=== PATIENT | male | born 1940 | race Hispanic/Latino ===

== ENCOUNTER 2018-05-10 19:30 | Observation (INO) | payer MEDICARE ==
[2018-05-10 19:46] VITALS: BMI 31.9
--- NOTE | 2018-05-10 20:23 | ED PDOC ---
Arrival/HPI - General Chief Complaint: Shortness Of Breath Time Seen by Provider: 05/10/18 19:32 Historian: Patient - History of Present Illness Narrative History of Present Illness (Text): 05/10/18 20:24 78 year old male, with past medical history of ESRD, polycystic kidney disease, Atrial fibrillation, foot ulcer, recent septicemia, presents to the Emergency Department from [facility] complaining of minimally productive today. Patient informs associated mild shortness of breath and subjective fever but denies any other somatic complaints. Patient denies any nausea, vomiting, diarrhea, abdominal pain, chest pain, headache, dizziness, neck pain, back pain or any other complaints. Patient reports he is due for dialysis tomorrow. Time/Duration: 24 hours Symptom Onset: Gradual Symptom Course: Unchanged Activities at Onset: Light Context: Home Past Medical History - Provider Review Nursing Documentation Reviewed: Yes - Cardiac Hx Atrial Fibrillation: Yes Hx Cardiac Arrhythmia: Yes Hx Congestive Heart Failure: Yes Hx Internal Defibrillator: Yes Hx Pacemaker: Yes - Pulmonary Hx Pneumonia: Yes Hx Sleep Apnea: Yes (sleeps with CPAP) - HEENT Hx Deafness: Yes - Renal Hx Renal Disorder: Yes Hx Dialysis: Yes Type of Dialysis Access: R chest wall Hx Renal Failure: Yes - Endocrine/Metabolic Other/Comment: Thyroidectomy - Psychiatric Hx Substance Use: No - Surgical History Hx Thyroidectomy: Yes Other/Comment: nephrectomy - Anesthesia Hx Anesthesia: Yes Hx Anesthesia Reactions: No Family/Social History - Physician Review Nursing Documentation Reviewed: Yes Family/Social History: No Known Family HX Smoking Status: Never Smoked Hx Alcohol Use: No Hx Substance Use: No Allergies/Home Meds Allergies/Adverse Reactions: Allergies No Known Allergies Allergy (Verified 05/10/18 19:46) Home Medications: Home Meds Medication Instructions Recorded Confirmed Acetaminophen [Acetaminophen 8 650 mg PO Q6 PRN 05/10/18 05/10/18 Hour] Aspirin [Adult Aspirin] 81 mg PO DAILY 05/10/18 05/10/18 B Complex W-C No.20/Folic Acid 1 mg PO DAILY 05/10/18 05/10/18 [Nephrocaps Softgel] Benzonatate [Tessalon Perles] 100 mg PO BID 05/10/18 05/10/18 Bisacodyl [Ducolax] 10 mg RC HS PRN 05/10/18 05/10/18 Colchicine [Mitigare] 0.6 mg PO TTS 05/10/18 05/10/18 Collagenase [Santyl] 250 unit TP DAILY 05/10/18 05/10/18 Docusate [Colace] 100 mg PO BID 05/10/18 05/10/18 HYDROmorphone [Dilaudid] 4 mg PO TID 05/10/18 05/10/18 Hydromorphone HCl [Dilaudid] 4 mg PO Q6 PRN 05/10/18 05/10/18 Lactulose [Generlac] 10 gm PO Q8 PRN 05/10/18 05/10/18 Levothyroxine [Synthroid] 2 tab PO MWF 05/10/18 05/10/18 Polyethylene Glycol 3350 [Miralax] 30 ml PO DAILY PRN 05/10/18 05/10/18 Protein Hydrolysate,Milk [Liquid 30 ml PO BID 05/10/18 05/10/18 Protein Fortifier] RX: Albuterol Sulfate 2.5 mg IH Q4 PRN 05/10/18 05/10/18 RX: Amiodarone HCl 200 mg PO DAILY 05/10/18 05/10/18 RX: Hydrocortisone 2.5% 2.5 g TP BID PRN 05/10/18 05/10/18 RX: Midodrine HCl 10 mg PO DAILY 05/10/18 05/10/18 Sevelamer [Renagel] 800 mg PO DAILY 05/10/18 05/10/18 Tamsulosin HCl [Flomax] 0.4 mg PO DAILY 05/10/18 05/10/18 Temazepam [Restoril] 15 mg PO HS 05/10/18 05/10/18 Turmeric Root Extract [Turmeric] 500 mg PO BID 05/10/18 05/10/18 Venlafaxine [Effexor-XR] 37.5 mg PO DAILY 05/10/18 05/10/18 predniSONE [Prednisone] 10 mg PO DAILY 05/10/18 05/10/18 Review of Systems - Physician Review All systems were reviewed & negative as marked: Yes - Review of Systems Constitutional: Fevers Respiratory: SOB, Cough Cardiovascular: absent: Chest Pain Gastrointestinal: absent: Abdominal Pain, Diarrhea, Nausea, Vomiting Musculoskeletal: absent: Back Pain, Neck Pain Neurological: absent: Headache, Dizziness Physical Exam Vital Signs Reviewed: Yes Vital Signs Temp Pulse Resp BP Pulse Ox 05/10/18 19:46 98.1 F 65 20 105/61 97 Temperature: Afebrile Blood Pressure: Normal Pulse: Regular Respiratory Rate: Normal Appearance: Positive for: Well-Appearing, Non-Toxic, Comfortable Pain Distress: None Mental Status: Positive for: Alert and Oriented X 3 - Systems Exam Head: Present: Atraumatic, Normocephalic Pupils: Present: PERRL Extroacular Muscles: Present: EOMI Conjunctiva: Present: Normal Mouth: Present: Moist Mucous Membranes Neck: Present: Normal Range of Motion Respiratory/Chest: Present: Good Air Exchange, Rhonchi (scattered rhonchi bilaterally ). No: Respiratory Distress, Accessory Muscle Use Cardiovascular: Present: Normal S1, S2, Irregular Rhythm. No: Murmurs Abdomen: Present: Other (Globus abdomen). No: Tenderness, Distention, Peritoneal Signs Back: Present: Normal Inspection Upper Extremity: Present: Normal Inspection. No: Cyanosis, Edema Lower Extremity: Present: Other (Venous stasis chnages bilaterally. Ulcer noted to right ankle.). No: Edema, Cyanosis Neurological: Present: GCS=15, CN II-XII Intact, Speech Normal Skin: Present: Warm, Dry, Normal Color. No: Rashes Psychiatric: Present: Alert, Oriented x 3, Normal Insight, Normal Concentration Medical Decision Making ED Course and Treatment: 05/10/18 20:16 Impression: 78 year old male presents to the Emergency Department complaining of minimally productive cough, mild shortness of breath and subjective fever. Plan: -- VBG -- EKG -- Labs -- Chest X-ray -- Blood Culture -- Urinalysis -- Reassess and disposition Prior Visits: Notes and results from previous visits were reviewed. Progress Notes: 05/10/18 20:10 EKG: Ordered, reviewed, and independently interpreted the EKG. Interpretation : 100% paced rhythm. 05/10/18 20:41: Chest X-ray read and interpreted by me shows right lower lobe infiltrate. 05/10/18 22:06: Case discussed in detail with Dr. Coyle. Requests patient be admitted to the hospitalist's service. Discussed case with biomedical engineer and house physician who accept the patient to the hospitalist's service. 05/10/18 22:21: Case discussed in detail with biomedical engineer. 05/10/18 22:30: Case discussed in detail with Dr. Dye who accepts patient to the hospitalist's service. - RAD Interpretation Radiology Orders: 05/10/18 20:16 CHEST PORTABLE [RAD] Stat - Scribe Statement The provider has reviewed the documentation as recorded by the Scribe Flower Salvador. All medical record entries made by the Scribe were at my direction and personally dictated by me. I have reviewed the chart and agree that the record accurately reflects my personal performance of the history, physical exam, medical decision making, and the department course for this patient. I have also personally directed, reviewed, and agree with the discharge instructions and disposition. Disposition/Present on Arrival - Present on Arrival Any Indicators Present on Arrival: No History of DVT/PE: No History of Uncontrolled Diabetes: No Urinary Catheter: No History of Decub. Ulcer: Yes History Surgical Site Infection Following: None - Disposition Have Diagnosis and Disposition been Completed?: Yes Diagnosis: ESRD (end stage renal disease), Pneumonia Disposition: HOSPITALIZED Disposition Time: 22:11 Patient Problems: Current Active Problems Problem Status Onset ESRD (end stage renal disease) Acute Pneumonia Acute Condition: STABLE
[2018-05-10 20:34] LABS: VENOUS BLOOD GAS BASE EXCESS -0.5 mmol/L (0.0-2.0); VENOUS BLOOD GAS PO2 58 mm/Hg (30-55); VENOUS BLOOD PH 7.32 (7.32-7.43)
[2018-05-10 20:35] LABS: HEMOGLOBIN 11.1 g/dL (14.0-18.0); MEAN CELL VOLUME 89.5 fl (80.0-105.0); MEAN CORPUSCULAR HEMOGLOBIN 28.5 pg (25.0-35.0); MEAN CORPUSCULAR HGB CONC 31.9 g/dl (31.0-37.0); MEAN PLATELET VOLUME 10.9 fl (7.0-11.0); RBC 3.89 10^6/uL (3.5-6.1); RED CELL DISTRIBUTION WIDTH 18.1 % (11.5-14.5); WHITE BLOOD COUNT 11.1 10^3/ul (4.5-11.0)
[2018-05-10] MEDS ORDERED: Cefepime (Maxipime) 1 g Inj IVPB ONE (20:53)
[2018-05-10] MEDS ORDERED: Cefepime 1gm in NS 100ml 1 GM/100 ML BAG IVPB STA (20:56)
[2018-05-10] MEDS ORDERED: Vancomycin 1 gm/D5W 200 ml 200 ML IV STA (20:56)
[2018-05-10] MEDS ORDERED: Vancomycin 1gm in NS 250ml 1 GM/250 ML BAG IVPB STA (20:58)
[2018-05-10 21:04] LABS: INR 1.26; PARTIAL THROMBOPLASTIN TIME 30.8 Seconds (25.1-36.5); PROTHROMBIN TIME 14.4 SECONDS (9.4-12.5)
[2018-05-10 21:11] LABS: ALB/GLOB RATIO 1.1 (1.1-1.8); ALBUMIN 3.7 g/dL (3.0-4.8); CALCIUM 8.7 mg/dL (8.4-10.5)
[2018-05-10 21:23] LABS: TROPONIN I 0.08 ng/mL
--- NOTE | 2018-05-10 23:29 | CP.PCM.HP ---
Addendum entered and electronically signed by Anastacia Garcia DO 05/11/18 02:16: Pt does not use O2 at home. He only uses O2 in dialysis Original Note: <JoseAnastacia - Last Filed: 05/11/18 02:06> History of Present Illness - History of Present Illness History of Present Illness: PGY-[address] Dye CC: Worsening coughs, PNA Dr Morales, 78 M, with PMHx of A-fib not on AC, Systolic CHF with EF22%/AICD, ESRD (MWF), polycystic kidney disease, foot ulcer, recent septicemia, came from [facility] complaining of productive cough with yellowish sputum x 1 day. He had cough x 2 weeks, dry cough at first, later with sputum, hard to produce. (+) mild shortness of breath. (+) subjective fever. Denies any nausea, vomiting, diarrhea, abdominal pain, chest pain, headache, dizziness, neck pain, back pain or any other complaints. In the ED, VSS WBC 11, BUN/Cre 44/5.1, lactate 1.9 BNP [id number] EKG: paced rhythm. CXR: R lower lobe infiltrate. 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: Dr Coyle Present on Admission - Present on Admission Any Indicators Present on Admission: Yes Decubitus Ulcer Present: Yes Decubitus Ulcer Stage: II Past Patient History - Past Social History Smoking Status: Never Smoked - CARDIAC Hx Atrial Fibrillation: Yes Hx Cardia Arrhythmia: Yes Hx Congestive Heart Failure: Yes Hx Internal Defibrillator: Yes Hx Pacemaker: Yes - PULMONARY Hx Pneumonia: Yes Hx Sleep Apnea: Yes (sleeps with CPAP) - HEENT Hx Deafness: Yes - RENAL Hx Chronic Kidney Disease: Yes Hx Dialysis: Yes Type of Dialysis Access: R chest wall Hx Renal Failure: Yes - ENDOCRINE/METABOLIC Other/Comment: Thyroidectomy - PSYCHIATRIC Hx Substance Use: No - SURGICAL HISTORY Hx Thyroidectomy: Yes Other/Comment: nephrectomy - ANESTHESIA Hx Anesthesia: Yes Hx Anesthesia Reactions: No Meds Allergies/Adverse Reactions: Allergies Allergy/AdvReac Type Severity Reaction Status Date / Time No Known Allergies Allergy Verified 05/11/18 07:56 Physical Exam - Constitutional Appears: No Acute Distress - Head Exam Head Exam: ATRAUMATIC, NORMAL INSPECTION, NORMOCEPHALIC - Eye Exam Eye Exam: EOMI, Normal appearance, PERRL. absent: Scleral icterus Pupil Exam: NORMAL ACCOMODATION - ENT Exam ENT Exam: Mucous Membranes Moist - Neck Exam Neck exam: Negative for: Lymphadenopathy, Tenderness, Thyromegaly Additional comments: supple - Respiratory Exam Respiratory Exam: Decreased Breath Sounds (R lower lobe), Rhonchi, NORMAL BREATHING PATTERN. absent: Rales, Wheezes - Cardiovascular Exam Cardiovascular Exam: REGULAR RHYTHM, +S1, +S2 - GI/Abdominal Exam GI & Abdominal Exam: Distended, Normal Bowel Sounds, Soft. absent: Firm, Guarding, Rigid, Tenderness - Extremities Exam Extremities exam: Positive for: pedal edema. Negative for: calf tenderness Additional comments: R foot in dressing L foot edema, cap refill = 2s - Back Exam Back exam: absent: CVA tenderness (L), CVA tenderness (R), paraspinal tenderness Additional comments: Stage 2 mid-sacral ulcer 2inch x 3 inch erythema - Neurological Exam Neurological exam: Alert, CN II-XII Intact, Oriented x3 Additional comments: move all extremities equally motor 5/5 sensory grossly intact - Psychiatric Exam Psychiatric exam: Normal Affect, Normal Mood - Skin Skin Exam: Dry, Warm Results - Vital Signs Recent Vital Signs: Last Vital Signs Temp 98.0 F 05/10/18 20:27 Pulse 72 05/10/18 23:01 Resp 17 05/10/18 23:01 BP 104/61 05/10/18 23:01 Pulse Ox 99 05/10/18 23:01 - Labs Result Diagrams: 05/10/18 20:00 05/10/18 20:51 Labs: Laboratory Results - last 24 hr 05/10/18 05/10/18 05/10/18 20:00 20:26 20:51 WBC 11.1 H RBC 3.89 Hgb 11.1 L Hct 34.8 L MCV 89.5 MCH 28.5 MCHC 31.9 RDW 18.1 H Plt Count 125 MPV 10.9 PT 14.4 H INR 1.26 APTT 30.8 pO2 58 H VBG pH 7.32 VBG pCO2 51.0 VBG HCO3 26.3 VBG Total CO2 27.9 VBG O2 Sat (Calc) 89.7 H VBG Base Excess -0.5 L VBG Potassium 6.9 H* Sodium 127.0 L Chloride 95.0 L Glucose 106 Lactate 1.9 FiO2 21.0 Potassium Carbon Dioxide Anion Gap BUN Creatinine Est GFR ( Amer) Est GFR (Non-Af Amer) Random Glucose Calcium Total Bilirubin AST ALT Alkaline Phosphatase Lactate Dehydrogenase Total Creatine Kinase Troponin I NT-Pro-B Natriuret Pep Total Protein Albumin Globulin Albumin/Globulin Ratio Venous Blood Potassium 6.9 H* 05/10/18 20:51 WBC RBC Hgb Hct MCV MCH MCHC RDW Plt Count MPV PT INR APTT pO2 VBG pH VBG pCO2 VBG HCO3 VBG Total CO2 VBG O2 Sat (Calc) VBG Base Excess VBG Potassium Sodium 133 Chloride 94 L Glucose Lactate FiO2 Potassium 4.2 Carbon Dioxide 24 Anion Gap 19 BUN 44 H Creatinine 5.1 H Est GFR ( Amer) 13 Est GFR (Non-Af Amer) 11 Random Glucose 99 Calcium 8.7 Total Bilirubin 0.9 AST 22 ALT 33 Alkaline Phosphatase 113 Lactate Dehydrogenase 329 L Total Creatine Kinase 35 Troponin I 0.08 NT-Pro-B Natriuret Pep [id number] H Total Protein 7.0 Albumin 3.7 Globulin 3.2 Albumin/Globulin Ratio 1.1 Venous Blood Potassium Assessment & Plan - Assessment and Plan (Free Text) Plan: Dr Morales, 78 M, with PMHx of A-fib not on AC, Systolic CHF with EF22%/AICD, ESRD (MWF), polycystic kidney disease, foot ulcer, recent septicemia, came from [facility] complaining of productive cough with yellowish sputum x 1 day. VSS, WBC 11, lactate 1.9, BNP [id number]. CXR: R lower lobe infiltrate. Healthcare associated pneumonia, RLL Bronchitis - cefepime 1g daily (renal dose), s/p vancomycin x 1 - Duoneb PRN - continue taper steroid - expectorant - ID consult Elevated BNP with Hx systolic CHF - dialysis to remove water For ESRD - HD MWF, O2 as needed during HD, nephrology consult, renal diet, r enagel, nephro-vitamins, midodrine to maintain BP in HD For A fib - It is controlled. continue ASA, amiodarone. [id number] score is 5. Patient is willing to start low dose warfarin but worries about frequent lab visit. Pt also worries about about the carter of newer anticoagulant. Pt just moved here to [place], so no lithopone charger established yet. For BPH - Continue flomax Leg ulcer likely due to PAD - podiatry consult Sacral ulcer - wound care consult, turn q2, air mattress. protein shake For insomnia - convert restoril to xanax 0.25 HS PRN For hypothyroid - continue synthroid For chronic back pain - continue home dilaudid WILLIAN and PRN. Continue laxatives For mood - continue venlafaxine For Hx gout - continue colchicine Prophylaxis - heparin SC. Low risk for GI stress ulcer. s/r/d/w Dr Dye <Nadira Dye - Last Filed: 05/12/18 21:29> Results - Vital Signs Recent Vital Signs: Last Vital Signs Temp 98.4 F 05/12/18 17:22 Pulse 65 05/12/18 17:22 Resp 20 05/12/18 17:22 BP 113/73 05/12/18 17:22 Pulse Ox 97 05/12/18 17:22 - Labs Result Diagrams: 05/12/18 07:30 05/12/18 07:30 Labs: Laboratory Results - last 24 hr 05/12/18 05/12/18 05/12/18 07:00 07:30 07:30 WBC 9.5 RBC 4.27 Hgb 12.1 L Hct 38.6 L MCV 90.4 MCH 28.3 MCHC 31.3 RDW 18.2 H Plt Count 99 L MPV 11.0 Gran % 79.1 H Lymph % (Auto) 9.3 L [place] % (Auto) 9.0 H Eos % (Auto) 2.3 Baso % (Auto) 0.3 Gran # 7.48 H Lymph # (Auto) 0.9 L [place] # (Auto) 0.9 H Eos # (Auto) 0.2 Baso # (Auto) 0.03 Sodium 135 Potassium 4.2 Chloride 94 L Carbon Dioxide 27 Anion Gap 18 BUN 44 H Creatinine 4.6 H Est GFR ( Amer) 15 Est GFR (Non-Af Amer) 12 Random Glucose 91 Calcium 8.7 Phosphorus 4.4 Procalcitonin 0.12 L Attending/Attestation - Attestation I have personally seen and examined this patient.: Yes I have fully participated in the care of the patient.: Yes I have reviewed all pertinent clinical information: Yes Notes (Text): 05/12/18 21:28 Agree with history , physical examination, assessment and plan.
[2018-05-11] MEDS ORDERED: Albuterol-Ipratrop 3 mg / 0.5 (3 ml) UD IH PRN (00:37)
[2018-05-11] MEDS ORDERED: POLYETHYLENE GLYCOL 3350 17 GM/Dose PACKET PO PRN (00:48)
[2018-05-11 07:15] LABS: BASO # 0.02 K/mm3 (0.0-2.0); BASO % 0.2 % (0.0-3.0); EOS # 0.2 (0.0-0.7); GRAN # 10.07 (1.4-6.5); GRAN % 85.2 % (50.0-68.0); HEMOGLOBIN 11.3 g/dL (14.0-18.0); LYMPH # 0.9 (1.2-3.4); LYMPH % 7.5 % (22.0-35.0); MEAN CELL VOLUME 89.8 fl (80.0-105.0); MEAN CORPUSCULAR HEMOGLOBIN 28.2 pg (25.0-35.0); MEAN CORPUSCULAR HGB CONC 31.4 g/dl (31.0-37.0); MEAN PLATELET VOLUME 11.3 fl (7.0-11.0); MONO # 0.6 (0.1-0.6); MONO % 5.1 % (1.0-6.0); RBC 4.01 10^6/uL (3.5-6.1); RED CELL DISTRIBUTION WIDTH 17.8 % (11.5-14.5); WHITE BLOOD COUNT 11.8 10^3/ul (4.5-11.0)
--- NOTE | 2018-05-11 08:12 | RAD ---
Date of service: 05/10/2018 HISTORY: sob COMPARISON: No prior. FINDINGS: LUNGS: In AICD/permanent pacemaker is identified placed with generator at the left pectoralis region and multiple leads extending to the region of the heart by way of a left subclavian approach. Further, a total right central venous dialysis catheter is in position with the tips terminating at the cavoatrial junction by way of a right internal jugular approach. Cardiomegaly is identified. Borderline pulmonary vascular congestion. Limited left basilar airspace disease obscures left hemidiaphragm with no right-sided airspace disease appreciated. PLEURA: No right pleural effusion or pneumothorax bilaterally. Trace up effusion not excluded. CARDIOVASCULAR: Normal. OSSEOUS STRUCTURES: No significant abnormalities. VISUALIZED UPPER ABDOMEN: Normal. OTHER FINDINGS: None. IMPRESSION: Limited left basilar airspace disease in question as well as potential small pleural effusion. Cardiomegaly identified with mild pulmonary vascular congestion.
[2018-05-11] MEDS ORDERED: Levothyroxine 100 MCG TAB PO SCH (10:00)
--- NOTE | 2018-05-11 10:09 | CARD ---
APPROVED REPORT Date of service: 05/10/2018 EKG Measurement Heart [id number] <Conclusion> Electronic ventricular pacemaker: 1005 VNicky Iniguez
[2018-05-11] MEDS: Venlafaxine 37.5 mg ER Cap PO SCH (12:31)
[2018-05-11] MEDS: guaiFENesin 600 mg ER Tab PO SCH ×2 (12:32→17:00)
[2018-05-11] MEDS: Multivitamin Vitamin B Complex (Nephro-Vite) Tab PO SCH (12:32)
--- NOTE | 2018-05-11 13:06 | CP.PCM.PN ---
<Sourav Tesfaye - Last Filed: 05/11/18 16:27> Subjective - Date & Time of Evaluation Date of Evaluation: 05/11/18 Time of Evaluation: 07:45 - Subjective Subjective: Sourav Tesfaye DO PGY-1, Internal Medicine Resident. Hospitalist Progress Note Patient seen and examined at bedside. Patient is resting in bed, awake and oriented. Complaining of difficulty breathing with wheezes and cough, unable to produce sputum but feels chest congestion. He is on O2 NC. Patient denied palpitations, headache, change in bowel movement, N/V/D Objective - Vital Signs/Intake and Output Vital Signs (last 24 hours): Temp Pulse Resp BP Pulse Ox 97.8 F 71 20 126/81 100 05/11/18 06:00 05/11/18 12:27 05/11/18 06:00 05/11/18 12:27 05/11/18 06:00 Intake and Output: 05/11/18 05/11/18 06:59 18:59 Intake Total 0 Balance 0 - Medications Medications: Current Medications Albuterol/Ipratropium (Duoneb 3 Mg/0.5 Mg (3 Ml) Ud) 3 ml IH [id number] PRN PRN Reason: Shortness of Breath Alprazolam (Xanax) 0.25 mg PO HS PRN; Protocol PRN Reason: Insomnia Stop: 05/18/18 22:01 Amiodarone HCl (Cordarone) 200 mg PO DAILY COUNTS INCLUDE 234 BEDS AT [facility] Last Admin: 05/11/18 12:27 Dose: 200 mg Aspirin (Ecotrin) 81 mg PO DAILY COUNTS INCLUDE 234 BEDS AT THE [facility] Last Admin: 05/11/18 12:31 Dose: 81 mg Bisacodyl (Dulcolax) 10 mg RC HS PRN PRN Reason: Constipation Colchicine (Colocrys) 0.6 mg PO TTS COUNTS INCLUDE 234 BEDS AT THE [facility] Docusate Sodium (Colace) 100 mg PO BID COUNTS INCLUDE 234 BEDS AT THE [facility] Last Admin: 05/11/18 12:27 Dose: 100 mg Guaifenesin (Mucinex La) 600 mg PO BID COUNTS INCLUDE 234 BEDS AT THE [facility] Last Admin: 05/11/18 12:32 Dose: 600 mg Heparin Sodium (Porcine) (Heparin) 5,000 units SC Q8 COUNTS INCLUDE 234 BEDS AT THE [facility]; Protocol Last Admin: 05/11/18 06:35 Dose: 5,000 units Hydromorphone HCl (Dilaudid) 4 mg PO TID COUNTS INCLUDE 234 BEDS AT THE [facility] Last Admin: 05/11/18 12:31 Dose: 4 mg Hydromorphone HCl (Dilaudid) 4 mg PO Q6 PRN PRN Reason: Pain, moderate (4-7) Levothyroxine Sodium (Synthroid) 200 mcg PO MWF COUNTS INCLUDE 234 BEDS AT THE [facility] Last Admin: 05/11/18 12:33 Dose: 200 mcg Midodrine (Proamatine) 10 mg PO DAILY COUNTS INCLUDE 234 BEDS AT THE [facility] Last Admin: 05/11/18 12:32 Dose: 10 mg Polyethylene Glycol (Miralax) 17 gm PO DAILY PRN PRN Reason: Constipation Prednisone (Prednisone Tab) 10 mg PO DAILY COUNTS INCLUDE 234 BEDS AT THE [facility] Last Admin: 05/11/18 12:32 Dose: 10 mg Sevelamer HCl (Renagel) 800 mg PO DAILY COUNTS INCLUDE 234 BEDS AT THE [facility] Last Admin: 05/11/18 12:33 Dose: 800 mg Tamsulosin HCl (Flomax) 0.4 mg PO DAILY COUNTS INCLUDE 234 BEDS AT THE [facility] Last Admin: 05/11/18 12:32 Dose: 0.4 mg Venlafaxine HCl (Effexor Xr) 37.5 mg PO DAILY COUNTS INCLUDE 234 BEDS AT THE [facility] Last Admin: 05/11/18 12:31 Dose: 37.5 mg Vitamin B Complex/Vit C/Folic Acid (Nephro-Judah) 1 tab PO DAILY COUNTS INCLUDE 234 BEDS AT THE [facility] Last Admin: 05/11/18 12:32 Dose: 1 tab - Labs Labs: 05/11/18 06:30 05/11/18 06:30 PT 14.4 SECONDS (9.4-12.5) H 05/10/18 20:51 INR 1.26 05/10/18 20:51 APTT 30.8 Seconds (25.1-36.5) 05/10/18 20:51 - Constitutional Appears: Well, No Acute Distress - Head Exam Head Exam: ATRAUMATIC, NORMOCEPHALIC - Eye Exam Eye Exam: Normal appearance, PERRL Pupil Exam: NORMAL ACCOMODATION - ENT Exam ENT Exam: Mucous Membranes Moist, Normal Oropharynx - Neck Exam Neck Exam: Full ROM, Normal Inspection - Respiratory Exam Respiratory Exam: Decreased Breath Sounds, Wheezes - Cardiovascular Exam Cardiovascular Exam: Irregular Rhythm, +S1, +S2 - GI/Abdominal Exam GI & Abdominal Exam: Distended, Soft, Normal Bowel Sounds. absent: Tenderness - Extremities Exam Additional comments: b/l LL edema, skin changes, right foot ulcer - Neurological Exam Neurological Exam: Alert, Awake, CN II-XII Intact, Oriented x3 - Psychiatric Exam Psychiatric exam: Normal Affect, Normal Mood - Skin Additional comments: right lower leg ulcer sacral ulcer Assessment and Plan - Assessment and Plan (Free Text) Assessment: 78 y/o male with PMH of A-fib (not on AC), Systolic CHF with EF22%/AICD, ESRD (MWF), polycystic kidney disease, foot ulcer, recent septicemia presents with cough x10 days .In ED WBC 11, lactate 1.9, BNP 116438. CXR: R lower lobe infiltrate. Patient admitted for PNA and CHF Plan: Cough/shortness of breath likely due to PNA vs CHF exacerbation CXR: R lower lobe infiltrate continue cefepime 1gm continue Duoneb malvin and prn supp O2 prn prolcal ordered prednisone 10 mg PO daily ID consulted : continue cefepime CHF systolic CHF, recent EF 22% BNP [id number] AICD placed Echo ordered H/O A fib controlled. not on anticoagulants continue ASA, amiodarone [id number] score is 5 R lower leg ulcer likely due to PAD podiatry consulted ESRD on HD MWF continue home med renagel, nephro-vitamins, continue midodrine to maintain BP in HD nephrology consult Sacral ulcer wound care consult turn q2h air mattress Hypothyroid continue synthroid Chronic back pain h/o L4 fracture continue home dilaudid MALVIN and PRN. BPH continue flomax Insomnia xanax 0.25 HS prn Mood disorder continue venlafaxine H/O gout continue colchicine Prophylaxis DVT ppx: heparin renal diet OT PT eval/treat Case reviewed and plan discussed with attending physician Dr Vogt <Ekaterina Vogt R - Last Filed: 05/14/18 18:21> Objective - Vital Signs/Intake and Output Vital Signs (last 24 hours): Temp Pulse Resp BP Pulse Ox 98.4 F 65 20 113/73 97 05/12/18 17:22 05/12/18 17:22 05/12/18 17:22 05/12/18 17:22 05/12/18 17:22 - Labs Labs: 05/12/18 07:30 05/12/18 07:30 PT 14.4 SECONDS (9.4-12.5) H 05/10/18 20:51 INR 1.26 05/10/18 20:51 APTT 30.8 Seconds (25.1-36.5) 05/10/18 20:51 Attending/Attestation - Attestation I have personally seen and examined this patient.: Yes I have fully participated in the care of the patient.: Yes I have reviewed all pertinent clinical information, including history, physical exam and plan: Yes Notes (Text): Patient seen and examined by me at 12 PM with resident 05/11/18. Case including HPI, physical exam, andassessment and plan discussed with resident. Agree with above with following additions/corrections. Patient is a 78 year old male with past medical history significant for atrial fibrillation not on anticoagulation, chronic systolic CHF s/p ICD, ESRD on HD, polycystic kidney disease, chronic foot ulcer, and septicemia that presented with worsening cough. Patient states he is feeling much better. States cough has improved. Patient states he has to go home tomorrow. He denies any shortness of breath. No chest pain or palpitations. No nausea, vomiting, or abdominal pain. No fevers or chills. No diarrhea or constipation. Physical exam: General: Awake and alert lying in bed in no acute distress HEENT: Normocephalic atraumatic. Pupils equal reactive. No scleral icterus. Oropharynx is pink and moist. No pharyngeal erythema or exudate appreciated. Neck is supple. Cardiovascular: Paced rhythm. Normal S1, S2. No murmurs, rubs or gallops appreciated Pulmonary: Normal respiratory effort. Decreased breath sounds. No rhonchi, rales or wheezing appreciated. Gastrointestinal: Soft, nondistended. Nontender. Positive bowel sounds all 4 quadrants, no guarding. Musculoskeletal: Moves all extremities, no calf tenderness.Positive bilateral lower extremity venous stasis color changes and edema, chronic right foot wound Central nervous system: AAOx3, CN2-12 grossly intact Dermatologic: Skin warm and dry. Assessment and plan: Patient is a 78 year old male with past medical history significant for atrial fibrillation not on anticoagulation, chronic systolic CHF s/p ICD, ESRD on HD, polycystic kidney disease, chronic foot ulcer, and septicemia that presented with worsening cough. 1. Cough. Shortness of breath. Likely secondary to systolic CHF exacerbation and fluid overload vs ?pneumonia. Chest xray per radiologist showed limited left basilar airspace disease in question as well as potential small pleural effusion, cardiomegaly with mild pulmonary vascular congestion. Continue nebulizer treatments. Cardiology following, recommendations appreciated. 2d echo per carpentry teacher showed left ventricle is normal size, moderate concentric left ventricular hypertrophy, systolic function is moderately impaired, no left ventricle thrombus, moderate pulmonary hypertension (please see official read for full details). Continue dialysis per Nephrology. Continue Cefepime. IVELISSE hopkins, recommendations appreciated 2. Acute on chronic systolic CHF exacerbation. Cardiology following, recommendations appreciated. Continue dialysis. S/P AICD 3. Right lower extremity ulcer. PAD. Podiatry following, recommendations appreciated. ID following, recommendations appreciated. Right foot xray per radiologist shows soft tissue findings/deep ulcer adjacent to the insert of Achilles tendon without evidence of acute osteomyelitis. 4. History of a-fib. Patient is not on anticoagulation. Discussed with patient and patient states I do not want to be bothered with blood thinners. Risks of not being on anticoagulation discussed at length with patient. Patient states he does not want to be on anticoagulation. Continue ASA and amiodarone. 5. ESRD on HD. Continue dialysis per equine intern 6. Chronic back pain. Continue with home pain medications. 7. Hypothyroidism. Continue synthroid 8. History of gout. Continue Colchicine. 9. Depression and anxiety. Continue Xanax and venlafaxine. Case was discussed in detail with the patient regarding current diagnosis and treatment plan.
[2018-05-11] MEDS: Albuterol-Ipratrop 3 mg / 0.5 (3 ml) UD IH SCH ×2 (15:39→20:00)
--- NOTE | 2018-05-11 15:49 | CP.PCM.CON ---
History of Present Illness - History of Present Illness History of Present Illness: Infectious Disease Consultation: May 11, 2018 78 yo male with PMHx of A-fib not on anticoagulant, Systolic CHF with EF22%/AICD, ESRD (MWF), polycystic kidney disease, foot ulcer, recent septicemia, came from [facility] complaining of productive cough with yellowish sputum x 1 day. He had cough x 2 weeks, dry cough at first, later with sputum and somewhat productive now as per patient. Mild shortness of breath and subjective fever. Denies any nausea, vomiting, diarrhea, abdominal pain, chest pain, headache, dizziness, neck pain, back pain or any other complaints. Chest X-ray suggests potential RLL pnemonia. Patient still complaining of SOB. 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 No tobacco, EtOH, or illicit drug use Active Medications Albuterol/Ipratropium (Duoneb 3 Mg/0.5 Mg (3 Ml) Ud) 3 ml IH [id number] PRN PRN Reason: Shortness of Breath Albuterol/Ipratropium (Duoneb 3 Mg/0.5 Mg (3 Ml) Ud) 3 ml IH [id number] WILLIAN Alprazolam (Xanax) 0.25 mg PO HS PRN; Protocol PRN Reason: Insomnia Stop: 05/18/18 22:01 Amiodarone HCl (Cordarone) 200 mg PO DAILY [facility] Last Admin: 05/11/18 12:27 Dose: 200 mg Aspirin (Ecotrin) 81 mg PO DAILY [facility] Last Admin: 05/11/18 12:31 Dose: 81 mg Bisacodyl (Dulcolax) 10 mg RC HS PRN PRN Reason: Constipation Colchicine (Colocrys) 0.6 mg PO TTS [facility] Docusate Sodium (Colace) 100 mg PO BID [facility] Last Admin: 05/11/18 12:27 Dose: 100 mg Guaifenesin (Mucinex La) 600 mg PO BID [facility] Last Admin: 05/11/18 12:32 Dose: 600 mg Heparin Sodium (Porcine) (Heparin) 5,000 units SC Q8 [facility]; Protocol Last Admin: 05/11/18 14:02 Dose: 5,000 units Hydromorphone HCl (Dilaudid) 4 mg PO TID [facility] Last Admin: 05/11/18 14:04 Dose: Not Given Hydromorphone HCl (Dilaudid) 4 mg PO Q6 PRN PRN Reason: Pain, moderate (4-7) Levothyroxine Sodium (Synthroid) 200 mcg PO MWF [facility] Last Admin: 05/11/18 12:33 Dose: 200 mcg Midodrine (Proamatine) 10 mg PO TID [facility] Polyethylene Glycol (Miralax) 17 gm PO DAILY PRN PRN Reason: Constipation Prednisone (Prednisone Tab) 10 mg PO DAILY [facility] Last Admin: 05/11/18 12:32 Dose: 10 mg Sevelamer HCl (Renagel) 800 mg PO DAILY [facility] Last Admin: 05/11/18 12:33 Dose: 800 mg Tamsulosin HCl (Flomax) 0.4 mg PO DAILY [facility] Last Admin: 05/11/18 12:32 Dose: 0.4 mg Venlafaxine HCl (Effexor Xr) 37.5 mg PO DAILY [facility] Last Admin: 05/11/18 12:31 Dose: 37.5 mg Vitamin B Complex/Vit C/Folic Acid (Nephro-Judah) 1 tab PO DAILY [facility] Last Admin: 05/11/18 12:32 Dose: 1 tab Family Hx: DM in father ROS: cough productive of sputum, SOB, subjective fever. No chest pain, abdominal pain, melena, hematuria, hematemesis, hematochezia, depression, anxiety, diarrhea, headaches, dizziness, vision loss, hearing loss, loss of consciousness Past Patient History - Past Social History Smoking Status: Never Smoked - CARDIAC Hx Atrial Fibrillation: Yes Hx Cardia Arrhythmia: Yes Hx Congestive Heart Failure: Yes Hx Internal Defibrillator: Yes Hx Pacemaker: Yes - PULMONARY Hx Pneumonia: Yes Hx Sleep Apnea: Yes (sleeps with CPAP) - NEUROLOGICAL Hx Neurological Disorder: No - HEENT Hx Deafness: Yes - RENAL Hx Chronic Kidney Disease: Yes Hx Dialysis: Yes Type of Dialysis Access: R chest wall Hx Renal Failure: Yes - ENDOCRINE/METABOLIC Other/Comment: Thyroidectomy - HEMATOLOGICAL/ONCOLOGICAL Hx Blood Disorders: No - INTEGUMENTARY Hx Dermatological Problems: No - MUSCULOSKELETAL/RHEUMATOLOGICAL Hx Back Pain: Yes Hx Falls: No - PSYCHIATRIC Hx Substance Use: No - SURGICAL HISTORY Hx Thyroidectomy: Yes Other/Comment: nephrectomy - ANESTHESIA Hx Anesthesia: Yes Hx Anesthesia Reactions: No Meds Allergies/Adverse Reactions: Allergies Allergy/AdvReac Type Severity Reaction Status Date / Time No Known Allergies Allergy Verified 05/11/18 07:56 - Medications Medications: Current Medications Albuterol/Ipratropium (Duoneb 3 Mg/0.5 Mg (3 Ml) Ud) 3 ml IH [id number] PRN PRN Reason: Shortness of Breath Albuterol/Ipratropium (Duoneb 3 Mg/0.5 Mg (3 Ml) Ud) 3 ml [facility]H [id number] [facility] Alprazolam (Xanax) 0.25 mg PO HS PRN; Protocol PRN Reason: Insomnia Stop: 05/18/18 22:01 Amiodarone HCl (Cordarone) 200 mg PO DAILY [facility] Last Admin: 05/11/18 12:27 Dose: 200 mg Aspirin (Ecotrin) 81 mg PO DAILY [facility] Last Admin: 05/11/18 12:31 Dose: 81 mg Bisacodyl (Dulcolax) 10 mg RC HS PRN PRN Reason: Constipation Colchicine (Colocrys) 0.6 mg PO TTS [facility] Docusate Sodium (Colace) 100 mg PO BID [facility] Last Admin: 05/11/18 12:27 Dose: 100 mg Guaifenesin (Mucinex La) 600 mg PO BID [facility] Last Admin: 05/11/18 12:32 Dose: 600 mg Heparin Sodium (Porcine) (Heparin) 5,000 units SC Q8 [facility]; Protocol Last Admin: 05/11/18 14:02 Dose: 5,000 units Hydromorphone HCl (Dilaudid) 4 mg PO TID [facility] Last Admin: 05/11/18 14:04 Dose: Not Given Hydromorphone HCl (Dilaudid) 4 mg PO Q6 PRN PRN Reason: Pain, moderate (4-7) Levothyroxine Sodium (Synthroid) 200 mcg PO MWF [facility] Last Admin: 05/11/18 12:33 Dose: 200 mcg Midodrine (Proamatine) 10 mg PO TID [facility] Polyethylene Glycol (Miralax) 17 gm PO DAILY PRN PRN Reason: Constipation Prednisone (Prednisone Tab) 10 mg PO DAILY [facility] Last Admin: 05/11/18 12:32 Dose: 10 mg Sevelamer HCl (Renagel) 800 mg PO DAILY [facility] Last Admin: 05/11/18 12:33 Dose: 800 mg Tamsulosin HCl (Flomax) 0.4 mg PO DAILY [facility] Last Admin: 05/11/18 12:32 Dose: 0.4 mg Venlafaxine HCl (Effexor Xr) 37.5 mg PO DAILY [facility] Last Admin: 05/11/18 12:31 Dose: 37.5 mg Vitamin B Complex/Vit C/Folic Acid (Nephro-Judah) 1 tab PO DAILY [facility] Last Admin: 05/11/18 12:32 Dose: 1 tab Physical Exam - Constitutional Appears: No Acute Distress, Chronically Ill - Head Exam Head Exam: ATRAUMATIC, NORMOCEPHALIC - Eye Exam Eye Exam: EOMI, PERRL Pupil Exam: NORMAL ACCOMODATION, PERRL - ENT Exam ENT Exam: Mucous Membranes Moist, Normal External Ear Exam, TM's Normal Bilaterally - Neck Exam Neck exam: Positive for: Full Rom, Normal Inspection - Respiratory Exam Respiratory Exam: Decreased Breath Sounds, NORMAL BREATHING PATTERN. absent: Rales, Rhonchi Additional comments: basilar crackles. - Cardiovascular Exam Cardiovascular Exam: REGULAR RHYTHM, RRR, +S1, +S2 - GI/Abdominal Exam GI & Abdominal Exam: Distended, Normal Bowel Sounds, Soft. absent: Tenderness - Extremities Exam Extremities exam: Positive for: pedal edema. Negative for: normal inspection Additional comments: Left foot +2 edema Right foot in dressing. - Neurological Exam Neurological exam: Alert, CN II-XII Intact, Oriented x3 - Psychiatric Exam Psychiatric exam: Normal Affect, Normal Mood - Skin Skin Exam: Dry, Warm Results - Vital Signs Recent Vital Signs: Last Vital Signs Temp 97.8 F 05/11/18 06:00 Pulse 71 05/11/18 12:27 Resp 20 05/11/18 06:00 BP 126/81 05/11/18 12:27 Pulse Ox 100 05/11/18 06:00 - Labs Result Diagrams: 05/11/18 06:30 05/11/18 06:30 Labs: Laboratory Results - last 24 hr 05/10/18 05/10/18 05/10/18 20:00 20:26 20:51 WBC 11.1 H RBC 3.89 Hgb 11.1 L Hct 34.8 L MCV 89.5 MCH 28.5 MCHC 31.9 RDW 18.1 H Plt Count 125 MPV 10.9 Gran % Lymph % (Auto) [place] % (Auto) Eos % (Auto) Baso % (Auto) Gran # Lymph # (Auto) [place] # (Auto) Eos # (Auto) Baso # (Auto) PT 14.4 H INR 1.26 APTT 30.8 pO2 58 H VBG pH 7.32 VBG pCO2 51.0 VBG HCO3 26.3 VBG Total CO2 27.9 VBG O2 Sat (Calc) 89.7 H VBG Base Excess -0.5 L VBG Potassium 6.9 H* Sodium 127.0 L Chloride 95.0 L Glucose 106 Lactate 1.9 FiO2 21.0 Potassium Carbon Dioxide Anion Gap BUN Creatinine Est GFR ( Amer) Est GFR (Non-Af Amer) Random Glucose Calcium Total Bilirubin AST ALT Alkaline Phosphatase Lactate Dehydrogenase Total Creatine Kinase Troponin I NT-Pro-B Natriuret Pep Total Protein Albumin Globulin Albumin/Globulin Ratio Venous Blood Potassium 6.9 H* 05/10/18 05/11/18 05/11/18 20:51 06:30 06:30 WBC 11.8 H RBC 4.01 Hgb 11.3 L Hct 36.0 L MCV 89.8 MCH 28.2 MCHC 31.4 RDW 17.8 H Plt Count 114 L MPV 11.3 H Gran % 85.2 H Lymph % (Auto) 7.[address] [place] % (Auto) 5.1 Eos % (Auto) 2.0 Baso % (Auto) 0.2 Gran # 10.07 H Lymph # (Auto) 0.[address] [place] # (Auto) 0.6 Eos # (Auto) 0.2 Baso # (Auto) 0.02 PT INR APTT pO2 VBG pH VBG pCO2 VBG HCO3 VBG Total CO2 VBG O2 Sat (Calc) VBG Base Excess VBG Potassium Sodium 133 134 Chloride 94 L 94 L Glucose Lactate FiO2 Potassium 4.2 4.4 Carbon Dioxide 24 25 Anion Gap 19 19 BUN 44 H 49 H Creatinine 5.1 H 5.5 H Est GFR ( Amer) 13 12 Est GFR (Non-Af Amer) 11 10 Random Glucose 99 99 Calcium 8.7 9.0 Total Bilirubin 0.9 AST 22 ALT 33 Alkaline Phosphatase 113 Lactate Dehydrogenase 329 L Total Creatine Kinase 35 Troponin I 0.08 NT-Pro-B Natriuret Pep 283321 H Total Protein 7.0 Albumin 3.7 Globulin 3.2 Albumin/Globulin Ratio 1.1 Venous Blood Potassium Assessment & Plan - Assessment and Plan (Free Text) Assessment: 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 The patient had a Chest X-ray which could suggest a RLL infiltrate and possibly pneumonia. Patient is from a [facility]. Possible Community Acquired Pneumonia versus exacerbation of CHF. BNP of [id number]. Given Vancomycin 1 dose IV and on Cefepime 1gm daily due to the patient's renal function. Can continue with Cefepime for now. Can obtain procalcitonin to help as a marker for pneumonia. A low procalcitonin value would lower suspicion for a pneumonia. Thank you for allowing me to participate in the care of the patient, we will follow with you.
--- NOTE | 2018-05-11 18:34 | CP.PCM.CON ---
History of Present Illness - History of Present Illness History of Present Illness: Poditry consult note for attending Dr. Fowler: 78 y/o male with PMH of A-fib, Systolic CHF, ESRD (MWF), polycystic kidney disease, foot ulcer, recent septicemia, PAD, JOSE, Chronic back pain, Adrenal tumor seen and evaluated at the bed side for right heel ulcer. 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 He states that the ulcer is dressed using santyl cream and DSD. Patient states that he has onlymild pain at the ulcer site. Patient states that he can't recall how the ulcer started. He states that he is bed ridden. Patient states that he was admitted recently because he had septicemia. Patient states that he is leaving the hospital tomorrow to subacute rehab. Patient denies any other pedal complaint at that time. Patient denies any recent F/N/V/C or SOB. PMH:A-fib, Systolic CHF, ESRD (MWF), polycystic kidney disease, foot ulcer, recent septicemia, PAD, JOSE, Chronic back pain, Adrenal tumor PSH: AICD placement, Right chest wall dialysis, thyroidectomy, Right nephrectomy Allergies: NKDA Social Hx: Denies tobacco, EtOH, or illicit drug use Review of Systems - Review of Systems Review of Systems: As per HPI Past Patient History - Past Social History Smoking Status: Never Smoked - CARDIAC Hx Atrial Fibrillation: Yes Hx Cardia Arrhythmia: Yes Hx Congestive Heart Failure: Yes Hx Internal Defibrillator: Yes Hx Pacemaker: Yes - PULMONARY Hx Pneumonia: Yes Hx Sleep Apnea: Yes (sleeps with CPAP) - NEUROLOGICAL Hx Neurological Disorder: No - HEENT Hx Deafness: Yes - RENAL Hx Chronic Kidney Disease: Yes Hx Dialysis: Yes Type of Dialysis Access: R chest wall Hx Renal Failure: Yes - ENDOCRINE/METABOLIC Other/Comment: Thyroidectomy - HEMATOLOGICAL/ONCOLOGICAL Hx Blood Disorders: No - INTEGUMENTARY Hx Dermatological Problems: No - MUSCULOSKELETAL/RHEUMATOLOGICAL Hx Back Pain: Yes Hx Falls: No - PSYCHIATRIC Hx Substance Use: No - SURGICAL HISTORY Hx Thyroidectomy: Yes Other/Comment: nephrectomy - ANESTHESIA Hx Anesthesia: Yes Hx Anesthesia Reactions: No Meds Allergies/Adverse Reactions: Allergies Allergy/AdvReac Type Severity Reaction Status Date / Time No Known Allergies Allergy Verified 05/11/18 07:56 - Medications Medications: Current Medications Albuterol/Ipratropium (Duoneb 3 Mg/0.5 Mg (3 Ml) Ud) 3 ml IH [id number] PRN PRN Reason: Shortness of Breath Albuterol/Ipratropium (Duoneb 3 Mg/0.5 Mg (3 Ml) Ud) 3 ml IH [id number] [facility] Last Admin: 05/11/18 15:39 Dose: 3 ml Alprazolam (Xanax) 0.25 mg PO HS PRN; Protocol PRN Reason: Insomnia Stop: 05/18/18 22:01 Amiodarone HCl (Cordarone) 200 mg PO DAILY [facility] Last Admin: 05/11/18 12:27 Dose: 200 mg Aspirin (Ecotrin) 81 mg PO DAILY [facility] Last Admin: 05/11/18 12:31 Dose: 81 mg Bisacodyl (Dulcolax) 10 mg RC HS PRN PRN Reason: Constipation Colchicine (Colocrys) 0.6 mg PO TTS [facility] Collagenase (Santyl) 0 gm EXT DAILY [facility] Docusate Sodium (Colace) 100 mg PO BID [facility] Last Admin: 05/11/18 16:59 Dose: 100 mg Guaifenesin (Mucinex La) 600 mg PO BID [facility] Last Admin: 05/11/18 17:00 Dose: 600 mg Heparin Sodium (Porcine) (Heparin) 5,000 units SC Q8 [facility]; Protocol Last Admin: 05/11/18 14:02 Dose: 5,000 units Hydromorphone HCl (Dilaudid) 4 mg PO TID [facility] Last Admin: 05/11/18 17:00 Dose: 4 mg Hydromorphone HCl (Dilaudid) 4 mg PO Q6 PRN PRN Reason: Pain, moderate (4-7) Levothyroxine Sodium (Synthroid) 200 mcg PO MWF [facility] Last Admin: 05/11/18 12:33 Dose: 200 mcg Midodrine (Proamatine) 10 mg PO TID [facility] Last Admin: 05/11/18 17:01 Dose: 10 mg Polyethylene Glycol (Miralax) 17 gm PO DAILY PRN PRN Reason: Constipation Prednisone (Prednisone Tab) 10 mg PO DAILY [facility] Last Admin: 05/11/18 12:32 Dose: 10 mg Sevelamer HCl (Renagel) 800 mg PO DAILY [facility] Last Admin: 05/11/18 12:33 Dose: 800 mg Tamsulosin HCl (Flomax) 0.4 mg PO DAILY [facility] Last Admin: 05/11/18 12:32 Dose: 0.4 mg Venlafaxine HCl (Effexor Xr) 37.5 mg PO DAILY [facility] Last Admin: 05/11/18 12:31 Dose: 37.5 mg Vitamin B Complex/Vit C/Folic Acid (Nephro-Judah) 1 tab PO DAILY [facility] Last Admin: 05/11/18 12:32 Dose: 1 tab Physical Exam - Constitutional Appears: Well, Non-toxic, No Acute Distress - Head Exam Head Exam: ATRAUMATIC, NORMOCEPHALIC - Extremities Exam Additional comments: LE focused exam: Vasc: DP/PT 1/4 b/l. Cap refill < 3 sec in all digits. Temp gardient warm to cool b/l from proximal to distal. No erythema noted. mild non pitting edema in the right side. Neuro: Gross and protective sensations are diminished b/l. Derm: An open ulcer present in the medial side of the right heel. Measures [id number]. No drainage, No malodor, No probe to bone, No undermining, No tracking. Base in fibrotic and granular 30:70. borders are slightly hyperkeratotic. No clinical signs of active infection. MSK: Mild pain on palpating the periulcerative area. Muscle power 3/5 in all groups b/l. - Neurological Exam Neurological exam: Alert, Oriented x3 - Psychiatric Exam Psychiatric exam: Normal Affect, Normal Mood Results - Vital Signs Recent Vital Signs: Last Vital Signs Temp 98.4 F 05/11/18 17:23 Pulse 66 05/11/18 17:23 Resp 20 05/11/18 17:23 BP 120/76 05/11/18 17:23 Pulse Ox 100 05/11/18 17:23 - Labs Result Diagrams: 05/11/18 06:30 05/11/18 06:30 Labs: Laboratory Results - last 24 hr 05/10/18 05/10/18 05/10/18 20:00 20:26 20:51 WBC 11.1 H RBC 3.89 Hgb 11.1 L Hct 34.8 L MCV 89.5 MCH 28.5 MCHC 31.9 RDW 18.1 H Plt Count 125 MPV 10.9 Gran % Lymph % (Auto) Rolette % (Auto) Eos % (Auto) Baso % (Auto) Gran # Lymph # (Auto) Rolette # (Auto) Eos # (Auto) Baso # (Auto) PT 14.4 H INR 1.26 APTT 30.8 pO2 58 H VBG pH 7.32 VBG pCO2 51.0 VBG HCO3 26.3 VBG Total CO2 27.9 VBG O2 Sat (Calc) 89.7 H VBG Base Excess -0.5 L VBG Potassium 6.9 H* Sodium 127.0 L Chloride 95.0 L Glucose 106 Lactate 1.9 FiO2 21.0 Potassium Carbon Dioxide Anion Gap BUN Creatinine Est GFR ( Amer) Est GFR (Non-Af Amer) Random Glucose Calcium Total Bilirubin AST ALT Alkaline Phosphatase Lactate Dehydrogenase Total Creatine Kinase Troponin I NT-Pro-B Natriuret Pep Total Protein Albumin Globulin Albumin/Globulin Ratio Venous Blood Potassium 6.9 H* 05/10/18 05/11/18 05/11/18 20:51 06:30 06:30 WBC 11.8 H RBC 4.01 Hgb 11.3 L Hct 36.0 L MCV 89.8 MCH 28.2 MCHC 31.4 RDW 17.8 H Plt Count 114 L MPV 11.3 H Gran % 85.2 H Lymph % (Auto) 7.5 L Rolette % (Auto) 5.1 Eos % (Auto) 2.0 Baso % (Auto) 0.2 Gran # 10.07 H Lymph # (Auto) 0.9 L Rolette # (Auto) 0.6 Eos # (Auto) 0.2 Baso # (Auto) 0.02 PT INR APTT pO2 VBG pH VBG pCO2 VBG HCO3 VBG Total CO2 VBG O2 Sat (Calc) VBG Base Excess VBG Potassium Sodium 133 134 Chloride 94 L 94 L Glucose Lactate FiO2 Potassium 4.2 4.4 Carbon Dioxide 24 25 Anion Gap 19 19 BUN 44 H 49 H Creatinine 5.1 H 5.5 H Est GFR ( Amer) 13 12 Est GFR (Non-Af Amer) 11 10 Random Glucose 99 99 Calcium 8.7 9.0 Total Bilirubin 0.9 AST 22 ALT 33 Alkaline Phosphatase 113 Lactate Dehydrogenase 329 L Total Creatine Kinase 35 Troponin I 0.08 NT-Pro-B Natriuret Pep [id number] H Total Protein 7.0 Albumin 3.7 Globulin 3.2 Albumin/Globulin Ratio 1.1 Venous Blood Potassium Assessment & Plan - Assessment and Plan (Free Text) Assessment: 78 y/o M patient seen and evaluated at the bed side for right heel ulcer. Plan: Patient seen and evaluated at the bedside. Plan discussed in detailes with dr. Fowler. Chart, labs and vitals reviewed; Afebrile, WBCs 11.8 Ordered Right foot x-ray 3 views. Ordered multipodus boot. Patient to wear the multipodus boot all the time while in bed Wound culture collected sent to lab. Ordered santyl to be applied topically QD with dressing Patient wound cleaned with saline and dressed using DSD and kerlix. Podiatry will follow up the patient while in house. - Date & Time Date: 05/11/18 Time: 18:35
--- NOTE | 2018-05-11 20:53 | CON ---
DATE: 05/11/2018 HISTORY OF PRESENT ILLNESS: The patient is a 78-year-old male who was diagnosed with nonischemic cardiomyopathy at [facility], status post ICD placement. The patient stated that he underwent cardiac catheterization about [address] Traylor, his trench pipe layer at [facility] and revealed no coronary blockages. The patient was recently hospitalized in [place] for what he was told as septicemia, which was aggravated to chronic right heel ulcer. The patient presented at this time because of cough as well as shortness of breath. The patient has end-stage renal disease, on hemodialysis for the past 4 years. The kidney failure was related to polycystic kidney and the patient has history of atrial fibrillation. The patient elected to go to [facility] for his septicemia treatment. The patient denies any substernal chest pain and denies any recent discharge of the defibrillator. SOCIAL HISTORY: Nonsmoker. Nondrinker. MEDICATIONS: Colchicine 0.6 mg TTS; amiodarone 200 mg daily; Dilaudid 4 mg p.o. every 6 hours p.r.n. for pain; albuterol inhaler every 6 hours; aspirin 81 mg once a day; Flomax 0.4 mg once a day; subcutaneous heparin 5000 units every 8 hours; Mucinex LA 600 mg twice a day; ProAmatine 10 mg daily; Synthroid 200 mcg Monday, Monday and Monday and Xanax 0.25 mg at bedtime. REVIEW OF SYSTEMS: No fever or chills. No nausea or vomiting. No dizziness or syncope. PHYSICAL EXAMINATION: GENERAL: The patient is an elderly male who does not appear to be in acute distress. He is currently undergoing hemodialysis. VITAL SIGNS: Blood pressure 129/88, heart rate 69, temperature 97.8, respirations 20. HEENT: Normocephalic. CHEST: Bilateral rhonchi. HEART: S1 and S2 regular. ABDOMEN: Soft. EXTREMITIES: 2+ pitting edema with chronic left leg changes and dressing is applied to the right foot. LABORATORY DATA: Hemoglobin and hematocrit 11.3 and 36, white count 11.8, platelet count 114,000. SMA-7: Sodium 134, potassium 4.4, chloride 94, CO2 of 25, glucose 99, BUN 49, creatinine 5.5, proBNP is 174,000. EKG revealed ventricular paced, atrial sensed rhythm at rate of 65. Chest x-ray revealed cardiomegaly and ICD with biventricular pacemaker. Mild CHF. ASSESSMENT: 1. Exacerbation of congestive heart failure. 2. Hypothyroidism. 3. End-stage renal disease, on hemodialysis. 4. Polycystic kidney. 5. History of atrial fibrillation. 6. End-stage renal disease, on hemodialysis. 7. Chronic right heel ulcer. RECOMMENDATIONS: Continue amiodarone 200 mg once a day; colchicine 0.6 mg TTS; aspirin 81 mg once a day; heparin 5000 units every 8 hours; prednisone 10 mg once a day; ProAmatine 10 mg once a day; Renagel 800 mg daily; Synthroid 200 mcg Monday, Monday and Monday; Xanax 0.25 mg at bedtime. Obtain an echocardiogram and 2 sets of blood cultures. The patient stated that his PermCath has been there for years and he was never offered an AV fistula placement. Luiz Dowling MD
[2018-05-12] MEDS: Albuterol-Ipratrop 3 mg / 0.5 (3 ml) UD IH SCH ×5 (01:47→15:13)
--- NOTE | 2018-05-12 06:24 | CON ---
DATE: 05/11/2018 REASON FOR CONSULTATION: Shortness of breath, CHF, ESRD. HISTORY OF PRESENT ILLNESS: A 78-year-old male, previously known to me from outpatient hemodialysis. The patient was sent to the emergency room from rehab because of cough, shortness of breath and possible pneumonia. The patient has a history of atrial fibrillation, CHF, decreased ejection fraction, AICD, ESRD, polycystic kidney disease, chronic lower extremity edema, anemia of chronic kidney disease. As per the history from the ER, the patient complained of cough for two weeks, some yellowish phlegm, shortness of breath. In the emergency room, he was found to be normotensive. His WBC count was found to be 11,000, his BNP was elevated at 174,000. There was a questionable right lower lobe infiltrate. PAST MEDICAL AND SURGICAL HISTORY: CAD, CHF, decreased ejection fraction, AICD, atrial fibrillation, peripheral vascular disease, ESRD, polycystic kidney disease, sleep apnea, history of right nephrectomy, history of thyroidectomy. FAMILY HISTORY: Diabetes. SOCIAL HISTORY: No smoking, no alcohol use, no IV drug abuse. ALLERGIES: NO KNOWN DRUG ALLERGIES. MEDICATIONS AT HOME: Aspirin, amiodarone, midodrine, albuterol, Tessalon, prednisone, Dulcolax, Colace, lactulose, MiraLax, colchicine, Santyl, Dilaudid, Synthroid, Flomax. REVIEW OF SYSTEMS: All systems are reviewed, pertinent positives as mentioned in the history of presenting illness, rest unremarkable. PHYSICAL EXAMINATION: GENERAL: Obese elderly male, lying in bed, in [id number] respiratory distress. VITAL SIGNS: Blood pressure 108/60, heart rate 84, respiratory rate 18-20, temperature 98. HEENT: Normocephalic, atraumatic, positive pallor. NECK: Supple, no JVD. LUNGS: Decreased breath sounds at bases, bilateral rhonchi, symmetrical expansion. CARDIAC: S1 and S2, regular rate and rhythm, no murmur, no rub. ABDOMEN: Obese, distended, soft, nontender, bowel sounds present. EXTREMITIES: 2+ pitting edema, chronic stasis changes, hyperpigmentation of skin. LABORATORY DATA: WBC 11.8, hemoglobin 11, hematocrit 36, platelets 114, polys 85%. Sodium 134, potassium 4.4, chloride 94, CO2 of 25, BUN 49, creatinine 5.5, glucose 99, calcium 9. CURRENT MEDICATIONS: Colace, Cordarone, Dilaudid, Dulcolax, Effexor, Flomax, MiraLax, ProAmatine 10 t.i.d., Renagel, Synthroid, Xanax, vancomycin 1 g given in the emergency room yesterday, cefepime 1 g given in the emergency room. ASSESSMENT: 1. Cough, shortness of breath, leukocytosis, right lower lobe infiltrate. 2. Congestive heart failure, cardiomyopathy, decreased ejection fraction of 22%, automatic implantable cardioverter-defibrillator, chronic hypotension. 3. Volume overload. 4. End-stage renal disease. 5. Anemia of chronic kidney disease. PLAN: 1. Dialysis today, ultrafiltration about 3.5 to 4 kg. 2. Will likely need ultrafiltration tomorrow. 3. Antibiotics as per ID recommendations. 4. Check phosphorus levels. Jodie Coyle MD
[2018-05-12 07:52] LABS: BASO # 0.03 K/mm3 (0.0-2.0); BASO % 0.3 % (0.0-3.0); EOS # 0.2 (0.0-0.7); EOS % 2.3 % (1.5-5.0); GRAN # 7.48 (1.4-6.5); GRAN % 79.1 % (50.0-68.0); HEMOGLOBIN 12.1 g/dL (14.0-18.0); LYMPH # 0.9 (1.2-3.4); LYMPH % 9.3 % (22.0-35.0); MEAN CELL VOLUME 90.4 fl (80.0-105.0); MEAN CORPUSCULAR HEMOGLOBIN 28.3 pg (25.0-35.0); MEAN CORPUSCULAR HGB CONC 31.3 g/dl (31.0-37.0); MONO # 0.9 (0.1-0.6); RBC 4.27 10^6/uL (3.5-6.1); RED CELL DISTRIBUTION WIDTH 18.2 % (11.5-14.5); WHITE BLOOD COUNT 9.5 10^3/ul (4.5-11.0)
[2018-05-12 08:13] LABS: CALCIUM 8.7 mg/dL (8.4-10.5)
[2018-05-12 09:07] VITALS: PULSE 65
[2018-05-12] MEDS: guaiFENesin 600 mg ER Tab PO SCH ×2 (09:58→19:00)
[2018-05-12] MEDS: Multivitamin Vitamin B Complex (Nephro-Vite) Tab PO SCH (09:58)
[2018-05-12] MEDS: Venlafaxine 37.5 mg ER Cap PO SCH (09:58)
[2018-05-12] MEDS ORDERED: Collagenase 250 Units/gm Ointment(30 gm) EXT SCH (10:00)
--- NOTE | 2018-05-12 10:14 | CP.PCM.PN ---
Subjective - Date & Time of Evaluation Date of Evaluation: 05/12/18 Time of Evaluation: 10:10 - Subjective Subjective: Poditry progress note for attending Dr. Fowler: 78 y/o male seen and evaluated at the bed side for right heel ulcer. Patient states that he has this ulcer since 4 months and he is treated with electrical contractor and it's improving. Patient AAOx3 and NAD. States mild pain at the ulcer site. Patient states that he can't recall how the ulcer started. He states that he is bed ridden. Patient states that he is leaving the hospital today to subacute rehab. Patient denies any other pedal complaint at that time. Patient denies any recent F/N/V/C or SOB. Objective - Vital Signs/Intake and Output Vital Signs (last 24 hours): Temp Pulse Resp BP Pulse Ox 97.7 F 65 19 138/94 H 100 05/12/18 06:00 05/12/18 06:00 05/12/18 06:00 05/12/18 06:00 05/12/18 06:00 Intake and Output: 05/12/18 05/12/18 06:59 18:59 Intake Total 0 Balance 0 - Medications Medications: Current Medications Albuterol/Ipratropium (Duoneb 3 Mg/0.5 Mg (3 Ml) Ud) 3 ml IH [id number] PRN PRN Reason: Shortness of Breath Albuterol/Ipratropium (Duoneb 3 Mg/0.5 Mg (3 Ml) Ud) 3 ml IH [id number] [facility] Last Admin: 05/12/18 07:58 Dose: 3 ml Alprazolam (Xanax) 0.25 mg PO HS PRN; Protocol PRN Reason: Insomnia Stop: 05/18/18 22:01 Last Admin: 05/11/18 21:49 Dose: 0.25 mg Amiodarone HCl (Cordarone) 200 mg PO DAILY [facility] Last Admin: 05/12/18 09:57 Dose: Not Given Aspirin (Ecotrin) 81 mg PO DAILY [facility] Last Admin: 05/12/18 09:57 Dose: Not Given Bisacodyl (Dulcolax) 10 mg RC HS PRN PRN Reason: Constipation Colchicine (Colocrys) 0.6 mg PO TTS [facility] Last Admin: 05/12/18 09:57 Dose: Not Given Collagenase (Santyl) 0 gm EXT DAILY [facility] Last Admin: 05/12/18 09:58 Dose: Not Given Docusate Sodium (Colace) 100 mg PO BID [facility] Last Admin: 05/12/18 09:57 Dose: Not Given Guaifenesin (Mucinex La) 600 mg PO BID [facility] Last Admin: 05/12/18 09:58 Dose: Not Given Heparin Sodium (Porcine) (Heparin) 5,000 units SC Q8 [facility]; Protocol Last Admin: 05/12/18 05:59 Dose: 5,000 units Hydromorphone HCl (Dilaudid) 4 mg PO TID [facility] Last Admin: 05/12/18 09:57 Dose: Not Given Hydromorphone HCl (Dilaudid) 4 mg PO Q6 PRN PRN Reason: Pain, moderate (4-7) Levothyroxine Sodium (Synthroid) 200 mcg PO MWF [facility] Last Admin: 05/11/18 12:33 Dose: 200 mcg Midodrine (Proamatine) 10 mg PO TID [facility] Last Admin: 05/12/18 09:58 Dose: Not Given Polyethylene Glycol (Miralax) 17 gm PO DAILY PRN PRN Reason: Constipation Prednisone (Prednisone Tab) 10 mg PO DAILY [facility] Last Admin: 05/12/18 09:58 Dose: Not Given Sevelamer HCl (Renagel) 800 mg PO DAILY [facility] Last Admin: 05/12/18 09:58 Dose: Not Given Tamsulosin HCl (Flomax) 0.4 mg PO DAILY [facility] Last Admin: 05/12/18 09:58 Dose: Not Given Venlafaxine HCl (Effexor Xr) 37.5 mg PO DAILY [facility] Last Admin: 05/12/18 09:58 Dose: Not Given Vitamin B Complex/Vit C/Folic Acid (Nephro-Judah) 1 tab PO DAILY [facility] Last Admin: 05/12/18 09:58 Dose: Not Given - Labs Labs: 05/12/18 07:30 05/12/18 07:30 PT 14.4 SECONDS (9.4-12.5) H 05/10/18 20:51 INR 1.26 05/10/18 20:51 APTT 30.8 Seconds (25.1-36.5) 05/10/18 20:51 - Constitutional Appears: Well, Non-toxic, No Acute Distress - Head Exam Head Exam: ATRAUMATIC, NORMOCEPHALIC - Extremities Exam Additional comments: LE focused exam: Vasc: DP/PT 1//4 b/l. Cap refill < 3 sec in all digits. Temp gardient warm to cool b/l from proximal to distal. No erythema noted. mild non pitting edema in the right side. Neuro: Gross and protective sensations are diminished b/l. Derm: An open ulcer present in the medial side of the right heel. Measures 1whW7ogA1.3cm. No drainage, No malodor, No probe to bone, No undermining, No tracking. Base in fibrotic and granular 30:70. borders are slightly hyperkeratotic. No clinical signs of active infection. MSK: Mild pain on palpating the periulcerative area. Muscle power 3/5 in all groups b/l. - Neurological Exam Neurological Exam: Alert, Awake, Oriented x3 - Psychiatric Exam Psychiatric exam: Normal Affect, Normal Mood Assessment and Plan - Assessment and Plan (Free Text) Assessment: 78 y/o M patient seen and evaluated at the bed side for right heel ulcer. Plan: Patient seen and evaluated at the bedside. Plan discussed in detailes with dr. Fowler. Chart, labs and vitals reviewed; Afebrile, WBCs 9.5 Ordered Right foot x-ray 3 views - awaiting read Ordered multipodus boot. Patient to wear the multipodus boot all the time while in bed Wound culture - preliminary no growth after 24 hours Ordered santyl to be applied topically QD with dressing Patient wound cleaned with saline and dressed using DSD and kerlix. Podiatry will follow up the patient while in house.
[2018-05-12] MEDS ORDERED: Cefepime 1gm in NS 100ml 1 GM/100 ML BAG IVPB SCH (12:00)
--- NOTE | 2018-05-12 13:59 | RAD ---
Date of service: 05/11/2018 PROCEDURE: Right Foot Radiographs. HISTORY: Right heel ulcer COMPARISON: None. FINDINGS: BONES: No evidence of osteomyelitis. Particular attention directed to the calcaneus. Minor hallux valgus deformity. Juxta-articular osteopenia primarily affecting tarsals and metatarsals. JOINTS: Degenerative changes noted. These are diffuse and moderate SOFT TISSUES: Deep ulcer adjacent to the calcaneus. No adjacent cortical irregularity identified. OTHER FINDINGS: None. IMPRESSION: Soft tissue findings/deep ulcer adjacent to the insertion of the Achilles tendon without objective evidence for acute osteomyelitis.
--- NOTE | 2018-05-12 15:29 | PN ---
DATE: 05/12/2018 FOLLOWUP SUBJECTIVE: The patient underwent hemodialysis today. He denies any chest pain. PHYSICAL EXAMINATION: VITAL SIGNS: Blood pressure 138/94, heart rate 65, temperature 97.7, respirations 19. HEENT: Normocephalic. CHEST: Diminished breath sounds over the bases. HEART: S1 and S2 regular. ABDOMEN: Soft. EXTREMITIES: Dressing is applied to the left heel ulcer. LABORATORY DATA: Hemoglobin and hematocrit 12.1 and 38.6, white count 9.5, platelet count 99,000. Today's BUN and creatinine are 44 and 4.6 in the morning prior to taking modalities. Blood culture is negative after 24 hours. ASSESSMENT: 1. Congestive heart failure. 2. Hypothyroidism. 3. End-stage renal disease, on hemodialysis. 4. History of atrial fibrillation. 6. Chronic right heel ulcer. RECOMMENDATIONS: Continue current amiodarone 200 mg daily, aspirin 81 mg once a day, heparin 5000 units subcutaneously every 8 hours, ProAmatine 10 mg three times a day, Synthroid 200 mcg a day, prednisone 10 mg once a day. I will review the echocardiography study performed today. Luiz Dowling MD
--- NOTE | 2018-05-12 15:47 | CARD ---
APPROVED REPORT Date of service: 05/12/2018 EXAM: Two-dimensional and M-mode echocardiogram with Doppler and color Doppler. INDICATION CHF 2D DIMENSIONS IVSd1.5 (0.7-1.1cm)LVDd5.5 (3.9-5.9cm) LVOT Diameter2.2 (1.8-2.4cm)PWd1.5 (0.7-1.1cm) LVDs4.2 (2.5-4.0cm)FS (%) 24.1 % LVEF (%)47.4 (>50%) M-Mode DIMENSIONS Left Atrium (MM)6.30 (2.5-4.0cm)Aortic Root3.90 (2.2-3.7cm) Aortic Cusp Exc.2.20 (1.5-2.0cm) Aortic Valve AoV Peak Gledjjhw193.0cm/sAoV VTI34.4cmAO Peak GR.11mmHg LVOT Peak Rsavobtd18.4cm/sLVOT VTI15.10cmAO Mean GR.6mmHg VIRIDIANA (VMAX)1.72xw3UGW (VTI)1.67cm2 Mitral Valve MV E Vsotdhpk01.8cm/s TDI Lateral E' Peak V7.49cm/sMedial E' Peak V3.41cm/sE/Lateral E'12.1 E/Medial E'26.6 Tricuspid Valve TR Peak [id number]/sRAP [id number] Peak Gr.40mmHg [id number] LEFT VENTRICLE The left ventricle is normal size. There is moderate concentric left ventricular hypertrophy. The systolic function is moderately impaired. No left ventricle thrombus noted on this study. RIGHT VENTRICLE The right ventricle is mildly dilated. There is normal right ventricular wall thickness. The right ventricular systolic function is normal. There is a pacemaker lead in the right ventricle. ATRIA The left atrium is severely dilated. The right atrium is moderately dilated. AORTIC VALVE The aortic valve is moderately thickened. No aortic regurgitation is present. There is no aortic valvular stenosis. MITRAL VALVE The mitral valve is mildly thickened. Mitral regurgitation is mild. There is no mitral valve stenosis. TRICUSPID VALVE There is moderate tricuspid regurgitation. There is moderate pulmonary hypertension. PULMONIC VALVE There is mild to moderate pulmonic valvular regurgitation. GREAT VESSELS The aortic root is normal in size. The IVC is dilated. <Conclusion> The left ventricle is normal size. There is moderate concentric left ventricular hypertrophy. The systolic function is moderately impaired. No left ventricle thrombus noted on this study. Mitral regurgitation is mild. There is moderate tricuspid regurgitation. There is moderate pulmonary hypertension. There is mild to moderate pulmonic valvular regurgitation.
--- NOTE | 2018-05-12 16:18 | CP.PCM.DIS ---
Provider - Provider Date of Admission: 05/10/18 22:09 Attending physician: Britton Markham MD Primary care physician: Dr Coyle Consults: nephro cardio podiatry ID Time Spent in preparation of Discharge (in minutes): 50 Hospital Course - Lab Results Lab Results: Micro Results 05/10/18 20:00 Blood-Venous Blood Culture - Preliminary NO GROWTH AFTER 24 HOURS 05/10/18 19:45 Blood-Venous Blood Culture - Preliminary NO GROWTH AFTER 24 HOURS Most Recent Lab Values WBC 9.5 10^3/ul (4.5-11.0) 05/12/18 07:30 RBC 4.27 10^6/uL (3.5-6.1) 05/12/18 07:30 Hgb 12.1 g/dL (14.0-18.0) L 05/12/18 07:30 Hct 38.6 % (42.0-52.0) L 05/12/18 07:30 MCV 90.4 fl (80.0-105.0) 05/12/18 07:30 MCH 28.3 pg (25.0-35.0) 05/12/18 07:30 MCHC 31.3 g/dl (31.0-37.0) 05/12/18 07:30 RDW 18.2 % (11.5-14.5) H 05/12/18 07:30 Plt Count 99 10^3/uL (120.0-450.0) L 05/12/18 07:30 MPV 11.0 fl (7.0-11.0) 05/12/18 07:30 Gran % 79.1 % (50.0-68.0) H 05/12/18 07:30 Lymph % (Auto) 9.3 % (22.0-35.0) L 05/12/18 07:30 Stark % (Auto) 9.0 % (1.0-6.0) H 05/12/18 07:30 Eos % (Auto) 2.3 % (1.5-5.0) 05/12/18 07:30 Baso % (Auto) 0.3 % (0.0-3.0) 05/12/18 07:30 Gran # 7.48 (1.4-6.5) H 05/12/18 07:30 Lymph # (Auto) 0.9 (1.2-3.4) L 05/12/18 07:30 Stark # (Auto) 0.9 (0.1-0.6) H 05/12/18 07:30 Eos # (Auto) 0.2 (0.0-0.7) 05/12/18 07:30 Baso # (Auto) 0.03 K/mm3 (0.0-2.0) 05/12/18 07:30 PT 14.4 SECONDS (9.4-12.5) H 05/10/18 20:51 INR 1.26 05/10/18 20:51 APTT 30.8 Seconds (25.1-36.5) 05/10/18 20:51 pO2 58 mm/Hg (30-55) H 05/10/18 20:26 VBG pH 7.32 (7.32-7.43) 05/10/18 20:26 VBG pCO2 51.0 (40-60) 05/10/18 20:26 VBG HCO3 26.3 mmol/l (21-28) 05/10/18 20:26 VBG Total CO2 27.9 mmol.L (22-28) 05/10/18 20:26 VBG O2 Sat (Calc) 89.7 % (40-65) H 05/10/18 20:26 VBG Base Excess -0.5 mmol/L (0.0-2.0) L 05/10/18 20:26 VBG Potassium 6.9 mmol/L (3.6-5.2) H* 05/10/18 20:26 Sodium 127.0 mmol/L (132-148) L 05/10/18 20: Chloride 95.0 mmol/L (98-107) L 05/10/18 20:26 Glucose 106 mg/dl (75-110) 05/10/18 20: Lactate 1.9 mmol/L (0.7-2.1) 05/10/18 20:26 FiO2 21.0 % 05/10/18 20:26 Sodium 135 mmol/L (132-148) 05/12/18 07:30 Potassium 4.2 mmol/L (3.6-5.0) 05/12/18 07:30 Chloride 94 mmol/L (98-107) L 05/12/18 07:30 Carbon Dioxide 27 mmol/L (21-33) 05/12/18 07:30 Anion Gap 18 (10-20) 05/12/18 07:30 BUN 44 mg/dL (7-21) H 05/12/18 07:30 Creatinine 4.6 mg/dl (0.8-1.5) H 05/12/18 07:30 Est GFR ( Amer) 15 05/12/18 07:30 Est GFR (Non-Af Amer) 12 05/12/18 07:30 Random Glucose 91 mg/dL (70-110) 05/12/18 07:30 Calcium 8.7 mg/dL (8.4-10.5) 05/12/18 07:30 Phosphorus 4.4 mg/dL (2.5-4.5) 05/12/18 07:30 Total Bilirubin 0.9 mg/dL (0.2-1.3) 05/10/18 20:51 AST 22 U/L (17-59) 05/10/18 20:51 ALT 33 U/L (7-56) 05/10/18 20:51 Alkaline Phosphatase 113 U/L (38-126) 05/10/18 20:51 Lactate Dehydrogenase 329 U/L (333-699) L 05/10/18 20:51 Total Creatine Kinase 35 U/L (35-230) 05/10/18 20:51 Troponin I 0.08 ng/mL 05/10/18 20:51 NT-Pro-B Natriuret Pep 907266 pg/mL (0-450) H 05/10/18 20:51 Total Protein 7.0 g/dL (5.8-8.3) 05/10/18 20:51 Albumin 3.7 g/dL (3.0-4.8) 05/10/18 20:51 Globulin 3.2 gm/dL 05/10/18 20:51 Albumin/Globulin Ratio 1.1 (1.1-1.8) 05/10/18 20:51 Venous Blood Potassium 6.9 mmol/L (3.6-5.2) H* 05/10/18 20:26 - Hospital Course Hospital Course: 78 M, with PMHx of A-fib not on AC, Systolic CHF with EF22%/AICD, ESRD (MWF), polycystic kidney disease, PVD, foot ulcer, recent septicemia, came from [facility] complaining of productive cough with yellowish sputum x 10 days and shortness of breath. Chest X-ray which could suggested right lower lobe infiltrate and possibly pneumonia. BNP of 398265, WBC 11, lactate 1.9 and stable vital signs. Patient was admitted for ommunity Acquired Pneumonia versus exacerbation of CHF. He was given Vancomycin 1 dose IV and continued on Cefepime 1gm daily due to the patient's renal function as per ID physician who saw the patient. Patient was given oxygen, steroids and bronchodilators and his symptoms was improving. Cardiology consulted and echo was done and showed moderate concentric LVH and moderate LV systolic impairment. Cardiology was following up on the patient during hospital stay. Podiatry consulted and wound cleaned with saline and dressed. Right foot x-ray negative for osteomyelitis. Nephrology consulted and patient received two dialysis sessions during hospital stay and was medically optimized by flight radio operator. Patient has hypothriodism, chronic back pain, insomnia, mood disorder, gout, sacral ulcer for which he received appropriate treatment. Patient was medically stable to be discharged today with further instructions as below. Counseling was provided to the patient regarding diet, medication compliance and following up with his doctors given his co- morbidities, On discharge: Please follow up with a primary care physician of choice within 3-5 days after discharge Please follow up with your Collection Team Lead Dr. Coyle within 5-7 days after discharge. Please follow up with your [facility] at [place] with 5-7 days of discharge. Please follow up with your scientific affairs manager for your heel wound within 5-7 days of discharge Please take antibiotic Keflex 500mg twice a day for 7 days as prescribed Please resume your home medications as prescribed Please follow a heart healthy diet, avoid salt use as it can raise your blood pressure. Please return to the emergency room if symptoms return Discharge Exam - Head Exam Head Exam: ATRAUMATIC, NORMOCEPHALIC - Eye Exam Eye Exam: Normal appearance, PERRL Pupil Exam: NORMAL ACCOMODATION - ENT Exam ENT Exam: Mucous Membranes Moist, Normal Oropharynx - Neck Exam Neck exam: Normal Inspection - Respiratory Exam Respiratory Exam: Wheezes - Cardiovascular Exam Cardiovascular Exam: Irregular Rhythm, +S1, +S2 - GI/Abdominal Exam GI & Abdominal Exam: Normal Bowel Sounds, Soft. absent: Mass - Extremities Exam Extremities exam: pedal edema, pedal pulses present Additional comments: right heel ulcer - Back Exam Back exam: NORMAL INSPECTION - Neurological Exam Neurological exam: Alert, CN II-XII Intact, Oriented x3 - Psychiatric Exam Psychiatric exam: Normal Affect, Normal Mood - Skin Skin Exam: Dry, Intact, Normal Color, Warm Discharge Plan - Discharge Medications Prescriptions: Amiodarone HCl 200 mg PO DAILY #14 tablet Aspirin [Adult Aspirin] 81 mg PO DAILY #14 tablet.dr Fatmata Butts W-C No.20/Folic Acid [Nephrocaps Softgel] 1 mg PO DAILY #14 capsule Cephalexin [cephalexin] 500 mg PO BID #14 cap Levothyroxine [Synthroid] 2 tab PO MWF #12 tab Midodrine HCl 10 mg PO DAILY #14 tablet Sevelamer [Renagel] 800 mg PO DAILY #14 tab - Follow Up Plan Condition: STABLE Disposition: HOME/ ROUTINE Instructions: Atypical Pneumonia (Mycoplasma and Viral) (DC), End Stage Kidney Disease Additional Instructions: Please follow up with a primary care physician of choice within 3-5 days after discharge Please follow up with your Collection Team Lead Dr. Coyle within 5-7 days after dis charge. Please follow up with your [facility] [place] with 5-7 days of discharge. Please follow up with your scientific affairs manager for your heel wound within 5-7 days of discharge Please take antibiotic Keflex 500mg twice a day for 7 days as prescribed Please resume your home medications as prescribed Please follow a heart healthy diet, avoid salt use as it can raise your blood pressure. Please return to the emergency room if symptoms return Referrals: Jodie Coyle MD [Staff Provider] -
--- NOTE | 2018-05-12 16:58 | CP.PCM.PN ---
Subjective - Date & Time of Evaluation Date of Evaluation: 05/12/18 Time of Evaluation: 15:15 - Subjective Subjective: Infectious Disease Follow Up: May 12, 2018 78 yo male with PMHx of A-fib not on anticoagulant, Systolic CHF with EF22%/AICD, ESRD (MWF), polycystic kidney disease, foot ulcer, recent septicemia, came from [facility] complaining of productive cough with yellowish sputum x 1 day. He had cough x 2 weeks, dry cough at first, later with sputum and somewhat productive now as per patient. Mild shortness of breath and subjective fever. Denies any nausea, vomiting, diarrhea, abdominal pain, chest pain, headache, dizziness, neck pain, back pain or any other complaints. Chest X-ray suggests potential RLL pnemonia. Patient still complaining of SOB. Went for HD this morning. Objective - Vital Signs/Intake and Output Vital Signs (last 24 hours): Temp Pulse Resp BP Pulse Ox 97.7 F 65 19 138/94 H 100 05/12/18 06:00 05/12/18 06:00 05/12/18 06:00 05/12/18 06:00 05/12/18 06:00 Intake and Output: 05/12/18 05/12/18 06:59 18:59 Intake Total 0 Balance 0 - Medications Medications: Current Medications Albuterol/Ipratropium (Duoneb 3 Mg/0.5 Mg (3 Ml) Ud) 3 ml IH [id number] PRN PRN Reason: Shortness of Breath Albuterol/Ipratropium (Duoneb 3 Mg/0.5 Mg (3 Ml) Ud) 3 ml IH [id number] [facility] Last Admin: 05/12/18 15:13 Dose: Not Given Alprazolam (Xanax) 0.25 mg PO HS PRN; Protocol PRN Reason: Insomnia Stop: 05/18/18 22:01 Last Admin: 05/11/18 21:49 Dose: 0.25 mg Amiodarone HCl (Cordarone) 200 mg PO DAILY [facility] Last Admin: 05/12/18 09:57 Dose: Not Given Aspirin (Ecotrin) 81 mg PO DAILY [facility] Last Admin: 05/12/18 09:57 Dose: Not Given Bisacodyl (Dulcolax) 10 mg RC HS PRN PRN Reason: Constipation Colchicine (Colocrys) 0.6 mg PO TTS [facility] Last Admin: 05/12/18 09:57 Dose: Not Given Collagenase (Santyl) 0 gm EXT DAILY [facility] Last Admin: 05/12/18 09:58 Dose: Not Given Docusate Sodium (Colace) 100 mg PO BID [facility] Last Admin: 05/12/18 09:57 Dose: Not Given Guaifenesin (Mucinex La) 600 mg PO BID [facility] Last Admin: 05/12/18 09:58 Dose: Not Given Heparin Sodium (Porcine) (Heparin) 5,000 units SC Q8 [facility]; Protocol Last Admin: 05/12/18 15:32 Dose: Not Given Hydromorphone HCl (Dilaudid) 4 mg PO TID [facility] Last Admin: 05/12/18 15:31 Dose: Not Given Hydromorphone HCl (Dilaudid) 4 mg PO Q6 PRN PRN Reason: Pain, moderate (4-7) Cefepime HCl (Maxipime 1gm) 1 gm in 100 mls @ 100 mls/hr IVPB Q12 [facility]; Protocol Last Admin: 05/12/18 15:32 Dose: Not Given Levothyroxine Sodium (Synthroid) 200 mcg PO MWF [facility] Last Admin: 05/11/18 12:33 Dose: 200 mcg Midodrine (Proamatine) 10 mg PO TID [facility] Last Admin: 05/12/18 15:32 Dose: Not Given Polyethylene Glycol (Miralax) 17 gm PO DAILY PRN PRN Reason: Constipation Prednisone (Prednisone Tab) 10 mg PO DAILY [facility] Last Admin: 05/12/18 09:58 Dose: Not Given Sevelamer HCl (Renagel) 800 mg PO DAILY [facility] Last Admin: 05/12/18 09:58 Dose: Not Given Tamsulosin HCl (Flomax) 0.4 mg PO DAILY [facility] Last Admin: 05/12/18 09:58 Dose: Not Given Venlafaxine HCl (Effexor Xr) 37.5 mg PO DAILY [facility] Last Admin: 05/12/18 09:58 Dose: Not Given Vitamin B Complex/Vit C/Folic Acid (Nephro-Judah) 1 tab PO DAILY [facility] Last Admin: 05/12/18 09:58 Dose: Not Given - Labs Labs: 05/12/18 07:30 09/29/18 07:30 PT 14.4 SECONDS (9.4-12.5) H 05/10/18 20:51 INR 1.26 05/10/18 20:51 APTT 30.8 Seconds (25.1-36.5) 05/10/18 20:51 - Constitutional Appears: No Acute Distress, Chronically Ill - Head Exam Head Exam: ATRAUMATIC, NORMOCEPHALIC - Eye Exam Eye Exam: EOMI, PERRL Pupil Exam: NORMAL ACCOMODATION, PERRL - ENT Exam ENT Exam: Mucous Membranes Moist, Normal External Ear Exam, TM's Normal Bilaterally - Neck Exam Neck Exam: Full ROM, Normal Inspection - Respiratory Exam Respiratory Exam: Decreased Breath Sounds, NORMAL BREATHING PATTERN. absent: Rales, Rhonchi, Wheezes Additional comments: basilar crackles. - Cardiovascular Exam Cardiovascular Exam: REGULAR RHYTHM, RRR, +S1, +S2 - GI/Abdominal Exam GI & Abdominal Exam: Soft, Normal Bowel Sounds. absent: Distended, Tenderness - Extremities Exam Extremities Exam: Pedal Edema Additional comments: Left foot +2 edema Right foot in dressing. 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 The patient had a Chest X-ray which could suggest a RLL infiltrate and possibly pneumonia. Patient is from a [facility] senior home. Possible Community Acquired Pneumonia versus exacerbation of CHF. BNP of [id number]. Given Vancomycin 1 dose IV and on Cefepime 1gm daily due to the patient's renal function. Can continue with Cefepime for now. Can obtain procalcitonin to help as a marker for pneumonia. A low procalcitonin value would lower suspicion for a pneumonia. Can consider discharge with oral Keflex 500 BID for 7 days more. Thank you for allowing me to participate in the care of the patient, we will follow with you.
[2018-05-12 17:23] VITALS: BP 113/73; RESP 20; TEMP 98.4; O2SAT 97
--- NOTE | 2018-05-13 17:33 | PN ---
DATE: 05/12/2018 SUBJECTIVE: The patient is seen lying in bed. He is awake, he is alert. He still has some cough. He complains of shortness of breath. PHYSICAL EXAMINATION: GENERAL: Obese elderly male lying in bed. VITAL SIGNS: Blood pressure 138/94, heart rate 65, respiratory rate 20, temperature 97.7. HEENT: Normocephalic, atraumatic. NECK: Supple, no JVD. LUNGS: Bilateral rhonchi, bilateral equal expansion. CARDIAC: S1 and S2, regular rate and rhythm, no murmur, no rub. ABDOMEN: Obese, distended, soft, nontender, bowel sounds present. EXTREMITIES: Chronic stasis changes, 2+ pitting edema. INTAKE AND OUTPUT: Not charted. LABORATORY DATA: WBC 9.5, hemoglobin 12, hematocrit 38.6, platelets 99. Sodium 135, potassium 4.2, chloride 94, CO2 of 27, BUN 44, creatinine 4.6, glucose 91. MEDICATIONS LIST: Reviewed. ASSESSMENT: 1. Decompensated congestive heart failure, volume overload. 2. Possible pneumonia. 3. End-stage renal disease. 4. Morbid obesity. PLAN: 1. Extra dialysis treatment, i.e. ultrafiltration today. 2 hours attempt to remove 2500. 2. Continue empiric antibiotics. 3. No objection to discharge post ultrafiltration. Jodie Coyle MD
== END 2018-05-12 19:11 | disposition home or self-care (01) ==
LOC: ED 19:30 → ERH 22:09 → MERGE 22:09 → ERH 22:23 → 3RSO 23:05
PROVIDERS: ADMIT Internal Medicine; ATTEND Internal Medicine
DX: J18.9 Pneumonia, unspecified organism (principal); I50.23 Acute on chronic systolic (congestive) heart failure; N18.6 End stage renal disease; Z99.2 Dependence on renal dialysis; Q61.3 Polycystic kidney, unspecified; M10.9 Gout, unspecified; G89.29 Other chronic pain; G47.00 Insomnia, unspecified; M54.9 Dorsalgia, unspecified; I48.91 Unspecified atrial fibrillation; E89.0 Postprocedural hypothyroidism; N40.0 Benign prostatic hyperplasia without lower urinary tract symptoms; F32.9 Major depressive disorder, single episode, unspecified; F41.9 Anxiety disorder, unspecified; L97.419 Non-pressure chronic ulcer of right heel and midfoot with unspecified severity; E66.01 Morbid (severe) obesity due to excess calories; D63.1 Anemia in chronic kidney disease; I25.10 Atherosclerotic heart disease of native coronary artery without angina pectoris; I42.9 Cardiomyopathy, unspecified; G47.33 Obstructive sleep apnea (adult) (pediatric); Z95.810 Presence of automatic (implantable) cardiac defibrillator; Z99.81 Dependence on supplemental oxygen; Z90.5 Acquired absence of kidney; Z74.01 Bed confinement status
CPT/HCPCS: 36415; 71045; 73630; 80048; 80053; 82550; 82803; 83615; 83880; 84100; 84145; 84484; 85025; 85027; 85610; 85730; 87040; 87070; 87181; 93005; 93306; 94640; 94760; 96365; 99284; G0378; J0692; J1644

== ENCOUNTER 2018-05-30 16:15 | Inpatient (IN) | payer MEDICARE ==
[2018-05-30 16:24] VITALS: BMI 30.8
--- NOTE | 2018-05-30 17:33 | RAD ---
Date of service: 05/30/2018 HISTORY: cough/ hx of Pneumonia COMPARISON: No prior. FINDINGS: Right-sided central venous catheter terminates at the cavoatrial junction. LUNGS: The lungs are well inflated and clear. PLEURA: No pleural effusions or pneumothorax. CARDIOVASCULAR: Again seen is severe cardiomegaly. Atherosclerotic aortic arch calcifications are present. Status post CABG size. There is stable position of left-sided permanent pacing device. OSSEOUS STRUCTURES: Within normal limits for the patient's age. VISUALIZED UPPER ABDOMEN: Normal. OTHER FINDINGS: None. IMPRESSION: No active pulmonary disease. No significant interval change.
--- NOTE | 2018-05-30 17:33 | RAD ---
Date of service: 05/30/2018 PROCEDURE: Right Foot Radiographs. HISTORY: foot pain COMPARISON: None. FINDINGS: BONES: There is diffuse bone demineralization. There is no acute displaced fracture or bone destruction. Bone alignment is normal. JOINTS: Normal. SOFT TISSUES: There is severe dorsal soft tissue swelling. OTHER FINDINGS: Atherosclerotic vascular calcifications are present. IMPRESSION: No acute displaced fracture or bone destruction. Severe dorsal soft tissue swelling.
[2018-05-30 18:17] LABS: BASO # 0.04 K/mm3 (0.0-2.0); EOS # 0.3 (0.0-0.7); EOS % 6.2 % (1.5-5.0); GRAN # 2.48 (1.4-6.5); GRAN % 61.4 % (50.0-68.0); HEMOGLOBIN 10.9 g/dL (14.0-18.0); LYMPH # 0.6 (1.2-3.4); LYMPH % 14.1 % (22.0-35.0); MEAN CELL VOLUME 87.3 fl (80.0-105.0); MEAN CORPUSCULAR HEMOGLOBIN 28.2 pg (25.0-35.0); MEAN CORPUSCULAR HGB CONC 32.3 g/dl (31.0-37.0); MEAN PLATELET VOLUME 9.3 fl (7.0-11.0); MONO # 0.7 (0.1-0.6); MONO % 17.3 % (1.0-6.0); RBC 3.86 10^6/uL (3.5-6.1); RED CELL DISTRIBUTION WIDTH 17.2 % (11.5-14.5)
[2018-05-30 18:25] LABS: ALBUMIN 3.9 g/dL (3.0-4.8); CALCIUM 8.9 mg/dL (8.4-10.5)
[2018-05-30] MEDS ORDERED: Ciprofloxacin 200mg/100ml D5W 100 ML IVPB STA (18:39)
[2018-05-30] MEDS ORDERED: Vancomycin 500mg in NS 500 MG/100 ML BAG IVPB STA ×2 (18:42→19:40)
--- NOTE | 2018-05-30 19:04 | ED PDOC ---
Arrival/HPI - General Chief Complaint: Lower Extremity Problem/Injury Time Seen by Provider: 05/30/18 16:18 Historian: Patient - History of Present Illness Narrative History of Present Illness (Text): 05/30/18 19:14 78yr old male presents today with worsening ulceration and pain to the right leg and right foot. pt states he has been on keflex for PNA and wound without improvement. pt states he was recently diagnosed with pna, still with occasional cough. no abdominal pain. no n/v. pt states he was recently in the hospital for same treatment. pt states today while in dialysis patient decided that he should come to the ER to have the foot checked. pt states he has now noticed purulent drainage from the wound. pt states swelling in the right leg has increased. no other complaints. Past Medical History - Provider Review Nursing Documentation Reviewed: Yes - Travel History Have you recently traveled outside [place] w/in the past 3 mons?: No - Cardiac Hx Atrial Fibrillation: Yes Hx Cardiac Arrhythmia: Yes Hx Congestive Heart Failure: Yes Hx Internal Defibrillator: Yes Hx Pacemaker: Yes - Pulmonary Hx Pneumonia: Yes Hx Sleep Apnea: Yes (sleeps with CPAP) - Neurological Hx Neurological Disorder: No - HEENT Hx Deafness: Yes - Renal Hx Renal Disorder: Yes Hx Dialysis: Yes Hx Renal Failure: Yes - Endocrine/Metabolic Other/Comment: Thyroidectomy - Hematological/Oncological Hx Blood Disorders: No - Integumentary Hx Dermatological Disorder: No - Musculoskeletal/Rheumatological Hx Back Pain: Yes Hx Falls: No - Psychiatric Hx Psychophysiologic Disorder: No Hx Substance Use: No - Surgical History Hx Thyroidectomy: Yes Other/Comment: nephrectomy - Anesthesia Hx Anesthesia: Yes Hx Anesthesia Reactions: No Hx Malignant Hyperthermia: No Family/Social History - Physician Review Nursing Documentation Reviewed: Yes Family/Social History: Unknown Family HX Smoking Status: Never Smoked Hx Alcohol Use: No Hx Substance Use: No Allergies/Home Meds Allergies/Adverse Reactions: Allergies No Known Allergies Allergy (Verified 05/11/18 07:56) Home Medications: Home Meds Medication Instructions Recorded Confirmed Acetaminophen [Acetaminophen 8 650 mg PO Q6 PRN 05/10/18 05/10/18 Hour] Albuterol Sulfate 2.5 mg IH Q4 PRN 05/10/18 05/10/18 Benzonatate [Tessalon Perle] 100 mg PO BID 05/10/18 05/10/18 Bisacodyl [Dulcolax] 10 mg RC HS PRN 05/10/18 05/10/18 Colchicine [Mitigare] 0.6 mg PO TTS 05/10/18 05/10/18 Collagenase [Santyl] 250 unit TP DAILY 05/10/18 05/10/18 Docusate [Colace] 100 mg PO BID 05/10/18 05/10/18 Hydrocortisone 2.5% 2.5 g TP BID PRN 05/10/18 05/10/18 Hydromorphone HCl [Dilaudid] 4 mg PO Q6 PRN 05/10/18 05/10/18 Lactulose [Generlac] 10 gm PO Q8 PRN 05/10/18 05/10/18 Polyethylene Glycol 3350 [Miralax] 30 ml PO DAILY PRN 05/10/18 05/10/18 Protein Hydrolysate,Milk [Liquid 30 ml PO BID 05/10/18 05/10/18 Protein Fortifier] Tamsulosin HCl [Flomax] 0.4 mg PO DAILY 05/10/18 05/10/18 Temazepam [Restoril] 15 mg PO HS 05/10/18 05/10/18 Turmeric Root Extract [Turmeric] 500 mg PO BID 05/10/18 05/10/18 Venlafaxine [Effexor XR] 37.5 mg PO DAILY 05/10/18 05/10/18 Review of Systems - Review of Systems Constitutional: absent: Fatigue, Fevers Respiratory: Cough. absent: SOB Cardiovascular: absent: Chest Pain, Palpitations Gastrointestinal: absent: Abdominal Pain, Nausea, Vomiting Musculoskeletal: Arthralgias (right leg pain, right foot pain). absent: Back Pain, Neck Pain Skin: Cellulitis (right lower leg cellulitis. ). absent: Pruritis Neurological: absent: Headache, Dizziness Psychiatric: absent: Anxiety, Depression Physical Exam Vital Signs Reviewed: Yes Vital Signs Temp Pulse Resp BP Pulse Ox 05/30/18 16:23 98.2 F 86 18 121/72 97 Temperature: Afebrile Blood Pressure: Normal Pulse: Regular Respiratory Rate: Normal Appearance: Positive for: Well-Appearing, Non-Toxic, Comfortable Pain Distress: None Mental Status: Positive for: Alert and Oriented X 3 - Systems Exam Head: Present: Atraumatic Mouth: Present: Moist Mucous Membranes Neck: Present: Normal Range of Motion Respiratory/Chest: Present: Clear to Auscultation, Good Air Exchange. No: Respiratory Distress, Accessory Muscle Use Cardiovascular: Present: Regular Rate and Rhythm, Murmurs, Normal S1, S2 Abdomen: No: Tenderness, Rebound Back: Present: Normal Inspection Upper Extremity: Present: Normal ROM, Other (abrasions noted to dorsal aspect of hands bilaterally.) Lower Extremity: Present: Tenderness (right leg; + 3.5cm round ulceration with purulent discharge noted to the medial aspect of the right heel. + surrounding erythema; + warmth. + edema. chronic venous changes noted to the lower legs bilaterally. + peeling skin noted on lower legs bilaterally. decreased sensation in feet bilaterally. 2+ Pitting edema noted bilaterally .cap refill <2. ), Swelling, Erythema, Capillary Refill < 2 s. No: CALF TENDERNESS, Normal ROM Neurological: Present: GCS=15, Speech Normal Skin: Present: Warm Psychiatric: Present: Alert, Oriented x 3 Medical Decision Making ED Course and Treatment: 05/30/18 19:23 78yr old male with infected right foot wound with cellulitis. pt with wound culture from 05/12 shows enterobacteria and staph aureus pt started on cipro and vancomycin IV. cbc; wbc; 4.0 hcg; 10.9 CMP; k; 3.6 bun; 21/ cr; 5.0 ekg; electronic ventricular pacemaker at 80b/m cxr; IMPRESSION: No active pulmonary disease. No significant interval change. xray right foot; IMPRESSION: No acute displaced fracture or bone destruction. Severe dorsal soft tissue swelling. all results discussed with patient. case discussed with dr. menon; accepts admission. pt was seen and evaluated by dr. chisholm. impression; cellulitis, leg, ulcer foot admit to med/surg. - Lab Interpretations Lab Results: 05/30/18 17:50 05/30/18 17:50 Lab Results 05/30/18 17:50: WBC 4.0 L D, RBC 3.86, Hgb 10.9 L, Hct 33.7 L, MCV 87.3 D, MCH 28.2, MCHC 32.3, RDW 17.2 H, Plt Count 96 L, MPV 9.3, Gran % 61.4, Lymph % (Auto) 14.1 L, Sutter % (Auto) 17.3 H, Eos % (Auto) 6.2 H, Baso % (Auto) 1.0, Gran # 2.48, Lymph # (Auto) 0.6 L, [place] # (Auto) 0.7 H, Eos # (Auto) 0.3, Baso # (Auto) 0.04 05/30/18 17:50: Sodium 134, Potassium 3.6, Chloride 95 L, Carbon Dioxide 26, Anion Gap 16, BUN 21, Creatinine 5.0 H, Est GFR ( Amer) 14, Est GFR (Non- Af Amer) 11, Random Glucose 107, Calcium 8.9, Total Bilirubin 1.2, AST 27, ALT 22, Alkaline Phosphatase 157 H D, Total Protein 7.6, Albumin 3.9, Globulin 3.8, Albumin/Globulin Ratio 1.0 L - RAD Interpretation Radiology Orders: 05/30/18 16:36 CHEST PORTABLE [RAD] Stat 05/30/18 16:39 FOOT RIGHT 3 VIEWS ROUTINE [RAD] Stat - Medication Orders Current Medication Orders: Ciprofloxacin (Cipro 200mg/100ml D5w) 100 mls @ 67 mls/hr IVPB STAT STA; Protocol Stop: 05/30/18 20:08 Vancomycin HCl (Vancomycin 500mg In Ns) 500 mg in 100 mls @ 200 mls/hr IVPB STAT STA; Protocol Stop: 05/30/18 19:11 Disposition/Present on Arrival - Present on Arrival Any Indicators Present on Arrival: Yes History of DVT/PE: No History of Uncontrolled Diabetes: No Urinary Catheter: No History of Decub. Ulcer: Yes History Surgical Site Infection Following: None - Disposition Have Diagnosis and Disposition been Completed?: Yes Diagnosis: Cellulitis, leg, Foot ulcer Disposition: HOSPITALIZED Disposition Time: 19:00 Patient Plan: Admission Condition: FAIR Discharge Instructions (ExitCare): Cellulitis (ED)
[2018-05-30] MEDS ORDERED: Cefepime 1gm in NS 100ml 1 GM/100 ML BAG IVPB ONE (19:41)
[2018-05-30] MEDS ORDERED: Albuterol-Ipratrop 3 mg / 0.5 (3 ml) UD IH PRN (19:44)
--- NOTE | 2018-05-30 20:05 | CP.PCM.HP ---
<Nikko Ludwig - Last Filed: 05/31/18 00:08> History of Present Illness - History of Present Illness History of Present Illness: Internal Medicine History and Physical (Hospitalist Service): [facility] PGY2 CC: RLE pain/worsening ulceration HPI: Mr. Morales is a 78 year old male with a past medical history significant for HFrEF with AICD (EF: 22%), atrial fibrillation (Not on AC), CAD, PAD, ESRD on HD (MWF), APCKD s/p right nephrectomy, JOSE on CPAP, LLE ulcer, and chronic back pain who presents with worsening ulceration, swelling and discharge of RLE ulcer. Patient reports that while in HD today, he noticed that his RLE had become more swollen and had increased pain. He denies any radiation of this pain but does report that he experiences pain to a lesser degree in the LLE as well. He also reports that his chronic RLE ulcer has had increased purulent drainage despite a course of PO antibiotics upon discharge after a recent admission at [facility] for similar complaints as well as pneumonia. Otherwise, he currently denies any sick contacts, recent travel, recent surgeries, fevers, chills, headache, changes in his vision, chest pain, palpitations, SOB, wheezing, hemoptysis, abdominal pain, N/V/D/C, changes in urine output, or dysuria. 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 Coyle Present on Admission - Present on Admission Any Indicators Present on Admission: No Review of Systems - Review of Systems Review of Systems: As stated in HPI, otherwise negative Past Patient History - Past Social History Smoking Status: Never Smoked - CARDIAC Hx Atrial Fibrillation: Yes Hx Cardia Arrhythmia: Yes Hx Congestive Heart Failure: Yes Hx Internal Defibrillator: Yes Hx Pacemaker: Yes - PULMONARY Hx Pneumonia: Yes Hx Sleep Apnea: Yes (sleeps with CPAP) - NEUROLOGICAL Hx Neurological Disorder: No - HEENT Hx Deafness: Yes - RENAL Hx Chronic Kidney Disease: Yes Hx Dialysis: Yes Hx Renal Failure: Yes - ENDOCRINE/METABOLIC Other/Comment: Thyroidectomy - HEMATOLOGICAL/ONCOLOGICAL Hx Blood Disorders: No - INTEGUMENTARY Hx Dermatological Problems: No - MUSCULOSKELETAL/RHEUMATOLOGICAL Hx Back Pain: Yes Hx Falls: No - PSYCHIATRIC Hx Psychophysiologic Disorder: No Hx Substance Use: No - SURGICAL HISTORY Hx Thyroidectomy: Yes Other/Comment: nephrectomy - ANESTHESIA Hx Anesthesia: Yes Hx Anesthesia Reactions: No Hx Malignant Hyperthermia: No Meds Allergies/Adverse Reactions: Allergies Allergy/AdvReac Type Severity Reaction Status Date / Time EGG Allergy RASH Verified 05/31/18 06:13 Physical Exam - Constitutional Appears: No Acute Distress - Head Exam Head Exam: ATRAUMATIC, NORMOCEPHALIC - Eye Exam Eye Exam: EOMI, Normal appearance - ENT Exam ENT Exam: Mucous Membranes Dry - Neck Exam Neck exam: Positive for: Full Rom. Negative for: Meningismus - Respiratory Exam Respiratory Exam: Clear to Auscultation Bilateral, NORMAL BREATHING PATTERN. absent: Accessory Muscle Use, Decreased Breath Sounds, Rales, Rhonchi, Wheezes, Respiratory Distress - Cardiovascular Exam Cardiovascular Exam: REGULAR RHYTHM, +S1, +S2. absent: Bradycardia, Tachycardia - GI/Abdominal Exam GI & Abdominal Exam: Normal Bowel Sounds, Soft. absent: Tenderness - Extremities Exam Extremities exam: Negative for: normal inspection Additional comments: 3.5cm round ulceration with purulent discharge noted to the medial aspect of the right medial heel; Bilateral soft tissue changes consistent with chronic venous stasis dermatitis extending to bilateral knees; Increased warmth and erythema of bilateral LE R>L - Neurological Exam Neurological exam: Alert, Oriented x3 - Psychiatric Exam Psychiatric exam: Normal Affect, Normal Mood - Skin Skin Exam: Dry, Warm Results - Vital Signs Recent Vital Signs: Last Vital Signs Temp 98.2 F 05/30/18 16:23 Pulse 79 05/30/18 19:32 Resp 18 05/30/18 19:32 BP 118/69 05/30/18 19:32 Pulse Ox 97 05/30/18 19:32 - Labs Result Diagrams: 05/30/18 17:50 05/30/18 17:50 Labs: Laboratory Results - last 24 hr 10/17/18 10/17/18 17:50 17:50 WBC 4.0 L D RBC 3.86 Hgb 10.9 L Hct 33.7 L MCV 87.3 D MCH 28.2 MCHC 32.3 RDW 17.2 H Plt Count 96 L MPV 9.3 Gran % 61.4 Lymph % (Auto) 14.1 L [place] % (Auto) 17.3 H Eos % (Auto) 6.2 H Baso % (Auto) 1.0 Gran # 2.48 Lymph # (Auto) 0.6 L [place] # (Auto) 0.7 H Eos # (Auto) 0.3 Baso # (Auto) 0.04 Sodium 134 Potassium 3.6 Chloride 95 L Carbon Dioxide 26 Anion Gap 16 BUN 21 Creatinine 5.0 H Est GFR ( Amer) 14 Est GFR (Non-Af Amer) 11 Random Glucose 107 Calcium 8.9 Total Bilirubin 1.2 AST 27 ALT 22 Alkaline Phosphatase 157 H D Total Protein 7.6 Albumin 3.9 Globulin 3.8 Albumin/Globulin Ratio 1.0 L Assessment & Plan - Assessment and Plan (Free Text) Assessment: 78 year old male with a past medical history significant for HFrEF with AICD (EF: 22%), atrial fibrillation (Not on AC), CAD, PAD, ESRD on HD (MWF), APCKD s/p right nephrectomy, JOSE on CPAP, LLE ulcer, and chronic back pain who prese nts with worsening ulceration, swelling and discharge of RLE ulcer. Plan: 1. RLE Ulcer/Bilateral LE Cellulitis -Susceptibility/ARYA report from wound culture taken during recent admission noted and discussed with patient; See full report for details -Blood and urine cultures pending -Foot X-Ray showed severe dorsal soft tissue swelling without acute displaced fracture or bone destruction -Given total of 1gm of IV Vancomycin and 200mg of IV Ciprofloxacin in ED -Dilaudid 1mg IVP Q4 PRN for severe pain -Tylenol PRN for fever -home demonstration agent -Podiatry and ID consulted, all recommendations appreciated 2. Cough -Likely secondary to recent PNA -Chest X-Ray showed no active pulmonary disease -Duonebs PRN for SOB -Robitussin with Codeine 5ml PO Q4 PRN for cough -Tessalon Perles 100mg PO BID 3. History of ESRD on HD -Continue Dialysis as inpatient -Continue home Renagel, Flomax and Nephro-Judah -Avoid nephrotoxic agents and renally dose all medications where appropriate -Nephrology consulted, all recommendations appreciated 4. History of Atrial Fibrillation -Continue home Amiodarone 200mg PO daily -EKG showed electronic ventricular pacemaker rhythm 5. History of CAD/PAD -Continue home ASA 81mg PO daily 6. History of JOSE -Continue home CPAP HS at ordered settings 7. History of Hypothyroidism -Continue home Synthroid 200mcg daily -TSH pending 8. History of Depression/Anxiety -Continue home Effexor and Restoril 9. Deconditioning -Patient largely bed bound -PT Evaluation and Treatment pending 10. History of SDU -Air mattress and Multipodus boots -Turn Q2H GI Prophylaxis: Protonix DVT Prophylaxis: Heparin SC Patient seen and case discussed with attending, Dr. Whitt. - Date & Time Date: 05/30/18 Time: 20:05 Decision To Admit - Pt Status Changed To: Hospital Disposition Of: Inpatient Admission - Admit Certification Admit to Inpatient:: After my assessment, the patient will require hospitalization for at least two midnights. This is because of the severity of symptoms shown, intensity of services needed, and/or the medical risk in this patient being treated as an outpatient. - . Bed Request Type: Med/Surg <Johnny Whitt - Last Filed: 06/02/18 12:51> Results - Vital Signs Recent Vital Signs: Last Vital Signs Temp 98.5 F 06/01/18 06:00 Pulse 68 06/01/18 13:36 Resp 18 06/01/18 06:00 BP 92/51 L 06/01/18 13:36 Pulse Ox 100 06/01/18 06:00 - Labs Result Diagrams: 06/02/18 07:00 06/02/18 07:00 Labs: Laboratory Results - last 24 hr 05/31/18 05/31/18 05/31/18 10:40 10:40 10:40 WBC RBC Hgb Hct MCV MCH MCHC RDW Plt Count MPV Gran % Lymph % (Auto) [place] % (Auto) Eos % (Auto) Baso % (Auto) Gran # Lymph # (Auto) [place] # (Auto) Eos # (Auto) Baso # (Auto) ESR APTT Sodium Potassium Chloride Carbon Dioxide Anion Gap BUN Creatinine Est GFR ( Amer) Est GFR (Non-Af Amer) Random Glucose Calcium Phosphorus Magnesium Total Bilirubin AST ALT Alkaline Phosphatase Total Protein Albumin Globulin Albumin/Globulin Ratio Hep Bs Antibody Negative Hep B Core IgM Ab Negative Hepatitis Be Antigen Non-reactive 05/31/18 06/01/18 06/01/18 16:33 06:30 06:30 WBC 3.5 L RBC 3.69 Hgb 10.2 L Hct 32.8 L MCV 88.9 MCH 27.6 MCHC 31.1 RDW 17.5 H Plt Count 109 L MPV 10.4 Gran % 56.1 Lymph % (Auto) 20.4 L [place] % (Auto) 17.0 H Eos % (Auto) 5.1 H Baso % (Auto) 1.4 Gran # 1.98 Lymph # (Auto) 0.7 L [place] # (Auto) 0.6 Eos # (Auto) 0.2 Baso # (Auto) 0.05 ESR 19 H APTT 35.9 Sodium Potassium Chloride Carbon Dioxide Anion Gap BUN Creatinine Est GFR ( Amer) Est GFR (Non-Af Amer) Random Glucose Calcium Phosphorus 3.3 Magnesium Total Bilirubin AST ALT Alkaline Phosphatase Total Protein Albumin Globulin Albumin/Globulin Ratio Hep Bs Antibody Hep B Core IgM Ab Hepatitis Be Antigen 06/01/18 06:30 WBC RBC Hgb Hct MCV MCH MCHC RDW Plt Count MPV Gran % Lymph % (Auto) [place] % (Auto) Eos % (Auto) Baso % (Auto) Gran # Lymph # (Auto) [place] # (Auto) Eos # (Auto) Baso # (Auto) ESR APTT Sodium 134 Potassium 3.8 Chloride 96 L Carbon Dioxide 27 Anion Gap 15 BUN 20 Creatinine 5.1 H Est GFR ( Amer) 13 Est GFR (Non-Af Amer) 11 Random Glucose 96 Calcium 8.5 Phosphorus 3.8 Magnesium 1.8 Total Bilirubin 1.0 AST 26 ALT 18 Alkaline Phosphatase 143 H Total Protein 6.9 Albumin 3.4 Globulin 3.5 Albumin/Globulin Ratio 1.0 L Hep Bs Antibody Hep B Core IgM Ab Hepatitis Be Antigen Attending/Attestation - Attestation I have personally seen and examined this patient.: Yes I have fully participated in the care of the patient.: Yes I have reviewed all pertinent clinical information: Yes Notes (Text): 06/01/18 15:44 Attending note; Patient seen and examined with resident in ER. Patient is alert and awake. Complaining of mild shortness of breath and cough. Complaining of lower extremity swelling and redness. Patient is not able to ambulate due to leg pain and swelling. Denies any fevers, chills. Denies any urinary symptoms. The patient was discharged from the hospital recently. Patient is a 78 year old male with past medical history significant for atrial fibrillation not on anticoagulation, chronic systolic CHF s/p ICD, ESRD on HD, polycystic kidney disease, chronic foot ulcer, and septicemia that presented with worsening of the right lower extremity swelling and redness. 1. Cough and Shortness of breath. Likely secondary fluid overload. Patient will go for hemodialysis tomorrow . Case discussed with nephrology in detail . Patient completed 2 hours of hemodialysis today . Currently denies any chest pain . Not in any acute distress . Cough ; continue Robitussin with cough syrup . Continue nebulizer treatments. Chest x-ray showed cardiomegaly. No acute infiltrates or pulmonary edema. 2. Right lower extremity swelling and redness. Podiatry evaluation of requested. Continue dressing change. Ultrasound of the lower extremity ordered . 3. Peripheral arterial disease ;Arterial Doppler ordered . 4. Pacemaker placement. Severe cardiomyopathy .EKG showed paced rhythm. Continue ASA and amiodarone. 5. ESRD on HD. Continue dialysis per lead neurodiagnostic technologist. Patient might need extra dialysis to remove fluids. Fluid removal is difficult with low blood pressure. Case discussed with lead neurodiagnostic technologist in detail. Continue midodrine. 6. Hypothyroidism. Continue synthroid 7. Depression and anxiety. Continue venlafaxine. PT evaluation requested. Case discussed with telephonic nurse case manager for discharge planning. Patient currently agrees to go to rehabilitation. Prognosis is poor secondary to multiple medical issues.
[2018-05-30] MEDS: HYDROmorphone 1 mg/ml ISec IVP PRN (22:33)
[2018-05-30] MEDS: TEMAZEPAM 15 MG PO SCH (23:36)
[2018-05-30] MEDS: guaiFENesin-Codeine 100-10mg/5ml Syrup (5 ml) UD PO PRN (23:55)
[2018-05-31] MEDS: Pantoprazole 40 mg EC Tab PO SCH (05:50)
[2018-05-31] MEDS: HYDROmorphone 1 mg/ml ISec IVP PRN ×2 (06:39→18:13)
[2018-05-31 06:58] LABS: BASO # 0.04 K/mm3 (0.0-2.0); BASO % 1.2 % (0.0-3.0); EOS # 0.3 (0.0-0.7); EOS % 8.1 % (1.5-5.0); GRAN # 1.75 (1.4-6.5); GRAN % 52.2 % (50.0-68.0); HEMOGLOBIN 10.6 g/dL (14.0-18.0); LYMPH # 0.8 (1.2-3.4); LYMPH % 24.5 % (22.0-35.0); MEAN CORPUSCULAR HEMOGLOBIN 27.7 pg (25.0-35.0); MEAN CORPUSCULAR HGB CONC 31.5 g/dl (31.0-37.0); MEAN PLATELET VOLUME 10.9 fl (7.0-11.0); MONO # 0.5 (0.1-0.6); RBC 3.82 10^6/uL (3.5-6.1); RED CELL DISTRIBUTION WIDTH 17.3 % (11.5-14.5); WHITE BLOOD COUNT 3.4 10^3/ul (4.5-11.0)
[2018-05-31 07:46] LABS: ALB/GLOB RATIO 0.9 (1.1-1.8); ALBUMIN 3.5 g/dL (3.0-4.8); CALCIUM 8.7 mg/dL (8.4-10.5)
--- NOTE | 2018-05-31 10:27 | CARD ---
APPROVED REPORT Date of service: 05/30/2018 EKG Measurement Heart [id number] <Conclusion> Electronic ventricular pacemaker
--- NOTE | 2018-05-31 12:42 | CP.PCM.PN ---
Addendum entered and electronically signed by Tanesha Joe DPM 05/31/18 12:49: MRI order cancelled; CT of the right lower extremity ordered Original Note: <Tanesha Joe - Last Filed: 05/31/18 12:38> Subjective - Date & Time of Evaluation Date of Evaluation: 05/31/18 Time of Evaluation: 12:38 - Subjective Subjective: CC: RLE pain/worsening ulceration HPI: Mr. Morales is a 78 year old male with a past medical history significant for HFrEF with AICD (EF: 22%), atrial fibrillation (Not on AC), CAD, PAD, ESRD on HD (MWF), APCKD s/p right nephrectomy, JOSE on CPAP, LLE ulcer, and chronic back pain who presents with worsening ulceration, swelling and discharge of RLE ulcer. Patient states hes noticed the redness and swelling in his leg in the last three days, and has been getting worse.Patient denies any other pedal complains. Patietn denies f/n/v/sob. 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; Lives at home with ; Ambulates via [employer] Allergies: NKDA Objective - Vital Signs/Intake and Output Vital Signs (last 24 hours): Temp Pulse Resp BP Pulse Ox 97.3 F L 66 20 95/63 L 96 05/31/18 08:25 05/31/18 08:25 05/31/18 08:25 05/31/18 08:25 05/31/18 08:25 - Medications Medications: Current Medications Acetaminophen (Tylenol 325mg Tab) 650 mg PO Q6H PRN PRN Reason: Fever >100.4 F Albuterol/Ipratropium (Duoneb 3 Mg/0.5 Mg (3 Ml) Ud) 3 ml IH Q2H PRN PRN Reason: Shortness of Breath Amiodarone HCl (Cordarone) 200 mg PO DAILY [facility] Aspirin (Ecotrin) 81 mg PO DAILY [facility] Benzonatate (Tessalon Perles) 100 mg PO BID [facility] Guaifenesin/Codeine Phosphate (Robitussin W/Codeine) 5 ml PO Q4H PRN PRN Reason: Cough and congestion Last Admin: 05/30/18 23:55 Dose: 5 ml Heparin Sodium (Porcine) (Heparin) 5,000 units SC Q8 [facility]; Protocol Last Admin: 05/31/18 05:49 Dose: 5,000 units Hydromorphone HCl (Dilaudid) 1 mg IVP Q4H PRN PRN Reason: Pain, severe (8-10) Last Admin: 05/31/18 06:39 Dose: 1 mg Levothyroxine Sodium (Synthroid) 200 mcg PO ACB [facility] Non-Formulary Medication (Temazepam [Restoril]) 15 mg PO HS [facility] Last Admin: 05/30/18 23:36 Dose: Not Given Pantoprazole Sodium (Protonix Ec Tab) 40 mg PO 0600 [facility] Last Admin: 05/31/18 05:50 Dose: 40 mg Sevelamer HCl (Renagel) 800 mg PO DAILY [facility] Tamsulosin HCl (Flomax) 0.4 mg PO DAILY [facility] Venlafaxine HCl (Effexor Xr) 37.5 mg PO DAILY [facility] Vitamin B Complex/Vit C/Folic Acid (Nephro-Judah) 1 tab PO DAILY [facility] - Labs Labs: 05/31/18 06:00 05/31/18 06:00 APTT 34.0 Seconds (25.1-36.5) 05/31/18 06:00 - Constitutional Appears: Well, Non-toxic, No Acute Distress - Head Exam Head Exam: ATRAUMATIC, NORMOCEPHALIC - Extremities Exam Additional comments: Bilateral lower extremity exam: Vascular: DP/PT nonpalpable secondary to pitting edema, TG warm to warm, CFT <3 secs x10, +3 pitting edema on dorsum of foot, pretibial, and perimalleolar b/l Neuro: protective sensation absent Derm: full thickness ulceration noted on the medial aspect of the right heel, 100% fibrotic, serous drainage noted, no malodor, no probe to bone, no tunneling or tracking noted. Cellulitis noted from the ankle joint proximmaly to the knee joint b/l, no other open lesions noted Ortho: pain on palpation to both lower extremities R>L. - Neurological Exam Neurological Exam: Alert, Awake, Oriented x3 - Psychiatric Exam Psychiatric exam: Normal Affect - Skin Skin Exam: Normal Color Assessment and Plan - Assessment and Plan (Free Text) Assessment: 78 yo male with significant past medical history seen and evaluated at bedside for cellulitis in bilateral lower extremity, and full thickness ulcer on the medial aspect of the right heel. Plan: Patient seen and evaluated History and plan discussed in detail with the attending, Dr. Camejo Vascular consult ordered ID on board; recs appreciated Foot x-ray: no acute changes noted, soft tissue swelling. Afebrile; WBC 3.4 Venous duplex ordered b/l Arterial duplex ordered b/l MRi of the right lower extremity ordered Cultures ordered; results pending Right lower extremity dressed with DSD Continue IV antibiotics Patient will be followed by podiatry Thank you for the consult <Sixto Camejo - Last Filed: 06/01/18 11:23> Objective - Vital Signs/Intake and Output Vital Signs (last 24 hours): Temp Pulse Resp BP Pulse Ox 98.5 F 73 18 100/64 100 06/01/18 06:00 06/01/18 06:00 06/01/18 06:00 06/01/18 06:00 06/01/18 06:00 Intake and Output: 06/01/18 06/01/18 06:59 18:59 Intake Total 240 Balance 240 - Medications Medications: Current Medications Acetaminophen (Tylenol 325mg Tab) 650 mg PO Q6H PRN PRN Reason: Fever >100.4 F Albuterol/Ipratropium (Duoneb 3 Mg/0.5 Mg (3 Ml) Ud) 3 ml IH Q2H PRN PRN Reason: Shortness of Breath Amiodarone HCl (Cordarone) 200 mg PO DAILY [facility] Last Admin: 05/31/18 17:34 Dose: 200 mg Aspirin (Ecotrin) 81 mg PO DAILY [facility] Last Admin: 05/31/18 17:34 Dose: 81 mg Benzonatate (Tessalon Perles) 100 mg PO BID [facility] Last Admin: 05/31/18 17:37 Dose: 100 mg Guaifenesin/Codeine Phosphate (Robitussin W/Codeine) 5 ml PO Q4H PRN PRN Reason: Cough and congestion Last Admin: 05/31/18 21:07 Dose: 5 ml Heparin Sodium (Porcine) (Heparin) 5,000 units SC Q8 [facility]; Protocol Last Admin: 06/01/18 05:43 Dose: 5,000 units Hydromorphone HCl (Dilaudid) 1 mg IVP Q4H PRN PRN Reason: Pain, severe (8-10) Last Admin: 05/31/18 18:13 Dose: 1 mg Cefazolin Sodium (Ancef 1gm In Ns) 1 gm in 100 mls @ 100 mls/hr IVPB DAILY [facility]; Protocol Last Admin: 05/31/18 17:33 Dose: 100 mls/hr Levothyroxine Sodium (Synthroid) 200 mcg PO ACB [facility] Midodrine (Proamatine) 10 mg PO TID [facility] Last Admin: 06/01/18 09:22 Dose: 10 mg Non-Formulary Medication (Temazepam [Restoril]) 15 mg PO HS [facility] Last Admin: 05/31/18 21:11 Dose: Not Given Pantoprazole Sodium (Protonix Ec Tab) 40 mg PO 0600 [facility] Last Admin: 06/01/18 05:44 Dose: 40 mg Sevelamer HCl (Renagel) 800 mg PO DAILY [facility] Tamsulosin HCl (Flomax) 0.4 mg PO DAILY [facility] Last Admin: 05/31/18 17:34 Dose: 0.4 mg Venlafaxine HCl (Effexor Xr) 37.5 mg PO DAILY [facility] Last Admin: 05/31/18 17:34 Dose: 37.5 mg Vitamin B Complex/Vit C/Folic Acid (Nephro-Judah) 1 tab PO DAILY [facility] Last Admin: 05/31/18 17:35 Dose: 1 tab - Labs Labs: 06/01/18 06:30 06/01/18 06:30 APTT 35.9 Seconds (25.1-36.5) 06/01/18 06:30 Attending/Attestation - Attestation I have personally seen and examined this patient.: Yes I have fully participated in the care of the patient.: Yes I have reviewed all pertinent clinical information, including history, physical exam and plan: Yes
[2018-05-31] MEDS ORDERED: cefTRIAXone 1 gm 1 GM/100 ML BAG IVPB SCH (16:30)
[2018-05-31] MEDS: ceFAZolin 1 gm in NS 1 GM/100 ML BAG IVPB SCH (17:33)
[2018-05-31] MEDS: Venlafaxine 37.5 mg ER Cap PO SCH (17:34)
[2018-05-31] MEDS: Multivitamin Vitamin B Complex (Nephro-Vite) Tab PO SCH (17:35)
[2018-05-31] MEDS: guaiFENesin-Codeine 100-10mg/5ml Syrup (5 ml) UD PO PRN ×2 (17:37→21:07)
--- NOTE | 2018-05-31 18:16 | CT ---
Date of service: 05/31/2018 PROCEDURE: CT of the right foot. HISTORY: rule out osteomyelitis of the right heel COMPARISON: Plain radiographs from 05/30/2018 and 05/11/2018. TECHNIQUE: Contiguous axial images of the right foot were obtained. Coronal and sagittal reformats were generated. Radiation dose: Total exam DLP = 403.1 mGy-cm. This CT exam was performed using one or more of the following dose reduction techniques: Automated exposure control, adjustment of the mA and/or kV according to patient size, and/or use of iterative reconstruction technique. FINDINGS: BONES: There is diffuse bone demineralization. There are patchy areas of sclerosis and radiolucency in the talus, calcaneus, navicular cuboid and cuneiform C. no definite evidence for bone erosion or destruction. SOFT TISSUES: Evaluation of the periarticular muscles and tendons is limited on noncontrast CT examination. There is moderate dorsal soft tissue swelling and subcutaneous fluid without evidence for drainable collection. There is diffuse subcutaneous edema in the foot. IMPRESSION: Moderate dorsal soft tissue swelling and subcutaneous fluid without evidence for drainable fluid collection, findings likely represent cellulitis in the appropriate clinical setting. Patchy areas of sclerosis and lucency in the talus, calcaneus, navicular, cuboid and cuneiform are nonspecific and could be related to osteopenia however acute and/or chronic osteomyelitis cannot be excluded although there is no definite evidence for bone erosion or destruction. An MRI of the foot without and with intravenous contrast would be the modality of choice for definitive evaluation of osteomyelitis.
--- NOTE | 2018-05-31 18:43 | CP.PCM.PN ---
<Phil Vogt - Last Filed: 05/31/18 21:47> Subjective - Date & Time of Evaluation Date of Evaluation: 05/31/18 Time of Evaluation: 21:47 - Subjective Subjective: Phil Vogt DO PGY1 [facility] Progress Note Patient was seen and examined at bedside; Patient reported no acute events overnight Stated that he has underlying weakness, a past history of septicemia and ongoing ulcer over hte past 10 months Patient reports he was given the wrong medication. Plans for imaging and vascular studies discussed w/ patient, and patient is agreeable. Patient still complaining of cough at this time due to previous pneumonia. Objective - Vital Signs/Intake and Output Vital Signs (last 24 hours): Temp Pulse Resp BP Pulse Ox 97.9 F 70 20 110/68 100 05/31/18 16:22 05/31/18 17:34 05/31/18 16:22 05/31/18 17:34 05/31/18 16:22 - Medications Medications: Current Medications Acetaminophen (Tylenol 325mg Tab) 650 mg PO Q6H PRN PRN Reason: Fever >100.4 F Albuterol/Ipratropium (Duoneb 3 Mg/0.5 Mg (3 Ml) Ud) 3 ml IH Q2H PRN PRN Reason: Shortness of Breath Amiodarone HCl (Cordarone) 200 mg PO DAILY [facility] Last Admin: 05/31/18 17:34 Dose: 200 mg Aspirin (Ecotrin) 81 mg PO DAILY [facility] Last Admin: 05/31/18 17:34 Dose: 81 mg Benzonatate (Tessalon Perles) 100 mg PO BID [facility] Last Admin: 05/31/18 17:37 Dose: 100 mg Guaifenesin/Codeine Phosphate (Robitussin W/Codeine) 5 ml PO Q4H PRN PRN Reason: Cough and congestion Last Admin: 05/31/18 17:37 Dose: 5 ml Heparin Sodium (Porcine) (Heparin) 5,000 units SC Q8 [facility]; Protocol Last Admin: 05/31/18 17:35 Dose: Not Given Hydromorphone HCl (Dilaudid) 1 mg IVP Q4H PRN PRN Reason: Pain, severe (8-10) Last Admin: 05/31/18 18:13 Dose: 1 mg Cefazolin Sodium (Ancef 1gm In Ns) 1 gm in 100 mls @ 100 mls/hr IVPB DAILY [facility]; Protocol Last Admin: 05/31/18 17:33 Dose: 100 mls/hr Levothyroxine Sodium (Synthroid) 200 mcg PO ACB [facility] Midodrine (Proamatine) 10 mg PO TID [facility] Last Admin: 05/31/18 17:36 Dose: 10 mg Non-Formulary Medication (Temazepam [Restoril]) 15 mg PO HS [facility] Last Admin: 05/30/18 23:36 Dose: Not Given Pantoprazole Sodium (Protonix Ec Tab) 40 mg PO 0600 [facility] Last Admin: 05/31/18 05:50 Dose: 40 mg Sevelamer HCl (Renagel) 800 mg PO DAILY [facility] Tamsulosin HCl (Flomax) 0.4 mg PO DAILY [facility] Last Admin: 05/31/18 17:34 Dose: 0.4 mg Venlafaxine HCl (Effexor Xr) 37.5 mg PO DAILY [facility] Last Admin: 05/31/18 17:34 Dose: 37.5 mg Vitamin B Complex/Vit C/Folic Acid (Nephro-Judah) 1 tab PO DAILY [facility] Last Admin: 05/31/18 17:35 Dose: 1 tab - Labs Labs: 05/31/18 06:00 05/31/18 06:00 APTT 34.0 Seconds (25.1-36.5) 05/31/18 06:00 - Constitutional Appears: Well, Non-toxic, No Acute Distress - Head Exam Head Exam: ATRAUMATIC, NORMOCEPHALIC - Eye Exam Eye Exam: EOMI, Normal appearance, PERRL - ENT Exam ENT Exam: Mucous Membranes Moist - Respiratory Exam Respiratory Exam: NORMAL BREATHING PATTERN Additional comments: BL crackles in lower lobes Minimal wheezes - Cardiovascular Exam Cardiovascular Exam: RRR, +S1, +S2 - GI/Abdominal Exam GI & Abdominal Exam: Soft, Normal Bowel Sounds. absent: Tenderness - Extremities Exam Additional comments: BL lower extremities 4+ pitting edema Chronic venostatic changes appreciated Ulceration at base of ankle on R foot ; draining; Extremities are cool to touch - Neurological Exam Neurological Exam: Alert, Awake, CN II-XII Intact, Oriented x3 - Psychiatric Exam Psychiatric exam: Normal Affect, Normal Mood - Skin Additional comments: various abrasions throughout entire body; Knuckles on L hand have abrasion. Assessment and Plan - Assessment and Plan (Free Text) Assessment: 78 year old male with a past medical history significant for HFrEF with AICD (EF: 22%), atrial fibrillation (Not on AC), CAD, PAD, ESRD on HD (MWF), APCKD s/p right nephrectomy, JOSE on CPAP, LLE ulcer, and chronic back pain who pres ents with worsening ulceration, swelling and discharge of RLE ulcer. Plan: RLE Ulcer/ BL LE Cellulitis: CT R Lower extremity: Moderate dorsal soft tissue swelling and subcutaneous fluid without evidence for drainable fluid collection, findings likely represent cellulitis in the appropriate clinical setting. Patchy areas of sclerosis and lucency in the talus, calcaneus, navicular, cuboid and cuneiform are nonspecific and could be related to osteopenia however acute and/or chronic osteomyelitis cannot be excluded although there is no definite evidence for bone erosion or destruction. 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 -Venous + Arterial Duplex pending BL -Vascular consult pending -Podiatry and ID consulted, all recommendations appreciated Cough -Likely secondary to recent PNA -Chest X-Ray showed no active pulmonary disease -Duonebs PRN for SOB -Robitussin with Codeine 5ml PO Q4 PRN for cough -Tessalon Perles 100mg PO BID History of ESRD on HD -Continue Dialysis as inpatient -Continue home Renagel, Flomax and Nephro-Judah -Avoid nephrotoxic agents and renally dose all medications where appropriate -Nephrology consulted, all recommendations appreciated History of Atrial Fibrillation -Continue home Amiodarone 200mg PO daily -EKG showed electronic ventricular pacemaker rhythm -Not on AC History of CAD/PAD -Continue home ASA 81mg PO daily History of JOSE -Continue home CPAP HS at ordered settings History of Hypothyroidism -Continue home Synthroid 200mcg daily -TSH markedly elevated; follow up validity given patient is ESRD History of Depression/Anxiety -Continue home Effexor and Restoril Deconditioning -Patient largely bed bound -PT Evaluation and Treatment pending History of SDU -Air mattress and Multipodus boots -Turn Q2H GI Prophylaxis: Protonix DVT Prophylaxis: Heparin SC Patient was seen and examined w/ attending physician Dr. Peri Vogt DO PGY1 - Internal Medicine [facility] - Pager [phone] <Johnny Whitt - Last Filed: 06/02/18 12:54> Objective - Vital Signs/Intake and Output Vital Signs (last 24 hours): Temp Pulse Resp BP Pulse Ox 97.7 F 71 18 114/78 100 06/02/18 08:32 06/02/18 08:32 06/02/18 08:32 06/02/18 08:32 06/02/18 08:32 - Medications Medications: Current Medications Acetaminophen (Tylenol 325mg Tab) 650 mg PO Q6H PRN PRN Reason: Fever >100.4 F Albuterol/Ipratropium (Duoneb 3 Mg/0.5 Mg (3 Ml) Ud) 3 ml IH Q2H PRN PRN Reason: Shortness of Breath Amiodarone HCl (Cordarone) 200 mg PO DAILY [facility] Last Admin: 06/02/18 12:29 Dose: 200 mg Aspirin (Ecotrin) 81 mg PO DAILY [facility] Last Admin: 06/02/18 12:29 Dose: 81 mg Benzonatate (Tessalon Perles) 100 mg PO BID [facility] Last Admin: 06/02/18 12:30 Dose: 100 mg Guaifenesin/Codeine Phosphate (Robitussin W/Codeine) 5 ml PO Q4H PRN PRN Reason: Cough and congestion Last Admin: 06/02/18 08:33 Dose: 5 ml Heparin Sodium (Porcine) (Heparin) 5,000 units SC Q8 [facility]; Protocol Last Admin: 06/02/18 05:33 Dose: 5,000 units Hydromorphone HCl (Dilaudid) 1 mg IVP Q4H PRN PRN Reason: Pain, severe (8-10) Last Admin: 06/02/18 08:35 Dose: 1 mg Cefazolin Sodium (Ancef 1gm In Ns) 1 gm in 100 mls @ 100 mls/hr IVPB DAILY [facility]; Protocol Last Admin: 06/02/18 12:28 Dose: 100 mls/hr Levothyroxine Sodium (Synthroid) 200 mcg PO ACB [facility] Last Admin: 06/02/18 08:34 Dose: 200 mcg Midodrine (Proamatine) 10 mg PO TID [facility] Last Admin: 06/01/18 17:21 Dose: 10 mg Mupirocin (Bactroban Ointment) 0 gm TOP BID [facility] Non-Formulary Medication (Temazepam [Restoril]) 15 mg PO HS [facility] Last Admin: 06/01/18 22:05 Dose: Not Given Pantoprazole Sodium (Protonix Ec Tab) 40 mg PO 0600 [facility] Last Admin: 06/02/18 05:34 Dose: 40 mg Sevelamer HCl (Renagel) 800 mg PO DAILY [facility] Last Admin: 06/02/18 12:30 Dose: 800 mg Tamsulosin HCl (Flomax) 0.4 mg PO DAILY [facility] Last Admin: 06/02/18 12:30 Dose: 0.4 mg Venlafaxine HCl (Effexor Xr) 37.5 mg PO DAILY [facility] Last Admin: 06/02/18 12:29 Dose: 37.5 mg Vitamin B Complex/Vit C/Folic Acid (Nephro-Judah) 1 tab PO DAILY [facility] Last Admin: 06/02/18 12:30 Dose: 1 tab - Labs Labs: 06/02/18 07:00 06/02/18 07:00 APTT 36.6 Seconds (25.1-36.5) H 06/02/18 07:00 Attending/Attestation - Attestation I have personally seen and examined this patient.: Yes I have fully participated in the care of the patient.: Yes I have reviewed all pertinent clinical information, including history, physical exam and plan: Yes Notes (Text): 06/02/18 12:51 Attending note; Patient seen and examined with resident. Patient is alert and awake. Shortness of breath improved. Lower extremity swelling is improving. Denies any fevers, chills. Patient is a 78 year old male with past medical history significant for atrial fibrillation not on anticoagulation, chronic systolic CHF s/p ICD, ESRD on HD, polycystic kidney disease, chronic foot ulcer, and septicemia that presented with worsening of the right lower extremity swelling and redness. 1. Cough and Shortness of breath. resolved. Patient will go for hemodialysis today. Case discussed with nephrology in detail. Cough ; continue Robitussin with cough syrup . Continue nebulizer treatments. Chest x-ray showed cardiomegaly. No acute infiltrates or pulmonary edema. 2. Right lower extremity swelling and redness. Edema is improving. Podiatry evaluation appreciated. Continue dressing change. Redness is improving. Got IV vancomycin. Currently on IV Ancef. ID evaluation appreciated. Ultrasound of the lower extremity is negative for DVT. 3. Peripheral arterial disease ;Arterial Doppler pending. 4. Pacemaker placement. Severe cardiomyopathy .EKG showed paced rhythm. Continue ASA and amiodarone. 5. ESRD on HD. Continue dialysis per associate store director. Patient might need extra dialysis to remove fluids. Fluid removal is difficult with low blood pressure. Case discussed with associate store director in detail. Continue midodrine. 6. Hypothyroidism. Continue synthroid 7. Depression and anxiety. Continue venlafaxine. PT evaluation appreciated. Subacute rehabilitation recommended. Case discussed with shelter case manager for discharge planning. Patient currently agrees to go to rehabilitation. Prognosis is poor secondary to multiple medical issues. 06/02/18 12:54
--- NOTE | 2018-05-31 19:31 | CP.PCM.CON ---
History of Present Illness - History of Present Illness History of Present Illness: Infectious Disease Consultation: May 31, 2018 78 year old male with a past medical history significant for HFrEF with AICD (EF: 22%), atrial fibrillation (Not on AC), CAD, PAD, ESRD on HD (MWF), APCKD s/ p right nephrectomy, JOSE on CPAP, LLE ulcer, and chronic back pain who presents with worsening ulceration, swelling and discharge of RLE ulcer. Patient states he's noticed the redness and swelling in his leg in the last three days, and has been getting worse. Patient denies any other pedal complains. Patietn denies f/n/v/sob. [place] [facility] [place] after a few hours here. Complicated medical history. Prior cultures from that visit showing MSSA and Enterobacter. Enterobacter with sensitivity to Cipro, Bactrim, and Gentamicin. PMHx: HFrEF with AICD (EF: 22%), atrial fibrillation (Not on AC), CAD, PAD, ESRD on HD (MWF), APCKD s/p right nephrectomy, JOSE on CPAP, RLE ulcer, and chronic back pain PSHx: AICD placement, right chest wall HD access, Thyroidectomy, Right Nephrectomy Allergies: NKDA Social Hx: No tobacco, EtOH, or illicit drug use. 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 Active Medications Acetaminophen (Tylenol 325mg Tab) 650 mg PO Q6H PRN PRN Reason: Fever >100.4 F Albuterol/Ipratropium (Duoneb 3 Mg/0.5 Mg (3 Ml) Ud) 3 ml IH Q2H PRN PRN Reason: Shortness of Breath Amiodarone HCl (Cordarone) 200 mg PO DAILY [facility] Last Admin: 05/31/18 17:34 Dose: 200 mg Aspirin (Ecotrin) 81 mg PO DAILY [facility] Last Admin: 05/31/18 17:34 Dose: 81 mg Benzonatate (Tessalon Perles) 100 mg PO BID [facility] Last Admin: 05/31/18 17:37 Dose: 100 mg Guaifenesin/Codeine Phosphate (Robitussin W/Codeine) 5 ml PO Q4H PRN PRN Reason: Cough and congestion Last Admin: 05/31/18 17:37 Dose: 5 ml Heparin Sodium (Porcine) (Heparin) 5,000 units SC Q8 [facility]; Protocol Last Admin: 05/31/18 17:35 Dose: Not Given Hydromorphone HCl (Dilaudid) 1 mg IVP Q4H PRN PRN Reason: Pain, severe (8-10) Last Admin: 05/31/18 18:13 Dose: 1 mg Cefazolin Sodium (Ancef 1gm In Ns) 1 gm in 100 mls @ 100 mls/hr IVPB DAILY [facility]; Protocol Last Admin: 05/31/18 17:33 Dose: 100 mls/hr Levothyroxine Sodium (Synthroid) 200 mcg PO ACB [facility] Midodrine (Proamatine) 10 mg PO TID [facility] Last Admin: 05/31/18 17:36 Dose: 10 mg Non-Formulary Medication (Temazepam [Restoril]) 15 mg PO HS [facility] Last Admin: 05/30/18 23:36 Dose: Not Given Pantoprazole Sodium (Protonix Ec Tab) 40 mg PO 0600 [facility] Last Admin: 05/31/18 05:50 Dose: 40 mg Sevelamer HCl (Renagel) 800 mg PO DAILY [facility] Tamsulosin HCl (Flomax) 0.4 mg PO DAILY [facility] Last Admin: 05/31/18 17:34 Dose: 0.4 mg Venlafaxine HCl (Effexor Xr) 37.5 mg PO DAILY [facility] Last Admin: 05/31/18 17:34 Dose: 37.5 mg Vitamin B Complex/Vit C/Folic Acid (Nephro-Judah) 1 tab PO DAILY [facility] Last Admin: 05/31/18 17:35 Dose: 1 tab Family Hx: DM type 2 - Father. ROS: No fevers, chills, nausea, vomiting, diarrhea, headaches, dizziness, chest pain, abdominal pain, melena, hematuria, hematemesis, hematochezia, depression, anxiety. Past Patient History - Past Social History Smoking Status: Never Smoked - CARDIAC Hx Congestive Heart Failure: Yes - PULMONARY Hx Pneumonia: Yes Hx Sleep Apnea: Yes (sleeps with CPAP) - NEUROLOGICAL Hx Neurological Disorder: No - HEENT Hx Deafness: Yes - RENAL Hx Renal Failure: Yes - ENDOCRINE/METABOLIC Other/Comment: Thyroidectomy - HEMATOLOGICAL/ONCOLOGICAL Hx Blood Disorders: No - INTEGUMENTARY Hx Dermatological Problems: No - MUSCULOSKELETAL/RHEUMATOLOGICAL Hx Back Pain: Yes Hx Falls: No - GASTROINTESTINAL Hx Gastrointestinal Disorders: No - GENITOURINARY/GYNECOLOGICAL Hx Genitourinary Disorders: No - PSYCHIATRIC Hx Psychophysiologic Disorder: No Hx Substance Use: No - SURGICAL HISTORY Hx Thyroidectomy: Yes Other/Comment: nephrectomy - ANESTHESIA Hx Anesthesia: Yes Hx Anesthesia Reactions: No Hx Malignant Hyperthermia: No Meds Allergies/Adverse Reactions: Allergies Allergy/AdvReac Type Severity Reaction Status Date / Time EGG Allergy RASH Verified 05/31/18 06:13 - Medications Medications: Current Medications Acetaminophen (Tylenol 325mg Tab) 650 mg PO Q6H PRN PRN Reason: Fever >100.4 F Albuterol/Ipratropium (Duoneb 3 Mg/0.5 Mg (3 Ml) Ud) 3 ml IH Q2H PRN PRN Reason: Shortness of Breath Amiodarone HCl (Cordarone) 200 mg PO DAILY [facility] Last Admin: 05/31/18 17:34 Dose: 200 mg Aspirin (Ecotrin) 81 mg PO DAILY [facility] Last Admin: 05/31/18 17:34 Dose: 81 mg Benzonatate (Tessalon Perles) 100 mg PO BID [facility] Last Admin: 05/31/18 17:37 Dose: 100 mg Guaifenesin/Codeine Phosphate (Robitussin W/Codeine) 5 ml PO Q4H PRN PRN Reason: Cough and congestion Last Admin: 05/31/18 17:37 Dose: 5 ml Heparin Sodium (Porcine) (Heparin) 5,000 units SC Q8 [facility]; Protocol Last Admin: 05/31/18 17:35 Dose: Not Given Hydromorphone HCl (Dilaudid) 1 mg IVP Q4H PRN PRN Reason: Pain, severe (8-10) Last Admin: 05/31/18 18:13 Dose: 1 mg Cefazolin Sodium (Ancef 1gm In Ns) 1 gm in 100 mls @ 100 mls/hr IVPB DAILY [facility]; Protocol Last Admin: 05/31/18 17:33 Dose: 100 mls/hr Levothyroxine Sodium (Synthroid) 200 mcg PO ACB [facility] Midodrine (Proamatine) 10 mg PO TID [facility] Last Admin: 05/31/18 17:36 Dose: 10 mg Non-Formulary Medication (Temazepam [Restoril]) 15 mg PO HS [facility] Last Admin: 05/30/18 23:36 Dose: Not Given Pantoprazole Sodium (Protonix Ec Tab) 40 mg PO 0600 [facility] Last Admin: 05/31/18 05:50 Dose: 40 mg Sevelamer HCl (Renagel) 800 mg PO DAILY [facility] Tamsulosin HCl (Flomax) 0.4 mg PO DAILY [facility] Last Admin: 05/31/18 17:34 Dose: 0.4 mg Venlafaxine HCl (Effexor Xr) 37.5 mg PO DAILY [facility] Last Admin: 05/31/18 17:34 Dose: 37.5 mg Vitamin B Complex/Vit C/Folic Acid (Nephro-Judah) 1 tab PO DAILY [facility] Last Admin: 05/31/18 17:35 Dose: 1 tab Physical Exam - Constitutional Appears: Non-toxic, No Acute Distress, Chronically Ill - Head Exam Head Exam: ATRAUMATIC, NORMOCEPHALIC - Eye Exam Eye Exam: EOMI, PERRL Pupil Exam: NORMAL ACCOMODATION, PERRL - ENT Exam ENT Exam: Mucous Membranes Moist, Normal External Ear Exam, TM's Normal Bilaterally - Neck Exam Neck exam: Positive for: Full Rom, Normal Inspection - Respiratory Exam Respiratory Exam: Clear to Auscultation Bilateral, NORMAL BREATHING PATTERN. absent: Rales, Rhonchi, Wheezes - Cardiovascular Exam Cardiovascular Exam: REGULAR RHYTHM, RRR, +S1, +S2 - GI/Abdominal Exam GI & Abdominal Exam: Normal Bowel Sounds, Soft. absent: Distended, Tenderness - Extremities Exam Additional comments: Lower extremities exam Vascular: DP/PT nonpalpable secondary to pitting edema, TG warm to warm, CFT <3 secs x10, +3 pitting edema on dorsum of foot, pretibial, and perimalleolar b/l Neuro: protective sensation absent Derm: full thickness ulceration noted on the medial aspect of the right heel, 100% fibrotic, serous drainage noted, no malodor, no probe to bone, no tunneling or tracking noted. Cellulitis noted from the ankle joint proximmaly to the knee joint b/l, no other open lesions noted Tenderness of both lower extremities. - Neurological Exam Neurological exam: Alert, CN II-XII Intact, Oriented x3 - Psychiatric Exam Psychiatric exam: Normal Affect, Normal Mood - Skin Skin Exam: Intact, Normal Color Results - Vital Signs Recent Vital Signs: Last Vital Signs Temp 97.9 F 05/31/18 16:22 Pulse 70 05/31/18 17:34 Resp 20 05/31/18 16:22 BP 110/68 05/31/18 17:34 Pulse Ox 100 05/31/18 16:22 - Labs Result Diagrams: 05/31/18 06:00 05/31/18 06:00 Labs: Laboratory Results - last 24 hr 05/31/18 05/31/18 05/31/18 06:00 06:00 06:00 WBC 3.4 L RBC 3.82 Hgb 10.6 L Hct 33.6 L MCV 88.0 MCH 27.7 MCHC 31.5 RDW 17.3 H Plt Count 113 L MPV 10.9 Gran % 52.2 Lymph % (Auto) 24.5 Hubbard % (Auto) 14.0 H Eos % (Auto) 8.1 H Baso % (Auto) 1.2 Gran # 1.75 Lymph # (Auto) 0.8 L Hubbard # (Auto) 0.5 Eos # (Auto) 0.3 Baso # (Auto) 0.04 APTT 34.0 Sodium 134 Potassium 3.6 Chloride 95 L Carbon Dioxide 26 Anion Gap 17 BUN 26 H Creatinine 5.8 H Est GFR ( Amer) 12 Est GFR (Non-Af Amer) 10 Random Glucose 91 Calcium 8.7 Phosphorus 3.9 Magnesium 2.0 Total Bilirubin 1.2 AST 27 ALT 23 Alkaline Phosphatase 131 H Total Protein 7.2 Albumin 3.5 Globulin 3.7 Albumin/Globulin Ratio 0.9 L Free T4 TSH 3rd Generation Hep Bs Antibody Hep B Core IgM Ab 05/31/18 05/31/18 05/31/18 06:00 10:40 10:40 WBC RBC Hgb Hct MCV MCH MCHC RDW Plt Count MPV Gran % Lymph % (Auto) Hubbard % (Auto) Eos % (Auto) Baso % (Auto) Gran # Lymph # (Auto) Hubbard # (Auto) Eos # (Auto) Baso # (Auto) APTT Sodium Potassium Chloride Carbon Dioxide Anion Gap BUN Creatinine Est GFR ( Amer) Est GFR (Non-Af Amer) Random Glucose Calcium Phosphorus Magnesium Total Bilirubin AST ALT Alkaline Phosphatase Total Protein Albumin Globulin Albumin/Globulin Ratio Free T4 TSH 3rd Generation 29.20 H Hep Bs Antibody Negative Hep B Core IgM Ab Negative 05/31/18 05/31/18 13:20 16:33 WBC RBC Hgb Hct MCV MCH MCHC RDW Plt Count MPV Gran % Lymph % (Auto) Hubbard % (Auto) Eos % (Auto) Baso % (Auto) Gran # Lymph # (Auto) Hubbard # (Auto) Eos # (Auto) Baso # (Auto) APTT Sodium Potassium Chloride Carbon Dioxide Anion Gap BUN Creatinine Est GFR ( Amer) Est GFR (Non-Af Amer) Random Glucose Calcium Phosphorus 3.3 Magnesium Total Bilirubin AST ALT Alkaline Phosphatase Total Protein Albumin Globulin Albumin/Globulin Ratio Free T4 1.67 TSH 3rd Generation Hep Bs Antibody Hep B Core IgM Ab Assessment & Plan - Assessment and Plan (Free Text) Assessment: 78 yo male with extensive past medical history with bilateral lower extremity cellulitis and full thickness ulcer on the right heel. Unable to have MRI due to AICD. Obtain ESR. Start patient on Ancef IV. Duplex studies pending. May need additional antibiotics depending on culture results. Given atrial fibrillation would avoid fluoroquinolones. The patient with ESRD on HD and CAD. Prolonged QTc interval. Thank you for allowing me to participate in the care of the patient, we will follow with you.
[2018-05-31] MEDS: TEMAZEPAM 15 MG PO SCH (21:11)
[2018-06-01] MEDS: Pantoprazole 40 mg EC Tab PO SCH (05:44)
--- NOTE | 2018-06-01 05:58 | CON ---
DATE: 05/31/2018 REASON FOR CONSULTATION: Edema, shortness of breath, cough, low blood pressure. HISTORY OF PRESENTING ILLNESS: A 78-year-old male known to me from outpatient hemodialysis. The patient complained of severe right lower extremity pain during dialysis. He terminated his treatment early. He insisted on coming to the emergency room. He also complains of cough. He complains of shortness of breath. He reports he had a pneumonia recently. He denies any chest pain. He complains of pain in his right hip when he coughs. He denies any fever. He denies any chills. He reports he is extremely weak. He is unable to turn in bed. He is found to have chronic lower extremity edema, chronic lower extremity stasis changes, ulcer on his right heel, multiple skin breakdowns on the lower extremities. PAST MEDICAL AND SURGICAL HISTORY: CHF, cardiomyopathy, decreased ejection fraction, AICD, atrial fibrillation, CAD, PAD, polycystic kidney disease, history of right nephrectomy, sleep apnea, chronic lower extremity edema, chronic lower extremity ulcers, back pain, pneumonia. FAMILY HISTORY: Noncontributory. SOCIAL HISTORY: No smoking, no alcohol use, no IV drug abuse. 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 ALLERGIES: NO KNOWN DRUG ALLERGIES. MEDICATIONS: Effexor, Restoril, Flomax, Renagel, Synthroid, aspirin, amiodarone, colchicine, Colace, midodrine. REVIEW OF SYSTEMS: All systems are reviewed, pertinent positives as mentioned in the history of presenting illness, rest unremarkable. PHYSICAL EXAMINATION: GENERAL: Obese, elderly male, lying in bed, in moderate distress. VITAL SIGNS: Blood pressure 95/63, heart rate 66, respiratory rate 20, temperature 97.3. HEENT: Normocephalic, atraumatic, positive pallor. NECK: Supple, no JVD. LUNGS: Crackles, right side. CARDIAC: S1 and S2, regular rate and rhythm, no murmur, no rub. ABDOMEN: Obese, distended, soft, nontender, bowel sounds present. EXTREMITIES: 3+ pitting edema of the lower extremities, chronic stasis changes, dry skin, ulcer on the right heel, ulcer on the left lower extremity. LABORATORY DATA: WBC 3.4, hemoglobin 10.6, hematocrit 34, platelets 113. Sodium 134, potassium 3.6, chloride 95, CO2 of 26, BUN 26, creatinine 5.8, glucose 91, calcium 8.7, phosphorus 3.9, magnesium 2.0, albumin 3.5. TSH 29. CURRENT MEDICATIONS: Amiodarone 200 daily, Dilaudid, DuoNeb, Ecotrin, Effexor, Protonix, Renagel, Synthroid, Tylenol, ciprofloxacin 200 mg, vancomycin 500 mg given yesterday. ASSESSMENT: 1. Lower extremity cellulitis. 2. Chronic venous stasis. 3. Total body volume overload. 4. ? Right pneumonia. 5. Severe cardiomyopathy, decreased ejection fraction, low blood pressure, automatic implantable cardioverter defibrillator. 6. End-stage renal disease. 7. Morbid obesity. 8. Severe hypothyroidism. PLAN: 1. Antibiotics as per ID recommendations. 2. Dry ultrafiltration for 4 kilograms of removal today. 3. Dialysis tomorrow. 4. Chest x-ray 5. Check phosphorus level. 6. Continue phosphate binders. 7. Continue ProAmatine. 8. Physical Therapy evaluation. Jodie Coyle MD
[2018-06-01] MEDS ORDERED: Doxercalciferol 4 mcg/2 ml Inj IV ONE (07:08)
[2018-06-01] MEDS ORDERED: Darbepoetin Alfa 60 mcg/ml Inj IVP ONE (07:08)
[2018-06-01 07:09] LABS: BASO # 0.05 K/mm3 (0.0-2.0); BASO % 1.4 % (0.0-3.0); EOS # 0.2 (0.0-0.7); EOS % 5.1 % (1.5-5.0); GRAN # 1.98 (1.4-6.5); GRAN % 56.1 % (50.0-68.0); HEMOGLOBIN 10.2 g/dL (14.0-18.0); LYMPH # 0.7 (1.2-3.4); LYMPH % 20.4 % (22.0-35.0); MEAN CELL VOLUME 88.9 fl (80.0-105.0); MEAN CORPUSCULAR HEMOGLOBIN 27.6 pg (25.0-35.0); MEAN CORPUSCULAR HGB CONC 31.1 g/dl (31.0-37.0); MEAN PLATELET VOLUME 10.4 fl (7.0-11.0); MONO # 0.6 (0.1-0.6); RBC 3.69 10^6/uL (3.5-6.1); RED CELL DISTRIBUTION WIDTH 17.5 % (11.5-14.5); WHITE BLOOD COUNT 3.5 10^3/ul (4.5-11.0)
[2018-06-01 07:51] LABS: ALBUMIN 3.4 g/dL (3.0-4.8); CALCIUM 8.5 mg/dL (8.4-10.5)
[2018-06-01] MEDS: Levothyroxine 200 MCG TAB PO SCH (08:30)
[2018-06-01] MEDS: ceFAZolin 1 gm in NS 1 GM/100 ML BAG IVPB SCH (13:36)
[2018-06-01] MEDS: Venlafaxine 37.5 mg ER Cap PO SCH (13:38)
[2018-06-01] MEDS: Multivitamin Vitamin B Complex (Nephro-Vite) Tab PO SCH (13:38)
[2018-06-01] MEDS: guaiFENesin-Codeine 100-10mg/5ml Syrup (5 ml) UD PO PRN (13:38)
[2018-06-01] MEDS ORDERED: Vancomycin 1gm in NS 250ml 1 GM/250 ML BAG IVPB STA (14:25)
--- NOTE | 2018-06-01 15:00 | CP.PCM.PN ---
Subjective - Date & Time of Evaluation Date of Evaluation: 06/01/18 Time of Evaluation: 14:00 - Subjective Subjective: Infectious Disease Follow Up: June 01, 2018 78 year old male with a past medical history significant for HFrEF with AICD (EF: 22%), atrial fibrillation (Not on AC), CAD, PAD, ESRD on HD (MWF), APCKD s/p right nephrectomy, JOSE on CPAP, LLE ulcer, and chronic back pain who presents with worsening ulceration, swelling and discharge of RLE ulcer. Patient states he's noticed the redness and swelling in his leg in the last three days, and has been getting worse. Patient denies any other pedal complains. Patient denies f/n/v/sob. Patient was in [facility] [place] few weeks ago where he left [place] after a few hours here. Complicated medical history. Prior cultures from that visit showing MSSA and Enterobacter. Enterobacter with sensitivity to Cipro, Bactrim, and Gentamicin. Very strong headed patient. He has had difficulty accepting medical diagnoses given to him during this hospitalization. Objective - Vital Signs/Intake and Output Vital Signs (last 24 hours): Temp Pulse Resp BP Pulse Ox 98.5 F 68 18 92/51 L 100 06/01/18 06:00 06/01/18 13:36 06/01/18 06:00 06/01/18 13:36 06/01/18 06:00 Intake and Output: 06/01/18 06/01/18 06:59 18:59 Intake Total 240 Balance 240 - Medications Medications: Current Medications Acetaminophen (Tylenol 325mg Tab) 650 mg PO Q6H PRN PRN Reason: Fever >100.4 F Albuterol/Ipratropium (Duoneb 3 Mg/0.5 Mg (3 Ml) Ud) 3 ml IH Q2H PRN PRN Reason: Shortness of Breath Amiodarone HCl (Cordarone) 200 mg PO DAILY [facility] Last Admin: 06/01/18 13:36 Dose: Not Given Aspirin (Ecotrin) 81 mg PO DAILY [facility] Last Admin: 06/01/18 13:38 Dose: 81 mg Benzonatate (Tessalon Perles) 100 mg PO BID [facility] Last Admin: 06/01/18 13:37 Dose: 100 mg Guaifenesin/Codeine Phosphate (Robitussin W/Codeine) 5 ml PO Q4H PRN PRN Reason: Cough and congestion Last Admin: 06/01/18 13:38 Dose: 5 ml Heparin Sodium (Porcine) (Heparin) 5,000 units SC Q8 [facility]; Protocol Last Admin: 06/01/18 13:40 Dose: 5,000 units Hydromorphone HCl (Dilaudid) 1 mg IVP Q4H PRN PRN Reason: Pain, severe (8-10) Last Admin: 05/31/18 18:13 Dose: 1 mg Cefazolin Sodium (Ancef 1gm In Ns) 1 gm in 100 mls @ 100 mls/hr IVPB DAILY [facility]; Protocol Last Admin: 06/01/18 13:36 Dose: 100 mls/hr Vancomycin HCl (Vancomycin 1gm) 1 gm in 250 mls @ 167 mls/hr IVPB STAT [facility]; Protocol Stop: 06/01/18 15:54 Levothyroxine Sodium (Synthroid) 200 mcg PO ACB [facility] Last Admin: 06/01/18 08:30 Dose: Not Given Midodrine (Proamatine) 10 mg PO TID [facility] Last Admin: 06/01/18 13:37 Dose: 10 mg Non-Formulary Medication (Temazepam [Restoril]) 15 mg PO HS [facility] Last Admin: 05/31/18 21:11 Dose: Not Given Pantoprazole Sodium (Protonix Ec Tab) 40 mg PO 0600 [facility] Last Admin: 06/01/18 05:44 Dose: 40 mg Sevelamer HCl (Renagel) 800 mg PO DAILY [facility] Last Admin: 06/01/18 13:40 Dose: 800 mg Tamsulosin HCl (Flomax) 0.4 mg PO DAILY [facility] Last Admin: 06/01/18 13:43 Dose: Not Given Venlafaxine HCl (Effexor Xr) 37.5 mg PO DAILY [facility] Last Admin: 06/01/18 13:38 Dose: 37.5 mg Vitamin B Complex/Vit C/Folic Acid (Nephro-Judah) 1 tab PO DAILY [facility] Last Admin: 06/01/18 13:38 Dose: 1 tab - Labs Labs: 06/01/18 06:30 06/01/18 06:30 APTT 35.9 Seconds (25.1-36.5) 06/01/18 06:30 - Constitutional Appears: Non-toxic, No Acute Distress, Chronically Ill - Head Exam Head Exam: ATRAUMATIC, NORMOCEPHALIC - Eye Exam Eye Exam: EOMI, PERRL Pupil Exam: NORMAL ACCOMODATION, PERRL - ENT Exam ENT Exam: Mucous Membranes Moist, Normal External Ear Exam, TM's Normal Bilater ally - Neck Exam Neck Exam: Full ROM, Normal Inspection - Respiratory Exam Respiratory Exam: Clear to Ausculation Bilateral, NORMAL BREATHING PATTERN. absent: Rales, Rhonchi, Wheezes - Cardiovascular Exam Cardiovascular Exam: REGULAR RHYTHM, RRR, +S1, +S2 - GI/Abdominal Exam GI & Abdominal Exam: Soft, Normal Bowel Sounds. absent: Distended, Tenderness - Extremities Exam Additional comments: Lower extremities exam Vascular: DP/PT nonpalpable secondary to pitting edema, TG warm to warm, CFT <3 secs x10, +3 pitting edema on dorsum of foot, pretibial, and perimalleolar b/l Neuro: protective sensation absent Derm: full thickness ulceration noted on the medial aspect of the right heel, 100% fibrotic, serous drainage noted, no malodor, no probe to bone, no tunneling or tracking noted. Cellulitis noted from the ankle joint proximmaly to the knee joint b/l, no other open lesions noted Tenderness of both lower extremities. - Neurological Exam Neurological Exam: Alert, Awake, CN II-XII Intact, Oriented x3 - Psychiatric Exam Psychiatric exam: Normal Affect, Normal Mood - Skin Skin Exam: Intact, Normal Color Assessment and Plan - Assessment and Plan (Free Text) Assessment: 78 yo male with extensive past medical history with bilateral lower extremity cellulitis and full thickness ulcer on the right heel. Unable to have MRI due to AICD. Obtain ESR. Start patient on Ancef IV. Duplex studies pending. May need additional antibiotics depending on culture results. Given atrial fibrillation would avoid fluoroquinolones. The patient with ESRD on HD and CAD. Prolonged QTc interval. I do not feel that the patient has a pneumonia based on the physical findings and imaging studies but that his cough is more likely secondary to fluid overload and CHF. The patient can continue with Ancef in HD at 2gm per dose for [address] with [address]. Whitt and Dr. Coyle. Thank you for allowing me to participate in the care of the patient, we will follow with you.
--- NOTE | 2018-06-01 19:15 | US ---
PROCEDURE: Lower extremity HARSHIL exam HISTORY: Peripheral vascular disease with pain and ulceration. Previous smoker. PHYSICIAN(S): Brad Braga MD. FINDINGS: The exam is limited by calcified noncompressible vessels at all levels. The resting ABIs are not obtained The brachial systolic pressures are symmetric. The high thigh PVR waveforms are relatively normal and symmetric. The calf PVR waveforms augment relatively normally. The ankle and metatarsal waveforms are mildly blunted and pulsatile. Findings are suggestive of bilateral tibial disease. IMPRESSION: 1. Limited study due to calcified vessels at all levels. 2. Bilateral tibial disease. The distal waveforms are pulsatile
--- NOTE | 2018-06-01 19:26 | US ---
HISTORY: Leg pain and swelling. Evaluate for DVT PHYSICIAN(S): Brad Braga MD. TECHNIQUE: Duplex sonography and color-flow Doppler with graded compression were used to evaluate the deep venous systems of both lower extremities. The exam is very limited by edema. FINDINGS: The visualized deep venous systems of both lower extremities are sonographically normal and compressible. Normal wave forms and augmentation are seen. There is no sonographic evidence for deep venous thrombosis in the visualized segments of both lower extremities. IMPRESSION: No sonographic evidence for deep venous thrombosis in the visualized segments of both lower extremities. Very limited study.
--- NOTE | 2018-06-01 19:49 | CP.PCM.PN ---
<Phil Vogt - Last Filed: 06/01/18 19:49> Subjective - Date & Time of Evaluation Date of Evaluation: 06/01/18 Time of Evaluation: 19:42 - Subjective Subjective: Phil Vogt DO PGY1 - Internal medicine Yard Cleaner - Hospital progress note NO acute events overnight Pt. stable ; offering no complaints. Under went dialysis this AM. Objective - Vital Signs/Intake and Output Vital Signs (last 24 hours): Temp Pulse Resp BP Pulse Ox 98.5 F 68 18 112/72 100 06/01/18 06:00 06/01/18 13:36 06/01/18 06:00 06/01/18 17:15 06/01/18 06:00 Intake and Output: 06/01/18 06/02/18 18:59 06:59 Intake Total 350 Balance 350 - Medications Medications: Current Medications Acetaminophen (Tylenol 325mg Tab) 650 mg PO Q6H PRN PRN Reason: Fever >100.4 F Albuterol/Ipratropium (Duoneb 3 Mg/0.5 Mg (3 Ml) Ud) 3 ml IH Q2H PRN PRN Reason: Shortness of Breath Amiodarone HCl (Cordarone) 200 mg PO DAILY [facility] Last Admin: 06/01/18 13:36 Dose: Not Given Aspirin (Ecotrin) 81 mg PO DAILY [facility] Last Admin: 06/01/18 13:38 Dose: 81 mg Benzonatate (Tessalon Perles) 100 mg PO BID [facility] Last Admin: 06/01/18 17:21 Dose: 100 mg Guaifenesin/Codeine Phosphate (Robitussin W/Codeine) 5 ml PO Q4H PRN PRN Reason: Cough and congestion Last Admin: 06/01/18 13:38 Dose: 5 ml Heparin Sodium (Porcine) (Heparin) 5,000 units SC Q8 [facility]; Protocol Last Admin: 06/01/18 13:40 Dose: 5,000 units Hydromorphone HCl (Dilaudid) 1 mg IVP Q4H PRN PRN Reason: Pain, severe (8-10) Last Admin: 05/31/18 18:13 Dose: 1 mg Cefazolin Sodium (Ancef 1gm In Ns) 1 gm in 100 mls @ 100 mls/hr IVPB DAILY [facility]; Protocol Last Admin: 06/01/18 13:36 Dose: 100 mls/hr Levothyroxine Sodium (Synthroid) 200 mcg PO ACB [facility] Last Admin: 06/01/18 08:30 Dose: Not Given Midodrine (Proamatine) 10 mg PO TID [facility] Last Admin: 06/01/18 17:21 Dose: 10 mg Non-Formulary Medication (Temazepam [Restoril]) 15 mg PO HS [facility] Last Admin: 05/31/18 21:11 Dose: Not Given Pantoprazole Sodium (Protonix Ec Tab) 40 mg PO 0600 [facility] Last Admin: 06/01/18 05:44 Dose: 40 mg Sevelamer HCl (Renagel) 800 mg PO DAILY [facility] Last Admin: 06/01/18 13:40 Dose: 800 mg Tamsulosin HCl (Flomax) 0.4 mg PO DAILY [facility] Last Admin: 06/01/18 13:43 Dose: Not Given Venlafaxine HCl (Effexor Xr) 37.5 mg PO DAILY [facility] Last Admin: 06/01/18 13:38 Dose: 37.5 mg Vitamin B Complex/Vit C/Folic Acid (Nephro-Judah) 1 tab PO DAILY [facility] Last Admin: 06/01/18 13:38 Dose: 1 tab - Labs Labs: 06/01/18 06:30 06/01/18 06:30 APTT 35.9 Seconds (25.1-36.5) 06/01/18 06:30 - Constitutional Appears: Well, Non-toxic, No Acute Distress - Head Exam Head Exam: ATRAUMATIC, NORMOCEPHALIC - Eye Exam Eye Exam: EOMI, Normal appearance, PERRL - ENT Exam ENT Exam: Mucous Membranes Moist - Respiratory Exam Respiratory Exam: NORMAL BREATHING PATTERN Additional comments: BL crackles in lower lobes Minimal wheezes - Cardiovascular Exam Cardiovascular Exam: RRR, +S1, +S2 - GI/Abdominal Exam GI & Abdominal Exam: Soft, Normal Bowel Sounds. absent: Tenderness - Extremities Exam Additional comments: BL lower extremities 4+ pitting edema Chronic venostatic changes appreciated Ulceration at base of ankle on R foot ; draining; Extremities are cool to touch - Neurological Exam Neurological Exam: Alert, Awake, CN II-XII Intact, Oriented x3 - Psychiatric Exam Psychiatric exam: Normal Affect, Normal Mood - Skin Additional comments: various abrasions throughout entire body; Knuckles on L hand have abrasion. Assessment and Plan - Assessment and Plan (Free Text) Assessment: 78 year old male with a past medical history significant for HFrEF with AICD (EF: 22%), atrial fibrillation (Not on AC), CAD, PAD, ESRD on HD (MWF), APCKD s/p right nephrectomy, JOSE on CPAP, LLE ulcer, and chronic back pain who presents with worsening ulceration, swelling and discharge of RLE ulcer. During hospital course patient underwent vascular evaluation of lower extremities; No plans for IR intervention at this time. Podiatry onboard appreciate reccs. Plan: RLE Ulcer/ BL LE Cellulitis: CT R Lower extremity: Moderate dorsal soft tissue swelling and subcutaneous fluid without evidence for drainable fluid collection, findings likely represent cellulitis in the appropriate clinical setting. Patchy areas of sclerosis and lucency in the talus, calcaneus, navicular, cuboid and cuneiform are nonspecific and could be related to osteopenia however acute and/or chronic osteomyelitis cannot be excluded although there is no definite evidence for bone erosion or destruction. -Repeat wound culture results pending at this time; initial report noted. -ID following appreciate reccs -C/w Cefazolin ; Will admin x1 dose vanco post dialysis -BCx negative after 48H -C/w Dilaudid 1mg IVP Q4 PRN for severe pain -Tylenol PRN for fever -parking ramp attendant -Venous + Arterial Duplex studies - No Venous thrombosis BL; BL tibial disease suggested -Podiatry and ID consulted, all recommendations appreciated -No IR intervention at this time; will continue medically managing Cough -Findings are less supportive for PNA -Chest X-Ray showed no active pulmonary disease -Duonebs PRN for SOB -Robitussin with Codeine 5ml PO Q4 PRN for cough -Tessalon Perles 100mg PO BID History of ESRD on HD -Continue Dialysis as inpatient; -Start Midodrine -Start Doxercalciferol -Continue home Renagel, Flomax and Nephro-Judah -Avoid nephrotoxic agents and renally dose all medications where appropriate -Nephrology consulted, all recommendations appreciated History of Atrial Fibrillation -Continue home Amiodarone 200mg PO daily -EKG showed electronic ventricular pacemaker rhythm -Not on AC History of CAD/PAD -Continue home ASA 81mg PO daily History of JOSE -Continue home CPAP HS at ordered settings History of Hypothyroidism -Continue home Synthroid 200mcg daily -TSH markedly elevated; follow up validity given patient is ESRD History of Depression/Anxiety -Continue home Effexor and Restoril Deconditioning -Patient largely bed bound -PT Evaluation and Treatment pending History of SDU -Air mattress and Multipodus boots -Turn Q2H GI Prophylaxis: Protonix DVT Prophylaxis: Heparin SC Patient was seen and examined w/ attending physician Dr. Peri Vogt DO PGY1 - Internal Medicine Yard Cleaner - Pager [phone] <Johnny Whitt - Last Filed: 06/02/18 12:56> Objective - Vital Signs/Intake and Output Vital Signs (last 24 hours): Temp Pulse Resp BP Pulse Ox 97.7 F 71 18 114/78 100 06/02/18 08:32 06/02/18 08:32 06/02/18 08:32 06/02/18 08:32 06/02/18 08:32 - Medications Medications: Current Medications Acetaminophen (Tylenol 325mg Tab) 650 mg PO Q6H PRN PRN Reason: Fever >100.4 F Albuterol/Ipratropium (Duoneb 3 Mg/0.5 Mg (3 Ml) Ud) 3 ml IH Q2H PRN PRN Reason: Shortness of Breath Amiodarone HCl (Cordarone) 200 mg PO DAILY [facility] Last Admin: 06/02/18 12:29 Dose: 200 mg Aspirin (Ecotrin) 81 mg PO DAILY [facility] Last Admin: 06/02/18 12:29 Dose: 81 mg Benzonatate (Tessalon Perles) 100 mg PO BID [facility] Last Admin: 06/02/18 12:30 Dose: 100 mg Guaifenesin/Codeine Phosphate (Robitussin W/Codeine) 5 ml PO Q4H PRN PRN Reason: Cough and congestion Last Admin: 06/02/18 08:33 Dose: 5 ml Heparin Sodium (Porcine) (Heparin) 5,000 units SC Q8 [facility]; Protocol Last Admin: 06/02/18 05:33 Dose: 5,000 units Hydromorphone HCl (Dilaudid) 1 mg IVP Q4H PRN PRN Reason: Pain, severe (8-10) Last Admin: 06/02/18 08:35 Dose: 1 mg Cefazolin Sodium (Ancef 1gm In Ns) 1 gm in 100 mls @ 100 mls/hr IVPB DAILY [facility]; Protocol Last Admin: 06/02/18 12:28 Dose: 100 mls/hr Levothyroxine Sodium (Synthroid) 200 mcg PO ACB [facility] Last Admin: 06/02/18 08:34 Dose: 200 mcg Midodrine (Proamatine) 10 mg PO TID [facility] Last Admin: 06/01/18 17:21 Dose: 10 mg Mupirocin (Bactroban Ointment) 0 gm TOP BID [facility] Non-Formulary Medication (Temazepam [Restoril]) 15 mg PO HS [facility] Last Admin: 06/01/18 22:05 Dose: Not Given Pantoprazole Sodium (Protonix Ec Tab) 40 mg PO 0600 [facility] Last Admin: 06/02/18 05:34 Dose: 40 mg Sevelamer HCl (Renagel) 800 mg PO DAILY [facility] Last Admin: 06/02/18 12:30 Dose: 800 mg Tamsulosin HCl (Flomax) 0.4 mg PO DAILY [facility] Last Admin: 06/02/18 12:30 Dose: 0.4 mg Venlafaxine HCl (Effexor Xr) 37.5 mg PO DAILY [facility] Last Admin: 06/02/18 12:29 Dose: 37.5 mg Vitamin B Complex/Vit C/Folic Acid (Nephro-Judah) 1 tab PO DAILY [facility] Last Admin: 06/02/18 12:30 Dose: 1 tab - Labs Labs: 06/02/18 07:00 06/02/18 07:00 APTT 36.6 Seconds (25.1-36.5) H 06/02/18 07:00 Attending/Attestation - Attestation I have personally seen and examined this patient.: Yes I have fully participated in the care of the patient.: Yes I have reviewed all pertinent clinical information, including history, physical exam and plan: Yes Notes (Text): 06/02/18 12:54 Attending note; Patient seen and examined with resident in dialysis. Patient is alert and awake. Shortness of breath improved. Lower extremity swelling is improving. Patient is a 78 year old male with past medical history significant for atrial fibrillation not on anticoagulation, chronic systolic CHF s/p ICD, ESRD on HD, polycystic kidney disease, chronic foot ulcer, and septicemia that presented with worsening of the right lower extremity swelling and redness. 1. Cough and Shortness of breath. resolved after dialysis. Patient is getting extra dialysis today. Significantly improved after fluid removal. Case discussed with nephrology in detail. Cough ; resolving.continue Robitussin with cough syrup . Continue nebulizer treatments. Chest x-ray showed cardiomegaly. No acute infiltrates or pulmonary edema. 2. Right lower extremity swelling and redness. Edema is improving. Podiatry evaluation appreciated. Continue dressing change. Redness is improving. Got IV vancomycin. Currently on IV Ancef. ID evaluation appreciated. Blood culture is negative. Wound culture is pending. Ultrasound of the lower extremity is negative for DVT. 3. Peripheral arterial disease ;Arterial Doppler pending. We'll follow up with vascular surgery. 4. Pacemaker placement. Severe cardiomyopathy .EKG showed paced rhythm. Continue ASA and amiodarone. 5. ESRD on HD. Continue dialysis per tv news director. Patient might need extra dialysis to remove fluids. Continue midodrine. 6. Hypothyroidism. Continue synthroid 7. Depression and anxiety. Continue venlafaxine. PT evaluation appreciated. Subacute rehabilitation recommended. Case discussed with case packer and sealer for discharge planning. Patient currently agrees to go to rehabilitation. Patient is approved for [place]. Prognosis is poor secondary to multiple medical issues.
--- NOTE | 2018-06-01 21:23 | PN ---
DATE: 06/01/2018 SUBJECTIVE: A 78-year-old male seen at bedside for continued evaluation and management of a full thickness ulceration on the medial aspect of his right heel. The heel ulceration has been present for many months and the patient was treated as an outpatient by myself, but was lost, but when he moved to [place] from [place], he never followed up when he was told to make an appointment at the wound center for aggressive local wound care treatment. The patient is reporting no pain in the heel at this time. PHYSICAL EXAMINATION: VITAL SIGNS: The patient's vital signs revealed temperature of 98.5, pulse rate of 68, blood pressure of 192/51 and respiratory rate of 18. LABORATORY DATA: Laboratory findings reveal white count of 3.5, hemoglobin of 10.2, hematocrit of 32.8, platelet count of 109. ESR is 19. There was a microbiology report submitted yesterday. However, there is no report shown in the [facility] system. A new culture and sensitivity was ordered earlier today and submitted. We are awaiting results. X-ray results are negative for osteomyelitis of the right heel. CT scan was ordered which reveals patchy areas of sclerosis and lucency in talus calcaneus navicular, cuboid and cuneiform which are more nonspecific and do not point to any definitive answer for the presence of osteomyelitis. Clinically, the wound does not probe to bone. OBJECTIVE: Nonpalpable pedal pulses noted bilaterally. +2 pitting edema noted bilaterally. The patient is unable to detect 5.07 g monofilament wire testing bilaterally. There is noted to be chronic venous stasis atrophic changes to both lower extremities with severe hemosiderosis evident. There is a full-thickness ulceration located on the medial aspect of the right heel and encompasses the entire medial heel. It is primarily fibrotic. There is serous drainage noted. There is no malodor. There is no purulence. There is no underlying abscess formation. The wound does not probe to tendon or bone. However, the surrounding area is edematous and erythematous. ASSESSMENT: Full-thickness ulceration on the right medial heel with no radiographic or clinical evidence of osteomyelitis at this time. PLAN: The patient was seen and evaluated. Wound was cleansed with normal sterile saline and application of Bactroban, Xeroform and a dry sterile dressing was applied. Dr. Wylie's note was read and appreciated. Recommend vascular consult with Dr. Brad Braga to ascertain lower extremity perfusion and evaluate Doppler testing. We are awaiting new culture and sensitivity results. We will continue with IV antibiotics as per Infectious Disease. Wolf was told that it is imperative that we offload his heel in order to prevent exacerbating his ulceration and allow the wound to attempt closure. The patient will be seen and followed daily. Sixto Camejo DPM
--- NOTE | 2018-06-01 21:41 | PN ---
DATE: 06/01/2018 SUBJECTIVE: The patient is seen lying in bed. He is awake, he is alert. He complains of cough. He reports his right lower extremity is somewhat better. He denies any chest pain. PHYSICAL EXAMINATION: GENERAL: Obese elderly male lying in bed. VITAL SIGNS: Blood pressure 112/72, heart rate 68, respiratory rate 18, temperature 98.5. HEENT: Normocephalic, atraumatic, positive pallor. NECK: Supple, no JVD. LUNGS: Bilateral equal entry, bilateral equal expansion, decreased breath sounds at bases. CARDIAC: S1, S2, regular rate and rhythm, no murmur, no rub. ABDOMEN: Obese, distended, soft, nontender, bowel sounds present. EXTREMITIES: Chronic stasis changes, hyperpigmentation of the lower extremities, right heel ulcer, left lower extremity ulcers. INTAKE AND OUTPUT: Not charted. LABORATORY DATA: WBC 3.5, hemoglobin 10.2, hematocrit 33, platelets 109. Sodium 134, potassium 3.8, chloride 96, CO2 of 27, BUN 20, creatinine 5.1, glucose 96, calcium 8.5, phosphorus 3.8, magnesium 1.8, albumin 3.4. Blood cultures no growth. CT of the lower extremity, moderate dorsal soft tissue swelling and subcutaneous fluid. No drainable collection, patchy areas of sclerosis and lucency in the talus calcaneus, navicular, cuboid and cuneiform, ? osteomyelitis. MRI recommended. CURRENT MEDICATIONS: Ancef, Cordarone, Dilaudid, DuoNeb, Ecotrin 81, Effexor, Flomax, heparin, midodrine 10 t.i.d., Protonix, Renagel, Synthroid, Tessalon, Tylenol, Aranesp 60 given, Hectorol 2 mcg, vancomycin 1 g. ASSESSMENT AND PLAN: 1. Lower extremity cellulitis. 2. ? osteomyelitis. 3. Total body volume overload. 4. Morbid obesity. 5. End-stage renal disease. 6. Coronary artery disease/atrial fibrillation. 7. Peripheral arterial disease. PLAN: 1. Stable dialysis today, ultrafiltration 4 kg. 2. Continue ProAmatine for blood pressure support. 3. Antibiotics as per ID recommendations. 4. Ultrafiltration tomorrow. 5. Physical therapy. Jodie Coyle MD [facility] # [id number]
[2018-06-01] MEDS: TEMAZEPAM 15 MG PO SCH (22:05)
[2018-06-02] MEDS: Pantoprazole 40 mg EC Tab PO SCH (05:34)
[2018-06-02 07:55] LABS: BASO # 0.04 K/mm3 (0.0-2.0); EOS # 0.2 (0.0-0.7); EOS % 4.6 % (1.5-5.0); GRAN # 2.35 (1.4-6.5); GRAN % 56.2 % (50.0-68.0); HEMOGLOBIN 10.3 g/dL (14.0-18.0); LYMPH # 1.1 (1.2-3.4); LYMPH % 26.4 % (22.0-35.0); MEAN CELL VOLUME 89.3 fl (80.0-105.0); MEAN CORPUSCULAR HEMOGLOBIN 27.6 pg (25.0-35.0); MEAN CORPUSCULAR HGB CONC 30.9 g/dl (31.0-37.0); MEAN PLATELET VOLUME 9.9 fl (7.0-11.0); MONO # 0.5 (0.1-0.6); MONO % 11.8 % (1.0-6.0); RBC 3.73 10^6/uL (3.5-6.1); RED CELL DISTRIBUTION WIDTH 17.4 % (11.5-14.5); WHITE BLOOD COUNT 4.2 10^3/ul (4.5-11.0)
[2018-06-02 08:09] LABS: ALBUMIN 3.4 g/dL (3.0-4.8); CALCIUM 8.5 mg/dL (8.4-10.5)
[2018-06-02] MEDS: guaiFENesin-Codeine 100-10mg/5ml Syrup (5 ml) UD PO PRN ×2 (08:33→19:32)
[2018-06-02] MEDS: Levothyroxine 200 MCG TAB PO SCH (08:34)
[2018-06-02] MEDS: HYDROmorphone 1 mg/ml ISec IVP PRN (08:35)
--- NOTE | 2018-06-02 10:36 | CP.PCM.PN ---
<Summer Sales - Last Filed: 06/03/18 06:54> Subjective - Date & Time of Evaluation Date of Evaluation: 06/02/18 Time of Evaluation: 13:26 - Subjective Subjective: INTERNAL MEDICINE PROGRESS NOTE FOR DR. RUDDY Sales PGY-1 Pt seen and examined in HD this am. He reports no acute events overnight. 3000 mL removed via ultrafiltration. No acute nursing events overnight, and no acute complaints. Plans to discuss arterial u/s with IR on Monday. 12 point ROS was negative Objective - Vital Signs/Intake and Output Vital Signs (last 24 hours): Temp Pulse Resp BP Pulse Ox 97.7 F 71 18 114/78 100 06/02/18 08:32 06/02/18 08:32 06/02/18 08:32 06/02/18 08:32 06/02/18 08:32 - Medications Medications: Current Medications Acetaminophen (Tylenol 325mg Tab) 650 mg PO Q6H PRN PRN Reason: Fever >100.4 F Albuterol/Ipratropium (Duoneb 3 Mg/0.5 Mg (3 Ml) Ud) 3 ml IH Q2H PRN PRN Reason: Shortness of Breath Amiodarone HCl (Cordarone) 200 mg PO DAILY [facility] Last Admin: 06/01/18 13:36 Dose: Not Given Aspirin (Ecotrin) 81 mg PO DAILY [facility] Last Admin: 06/01/18 13:38 Dose: 81 mg Benzonatate (Tessalon Perles) 100 mg PO BID [facility] Last Admin: 06/01/18 17:21 Dose: 100 mg Guaifenesin/Codeine Phosphate (Robitussin W/Codeine) 5 ml PO Q4H PRN PRN Reason: Cough and congestion Last Admin: 06/02/18 08:33 Dose: 5 ml Heparin Sodium (Porcine) (Heparin) 5,000 units SC Q8 [facility]; Protocol Last Admin: 06/02/18 05:33 Dose: 5,000 units Hydromorphone HCl (Dilaudid) 1 mg IVP Q4H PRN PRN Reason: Pain, severe (8-10) Last Admin: 06/02/18 08:35 Dose: 1 mg Cefazolin Sodium (Ancef 1gm In Ns) 1 gm in 100 mls @ 100 mls/hr IVPB DAILY [facility]; Protocol Last Admin: 06/01/18 13:36 Dose: 100 mls/hr Levothyroxine Sodium (Synthroid) 200 mcg PO ACB [facility] Last Admin: 06/02/18 08:34 Dose: 200 mcg Midodrine (Proamatine) 10 mg PO TID [facility] Last Admin: 06/01/18 17:21 Dose: 10 mg Non-Formulary Medication (Temazepam [Restoril]) 15 mg PO HS [facility] Last Admin: 06/01/18 22:05 Dose: Not Given Pantoprazole Sodium (Protonix Ec Tab) 40 mg PO 0600 [facility] Last Admin: 06/02/18 05:34 Dose: 40 mg Sevelamer HCl (Renagel) 800 mg PO DAILY [facility] Last Admin: 06/01/18 13:40 Dose: 800 mg Tamsulosin HCl (Flomax) 0.4 mg PO DAILY [facility] Last Admin: 06/01/18 13:43 Dose: Not Given Venlafaxine HCl (Effexor Xr) 37.5 mg PO DAILY [facility] Last Admin: 06/01/18 13:38 Dose: 37.5 mg Vitamin B Complex/Vit C/Folic Acid (Nephro-Judah) 1 tab PO DAILY [facility] Last Admin: 06/01/18 13:38 Dose: 1 tab - Labs Labs: 06/02/18 07:00 06/02/18 07:00 APTT 36.6 Seconds (25.1-36.5) H 06/02/18 07:00 - Constitutional Appears: Well, Non-toxic, No Acute Distress - Head Exam Head Exam: NORMAL INSPECTION, NORMOCEPHALIC - Eye Exam Eye Exam: EOMI, Normal appearance - ENT Exam ENT Exam: Mucous Membranes Moist, Normal Exam - Neck Exam Neck Exam: Normal Inspection. absent: Meningismus - Respiratory Exam Respiratory Exam: NORMAL BREATHING PATTERN Additional comments: Minimal wheezing - Cardiovascular Exam Cardiovascular Exam: REGULAR RHYTHM, +S1, +S2 - GI/Abdominal Exam GI & Abdominal Exam: Soft, Normal Bowel Sounds. absent: Tenderness - Extremities Exam Extremities Exam: Pedal Edema. absent: Calf Tenderness Additional comments: BL lower extremities 4+ pitting edema Chronic venostatic changes appreciated Ulceration at base of ankle on R foot ; draining; Extremities are cool to touch - Back Exam Back Exam: NORMAL INSPECTION - Neurological Exam Neurological Exam: Alert, Awake, Oriented x3 - Psychiatric Exam Psychiatric exam: Normal Affect, Normal Mood - Skin Skin Exam: Dry, Intact, Warm Additional comments: various abrasions throughout entire body; Knuckles on L hand have abrasion. Assessment and Plan - Assessment and Plan (Free Text) Assessment: 78 year old male with a past medical history significant for HFrEF with AICD ( EF: 22%), atrial fibrillation (Not on AC), CAD, PAD, ESRD on HD (MWF), APCKD s/p right nephrectomy, JOSE on CPAP, LLE ulcer, and chronic back pain who presents with worsening ulceration, swelling and discharge of RLE ulcer. During hospital course patient underwent vascular evaluation of lower extremities. Pt being followed by podiatry Plan: Cough and Shortness of Breath Pt undergoing dialysis today Significantly improved after fluid removal Duonebs PRN for SOB Robitussin with Codeine 5ml PO Q4 PRN for cough Tessalon Perles 100mg PO BID Findings are less supportive for PNA Chest X-Ray showed no active pulmonary disease RLE Ulcer/ BL LE Cellulitis: Edema is improving Wound culture growing gram (-) rods ID following appreciate recs C/w Cefazolin ; Will admin x1 dose vanco post dialysis Venous + Arterial Duplex studies - No Venous thrombosis BL; BL tibial disease suggested. F/u further IR recs Podiatry and ID consulted, all recommendations appreciated CT R Lower extremity: Moderate dorsal soft tissue swelling and subcutaneous fluid without evidence for drainable fluid collection, findings likely represent cellulitis in the appropriate clinical setting. Patchy areas of sclerosis and lucency in the talus, calcaneus, navicular, cuboid and cuneiform are nonspecific and could be related to osteopenia however acute and/or chronic osteomyelitis cannot be excluded although there is no definite evidence for bone erosion or destruction. History of ESRD on HD Continue Dialysis as inpatient; Start Midodrine Start Doxercalciferol Continue home Renagel, Flomax and Nephro-Judah Avoid nephrotoxic agents and renally dose all medications where appropriate Nephrology consulted, all recommendations appreciated History of Atrial Fibrillation w/ AICD Continue ASA Continue home Amiodarone 200mg PO daily EKG showed electronic ventricular pacemaker rhythm History of CAD/PAD Continue home ASA 81mg PO daily History of JOSE Continue home CPAP HS at ordered settings History of Hypothyroidism Continue home Synthroid 200mcg daily TSH markedly elevated; follow up validity given patient is ESRD History of Depression/Anxiety Continue home Effexor and Restoril Deconditioning Patient largely bed bound PT Evaluation and Treatment pending History of SDU Air mattress and Multipodus boots Turn Q2H GI Prophylaxis: Protonix DVT Prophylaxis: Heparin SC Patient seen, examined and discussed with attending physician, Dr. Whitt <Johnny Whitt - Last Filed: 06/03/18 14:33> Objective - Vital Signs/Intake and Output Vital Signs (last 24 hours): Temp Pulse Resp BP Pulse Ox 97.5 F L 66 18 119/78 98 06/03/18 07:43 06/03/18 07:43 06/03/18 07:43 06/03/18 07:43 06/03/18 07:43 Intake and Output: 06/03/18 06/03/18 06:59 18:59 Intake Total 880 Balance 880 - Medications Medications: Current Medications Acetaminophen (Tylenol 325mg Tab) 650 mg PO Q6H PRN PRN Reason: Fever >100.4 F Albuterol/Ipratropium (Duoneb 3 Mg/0.5 Mg (3 Ml) Ud) 3 ml IH Q2H PRN PRN Reason: Shortness of Breath Amiodarone HCl (Cordarone) 200 mg PO DAILY [facility] Last Admin: 06/03/18 10:53 Dose: 200 mg Aspirin (Ecotrin) 81 mg PO DAILY [facility] Last Admin: 06/03/18 10:54 Dose: 81 mg Benzonatate (Tessalon Perles) 100 mg PO BID [facility] Last Admin: 06/03/18 10:56 Dose: 100 mg Guaifenesin/Codeine Phosphate (Robitussin W/Codeine) 5 ml PO Q4H [facility] Last Admin: 06/03/18 13:25 Dose: 5 ml Heparin Sodium (Porcine) (Heparin) 5,000 units SC Q8 [facility]; Protocol Last Admin: 06/03/18 13:22 Dose: 5,000 units Hydromorphone HCl (Dilaudid) 1 mg IVP Q4H PRN PRN Reason: Pain, severe (8-10) Last Admin: 06/02/18 08:35 Dose: 1 mg Cefazolin Sodium (Ancef 1gm In Ns) 1 gm in 100 mls @ 100 mls/hr IVPB DAILY [facility]; Protocol Last Admin: 06/03/18 10:52 Dose: 100 mls/hr Levothyroxine Sodium (Synthroid) 200 mcg PO ACB [facility] Last Admin: 06/03/18 07:55 Dose: 200 mcg Midodrine (Proamatine) 10 mg PO TID [facility] Last Admin: 06/03/18 13:24 Dose: 10 mg Mupirocin (Bactroban Ointment) 0 gm TOP BID [facility] Last Admin: 06/03/18 10:52 Dose: 1 applic Non-Formulary Medication (Temazepam [Restoril]) 15 mg PO HS [facility] Last Admin: 06/02/18 22:05 Dose: Not Given Pantoprazole Sodium (Protonix Ec Tab) 40 mg PO 0600 [facility] Last Admin: 06/03/18 05:55 Dose: 40 mg Sevelamer HCl (Renagel) 800 mg PO DAILY [facility] Last Admin: 06/03/18 10:55 Dose: 800 mg Tamsulosin HCl (Flomax) 0.4 mg PO DAILY [facility] Last Admin: 06/03/18 10:54 Dose: 0.4 mg Venlafaxine HCl (Effexor Xr) 37.5 mg PO DAILY [facility] Last Admin: 06/03/18 10:54 Dose: 37.5 mg Vitamin B Complex/Vit C/Folic Acid (Nephro-Judah) 1 tab PO DAILY [facility] Last Admin: 06/03/18 10:54 Dose: 1 tab - Labs Labs: 06/03/18 07:00 06/03/18 07:00 APTT 36.6 Seconds (25.1-36.5) H 06/02/18 07:00 Attending/Attestation - Attestation I have personally seen and examined this patient.: Yes I have fully participated in the care of the patient.: Yes I have reviewed all pertinent clinical information, including history, physical exam and plan: Yes Notes (Text): 06/03/18 14:31 Attending note; Patient seen and examined with resident. Patient is alert and awake. Shortness of breath improved. Lower extremity swelling is improving. Patient is a 78 year old male with past medical history significant for atrial fibrillation not on anticoagulation, chronic systolic CHF s/p ICD, ESRD on HD, polycystic kidney disease, chronic foot ulcer, and septicemia that presented with worsening of the right lower extremity swelling and redness. 1. Cough and Shortness of breath. resolved after dialysis. Patient is got extra dialysis. Next dialysis on Monday. Significantly improved after fluid removal. Case discussed with nephrology in detail. Cough ; resolving.continue Robitussin with cough syrup . Continue nebulizer tr eatments. Chest x-ray showed cardiomegaly. No acute infiltrates or pulmonary edema. 2. Right lower extremity swelling and redness. Edema is improving. Podiatry evaluation appreciated. Continue dressing change. Redness is improving. Got IV vancomycin. Currently on IV Ancef. ID evaluation appreciated. Blood culture is negative. Wound culture is pending. Ultrasound of the lower extremity is negative for DVT. 3. Peripheral arterial disease ;Arterial Doppler showed calcification and tibial disease. We will review it with vascular surgeon. 4. Pacemaker placement. Severe cardiomyopathy .EKG showed paced rhythm. Continue ASA and amiodarone. 5. ESRD on HD. Continue dialysis per control systems specialist. Patient might need extra dialysis to remove fluids. Continue midodrine. 6. Hypothyroidism. Continue synthroid 7. Depression and anxiety. Continue venlafaxine. PT evaluation appreciated. Subacute rehabilitation recommended. Case discussed with complex case manager for discharge planning. Patient currently agrees to go to rehabilitation. Patient is approved for [facility]. Possible discharge on Monday if no vascular workup.
--- NOTE | 2018-06-02 11:32 | CP.PCM.PN ---
<Colby Paulino - Last Filed: 06/02/18 11:22> Subjective - Date & Time of Evaluation Date of Evaluation: 06/02/18 Time of Evaluation: 11:22 - Subjective Subjective: 78 year old male patient seen and evaluated for right heel ulcerationand bilateral swelling and discharge of ulcer. Patient denies any pain overnight. Patiet denies any overnight F/N/V/C or SOB. Patient denies any other pedal complaint at this time. Patient is going to dialysis today. Objective - Vital Signs/Intake and Output Vital Signs (last 24 hours): Temp Pulse Resp BP Pulse Ox 97.7 F 71 18 114/78 100 06/02/18 08:32 06/02/18 08:32 06/02/18 08:32 06/02/18 08:32 06/02/18 08:32 - Medications Medications: Current Medications Acetaminophen (Tylenol 325mg Tab) 650 mg PO Q6H PRN PRN Reason: Fever >100.4 F Albuterol/Ipratropium (Duoneb 3 Mg/0.5 Mg (3 Ml) Ud) 3 ml IH Q2H PRN PRN Reason: Shortness of Breath Amiodarone HCl (Cordarone) 200 mg PO DAILY [facility] Last Admin: 06/01/18 13:36 Dose: Not Given Aspirin (Ecotrin) 81 mg PO DAILY [facility] Last Admin: 06/01/18 13:38 Dose: 81 mg Benzonatate (Tessalon Perles) 100 mg PO BID [facility] Last Admin: 06/01/18 17:21 Dose: 100 mg Guaifenesin/Codeine Phosphate (Robitussin W/Codeine) 5 ml PO Q4H PRN PRN Reason: Cough and congestion Last Admin: 06/02/18 08:33 Dose: 5 ml Heparin Sodium (Porcine) (Heparin) 5,000 units SC Q8 [facility]; Protocol Last Admin: 06/02/18 05:33 Dose: 5,000 units Hydromorphone HCl (Dilaudid) 1 mg IVP Q4H PRN PRN Reason: Pain, severe (8-10) Last Admin: 06/02/18 08:35 Dose: 1 mg Cefazolin Sodium (Ancef 1gm In Ns) 1 gm in 100 mls @ 100 mls/hr IVPB DAILY [facility]; Protocol Last Admin: 06/01/18 13:36 Dose: 100 mls/hr Levothyroxine Sodium (Synthroid) 200 mcg PO ACB [facility] Last Admin: 06/02/18 08:34 Dose: 200 mcg Midodrine (Proamatine) 10 mg PO TID [facility] Last Admin: 06/01/18 17:21 Dose: 10 mg Non-Formulary Medication (Temazepam [Restoril]) 15 mg PO HS [facility] Last Admin: 06/01/18 22:05 Dose: Not Given Pantoprazole Sodium (Protonix Ec Tab) 40 mg PO 0600 [facility] Last Admin: 06/02/18 05:34 Dose: 40 mg Sevelamer HCl (Renagel) 800 mg PO DAILY [facility] Last Admin: 06/01/18 13:40 Dose: 800 mg Tamsulosin HCl (Flomax) 0.4 mg PO DAILY [facility] Last Admin: 06/01/18 13:43 Dose: Not Given Venlafaxine HCl (Effexor Xr) 37.5 mg PO DAILY [facility] Last Admin: 06/01/18 13:38 Dose: 37.5 mg Vitamin B Complex/Vit C/Folic Acid (Nephro-Judah) 1 tab PO DAILY [facility] Last Admin: 06/01/18 13:38 Dose: 1 tab - Labs Labs: 06/02/18 07:00 06/02/18 07:00 APTT 36.6 Seconds (25.1-36.5) H 06/02/18 07:00 - Constitutional Appears: Well, Non-toxic, No Acute Distress - Head Exam Head Exam: ATRAUMATIC, NORMOCEPHALIC - Extremities Exam Additional comments: Bilateral lower extremity exam: Vascular: DP/PT non-palpable secondary to pitting edema, Temp gradient warm to warm, Cap refill <3 secs x10, +2 pitting edema on dorsum of foot, pretibial, and perimalleolar area b/l Neuro: Both gross and protective sensation diminished. Derm: full thickness ulceration noted on the medial aspect of the right heel, 100% fibrotic, serous drainage noted, no malodor, no probe to bone, no tunneling or tracking noted. Cellulitis noted from the ankle joint proximmaly to the knee joint b/l, no other open lesions noted MSK: pain on palpation to both lower extremities R>L. MMT intact 5/5 in all groups - Neurological Exam Neurological Exam: Alert, Awake, Oriented x3 - Psychiatric Exam Psychiatric exam: Normal Affect, Normal Mood Assessment and Plan - Assessment and Plan (Free Text) Assessment: 78 yo male patient seen and evaluated at bedside for cellulitis in bilateral lower extremity, and full thickness ulcer on the medial aspect of the right heel. Plan: Patient seen and evaluated at the bedside Plan discussed in detail with the attending, Dr. Camejo Charts, labs and vitals reviewed; Afebrile; WBC 4.2 Vascular Onboard, recommendations appreciated ID on board; recs appreciated Foot x-ray: no acute changes noted, soft tissue swelling. 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 MRI recommended. Cultures Results; Gram negative rods Right lower extremity dressed with DSD. Ordered bactroban cream to be added to the dressing Continue IV antibiotics Patient will be followed up by podiatry while in house <Sixto Camejo - Last Filed: 06/05/18 17:09> Objective - Vital Signs/Intake and Output Vital Signs (last 24 hours): Temp Pulse Resp BP Pulse Ox 97.1 F L 80 20 100/60 99 06/05/18 08:01 06/05/18 11:35 06/05/18 08:01 06/05/18 11:35 06/05/18 08:01 Intake and Output: 06/05/18 06/05/18 06:59 18:59 Intake Total 0 Output Total 0 Balance 0 - Medications Medications: Current Medications Acetaminophen (Tylenol 325mg Tab) 650 mg PO Q6H PRN PRN Reason: Fever >100.4 F Albuterol/Ipratropium (Duoneb 3 Mg/0.5 Mg (3 Ml) Ud) 3 ml IH Q2H PRN PRN Reason: Shortness of Breath Amiodarone HCl (Cordarone) 200 mg PO DAILY [facility] Last Admin: 06/05/18 11:35 Dose: 200 mg Aspirin (Ecotrin) 81 mg PO DAILY [facility] Last Admin: 06/05/18 11:36 Dose: 81 mg Benzonatate (Tessalon Perles) 100 mg PO BID [facility] Last Admin: 06/05/18 11:37 Dose: 100 mg Ciprofloxacin (Cipro) 500 mg PO DAILY [facility] Guaifenesin/Codeine Phosphate (Robitussin W/Codeine) 5 ml PO Q4H [facility] Last Admin: 06/05/18 13:00 Dose: Not Given Heparin Sodium (Porcine) (Heparin) 5,000 units SC Q8 [facility]; Protocol Last Admin: 06/05/18 15:11 Dose: 5,000 units Hydromorphone HCl (Dilaudid) 1 mg IVP Q6H PRN PRN Reason: Pain, severe (8-10) Last Admin: 06/05/18 12:12 Dose: 1 mg Cefazolin Sodium/Dextrose (Ancef Iv 2 Gm Duplex) 2 gm in 50 mls @ 50 mls/hr IVPB MWF [facility]; Protocol Last Admin: 06/04/18 14:03 Dose: 50 mls/hr Levothyroxine Sodium (Synthroid) 200 mcg PO ACB [facility] Last Admin: 06/05/18 11:40 Dose: 200 mcg Midodrine (Proamatine) 10 mg PO TID [facility] Last Admin: 06/05/18 15:12 Dose: 10 mg Mupirocin (Bactroban Ointment) 0 gm TOP BID [facility] Last Admin: 06/03/18 17:45 Dose: 1 applic Non-Formulary Medication (Temazepam [Restoril]) 15 mg PO HS [facility] Last Admin: 06/03/18 22:07 Dose: Not Given Pantoprazole Sodium (Protonix Ec Tab) 40 mg PO 0600 [facility] Last Admin: 06/04/18 05:21 Dose: 40 mg Sevelamer HCl (Renagel) 800 mg PO DAILY [facility] Last Admin: 06/05/18 11:36 Dose: 800 mg Tamsulosin HCl (Flomax) 0.4 mg PO DAILY [facility] Last Admin: 06/05/18 11:36 Dose: 0.4 mg Venlafaxine HCl (Effexor Xr) 37.5 mg PO DAILY [facility] Last Admin: 06/05/18 11:36 Dose: 37.5 mg Vitamin B Complex/Vit C/Folic Acid (Nephro-Judah) 1 tab PO DAILY [facility] Last Admin: 06/05/18 11:36 Dose: 1 tab - Labs Labs: 06/05/18 06:30 06/05/18 06:30 APTT 36.6 Seconds (25.1-36.5) H 06/02/18 07:00 Attending/Attestation - Attestation I have personally seen and examined this patient.: Yes I have fully participated in the care of the patient.: Yes I have reviewed all pertinent clinical information, including history, physical exam and plan: Yes
[2018-06-02] MEDS: ceFAZolin 1 gm in NS 1 GM/100 ML BAG IVPB SCH (12:28)
[2018-06-02] MEDS: Venlafaxine 37.5 mg ER Cap PO SCH (12:29)
[2018-06-02] MEDS: Multivitamin Vitamin B Complex (Nephro-Vite) Tab PO SCH (12:30)
--- NOTE | 2018-06-02 17:41 | CP.PCM.PN ---
Subjective - Date & Time of Evaluation Date of Evaluation: 06/02/18 Time of Evaluation: 16:00 - Subjective Subjective: Infectious Disease Follow Up: June 02, 2018 78 year old male with a past medical history significant for HFrEF with AICD (EF: 22%), atrial fibrillation (Not on AC), CAD, PAD, ESRD on HD (MWF), APCKD s/p right nephrectomy, JOSE on CPAP, LLE ulcer, and chronic back pain who presents with worsening ulceration, swelling and discharge of RLE ulcer. Patient states he's noticed the redness and swelling in his leg in the last three days, and has been getting worse. Patient denies any other pedal complains. Patient denies f/n/v/sob. Patient was in [facility] a few weeks ago where he left [place] after a few hours here. Complicated medical history. Prior cultures from that visit showing MSSA and Enterobacter. Enterobacter with sensitivity to Cipro, Bactrim, and Gentamicin. Very strong headed patient. He has had difficulty accepting medical diagnoses given to him during this hospitalization. Repeat wound cultures of the foot showing gram negative rods. Objective - Vital Signs/Intake and Output Vital Signs (last 24 hours): Temp Pulse Resp BP Pulse Ox 98.6 F 75 18 108/79 97 06/02/18 17:12 06/02/18 17:12 06/02/18 17:12 06/02/18 17:12 06/02/18 17:12 - Medications Medications: Current Medications Acetaminophen (Tylenol 325mg Tab) 650 mg PO Q6H PRN PRN Reason: Fever >100.4 F Albuterol/Ipratropium (Duoneb 3 Mg/0.5 Mg (3 Ml) Ud) 3 ml IH Q2H PRN PRN Reason: Shortness of Breath Amiodarone HCl (Cordarone) 200 mg PO DAILY [facility] Last Admin: 06/02/18 12:29 Dose: 200 mg Aspirin (Ecotrin) 81 mg PO DAILY [facility] Last Admin: 06/02/18 12:29 Dose: 81 mg Benzonatate (Tessalon Perles) 100 mg PO BID [facility] Last Admin: 06/02/18 12:30 Dose: 100 mg Guaifenesin/Codeine Phosphate (Robitussin W/Codeine) 5 ml PO Q4H PRN PRN Reason: Cough and congestion Last Admin: 06/02/18 08:33 Dose: 5 ml Heparin Sodium (Porcine) (Heparin) 5,000 units SC Q8 [facility]; Protocol Last Admin: 06/02/18 14:45 Dose: 5,000 units Hydromorphone HCl (Dilaudid) 1 mg IVP Q4H PRN PRN Reason: Pain, severe (8-10) Last Admin: 06/02/18 08:35 Dose: 1 mg Cefazolin Sodium (Ancef 1gm In Ns) 1 gm in 100 mls @ 100 mls/hr IVPB DAILY [facility]; Protocol Last Admin: 06/02/18 12:28 Dose: 100 mls/hr Levothyroxine Sodium (Synthroid) 200 mcg PO ACB [facility] Last Admin: 06/02/18 08:34 Dose: 200 mcg Midodrine (Proamatine) 10 mg PO TID [facility] Last Admin: 06/02/18 14:45 Dose: 10 mg Mupirocin (Bactroban Ointment) 0 gm TOP BID [facility] Non-Formulary Medication (Temazepam [Restoril]) 15 mg PO HS [facility] Last Admin: 06/01/18 22:05 Dose: Not Given Pantoprazole Sodium (Protonix Ec Tab) 40 mg PO 0600 [facility] Last Admin: 06/02/18 05:34 Dose: 40 mg Sevelamer HCl (Renagel) 800 mg PO DAILY [facility] Last Admin: 06/02/18 12:30 Dose: 800 mg Tamsulosin HCl (Flomax) 0.4 mg PO DAILY [facility] Last Admin: 06/02/18 12:30 Dose: 0.4 mg Venlafaxine HCl (Effexor Xr) 37.5 mg PO DAILY [facility] Last Admin: 06/02/18 12:29 Dose: 37.5 mg Vitamin B Complex/Vit C/Folic Acid (Nephro-Judah) 1 tab PO DAILY [facility] Last Admin: 06/02/18 12:30 Dose: 1 tab - Labs Labs: 06/02/18 07:00 06/02/18 07:00 APTT 36.6 Seconds (25.1-36.5) H 06/02/18 07:00 - Constitutional Appears: Chronically Ill - Head Exam Head Exam: ATRAUMATIC, NORMOCEPHALIC - Eye Exam Eye Exam: EOMI, PERRL Pupil Exam: NORMAL ACCOMODATION, PERRL - ENT Exam ENT Exam: Mucous Membranes Moist, Normal External Ear Exam, TM's Normal Bilaterally - Neck Exam Neck Exam: Full ROM, Normal Inspection - Respiratory Exam Respiratory Exam: Clear to Ausculation Bilateral, NORMAL BREATHING PATTERN. absent: Rales, Rhonchi, Wheezes - Cardiovascular Exam Cardiovascular Exam: REGULAR RHYTHM, RRR, +S1, +S2 - GI/Abdominal Exam GI & Abdominal Exam: Soft, Normal Bowel Sounds. absent: Distended, Tenderness - Extremities Exam Additional comments: Lower extremities exam Vascular: DP/PT nonpalpable secondary to pitting edema, TG warm to warm, CFT <3 secs x10, +3 pitting edema on dorsum of foot, pretibial, and perimalleolar b/l Neuro: protective sensation absent Derm: full thickness ulceration noted on the medial aspect of the right heel, 100% fibrotic, serous drainage noted, no malodor, no probe to bone, no tunneling or tracking noted. Cellulitis noted from the ankle joint proximally to the knee joint b/l, no other open lesions noted Tenderness of both lower extremities. Thickening of the skin of the lower extremities. Chronic venous stasis changes. - Neurological Exam Neurological Exam: Alert, Awake, CN II-XII Intact, Oriented x3 - Psychiatric Exam Psychiatric exam: Normal Affect, Normal Mood - Skin Skin Exam: Intact, Normal Color Assessment and Plan - Assessment and Plan (Free Text) Assessment: 78 yo male with extensive past medical history with bilateral lower extremity cellulitis and full thickness ulcer on the right heel. Unable to have MRI due to AICD. Obtain ESR. Start patient on Ancef IV. Duplex studies pending. May need additional antibiotics depending on culture results. Given atrial fibrillation would avoid fluoroquinolones. The patient with ESRD on HD and CAD. Prolonged QTc interval. I do not feel that the patient has a pneumonia based on the physical findings and imaging studies but that his cough is more likely secondary to fluid overload and CHF. Repeat cultures of the right heel showing gram negative rods. Identification and sensitivity pending. The patient can continue with Ancef in HD at 2gm per dose for [address] Whitt and Dr. Coyle. Thank you for allowing me to participate in the care of the patient, we will follow with you.
[2018-06-02] MEDS: TEMAZEPAM 15 MG PO SCH (22:05)
[2018-06-03] MEDS: Pantoprazole 40 mg EC Tab PO SCH (05:55)
--- NOTE | 2018-06-03 07:37 | CP.PCM.PN ---
<Summer Sales - Last Filed: 06/03/18 10:54> Subjective - Date & Time of Evaluation Date of Evaluation: 06/03/18 Time of Evaluation: 07:34 - Subjective Subjective: INTERNAL MEDICINE PROGRESS NOTE FOR DR. RUDDY Sales PGY-1 Pt seen and examined at bedside this am. He tolerated HD well yesterday. Removed 3000cc UF. Pt still complaing of cough. Denies other ROS Objective - Vital Signs/Intake and Output Vital Signs (last 24 hours): Temp Pulse Resp BP Pulse Ox 98.6 F 82 18 108/79 97 06/02/18 17:12 06/03/18 00:19 06/02/18 17:12 06/02/18 17:12 06/02/18 17:12 Intake and Output: 06/03/18 06/03/18 06:59 18:59 Intake Total 880 Balance 880 - Medications Medications: Current Medications Acetaminophen (Tylenol 325mg Tab) 650 mg PO Q6H PRN PRN Reason: Fever >100.4 F Albuterol/Ipratropium (Duoneb 3 Mg/0.5 Mg (3 Ml) Ud) 3 ml IH Q2H PRN PRN Reason: Shortness of Breath Amiodarone HCl (Cordarone) 200 mg PO DAILY [facility] Last Admin: 06/02/18 12:29 Dose: 200 mg Aspirin (Ecotrin) 81 mg PO DAILY [facility] Last Admin: 06/02/18 12:29 Dose: 81 mg Benzonatate (Tessalon Perles) 100 mg PO BID [facility] Last Admin: 06/02/18 19:32 Dose: 100 mg Guaifenesin/Codeine Phosphate (Robitussin W/Codeine) 5 ml PO Q4H PRN PRN Reason: Cough and congestion Last Admin: 06/02/18 19:32 Dose: 5 ml Heparin Sodium (Porcine) (Heparin) 5,000 units SC Q8 [facility]; Protocol Last Admin: 06/03/18 05:55 Dose: 5,000 units Hydromorphone HCl (Dilaudid) 1 mg IVP Q4H PRN PRN Reason: Pain, severe (8-10) Last Admin: 06/02/18 08:35 Dose: 1 mg Cefazolin Sodium (Ancef 1gm In Ns) 1 gm in 100 mls @ 100 mls/hr IVPB DAILY [facility]; Protocol Last Admin: 06/02/18 12:28 Dose: 100 mls/hr Levothyroxine Sodium (Synthroid) 200 mcg PO ACB [facility] Last Admin: 06/02/18 08:34 Dose: 200 mcg Midodrine (Proamatine) 10 mg PO TID [facility] Last Admin: 06/02/18 19:31 Dose: 10 mg Mupirocin (Bactroban Ointment) 0 gm TOP BID [facility] Non-Formulary Medication (Temazepam [Restoril]) 15 mg PO HS [facility] Last Admin: 06/02/18 22:05 Dose: Not Given Pantoprazole Sodium (Protonix Ec Tab) 40 mg PO 0600 [facility] Last Admin: 06/03/18 05:55 Dose: 40 mg Sevelamer HCl (Renagel) 800 mg PO DAILY [facility] Last Admin: 06/02/18 12:30 Dose: 800 mg Tamsulosin HCl (Flomax) 0.4 mg PO DAILY [facility] Last Admin: 06/02/18 12:30 Dose: 0.4 mg Venlafaxine HCl (Effexor Xr) 37.5 mg PO DAILY [facility] Last Admin: 06/02/18 12:29 Dose: 37.5 mg Vitamin B Complex/Vit C/Folic Acid (Nephro-Judah) 1 tab PO DAILY [facility] Last Admin: 06/02/18 12:30 Dose: 1 tab - Labs Labs: 06/02/18 07:00 06/02/18 07:00 APTT 36.6 Seconds (25.1-36.5) H 06/02/18 07:00 - Constitutional Appears: Well, Non-toxic, No Acute Distress - Head Exam Head Exam: NORMAL INSPECTION, NORMOCEPHALIC - Eye Exam Eye Exam: EOMI, Normal appearance - ENT Exam ENT Exam: Mucous Membranes Moist, Normal Exam - Neck Exam Neck Exam: Normal Inspection. absent: Meningismus - Respiratory Exam Respiratory Exam: Decreased Breath Sounds, NORMAL BREATHING PATTERN - Cardiovascular Exam Cardiovascular Exam: REGULAR RHYTHM, +S1, +S2 - GI/Abdominal Exam GI & Abdominal Exam: Soft. absent: Tenderness - Extremities Exam Extremities Exam: Normal Capillary Refill, Normal Inspection. absent: Calf Tenderness Additional comments: BL lower extremities 4+ pitting edema Chronic venostatic changes appreciated Ulceration at base of ankle on R foot ; draining; Extremities are cool to touch - Back Exam Back Exam: NORMAL INSPECTION. absent: CVA tenderness (L), CVA tenderness (R) - Neurological Exam Neurological Exam: Alert, Awake, Oriented x3 - Psychiatric Exam Psychiatric exam: Normal Affect, Normal Mood - Skin Additional comments: various abrasions throughout entire body; Knuckles on L hand have abrasion. Assessment and Plan - Assessment and Plan (Free Text) Assessment: 78 year old male with a past medical history significant for HFrEF with AICD (EF: 22%), atrial fibrillation (Not on AC), CAD, PAD, ESRD on HD (MWF), APCKD s/p right nephrectomy, JOSE on CPAP, LLE ulcer, and chronic back pain who presents with worsening ulceration, swelling and discharge of RLE ulcer. During hospital course patient underwent vascular evaluation of lower extremities; No plans for IR intervention at this time. Podiatry onboard appreciate reccs. Plan: Cough and Shortness of Breath Pt undergoes HD MWF. Significantly improved after fluid removal Duonebs PRN for SOB Robitussin with Codeine 5ml PO Q4 PRN for cough Tessalon Perles 100mg PO BID Findings are less supportive for PNA Chest X-Ray showed no active pulmonary disease RLE Ulcer/ BL LE Cellulitis: Edema is improving Wound culture growing gram (-) rods ID following appreciate recs C/w Cefazolin ; Will admin x1 dose vanco post dialysis Venous + Arterial Duplex studies - No Venous thrombosis BL; BL tibial disease suggested. F/u further IR recs on Monday. Pt has pacemaker, so unable to go for MRA Podiatry and ID consulted, all recommendations appreciated CT R Lower extremity: Moderate dorsal soft tissue swelling and subcutaneous fluid without evidence for drainable fluid collection, findings likely represent cellulitis in the appropriate clinical setting. Patchy areas of sclerosis and lucency in the talus, calcaneus, navicular, cuboid and cuneiform are nonspecific and could be related to osteopenia however acute and/or chronic osteomyelitis cannot be excluded although there is no definite evidence for bone erosion or destruction. History of ESRD on HD Continue Dialysis as inpatient; Start Midodrine Start Doxercalciferol Continue home Renagel, Flomax and Nephro-Judah Avoid nephrotoxic agents and renally dose all medications where appropriate Nephrology consulted, all recommendations appreciated History of Atrial Fibrillation w/ AICD Continue ASA Continue home Amiodarone 200mg PO daily EKG showed electronic ventricular pacemaker rhythm History of CAD/PAD Continue home ASA 81mg PO daily History of JOSE Continue home CPAP HS at ordered settings History of Hypothyroidism Continue home Synthroid 200mcg daily TSH markedly elevated; follow up validity given patient is ESRD History of Depression/Anxiety Continue home Effexor and Restoril Deconditioning Patient largely bed bound PT Evaluation and Treatment pending History of SDU Air mattress and Multipodus boots Turn Q2H GI Prophylaxis: Protonix DVT Prophylaxis: Heparin SC Patient seen, examined and discussed with attending physician, Dr. Whitt <Johnny Whitt - Last Filed: 06/07/18 15:02> Objective - Vital Signs/Intake and Output Vital Signs (last 24 hours): Temp Pulse Resp BP Pulse Ox 98.4 F 74 20 110/68 98 06/06/18 17:04 06/07/18 10:16 06/06/18 17:04 06/07/18 10:16 06/06/18 17:04 Intake and Output: 06/07/18 06/07/18 06:59 18:59 Intake Total 300 Output Total 0 Balance 300 - Medications Medications: Current Medications Acetaminophen (Tylenol 325mg Tab) 650 mg PO Q6H PRN PRN Reason: Fever >100.4 F Albuterol/Ipratropium (Duoneb 3 Mg/0.5 Mg (3 Ml) Ud) 3 ml IH Q2H PRN PRN Reason: Shortness of Breath Amiodarone HCl (Cordarone) 200 mg PO DAILY [facility] Last Admin: 06/07/18 10:16 Dose: 200 mg Aspirin (Ecotrin) 81 mg PO DAILY [facility] Last Admin: 06/07/18 10:17 Dose: 81 mg Benzonatate (Tessalon Perles) 100 mg PO BID [facility] Last Admin: 06/07/18 10:19 Dose: 100 mg Ciprofloxacin (Cipro) 500 mg PO DAILY [facility] Last Admin: 06/07/18 10:16 Dose: 500 mg Guaifenesin/Codeine Phosphate (Robitussin W/Codeine) 5 ml PO Q4H [facility] Last Admin: 06/07/18 14:16 Dose: Not Given Heparin Sodium (Porcine) (Heparin) 5,000 units SC Q8 [facility]; Protocol Last Admin: 06/07/18 14:18 Dose: 5,000 units Hydromorphone HCl (Dilaudid) 1 mg IVP Q6H PRN PRN Reason: Pain, severe (8-10) Last Admin: 06/06/18 21:14 Dose: 1 mg Cefazolin Sodium/Dextrose (Ancef Iv 2 Gm Duplex) 2 gm in 50 mls @ 50 mls/hr IVPB MWF [facility]; Protocol Last Admin: 06/06/18 13:04 Dose: 50 mls/hr Levothyroxine Sodium (Synthroid) 200 mcg PO ACB [facility] Last Admin: 06/07/18 07:18 Dose: 200 mcg Midodrine (Proamatine) 10 mg PO TID [facility] Last Admin: 06/07/18 14:18 Dose: 10 mg Mupirocin (Bactroban Ointment) 0 gm TOP BID [facility] Last Admin: 06/07/18 10:23 Dose: Not Given Non-Formulary Medication (Temazepam [Restoril]) 15 mg PO HS [facility] Last Admin: 06/06/18 22:00 Dose: Not Given Pantoprazole Sodium (Protonix Ec Tab) 40 mg PO 0600 [facility] Last Admin: 06/07/18 05:27 Dose: 40 mg Sevelamer HCl (Renagel) 800 mg PO DAILY [facility] Last Admin: 06/07/18 10:18 Dose: 800 mg Tamsulosin HCl (Flomax) 0.4 mg PO DAILY [facility] Last Admin: 06/07/18 10:17 Dose: 0.4 mg Venlafaxine HCl (Effexor Xr) 37.5 mg PO DAILY [facility] Last Admin: 06/07/18 10:17 Dose: 37.5 mg Vitamin B Complex/Vit C/Folic Acid (Nephro-Judah) 1 tab PO DAILY [facility] Last Admin: 06/07/18 10:17 Dose: 1 tab - Labs Labs: 06/06/18 06:40 06/06/18 06:40 APTT 36.6 Seconds (25.1-36.5) H 06/02/18 07:00 Attending/Attestation - Attestation I have personally seen and examined this patient.: Yes I have fully participated in the care of the patient.: Yes I have reviewed all pertinent clinical information, including history, physical exam and plan: Yes Notes (Text): 06/07/18 15:00 Attending note; Patient seen and examined with resident. Patient is alert and awake. Shortness of breath improved. Lower extremity swelling is improving. got HD yesterday. Patient is a 78 year old male with past medical history significant for atrial fibrillation not on anticoagulation, chronic systolic CHF s/p ICD, ESRD on HD, polycystic kidney disease, chronic foot ulcer, and septicemia that presented with worsening of the right lower extremity swelling and redness. 1. Cough and Shortness of breath. resolved after dialysis. Patient is got extra dialysis during this admission. Next dialysis on Monday. Significantly improved after fluid removal. Case discussed with nephrology in detail. Cough ; resolving.continue Robitussin with cough syrup . Continue nebulizer treatments. Chest x-ray showed cardiomegaly. No acute infiltrates or pulmonary edema. 2. Right lower extremity swelling and redness. Edema is improving. Podiatry evaluation appreciated. Continue dressing change. Redness is improving. Currently on IV Ancef. ID evaluation appreciated. Blood culture is negative. Wound culture is pending. Ultrasound of the lower extremity is negative for DVT. 3. Peripheral arterial disease ;Arterial Doppler showed calcification and tibial disease. We will review it with vascular surgeon. 4. Pacemaker placement. Severe cardiomyopathy .EKG showed paced rhythm. Continue ASA and amiodarone. 5. ESRD on HD. Continue dialysis per field representatives director. Patient might need extra dialysis to remove fluids. Continue midodrine. 6. Hypothyroidism. Continue synthroid 7. Depression and anxiety. Continue venlafaxine. PT evaluation appreciated. Subacute rehabilitation recommended. Case discussed with case monitor for discharge planning. Patient currently agrees to go to rehabilitation. Patient is approved for [place].
[2018-06-03 07:47] LABS: BASO # 0.04 K/mm3 (0.0-2.0); BASO % 1.1 % (0.0-3.0); EOS # 0.1 (0.0-0.7); EOS % 3.9 % (1.5-5.0); GRAN # 2.19 (1.4-6.5); GRAN % 60.5 % (50.0-68.0); HEMOGLOBIN 10.8 g/dL (14.0-18.0); LYMPH # 0.8 (1.2-3.4); LYMPH % 22.9 % (22.0-35.0); MEAN CELL VOLUME 89.4 fl (80.0-105.0); MEAN CORPUSCULAR HGB CONC 31.3 g/dl (31.0-37.0); MONO # 0.4 (0.1-0.6); MONO % 11.6 % (1.0-6.0); RBC 3.86 10^6/uL (3.5-6.1); RED CELL DISTRIBUTION WIDTH 17.5 % (11.5-14.5); WHITE BLOOD COUNT 3.6 10^3/ul (4.5-11.0)
[2018-06-03] MEDS: Levothyroxine 200 MCG TAB PO SCH (07:55)
[2018-06-03 08:12] LABS: ALB/GLOB RATIO 0.9 (1.1-1.8); ALBUMIN 3.5 g/dL (3.0-4.8); CALCIUM 8.9 mg/dL (8.4-10.5)
[2018-06-03] MEDS: guaiFENesin-Codeine 100-10mg/5ml Syrup (5 ml) UD PO SCH ×4 (10:00→22:06)
[2018-06-03] MEDS: ceFAZolin 1 gm in NS 1 GM/100 ML BAG IVPB SCH (10:52)
[2018-06-03] MEDS: Mupirocin 2% Ointment 15 GM TUBE TOP SCH ×2 (10:52→17:45)
[2018-06-03] MEDS: Venlafaxine 37.5 mg ER Cap PO SCH (10:54)
[2018-06-03] MEDS: Multivitamin Vitamin B Complex (Nephro-Vite) Tab PO SCH (10:54)
--- NOTE | 2018-06-03 11:23 | CP.PCM.PN ---
<Colby Paulino - Last Filed: 06/03/18 11:16> Subjective - Date & Time of Evaluation Date of Evaluation: 06/03/18 Time of Evaluation: 11:16 - Subjective Subjective: 78 year old male patient seen and evaluated for right heel ulceration and bilateral swelling, erythema and discharge. Patient denies any pain overnight. Patient denies any overnight F/N/V/C or SOB. Patient denies any other pedal complaint at this time. Objective - Vital Signs/Intake and Output Vital Signs (last 24 hours): Temp Pulse Resp BP Pulse Ox 97.5 F L 66 18 119/78 98 06/03/18 07:43 06/03/18 07:43 06/03/18 07:43 06/03/18 07:43 06/03/18 07:43 Intake and Output: 06/03/18 06/03/18 06:59 18:59 Intake Total 880 Balance 880 - Medications Medications: Current Medications Acetaminophen (Tylenol 325mg Tab) 650 mg PO Q6H PRN PRN Reason: Fever >100.4 F Albuterol/Ipratropium (Duoneb 3 Mg/0.5 Mg (3 Ml) Ud) 3 ml IH Q2H PRN PRN Reason: Shortness of Breath Amiodarone HCl (Cordarone) 200 mg PO DAILY [facility] Last Admin: 06/03/18 10:53 Dose: 200 mg Aspirin (Ecotrin) 81 mg PO DAILY [facility] Last Admin: 06/03/18 10:54 Dose: 81 mg Benzonatate (Tessalon Perles) 100 mg PO BID [facility] Last Admin: 06/03/18 10:56 Dose: 100 mg Guaifenesin/Codeine Phosphate (Robitussin W/Codeine) 5 ml PO Q4H [facility] Last Admin: 06/03/18 10:00 Dose: 5 ml Heparin Sodium (Porcine) (Heparin) 5,000 units SC Q8 [facility]; Protocol Last Admin: 06/03/18 05:55 Dose: 5,000 units Hydromorphone HCl (Dilaudid) 1 mg IVP Q4H PRN PRN Reason: Pain, severe (8-10) Last Admin: 06/02/18 08:35 Dose: 1 mg Cefazolin Sodium (Ancef 1gm In Ns) 1 gm in 100 mls @ 100 mls/hr IVPB DAILY [facility]; Protocol Last Admin: 06/03/18 10:52 Dose: 100 mls/hr Levothyroxine Sodium (Synthroid) 200 mcg PO ACB [facility] Last Admin: 06/03/18 07:55 Dose: 200 mcg Midodrine (Proamatine) 10 mg PO TID [facility] Last Admin: 06/03/18 10:55 Dose: 10 mg Mupirocin (Bactroban Ointment) 0 gm TOP BID [facility] Last Admin: 06/03/18 10:52 Dose: 1 applic Non-Formulary Medication (Temazepam [Restoril]) 15 mg PO HS [facility] Last Admin: 06/02/18 22:05 Dose: Not Given Pantoprazole Sodium (Protonix Ec Tab) 40 mg PO 0600 [facility] Last Admin: 06/03/18 05:55 Dose: 40 mg Sevelamer HCl (Renagel) 800 mg PO DAILY [facility] Last Admin: 06/03/18 10:55 Dose: 800 mg Tamsulosin HCl (Flomax) 0.4 mg PO DAILY [facility] Last Admin: 06/03/18 10:54 Dose: 0.4 mg Venlafaxine HCl (Effexor Xr) 37.5 mg PO DAILY [facility] Last Admin: 06/03/18 10:54 Dose: 37.5 mg Vitamin B Complex/Vit C/Folic Acid (Nephro-Judah) 1 tab PO DAILY [facility] Last Admin: 06/03/18 10:54 Dose: 1 tab - Labs Labs: 06/03/18 07:00 06/03/18 07:00 APTT 36.6 Seconds (25.1-36.5) H 06/02/18 07:00 - Constitutional Appears: Well, Non-toxic, No Acute Distress - Head Exam Head Exam: ATRAUMATIC, NORMOCEPHALIC - Extremities Exam Additional comments: Bilateral lower extremity exam: Vascular: DP/PT faintly palpable 1/4 b/l, Temp gradient warm to warm, Cap refill <3 secs to all digits, +1 pitting edema on dorsum of foot, pretibial, and p erimalleolar area b/l Neuro: Both gross and protective sensation diminished. Derm: full thickness ulceration noted on the medial aspect of the right heel, 100% fibrotic, serous drainage noted, no malodor, no probe to bone, no tunneling or tracking noted. erythema noted from the ankle joint proximally to the knee joint b/l(less than yesterday) , no other open lesions noted MSK: pain on palpation to both lower extremities R>L. MMT intact 5/5 in all groups - Neurological Exam Neurological Exam: Alert, Awake, Oriented x3 - Psychiatric Exam Psychiatric exam: Normal Affect, Normal Mood Assessment and Plan - Assessment and Plan (Free Text) Assessment: 78 yo male patient seen and evaluated at bedside for cellulitis in bilateral lower extremity, and full thickness ulcer on the medial aspect of the right heel. Plan: Patient seen and evaluated at the bedside Plan discussed in detail with the attending, Dr. Camejo Charts, labs and vitals reviewed; Afebrile; WBC 3.6 Vascular Onboard, recommendations appreciated ID on board; recs appreciated Foot x-ray: no acute changes noted, soft tissue swelling. 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 MRI recommended. Cultures Results; Gram positive cocci, Enterobacter cloaca Ssp cloaca, Corynebacterium species. Right lower extremity dressed with DSD and bactroban. Continue IV antibiotics as per ID. Patient will be followed up by podiatry while in house <Sixto Camejo - Last Filed: 06/05/18 17:07> Objective - Vital Signs/Intake and Output Vital Signs (last 24 hours): Temp Pulse Resp BP Pulse Ox 97.1 F L 80 20 100/60 99 06/05/18 08:01 06/05/18 11:35 06/05/18 08:01 06/05/18 11:35 06/05/18 08:01 Intake and Output: 06/05/18 06/05/18 06:59 18:59 Intake Total 0 Output Total 0 Balance 0 - Medications Medications: Current Medications Acetaminophen (Tylenol 325mg Tab) 650 mg PO Q6H PRN PRN Reason: Fever >100.4 F Albuterol/Ipratropium (Duoneb 3 Mg/0.5 Mg (3 Ml) Ud) 3 ml IH Q2H PRN PRN Reason: Shortness of Breath Amiodarone HCl (Cordarone) 200 mg PO DAILY [facility] Last Admin: 06/05/18 11:35 Dose: 200 mg Aspirin (Ecotrin) 81 mg PO DAILY [facility] Last Admin: 06/05/18 11:36 Dose: 81 mg Benzonatate (Tessalon Perles) 100 mg PO BID [facility] Last Admin: 06/05/18 11:37 Dose: 100 mg Ciprofloxacin (Cipro) 500 mg PO DAILY [facility] Guaifenesin/Codeine Phosphate (Robitussin W/Codeine) 5 ml PO Q4H [facility] Last Admin: 06/05/18 13:00 Dose: Not Given Heparin Sodium (Porcine) (Heparin) 5,000 units SC Q8 [facility]; Protocol Last Admin: 06/05/18 15:11 Dose: 5,000 units Hydromorphone HCl (Dilaudid) 1 mg IVP Q6H PRN PRN Reason: Pain, severe (8-10) Last Admin: 06/05/18 12:12 Dose: 1 mg Cefazolin Sodium/Dextrose (Ancef Iv 2 Gm Duplex) 2 gm in 50 mls @ 50 mls/hr IVPB [facility]; Protocol Last Admin: 06/04/18 14:03 Dose: 50 mls/hr Levothyroxine Sodium (Synthroid) 200 mcg PO ACB [facility] Last Admin: 06/05/18 11:40 Dose: 200 mcg Midodrine (Proamatine) 10 mg PO TID [facility] Last Admin: 06/05/18 15:12 Dose: 10 mg Mupirocin (Bactroban Ointment) 0 gm TOP BID [facility] Last Admin: 06/03/18 17:45 Dose: 1 applic Non-Formulary Medication (Temazepam [Restoril]) 15 mg PO HS [facility] Last Admin: 06/03/18 22:07 Dose: Not Given Pantoprazole Sodium (Protonix Ec Tab) 40 mg PO 0600 [facility] Last Admin: 06/04/18 05:21 Dose: 40 mg Sevelamer HCl (Renagel) 800 mg PO DAILY [facility] Last Admin: 06/05/18 11:36 Dose: 800 mg Tamsulosin HCl (Flomax) 0.4 mg PO DAILY [facility] Last Admin: 06/05/18 11:36 Dose: 0.4 mg Venlafaxine HCl (Effexor Xr) 37.5 mg PO DAILY [facility] Last Admin: 06/05/18 11:36 Dose: 37.5 mg Vitamin B Complex/Vit C/Folic Acid (Nephro-Judah) 1 tab PO DAILY [facility] Last Admin: 06/05/18 11:36 Dose: 1 tab - Labs Labs: 06/05/18 06:30 06/05/18 06:30 APTT 36.6 Seconds (25.1-36.5) H 06/02/18 07:00 Attending/Attestation - Attestation I have personally seen and examined this patient.: Yes I have fully participated in the care of the patient.: Yes I have reviewed all pertinent clinical information, including history, physical exam and plan: Yes
--- NOTE | 2018-06-03 14:55 | PN ---
DATE: 06/02/2018 SUBJECTIVE: The patient is seen lying in bed. He is awake, he is alert. somewhat better. His right lower extremity is less swollen. He has less pain. He still has some cough, but it is that much improved. He had ultrafiltration earlier today. PHYSICAL EXAMINATION: GENERAL: Obese elderly male, lying in bed. VITAL SIGNS: Blood pressure 114/78, heart rate 71, respiratory rate 18, and temperature 97.7. HEENT: Normocephalic, atraumatic, and positive pallor. NECK: Supple, no JVD. LUNGS: Bilateral equal air entry, bilateral equal expansion. CARDIAC: S1 and S2, regular rate and rhythm, no murmur, no rub. ABDOMEN: Obese, distended, soft, nontender, bowel sounds present. EXTREMITIES: Chronic stasis changes, chronically hyperpigmented lower extremities, ulcer f the right heel with dressing, ulcers on the left lower extremity. LABORATORY DATA: WBC 4, hemoglobin 10.3, hematocrit 33.3, and platelets 108. Sodium 134, potassium 3.6, chloride 96, CO2 of 28. BUN 19, creatinine 4.3. Glucose 95. Calcium 8.5, phosphorus 3.1, magnesium 1.9, albumin 3.4. Foot culture, Enterobacter cloacae. MEDICATIONS: Ancef, Cordarone 200 daily, Dilaudid, Ecotrin, Effexor, Flomax, ProAmatine 10 t.i.d., Protonix, Renagel, and Synthroid. ASSESSMENT: 1. Lower extremity cellulitis. 2. Total body volume overload. 3. ?Pneumonia. 4. End-stage renal disease. 5. Anemia of chronic kidney disease. PLAN: 1. Stable ultrafiltration earlier today. 2. Next dialysis will be on Monday. 3. Continue antibiotics as per ID recommendations. 4. Continue phosphate binders. 5. Physical therapy. Jodie Coyle MD
[2018-06-03] MEDS: HYDROmorphone 1 mg/ml ISec IVP PRN (15:08)
--- NOTE | 2018-06-03 16:41 | CP.PCM.PN ---
Subjective - Date & Time of Evaluation Date of Evaluation: 06/03/18 Time of Evaluation: 15:30 - Subjective Subjective: Infectious Disease Follow Up: June 03, 2018 78 year old male with a past medical history significant for HFrEF with AICD (EF: 22%), atrial fibrillation (Not on AC), CAD, PAD, ESRD on HD (MWF), APCKD s/p right nephrectomy, JOSE on CPAP, LLE ulcer, and chronic back pain who presents with worsening ulceration, swelling and discharge of RLE ulcer. Patient states he's noticed the redness and swelling in his leg in the last three days, and has been getting worse. Patient denies any other pedal complains. Patient denies f/n/v/sob. Patient was in [facility] a few weeks ago where he left [place] after a few hours here. Complicated medical history. Prior cultures from that visit showing MSSA and Enterobacter. Enterobacter with sensitivity to Cipro, Bactrim, and Gentamicin. Very strong headed patient. He has had difficulty accepting medical diagnoses given to him during this hospitalization. Repeat wound cultures of the foot showing gram negative rods. Enterobacter and Corynebacterium growth seen. Sensitive to Cipro. Objective - Vital Signs/Intake and Output Vital Signs (last 24 hours): Temp Pulse Resp BP Pulse Ox 98.5 F 70 18 102/70 99 06/03/18 15:50 06/03/18 15:50 06/03/18 15:50 06/03/18 15:50 06/03/18 15:50 Intake and Output: 06/03/18 06/03/18 06:59 18:59 Intake Total 880 Balance 880 - Medications Medications: Current Medications Acetaminophen (Tylenol 325mg Tab) 650 mg PO Q6H PRN PRN Reason: Fever >100.4 F Albuterol/Ipratropium (Duoneb 3 Mg/0.5 Mg (3 Ml) Ud) 3 ml IH Q2H PRN PRN Reason: Shortness of Breath Amiodarone HCl (Cordarone) 200 mg PO DAILY [facility] Last Admin: 06/03/18 10:53 Dose: 200 mg Aspirin (Ecotrin) 81 mg PO DAILY [facility] Last Admin: 06/03/18 10:54 Dose: 81 mg Benzonatate (Tessalon Perles) 100 mg PO BID [facility] Last Admin: 06/03/18 10:56 Dose: 100 mg Guaifenesin/Codeine Phosphate (Robitussin W/Codeine) 5 ml PO Q4H [facility] Last Admin: 06/03/18 13:25 Dose: 5 ml Heparin Sodium (Porcine) (Heparin) 5,000 units SC Q8 [facility]; Protocol Last Admin: 06/03/18 13:22 Dose: 5,000 units Hydromorphone HCl (Dilaudid) 1 mg IVP Q4H PRN PRN Reason: Pain, severe (8-10) Last Admin: 06/03/18 15:08 Dose: 1 mg Levothyroxine Sodium (Synthroid) 200 mcg PO ACB [facility] Last Admin: 06/03/18 07:55 Dose: 200 mcg Midodrine (Proamatine) 10 mg PO TID [facility] Last Admin: 06/03/18 13:24 Dose: 10 mg Mupirocin (Bactroban Ointment) 0 gm TOP BID [facility] Last Admin: 06/03/18 10:52 Dose: 1 applic Non-Formulary Medication (Temazepam [Restoril]) 15 mg PO HS [facility] Last Admin: 06/02/18 22:05 Dose: Not Given Pantoprazole Sodium (Protonix Ec Tab) 40 mg PO 0600 [facility] Last Admin: 06/03/18 05:55 Dose: 40 mg Sevelamer HCl (Renagel) 800 mg PO DAILY [facility] Last Admin: 06/03/18 10:55 Dose: 800 mg Tamsulosin HCl (Flomax) 0.4 mg PO DAILY [facility] Last Admin: 06/03/18 10:54 Dose: 0.4 mg Venlafaxine HCl (Effexor Xr) 37.5 mg PO DAILY [facility] Last Admin: 06/03/18 10:54 Dose: 37.5 mg Vitamin B Complex/Vit C/Folic Acid (Nephro-Judah) 1 tab PO DAILY [facility] Last Admin: 06/03/18 10:54 Dose: 1 tab - Labs Labs: 06/03/18 07:00 06/03/18 07:00 APTT 36.6 Seconds (25.1-36.5) H 06/02/18 07:00 - Constitutional Appears: Chronically Ill - Head Exam Head Exam: ATRAUMATIC, NORMOCEPHALIC - Eye Exam Eye Exam: EOMI, PERRL Pupil Exam: NORMAL ACCOMODATION, PERRL - ENT Exam ENT Exam: Mucous Membranes Moist, Normal External Ear Exam, TM's Normal Bilaterally - Neck Exam Neck Exam: Full ROM, Normal Inspection - Respiratory Exam Respiratory Exam: Clear to Ausculation Bilateral, NORMAL BREATHING PATTERN. absent: Rales, Rhonchi, Wheezes - Cardiovascular Exam Cardiovascular Exam: REGULAR RHYTHM, RRR, +S1, +S2 - GI/Abdominal Exam GI & Abdominal Exam: Soft, Normal Bowel Sounds. absent: Distended, Tenderness - Extremities Exam Additional comments: Lower extremities exam Vascular: DP/PT nonpalpable secondary to pitting edema, TG warm to warm, CFT <3 secs x10, +3 pitting edema on dorsum of foot, pretibial, and perimalleolar b/l Neuro: protective sensation absent Derm: full thickness ulceration noted on the medial aspect of the right heel, 100% fibrotic, serous drainage noted, no malodor, no probe to bone, no tunneling or tracking noted. Cellulitis noted from the ankle joint proximally to the knee joint b/l, no other open lesions noted Tenderness of both lower extremities. Thickening of the skin of the lower extremities. Chronic venous stasis changes. Very slow in healing. - Neurological Exam Neurological Exam: Alert, Awake, CN II-XII Intact, Oriented x3 - Psychiatric Exam Psychiatric exam: Normal Affect, Normal Mood - Skin Skin Exam: Intact, Normal Color Assessment and Plan - Assessment and Plan (Free Text) Assessment: 78 yo male with extensive past medical history with bilateral lower extremity cellulitis and full thickness ulcer on the right heel. Unable to have MRI due to AICD. Obtain ESR. Start patient on Ancef IV. Duplex studies pending. May need additional antibiotics depending on culture results. Given atrial fibrillation would avoid fluoroquinolones. The patient with ESRD on HD and CAD. Prolonged QTc interval. I do not feel that the patient has a pneumonia based on the physical findings and imaging studies but that his cough is more likely secondary to fluid overload and CHF. Repeat cultures of the right heel showing gram negative rods. Identification and sensitivity pending. The patient can continue with Ancef in HD at 2gm per dose for [address] with Dr. Whitt and Dr. Coyle. Thank you for allowing me to participate in the care of the patient, we will follow with you.
[2018-06-03] MEDS: Ciprofloxacin 200mg/100ml D5W 100 ML IVPB SCH (22:06)
[2018-06-03] MEDS: TEMAZEPAM 15 MG PO SCH (22:07)
[2018-06-04] MEDS: guaiFENesin-Codeine 100-10mg/5ml Syrup (5 ml) UD PO SCH ×6 (02:20→21:31)
[2018-06-04] MEDS ORDERED: Morphine 2 mg/ml ISec IVP STA (03:45)
[2018-06-04] MEDS: Pantoprazole 40 mg EC Tab PO SCH (05:21)
[2018-06-04 06:33] LABS: BASO # 0.06 K/mm3 (0.0-2.0); BASO % 1.5 % (0.0-3.0); EOS # 0.2 (0.0-0.7); EOS % 4.3 % (1.5-5.0); GRAN # 2.39 (1.4-6.5); GRAN % 60.4 % (50.0-68.0); LYMPH # 0.8 (1.2-3.4); LYMPH % 19.2 % (22.0-35.0); MEAN CELL VOLUME 88.9 fl (80.0-105.0); MEAN CORPUSCULAR HEMOGLOBIN 27.8 pg (25.0-35.0); MEAN CORPUSCULAR HGB CONC 31.3 g/dl (31.0-37.0); MEAN PLATELET VOLUME 10.3 fl (7.0-11.0); MONO # 0.6 (0.1-0.6); MONO % 14.6 % (1.0-6.0); RBC 3.96 10^6/uL (3.5-6.1); RED CELL DISTRIBUTION WIDTH 17.5 % (11.5-14.5)
[2018-06-04 06:47] LABS: ALB/GLOB RATIO 0.9 (1.1-1.8); ALBUMIN 3.6 g/dL (3.0-4.8); CALCIUM 8.9 mg/dL (8.4-10.5)
[2018-06-04] MEDS ORDERED: HYDROmorphone 1 mg/ml ISec IVP PRN (08:11)
[2018-06-04] MEDS: Levothyroxine 200 MCG TAB PO SCH (08:54)
--- NOTE | 2018-06-04 09:38 | CP.PCM.PN ---
Subjective - Date & Time of Evaluation Date of Evaluation: 06/04/18 Time of Evaluation: 09:35 - Subjective Subjective: Podiatry progress note for Dr. Camejo/Dr. Benites 78 year old male patient seen and evaluated for right heel ulceration and bilateral swelling, erythema and discharge. Patient denies any pain overnight. Patient denies any overnight F/N/V/C or SOB. Patient denies any other pedal complaint at this time. Objective - Vital Signs/Intake and Output Vital Signs (last 24 hours): Temp Pulse Resp BP Pulse Ox 98 F 77 18 113/77 100 06/04/18 07:46 06/04/18 07:46 06/04/18 07:46 06/04/18 07:46 06/04/18 07:46 Intake and Output: 06/04/18 06/04/18 06:59 18:59 Intake Total 340 Balance 340 - Medications Medications: Current Medications Acetaminophen (Tylenol 325mg Tab) 650 mg PO Q6H PRN PRN Reason: Fever >100.4 F Albuterol/Ipratropium (Duoneb 3 Mg/0.5 Mg (3 Ml) Ud) 3 ml IH Q2H PRN PRN Reason: Shortness of Breath Amiodarone HCl (Cordarone) 200 mg PO DAILY [facility] Last Admin: 06/03/18 10:53 Dose: 200 mg Aspirin (Ecotrin) 81 mg PO DAILY [facility] Last Admin: 06/03/18 10:54 Dose: 81 mg Benzonatate (Tessalon Perles) 100 mg PO BID [facility] Last Admin: 06/03/18 17:48 Dose: 100 mg Guaifenesin/Codeine Phosphate (Robitussin W/Codeine) 5 ml PO Q4H [facility] Last Admin: 06/04/18 05:20 Dose: 5 ml Heparin Sodium (Porcine) (Heparin) 5,000 units SC Q8 [facility]; Protocol Last Admin: 06/04/18 05:20 Dose: 5,000 units Hydromorphone HCl (Dilaudid) 1 mg IVP Q4H PRN PRN Reason: Pain, severe (8-10) Cefazolin Sodium/Dextrose (Ancef Iv 2 Gm Duplex) 2 gm in 50 mls @ 50 mls/hr IVPB MWF [facility]; Protocol Ciprofloxacin (Cipro 200mg/100ml D5w) 100 mls @ 67 mls/hr IVPB Q12 [facility]; Protocol Last Admin: 06/03/18 22:06 Dose: 67 mls/hr Levothyroxine Sodium (Synthroid) 200 mcg PO ACB [facility] Last Admin: 06/04/18 08:54 Dose: 200 mcg Midodrine (Proamatine) 10 mg PO TID [facility] Last Admin: 06/04/18 08:59 Dose: 10 mg Mupirocin (Bactroban Ointment) 0 gm TOP BID [facility] Last Admin: 06/03/18 17:45 Dose: 1 applic Non-Formulary Medication (Temazepam [Restoril]) 15 mg PO HS [facility] Last Admin: 06/03/18 22:07 Dose: Not Given Pantoprazole Sodium (Protonix Ec Tab) 40 mg PO 0600 [facility] Last Admin: 06/04/18 05:21 Dose: 40 mg Sevelamer HCl (Renagel) 800 mg PO DAILY [facility] Last Admin: 06/04/18 08:59 Dose: 800 mg Tamsulosin HCl (Flomax) 0.4 mg PO DAILY [facility] Last Admin: 06/03/18 10:54 Dose: 0.4 mg Venlafaxine HCl (Effexor Xr) 37.5 mg PO DAILY [facility] Last Admin: 06/03/18 10:54 Dose: 37.5 mg Vitamin B Complex/Vit C/Folic Acid (Nephro-Judah) 1 tab PO DAILY [facility] Last Admin: 06/03/18 10:54 Dose: 1 tab - Labs Labs: 06/04/18 05:45 06/04/18 05:45 APTT 36.6 Seconds (25.1-36.5) H 06/02/18 07:00 - Constitutional Appears: Well, Non-toxic, No Acute Distress - Head Exam Head Exam: ATRAUMATIC, NORMOCEPHALIC - Extremities Exam Additional comments: Bilateral lower extremity exam: Vascular: DP/PT faintly palpable 1/4 b/l, Temp gradient warm to warm, Cap refill <3 secs to all digits, +1 pitting edema on dorsum of foot, pretibial, and perimalleolar area b/l Neuro: Both gross and protective sensation diminished. Derm: full thickness ulceration noted on the medial aspect of the right heel, 100% fibrotic, serous drainage noted, no malodor, no probe to bone, no tunneling or tracking noted. erythema noted from the ankle joint proximally to the knee joint b/l(less than yesterday) , no other open lesions noted MSK: pain on palpation to both lower extremities R>L. MMT intact 5/5 in all groups - Neurological Exam Neurological Exam: Alert, Awake, Oriented x3 - Psychiatric Exam Psychiatric exam: Normal Affect - Skin Skin Exam: Normal Color Assessment and Plan - Assessment and Plan (Free Text) Assessment: 78 yo male patient seen and evaluated at bedside for cellulitis in bilateral lower extremity, and full thickness ulcer on the medial aspect of the right heel. Plan: Patient seen and evaluated at the bedside Plan discussed in detail with the attending, Dr. Camejo Charts, labs and vitals reviewed; Afebrile; WBC 4.0 Vascular Onboard, recommendations appreciated ID on board; recs appreciated Foot x-ray: no acute changes noted, soft tissue swelling. 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 Cultures Results; Gram positive cocci, Enterobacter cloaca Ssp cloaca, Corynebacterium species. Right lower extremity dressed with optifoam Multipodus boots ordered Continue IV antibiotics as per ID. Patient will be followed up by podiatry while in house
[2018-06-04] MEDS: Venlafaxine 37.5 mg ER Cap PO SCH (14:01)
[2018-06-04] MEDS: Ciprofloxacin 200mg/100ml D5W 100 ML IVPB SCH ×2 (14:02→21:31)
[2018-06-04] MEDS: Multivitamin Vitamin B Complex (Nephro-Vite) Tab PO SCH (14:02)
[2018-06-04] MEDS: ceFAZolin IV 2 gm in Dextrose 2 GM/50 ML BAG IVPB SCH (14:03)
--- NOTE | 2018-06-04 14:56 | CP.PCM.PN ---
<Nialm Herrera - Last Filed: 06/04/18 16:59> Subjective - Date & Time of Evaluation Date of Evaluation: 06/04/18 Time of Evaluation: 14:53 - Subjective Subjective: Resident Nilam Herrera DO, PGY1 Hospitalist Progress Note for: Dr. Sherry Vogt Pt was seen and examined this morning at bedside. Pt admits to some R hip pain only when coughing, but other than that states that he has no acute complaints at this time. He denies having any acute overnight events. He admits to a cough, but states that he cant bring anything up. He states that he is tolerating his heart healthy diet. He states that he is scheduled for dialysis later today. Objective - Vital Signs/Intake and Output Vital Signs (last 24 hours): Temp Pulse Resp BP Pulse Ox 98 F 68 18 102/60 100 06/04/18 07:46 06/04/18 14:01 06/04/18 07:46 06/04/18 14:01 06/04/18 07:46 Intake and Output: 06/04/18 06/04/18 06:59 18:59 Intake Total 340 Balance 340 - Medications Medications: Current Medications Acetaminophen (Tylenol 325mg Tab) 650 mg PO Q6H PRN PRN Reason: Fever >100.4 F Albuterol/Ipratropium (Duoneb 3 Mg/0.5 Mg (3 Ml) Ud) 3 ml IH Q2H PRN PRN Reason: Shortness of Breath Amiodarone HCl (Cordarone) 200 mg PO DAILY [facility] Last Admin: 06/04/18 14:01 Dose: 200 mg Aspirin (Ecotrin) 81 mg PO DAILY [facility] Last Admin: 06/04/18 14:02 Dose: 81 mg Benzonatate (Tessalon Perles) 100 mg PO BID [facility] Last Admin: 06/04/18 14:01 Dose: 100 mg Guaifenesin/Codeine Phosphate (Robitussin W/Codeine) 5 ml PO Q4H [facility] Last Admin: 06/04/18 14:02 Dose: 5 ml Heparin Sodium (Porcine) (Heparin) 5,000 units SC Q8 [facility]; Protocol Last Admin: 06/04/18 14:02 Dose: 5,000 units Hydromorphone HCl (Dilaudid) 1 mg IVP Q4H PRN PRN Reason: Pain, severe (8-10) Cefazolin Sodium/Dextrose (Ancef Iv 2 Gm Duplex) 2 gm in 50 mls @ 50 mls/hr IVPB MWF [facility]; Protocol Last Admin: 06/04/18 14:03 Dose: 50 mls/hr Ciprofloxacin (Cipro 200mg/100ml D5w) 100 mls @ 67 mls/hr IVPB Q12 [facility]; Protocol Last Admin: 06/04/18 14:02 Dose: 67 mls/hr Levothyroxine Sodium (Synthroid) 200 mcg PO ACB [facility] Last Admin: 06/04/18 08:54 Dose: 200 mcg Midodrine (Proamatine) 10 mg PO TID [facility] Last Admin: 06/04/18 14:01 Dose: 10 mg Mupirocin (Bactroban Ointment) 0 gm TOP BID [facility] Last Admin: 06/03/18 17:45 Dose: 1 applic Non-Formulary Medication (Temazepam [Restoril]) 15 mg PO HS [facility] Last Admin: 06/03/18 22:07 Dose: Not Given Pantoprazole Sodium (Protonix Ec Tab) 40 mg PO 0600 [facility] Last Admin: 06/04/18 05:21 Dose: 40 mg Sevelamer HCl (Renagel) 800 mg PO DAILY [facility] Last Admin: 06/04/18 08:59 Dose: 800 mg Tamsulosin HCl (Flomax) 0.4 mg PO DAILY [facility] Last Admin: 06/04/18 14:02 Dose: 0.4 mg Venlafaxine HCl (Effexor Xr) 37.5 mg PO DAILY [facility] Last Admin: 06/04/18 14:01 Dose: 37.5 mg Vitamin B Complex/Vit C/Folic Acid (Nephro-Judah) 1 tab PO DAILY [facility] Last Admin: 06/04/18 14:02 Dose: 1 tab - Labs Labs: 06/04/18 05:45 06/04/18 05:45 APTT 36.6 Seconds (25.1-36.5) H 06/02/18 07:00 - Constitutional Appears: Well, Non-toxic, No Acute Distress - Head Exam Head Exam: ATRAUMATIC, NORMAL INSPECTION, NORMOCEPHALIC - Eye Exam Eye Exam: EOMI, Normal appearance, PERRL Pupil Exam: NORMAL ACCOMODATION - Respiratory Exam Respiratory Exam: Decreased Breath Sounds, NORMAL BREATHING PATTERN. absent: Accessory Muscle Use, Chest Wall Tenderness, Respiratory Distress - Cardiovascular Exam Cardiovascular Exam: RRR, +S1, +S2. absent: Gallop, Rubs - GI/Abdominal Exam GI & Abdominal Exam: Soft, Normal Bowel Sounds. absent: Tenderness - Extremities Exam Extremities Exam: Pedal Edema. absent: Calf Tenderness Additional comments: pt has chronic venous stasis in legs b/l. - Neurological Exam Neurological Exam: Alert, Awake, Oriented x3 - Psychiatric Exam Psychiatric exam: Normal Affect, Normal Mood - Skin Skin Exam: Abrasion (present through out body), Rash (has discoloration due to chronic venous stasis.). absent: Warm (extremeties are cool to touch) Assessment and Plan - Assessment and Plan (Free Text) Assessment: Pt is a 78 yo M with pmhx of HFrEF with AICD (EF: 22%), atrial fibrillation (Not on AC), CAD, PAD, ESRD on HD (MWF), APCKD s/p right nephrectomy, JOSE on CPAP, LLE ulcer, and chronic back pain who presents with worsening ulceration, swelling and discharge of RLE ulcer. His wound cultures showed that his wound infection is resistant to keflex, have now switched his antibiotics appropriately. Going to hemodialysis today. Plan: 1. Cough and Shortness of Breath - Improves after dialysis - Pt underwent HD today, his schedule is [facility]. - Duonebs PRN for SOB - Robitussin with Codeine 5ml PO Q4 PRN for cough - Tessalon Perles 100mg PO BID 2. RLE Ulcer/ BL LE Cellulitis: - Edema is improving - Wound culture growing gram (-) rods - Discussed with ID. Stated to put pt on Ancef 2gm w/HD (MWF) and cipro 200mg BID for 4 weeks. - Venous + Arterial Duplex studies - No Venous thrombosis BL; BL tibial disease suggested. Pt has pacemaker, so unable to go for MRA - Podiatry and ID consulted, all recommendations appreciated - Awaiting Dr. Braga recommendations 3. History of ESRD on HD - Continue Dialysis as inpatient; - Start Midodrine - Continue home Renagel, Flomax and Nephro-Judah - Avoid nephrotoxic agents and renally dose all medications where appropriate - Nephrology consulted, all recommendations appreciated 4. History of Atrial Fibrillation w/ AICD - Continue ASA - Continue home Amiodarone 200mg PO daily - EKG showed electronic ventricular pacemaker rhythm 5. History of CAD/PAD - Continue home ASA 81mg PO daily 6. History of JOSE Continue home CPAP HS at ordered settings 7. History of Hypothyroidism Continue home Synthroid 200mcg daily TSH markedly elevated; follow up validity given patient is ESRD 8. History of Depression/Anxiety Continue home Effexor and Restoril 9. Deconditioning Patient largely bed bound PT Evaluation and Treatment pending 10. History of SDU Air mattress and Multipodus boots Turn Q2H GI Prophylaxis: Protonix DVT Prophylaxis: Heparin SC <Ekaterina Vogt R - Last Filed: 06/05/18 15:32> Objective - Vital Signs/Intake and Output Vital Signs (last 24 hours): Temp Pulse Resp BP Pulse Ox 97.1 F L 80 20 100/60 99 06/05/18 08:01 06/05/18 11:35 06/05/18 08:01 06/05/18 11:35 06/05/18 08:01 Intake and Output: 06/05/18 06/05/18 06:59 18:59 Intake Total 0 Output Total 0 Balance 0 - Medications Medications: Current Medications Acetaminophen (Tylenol 325mg Tab) 650 mg PO Q6H PRN PRN Reason: Fever >100.4 F Albuterol/Ipratropium (Duoneb 3 Mg/0.5 Mg (3 Ml) Ud) 3 ml IH Q2H PRN PRN Reason: Shortness of Breath Amiodarone HCl (Cordarone) 200 mg PO DAILY [facility] Last Admin: 06/05/18 11:35 Dose: 200 mg Aspirin (Ecotrin) 81 mg PO DAILY [facility] Last Admin: 06/05/18 11:36 Dose: 81 mg Benzonatate (Tessalon Perles) 100 mg PO BID [facility] Last Admin: 06/05/18 11:37 Dose: 100 mg Ciprofloxacin (Cipro) 500 mg PO DAILY [facility] Guaifenesin/Codeine Phosphate (Robitussin W/Codeine) 5 ml PO Q4H [facility] Last Admin: 06/05/18 13:00 Dose: Not Given Heparin Sodium (Porcine) (Heparin) 5,000 units SC Q8 [facility]; Protocol Last Admin: 06/05/18 15:11 Dose: 5,000 units Hydromorphone HCl (Dilaudid) 1 mg IVP Q6H PRN PRN Reason: Pain, severe (8-10) Last Admin: 06/05/18 12:12 Dose: 1 mg Cefazolin Sodium/Dextrose (Ancef Iv 2 Gm Duplex) 2 gm in 50 mls @ 50 mls/hr IVPB MWF [facility]; Protocol Last Admin: 06/04/18 14:03 Dose: 50 mls/hr Levothyroxine Sodium (Synthroid) 200 mcg PO ACB [facility] Last Admin: 06/05/18 11:40 Dose: 200 mcg Midodrine (Proamatine) 10 mg PO TID [facility] Last Admin: 06/05/18 15:12 Dose: 10 mg Mupirocin (Bactroban Ointment) 0 gm TOP BID [facility] Last Admin: 06/03/18 17:45 Dose: 1 applic Non-Formulary Medication (Temazepam [Restoril]) 15 mg PO HS [facility] Last Admin: 06/03/18 22:07 Dose: Not Given Pantoprazole Sodium (Protonix Ec Tab) 40 mg PO 0600 [facility] Last Admin: 06/04/18 05:21 Dose: 40 mg Sevelamer HCl (Renagel) 800 mg PO DAILY [facility] Last Admin: 06/05/18 11:36 Dose: 800 mg Tamsulosin HCl (Flomax) 0.4 mg PO DAILY [facility] Last Admin: 06/05/18 11:36 Dose: 0.4 mg Venlafaxine HCl (Effexor Xr) 37.5 mg PO DAILY [facility] Last Admin: 06/05/18 11:36 Dose: 37.5 mg Vitamin B Complex/Vit C/Folic Acid (Nephro-Judah) 1 tab PO DAILY [facility] Last Admin: 06/05/18 11:36 Dose: 1 tab - Labs Labs: 06/05/18 06:30 06/05/18 06:30 APTT 36.6 Seconds (25.1-36.5) H 06/02/18 07:00 Attending/Attestation - Attestation I have personally seen and examined this patient.: Yes I have fully participated in the care of the patient.: Yes I have reviewed all pertinent clinical information, including history, physical exam and plan: Yes Notes (Text): Patient seen and examined by me with resident in dialysis at 11:30AM on 06/04/18 with resident. Case including HPI, physical exam, and assessment and plan discussed with resident. Agree with above with following additions/corrections. Patient is a 78 year old male with past medical history significant for atrial fibrillation not on anticoagulation, chronic systolic CHF s/p ICD, ESRD on HD, polycystic kidney disease, chronic right foot ulcer, chronic back pain, JOSE on CPAP, PAD, and septicemia that presented to the emergency room with right lower extremity pain and worsening of ulceration. Patient states he is feeling ok. States he has been coughing. He states that since last night he has been having right hip pain when he coughs. States the pain is only there when he coughs. No chest pain or shortness of breath. No headaches or dizziness. No fevers or chills. No nausea, vomiting, or abdominal pain. Patient denies any pain in his lower extremities. chest pain or palpitations. No nausea, vomiting, or abdominal pain. No fevers or chills. No diarrhea or constipation. Physical exam: General: Awake and alert lying in bed in no acute distress HEENT: Normocephalic atraumatic. Pupils equal reactive. No scleral icterus. Oropharynx is pink and moist. No pharyngeal erythema or exudate appreciated. Neck is supple. Cardiovascular: Normal S1, S2. No murmurs, rubs or gallops appreciated Pulmonary: Normal respiratory effort. Decreased breath sounds. No rhonchi, rales or wheezing appreciated. Gastrointestinal: Soft, nondistended. Nontender. Positive bowel sounds all 4 quadrants, no guarding. Musculoskeletal: Moves all extremities, no calf tenderness.Positive bilateral lower extremity venous stasis color changes and edema. Bilateral lower extremity dressings clean, dry, and intact. Central nervous system: AAOx3, CN2-12 grossly intact Dermatologic: Skin warm and dry. Assessment and Plan: Patient is a 78 year old male with past medical history significant for atrial fibrillation not on anticoagulation, chronic systolic CHF s/p ICD, ESRD on HD, polycystic kidney disease, chronic right foot ulcer, chronic back pain, JOSE on CPAP, PAD, and septicemia that presented to the emergency room with right lower extremity pain and worsening of ulceration. 1. Cough and shortness of breath. Improved. Likely secondary to fluid overload and history of CHF. Continue with dailysis MWF. Chest xray on admission showed no active disease. Continue Robitussin and Tessalon Perles. Continue nebulizer treatments as needed. 2. Right lower extremity ulcer and cellulitis. ID following, recommendations appreciated. Right foot wound culture per radiologist showed Enterobacter cloacae, staph aureus, and corynebacterium. Continue Ancef and Cipro for total of 4 weeks per ID. Right foot xray per radiologist showed severe dorsal soft tissue swelling. HARSHIL exam per radiologist showed limited study due to calcified vessels at all levels, bilateral tibial disease, distal waveforms are pulsatile. IR consulted, follow up recommendations. Right lower extremity CT per radiologist showed moderate dorsal soft tissue swelling and subcutaneous fluid without evidence for drainable fluid collection; patchy areas of sclerosis and lucency in the talus, calcaneus, navicular, cuboid and cuneiform are nonspecific and could be related to osteopenia however acute and/or chronic osteomyelitis. Patient can not have MRI secondary to ICD. 3. Right hip pain. Unclear etiology. Will get hip/pelvic xray. 4. ESRD on HD. Nephrology following, recommendations appreciated. Continue HD on MWF. Continue renagel and Nephrovite. 5. Acute on chronic systolic CHF exacerbation. S/P ICD. Continue with dialysis MWF. Continue with amiodarone. 6. History of a-fib. Patient not on anticoagulation. Patient does not want to be on anticoagulation. Continue ASA and amiodarone. 7. Chronic back pain. Continue physical therapy. Continue with pain management. 8. Hypothyroidism. Continue synthroid. 9. Depression and anxiety. Continue home Effexor 10. JOSE. Continue CPAP at bedtime. Case was discussed in detail with patient regarding current diagnosis and treatment plan. All questions answered.
--- NOTE | 2018-06-04 16:10 | CP.PCM.PN ---
Subjective - Date & Time of Evaluation Date of Evaluation: 06/04/18 Time of Evaluation: 15:00 - Subjective Subjective: Infectious Disease Follow Up: June 04, 2018 78 year old male with a past medical history significant for HFrEF with AICD (EF: 22%), atrial fibrillation (Not on AC), CAD, PAD, ESRD on HD (MWF), APCKD s/p right nephrectomy, JOSE on CPAP, LLE ulcer, and chronic back pain who presents with worsening ulceration, swelling and discharge of RLE ulcer. Patient states he's noticed the redness and swelling in his leg in the last three days, and has been getting worse. Patient denies any other pedal complains. Patient denies f/n/v/sob. [place] [facility] where he left [place] after a few hours here. Complicated medical history. Prior cultures from that visit showing MSSA and Enterobacter. Enterobacter with sensitivity to Cipro, Bactrim, and Gentamicin. Very strong headed patient. He has had difficulty accepting medical diagnoses given to him during this hospitalization. Repeat wound cultures of the foot showing gram negative rods. Enterobacter and Corynebacterium growth seen. Sensitive to Cipro. On Ancef and Cipro for treatment. Objective - Vital Signs/Intake and Output Vital Signs (last 24 hours): Temp Pulse Resp BP Pulse Ox 98 F 68 18 102/60 100 06/04/18 07:46 06/04/18 14:01 06/04/18 07:46 06/04/18 14:01 06/04/18 07:46 Intake and Output: 06/04/18 06/04/18 06:59 18:59 Intake Total 340 Balance 340 - Medications Medications: Current Medications Acetaminophen (Tylenol 325mg Tab) 650 mg PO Q6H PRN PRN Reason: Fever >100.4 F Albuterol/Ipratropium (Duoneb 3 Mg/0.5 Mg (3 Ml) Ud) 3 ml IH Q2H PRN PRN Reason: Shortness of Breath Amiodarone HCl (Cordarone) 200 mg PO DAILY [facility] Last Admin: 06/04/18 14:01 Dose: 200 mg Aspirin (Ecotrin) 81 mg PO DAILY [facility] Last Admin: 06/04/18 14:02 Dose: 81 mg Benzonatate (Tessalon Perles) 100 mg PO BID [facility] Last Admin: 06/04/18 14:01 Dose: 100 mg Guaifenesin/Codeine Phosphate (Robitussin W/Codeine) 5 ml PO Q4H [facility] Last Admin: 06/04/18 14:02 Dose: 5 ml Heparin Sodium (Porcine) (Heparin) 5,000 units SC Q8 [facility]; Protocol Last Admin: 06/04/18 14:02 Dose: 5,000 units Hydromorphone HCl (Dilaudid) 1 mg IVP Q4H PRN PRN Reason: Pain, severe (8-10) Cefazolin Sodium/Dextrose (Ancef Iv 2 Gm Duplex) 2 gm in 50 mls @ 50 mls/hr IVPB MWF [facility]; Protocol Last Admin: 06/04/18 14:03 Dose: 50 mls/hr Ciprofloxacin (Cipro 200mg/100ml D5w) 100 mls @ 67 mls/hr IVPB Q12 [facility]; Protocol Last Admin: 06/04/18 14:02 Dose: 67 mls/hr Levothyroxine Sodium (Synthroid) 200 mcg PO ACB [facility] Last Admin: 06/04/18 08:54 Dose: 200 mcg Midodrine (Proamatine) 10 mg PO TID [facility] Last Admin: 06/04/18 14:01 Dose: 10 mg Mupirocin (Bactroban Ointment) 0 gm TOP BID [facility] Last Admin: 06/03/18 17:45 Dose: 1 applic Non-Formulary Medication (Temazepam [Restoril]) 15 mg PO HS [facility] Last Admin: 06/03/18 22:07 Dose: Not Given Pantoprazole Sodium (Protonix Ec Tab) 40 mg PO 0600 [facility] Last Admin: 06/04/18 05:21 Dose: 40 mg Sevelamer HCl (Renagel) 800 mg PO DAILY [facility] Last Admin: 06/04/18 08:59 Dose: 800 mg Tamsulosin HCl (Flomax) 0.4 mg PO DAILY [facility] Last Admin: 06/04/18 14:02 Dose: 0.4 mg Venlafaxine HCl (Effexor Xr) 37.5 mg PO DAILY [facility] Last Admin: 06/04/18 14:01 Dose: 37.5 mg Vitamin B Complex/Vit C/Folic Acid (Nephro-Judah) 1 tab PO DAILY [facility] Last Admin: 06/04/18 14:02 Dose: 1 tab - Labs Labs: 06/04/18 05:45 06/04/18 05:45 APTT 36.6 Seconds (25.1-36.5) H 06/02/18 07:00 - Constitutional Appears: No Acute Distress, Chronically Ill - Head Exam Head Exam: ATRAUMATIC, NORMOCEPHALIC - Eye Exam Eye Exam: EOMI, PERRL Pupil Exam: NORMAL ACCOMODATION, PERRL - ENT Exam ENT Exam: Mucous Membranes Moist, Normal External Ear Exam, TM's Normal Bilaterally - Neck Exam Neck Exam: Full ROM, Normal Inspection - Respiratory Exam Respiratory Exam: Clear to Ausculation Bilateral, NORMAL BREATHING PATTERN. absent: Rales, Rhonchi, Wheezes - Cardiovascular Exam Cardiovascular Exam: REGULAR RHYTHM, RRR, +S1, +S2 - GI/Abdominal Exam GI & Abdominal Exam: Soft, Normal Bowel Sounds. absent: Distended, Tenderness - Extremities Exam Additional comments: Lower extremities exam Vascular: DP/PT nonpalpable secondary to pitting edema, TG warm to warm, CFT <3 secs x10, +3 pitting edema on dorsum of foot, pretibial, and perimalleolar b/l Neuro: protective sensation absent Derm: full thickness ulceration noted on the medial aspect of the right heel, 100% fibrotic, serous drainage noted, no malodor, no probe to bone, no tunneling or tracking noted. Cellulitis noted from the ankle joint proximally to the knee joint b/l, no other open lesions noted Tenderness of both lower extremities. Thickening of the skin of the lower extremities. Chronic venous stasis changes. Very slow in healing. - Neurological Exam Neurological Exam: Alert, Awake, CN II-XII Intact, Oriented x3 - Psychiatric Exam Psychiatric exam: Normal Affect, Normal Mood - Skin Skin Exam: Intact, Normal Color Assessment and Plan - Assessment and Plan (Free Text) Assessment: 78 yo male with extensive past medical history with bilateral lower extremity cellulitis and full thickness ulcer on the right heel. Unable to have MRI due to AICD. Obtain ESR. Start patient on Ancef IV. Duplex studies pending. May need additional antibiotics depending on culture results. Given atrial fibrillation would avoid fluoroquinolones. The patient with ESRD on HD and CAD. Prolonged QTc interval. I do not feel that the patient has a pneumonia based on the physical findings and imaging studies but that his cough is more likely secondary to fluid overload and CHF. Repeat cultures of the right heel showing gram negative rods. Identification and sensitivity pending. Cultures showing Enterobacter, MSSA, and Tad nebacterium. The patient can continue with Ancef in HD at 2gm per dose for 4 week period given the results of the current cultures. Cipro for the same periods of time at 200mg IV BID. Discussed with Dr. Whitt and Dr. Coyle. Thank you for allowing me to participate in the care of the patient, we will follow with you.
--- NOTE | 2018-06-04 17:07 | PN ---
DATE: 06/04/2018 SUBJECTIVE: The patient is seen in the dialysis unit. He is awake, he is alert. He complains of severe pain in his right groin when he coughs. He denies any fever. He denies any chills. He complains of pain in his right foot. PHYSICAL EXAMINATION: GENERAL: Morbidly obese, elderly male, lying in bed in the dialysis unit. VITAL SIGNS: Blood pressure 113/77, heart rate 77, respiratory rate 18, and temperature 98. HEENT: Normocephalic, atraumatic, positive pallor. NECK: Supple, no JVD. LUNGS: Bilateral equal air entry, bilateral equal expansion, no rales appreciated anteriorly. CARDIAC: S1 and S2, regular rate and rhythm, no murmur, no rub. ABDOMEN: Obese, distended, soft, nontender, bowel sounds present. EXTREMITIES: Chronic stasis changes, hyperpigmented skin, ulcer on the left lower extremity, ulcer of the right heel. INTAKE AND OUTPUT: Not charted. LABORATORY DATA: WBC 4, hemoglobin 11, hematocrit 35, and platelets 123. Sodium 132, potassium 4.2, chloride 95, CO2 of 25. BUN 31, creatinine 5.8. Glucose 93. Calcium 8.9, phosphorus 4.1, magnesium 2.1, albumin 3.6. MEDICATIONS: List reviewed. ASSESSMENT: 1. End-stage renal disease, volume overload, alternate ultrafiltration/dialysis. 2. Lower extremity cellulitis. 3. Morbid obesity. 4. Congestive heart failure. 5. Secondary hyperparathyroidism. PLAN: 1. Stable dialysis today. 2. Ultrafiltration tomorrow, 3 hours, remove 4 kilos. 3. Continue antibiotics. 4. Physical therapy. 5. Out of bed to chair daily. 6. Continue phosphate binders. Jodie Coyle MD
--- NOTE | 2018-06-04 17:43 | RAD ---
PROCEDURE: Right Hip Radiographs. HISTORY: right hip pain COMPARISON: None. FINDINGS: BONES: No definitive radiographic evidence of acute displaced fracture nor dislocation. The osseous structures intact. JOINTS: Right femoral head is appropriately located within the right acetabulum. Mild degenerative osteoarthritis both hip joints. SOFT TISSUES: Vascular calcifications are present. OTHER FINDINGS: None. IMPRESSION: No evidence of acute displaced fracture nor dislocation. If symptoms persist or occult fracture suspected clinically consider follow-up CT scan of the right hip.
--- NOTE | 2018-06-04 20:27 | PN ---
DATE: 06/04/2018 TIME: 07:35 p.m. SUBJECTIVE: I spoke with Dr. Camejo concerning Mr. Morales and his right heel ulcer. Dr. Camejo feels that the heel ulcer is improving and if he is compliant with offloading and followup, he may be able to get the ulcer healed with conservative wound therapy. At the present time, I will hold off on the angiogram which I feel will add diagnostic information, but not necessarily therapeutic options. Dr. Camejo will contact me if the wound deteriorates. Brad Braga MD MTDD
[2018-06-04] MEDS: HYDROmorphone 1 mg/ml ISec IVP PRN (21:32)
--- NOTE | 2018-06-05 01:39 | CON ---
DATE: 06/04/2018 TIME: 07:30 p.m. CHIEF COMPLAINT/HISTORY OF PRESENT ILLNESS: This is a 78-year-old noncompliant gentleman with a nonhealing ulcer on the medial aspect of the right heel. Mr. Morales has had the ulcer for quite some time. He has been noncompliant with wound care. This is superimposed on advanced stasis changes and lower extremity swelling which are likely related to his cardiac issues and sedentary lifestyle. PHYSICAL EXAMINATION: EXTREMITIES: He has palpable femoral pulses. His right popliteal pulse is weak but present. His pedal pulses are not palpable. His HARSHIL/PVR exam is very limited by calcification. He is pulsatile at all levels. There appears to be bilateral tibial disease. I had a conversation with Mr. Morales about his situation. Certainly, he is at risk for multilevel disease given his dialysis. His HARSHIL and physical exam is limited. We will tentatively plan on a lower extremity arteriogram on a non-dialysis day. I will check with Dr. Camejo and confirm that this is necessary. Unfortunately, this may represent small vessel disease and debilitation with limited revascularization options, but the information from an angiogram would be useful. Brad Braga MD MTDD
[2018-06-05 06:50] LABS: BASO # 0.04 K/mm3 (0.0-2.0); EOS # 0.1 (0.0-0.7); EOS % 3.3 % (1.5-5.0); GRAN # 2.51 (1.4-6.5); GRAN % 62.6 % (50.0-68.0); HEMOGLOBIN 10.8 g/dL (14.0-18.0); LYMPH # 0.8 (1.2-3.4); LYMPH % 20.8 % (22.0-35.0); MEAN CELL VOLUME 89.1 fl (80.0-105.0); MEAN CORPUSCULAR HEMOGLOBIN 28.1 pg (25.0-35.0); MEAN CORPUSCULAR HGB CONC 31.6 g/dl (31.0-37.0); MEAN PLATELET VOLUME 9.8 fl (7.0-11.0); MONO # 0.5 (0.1-0.6); MONO % 12.3 % (1.0-6.0); RBC 3.84 10^6/uL (3.5-6.1); RED CELL DISTRIBUTION WIDTH 17.9 % (11.5-14.5)
[2018-06-05] MEDS: guaiFENesin-Codeine 100-10mg/5ml Syrup (5 ml) UD PO SCH ×6 (07:00→21:45)
[2018-06-05 07:20] LABS: ALB/GLOB RATIO 0.9 (1.1-1.8); ALBUMIN 3.4 g/dL (3.0-4.8); CALCIUM 8.8 mg/dL (8.4-10.5)
--- NOTE | 2018-06-05 10:24 | CP.PCM.PN ---
<Tanesha Joe - Last Filed: 06/05/18 15:23> Subjective - Date & Time of Evaluation Date of Evaluation: 06/05/18 Time of Evaluation: : - Subjective Subjective: Podiatry progress note for Dr. Camejo/Dr. Benites 78 year old male patient seen and evaluated for right heel ulceration and bilateral swelling, erythema and discharge. Patient denies any pain overnight. Patient denies any overnight F/N/V/C or SOB. Patient denies any other pedal complaint at this time. Objective - Vital Signs/Intake and Output Vital Signs (last 24 hours): Temp Pulse Resp BP Pulse Ox 97.1 F L 76 20 101/66 99 06/05/18 08:01 06/05/18 08:01 06/05/18 08:01 06/05/18 08:01 06/05/18 08:01 Intake and Output: 06/05/18 06/05/18 06:59 18:59 Intake Total 0 Output Total 0 Balance 0 - Medications Medications: Current Medications Acetaminophen (Tylenol 325mg Tab) 650 mg PO Q6H PRN PRN Reason: Fever >100.4 F Albuterol/Ipratropium (Duoneb 3 Mg/0.5 Mg (3 Ml) Ud) 3 ml IH Q2H PRN PRN Reason: Shortness of Breath Amiodarone HCl (Cordarone) 200 mg PO DAILY [facility] Last Admin: 06/04/18 14:01 Dose: 200 mg Aspirin (Ecotrin) 81 mg PO DAILY [facility] Last Admin: 06/04/18 14:02 Dose: 81 mg Benzonatate (Tessalon Perles) 100 mg PO BID [facility] Last Admin: 06/04/18 17:56 Dose: 100 mg Guaifenesin/Codeine Phosphate (Robitussin W/Codeine) 5 ml PO Q4H [facility] Last Admin: 06/05/18 07:01 Dose: 5 ml Heparin Sodium (Porcine) (Heparin) 5,000 units SC Q8 [facility]; Protocol Last Admin: 06/05/18 07:01 Dose: 5,000 units Hydromorphone HCl (Dilaudid) 1 mg IVP Q6H PRN PRN Reason: Pain, severe (8-10) Last Admin: 06/04/18 21:32 Dose: 1 mg Cefazolin Sodium/Dextrose (Ancef Iv 2 Gm Duplex) 2 gm in 50 mls @ 50 mls/hr IVPB MWF [facility]; Protocol Last Admin: 06/04/18 14:03 Dose: 50 mls/hr Ciprofloxacin (Cipro 200mg/100ml D5w) 100 mls @ 67 mls/hr IVPB Q12 [facility]; Protocol Last Admin: 06/04/18 21:31 Dose: 67 mls/hr Levothyroxine Sodium (Synthroid) 200 mcg PO ACB [facility] Last Admin: 06/04/18 08:54 Dose: 200 mcg Midodrine (Proamatine) 10 mg PO TID [facility] Last Admin: 06/04/18 17:56 Dose: 10 mg Mupirocin (Bactroban Ointment) 0 gm TOP BID [facility] Last Admin: 06/03/18 17:45 Dose: 1 applic Non-Formulary Medication (Temazepam [Restoril]) 15 mg PO HS [facility] Last Admin: 06/03/18 22:07 Dose: Not Given Pantoprazole Sodium (Protonix Ec Tab) 40 mg PO 0600 [facility] Last Admin: 06/04/18 05:21 Dose: 40 mg Sevelamer HCl (Renagel) 800 mg PO DAILY [facility] Last Admin: 06/04/18 08:59 Dose: 800 mg Tamsulosin HCl (Flomax) 0.4 mg PO DAILY [facility] Last Admin: 06/04/18 14:02 Dose: 0.4 mg Venlafaxine HCl (Effexor Xr) 37.5 mg PO DAILY [facility] Last Admin: 06/04/18 14:01 Dose: 37.5 mg Vitamin B Complex/Vit C/Folic Acid (Nephro-Judah) 1 tab PO DAILY [facility] Last Admin: 06/04/18 14:02 Dose: 1 tab - Labs Labs: 06/05/18 06:30 06/05/18 06:30 APTT 36.6 Seconds (25.1-36.5) H 06/02/18 07:00 - Constitutional Appears: Well, Non-toxic, No Acute Distress - Head Exam Head Exam: ATRAUMATIC, NORMOCEPHALIC - Extremities Exam Additional comments: Bilateral lower extremity exam: Vascular: DP/PT faintly palpable 1/4 b/l, Temp gradient warm to warm, Cap refill <3 secs to all digits, +1 pitting edema on dorsum of foot, pretibial, and perimalleolar area b/l Neuro: Both gross and protective sensation diminished. Derm: full thickness ulceration noted on the medial aspect of the right heel, 1 00% fibrotic, serous drainage noted, no malodor, no probe to bone, no tunneling or tracking noted. erythema noted from the ankle joint proximally to the knee joint b/l(less than yesterday) , no other open lesions noted MSK: pain on palpation to both lower extremities R>L. MMT intact 5/5 in all grou ps - Neurological Exam Neurological Exam: Alert, Awake, Oriented x3 - Psychiatric Exam Psychiatric exam: Normal Affect - Skin Skin Exam: Normal Color Assessment and Plan - Assessment and Plan (Free Text) Assessment: 78 yo male patient seen and evaluated at bedside for cellulitis in bilateral lower extremity, and full thickness ulcer on the medial aspect of the right heel. Plan: Patient seen and evaluated at the bedside Plan discussed in detail with the attending, Dr. Camejo Charts, labs and vitals reviewed; Afebrile; WBC 4.0 Vascular Onboard, recommendations appreciated ID on board; recs appreciated Foot x-ray: no acute changes noted, soft tissue swelling. 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 Cultures Results; Gram positive cocci, Enterobacter cloaca Ssp cloaca, Corynebacterium species. Right lower extremity dressed with bactroban and optifoam Multipodus boots ordered stable from podiatry point of view; patients wound should be covered at all times with optifoam or DSD. Patient will follow up with Dr Benites in wound care center within a week of discharge. Continue IV antibiotics as per ID. Patient will be followed up by podiatry while in house <Sixto Camejo - Last Filed: 06/05/18 17:05> Objective - Vital Signs/Intake and Output Vital Signs (last 24 hours): Temp Pulse Resp BP Pulse Ox 97.1 F L 80 20 100/60 99 06/05/18 08:01 06/05/18 11:35 06/05/18 08:01 06/05/18 11:35 06/05/18 08:01 Intake and Output: 06/05/18 06/05/18 06:59 18:59 Intake Total 0 Output Total 0 Balance 0 - Medications Medications: Current Medications Acetaminophen (Tylenol 325mg Tab) 650 mg PO Q6H PRN PRN Reason: Fever >100.4 F Albuterol/Ipratropium (Duoneb 3 Mg/0.5 Mg (3 Ml) Ud) 3 ml IH Q2H PRN PRN Reason: Shortness of Breath Amiodarone HCl (Cordarone) 200 mg PO DAILY [facility] Last Admin: 06/05/18 11:35 Dose: 200 mg Aspirin (Ecotrin) 81 mg PO DAILY [facility] Last Admin: 06/05/18 11:36 Dose: 81 mg Benzonatate (Tessalon Perles) 100 mg PO BID [facility] Last Admin: 06/05/18 11:37 Dose: 100 mg Ciprofloxacin (Cipro) 500 mg PO DAILY [facility] Guaifenesin/Codeine Phosphate (Robitussin W/Codeine) 5 ml PO Q4H [facility] Last Admin: 06/05/18 13:00 Dose: Not Given Heparin Sodium (Porcine) (Heparin) 5,000 units SC Q8 [facility]; Protocol Last Admin: 06/05/18 15:11 Dose: 5,000 units Hydromorphone HCl (Dilaudid) 1 mg IVP Q6H PRN PRN Reason: Pain, severe (8-10) Last Admin: 06/05/18 12:12 Dose: 1 mg Cefazolin Sodium/Dextrose (Ancef Iv 2 Gm Duplex) 2 gm in 50 mls @ 50 mls/hr IV PB MWF [facility]; Protocol Last Admin: 06/04/18 14:03 Dose: 50 mls/hr Levothyroxine Sodium (Synthroid) 200 mcg PO ACB [facility] Last Admin: 06/05/18 11:40 Dose: 200 mcg Midodrine (Proamatine) 10 mg PO TID [facility] Last Admin: 06/05/18 15:12 Dose: 10 mg Mupirocin (Bactroban Ointment) 0 gm TOP BID [facility] Last Admin: 06/03/18 17:45 Dose: 1 applic Non-Formulary Medication (Temazepam [Restoril]) 15 mg PO HS [facility] Last Admin: 06/03/18 22:07 Dose: Not Given Pantoprazole Sodium (Protonix Ec Tab) 40 mg PO 0600 [facility] Last Admin: 06/04/18 05:21 Dose: 40 mg Sevelamer HCl (Renagel) 800 mg PO DAILY [facility] Last Admin: 06/05/18 11:36 Dose: 800 mg Tamsulosin HCl (Flomax) 0.4 mg PO DAILY [facility] Last Admin: 06/05/18 11:36 Dose: 0.4 mg Venlafaxine HCl (Effexor Xr) 37.5 mg PO DAILY [facility] Last Admin: 06/05/18 11:36 Dose: 37.5 mg Vitamin B Complex/Vit C/Folic Acid (Nephro-Judah) 1 tab PO DAILY [facility] Last Admin: 06/05/18 11:36 Dose: 1 tab - Labs Labs: 06/05/18 06:30 06/05/18 06:30 APTT 36.6 Seconds (25.1-36.5) H 06/02/18 07:00 Attending/Attestation - Attestation I have personally seen and examined this patient.: Yes I have fully participated in the care of the patient.: Yes I have reviewed all pertinent clinical information, including history, physical exam and plan: Yes
[2018-06-05] MEDS: Ciprofloxacin 200mg/100ml D5W 100 ML IVPB SCH (11:33)
[2018-06-05] MEDS: Venlafaxine 37.5 mg ER Cap PO SCH (11:36)
[2018-06-05] MEDS: Multivitamin Vitamin B Complex (Nephro-Vite) Tab PO SCH (11:36)
[2018-06-05] MEDS: Levothyroxine 200 MCG TAB PO SCH ×2 (11:39→11:40)
[2018-06-05] MEDS: HYDROmorphone 1 mg/ml ISec IVP PRN ×2 (12:12→20:07)
--- NOTE | 2018-06-05 14:39 | PN ---
DATE: 06/05/2018 SUBJECTIVE: The patient is currently seen lying comfortable in bed on 3R. He had an uneventful dialysis yesterday. Yesterday, we were unable to remove the required amount of fluid. The patient went for an extra treatment today to remove the extra fluid. The patient remains on the antibiotic therapy for the cellulitis of his lower extremity and his right heel ulcer. MEDICATIONS: Medication list reviewed. The patient is currently on Ancef, mupirocin, IV Cipro, amiodarone, p.r.n. Dilaudid, DuoNeb, Ecotrin, Effexor, Flomax, subcu heparin, Nephro-Judah, ProAmatine, Protonix, Renagel, Robitussin with codeine p.r.n., Synthroid, Restoril, Tessalon Perles and Tylenol. OBJECTIVE: INTAKE/OUTPUT: Intake 1420, output 0 plus hemodialysis. VITAL SIGNS: Blood pressure 100/60, temperature 97.1, respiratory rate was 20. Pulse 80. Oxygen saturation 99%. HEENT: Shows him to be normocephalic, atraumatic. Conjunctivae are pink. Sclerae are nonicteric. NECK: Supple. No neck vein distention. CHEST: Clear to auscultation and percussion. No rales, rhonchi or wheezing. CARDIOVASCULAR: Shows a regular rate and rhythm without audible murmurs, rubs or gallops. Positive right chest wall PermCath. ABDOMEN: Soft. Bowel sounds normal. No rebound, guarding or masses. EXTREMITIES: Show chronic stasis dermatitis with mild cellulitis and an ulcer of the right heel and an ulcer of the left lower extremity. LABORATORY DATA AND IMAGING: CBC: White blood cell count 4, hemoglobin 10.8 with a platelet count of 105,000. Chemistries showed normal electrolytes. BUN 21 with a creatinine of 4.3. Calcium 8.8, phosphorus 3.3, magnesium level 2. Microbiology: Right foot heel culture positive for Enterobacter, Staph aureus and Corynebacterium. Blood cultures were negative. ASSESSMENT: 1. End-stage renal disease. The patient's volume status appears to be returning to normal. He had his followup dialysis treatment today to remove the balance of the fluid ordered in the original dialysis treatment. He is scheduled for dialysis tomorrow. 2. Lower extremity cellulitis in the setting of chronic stasis dermatitis, likely secondary to peripheral vascular disease with a right heel ulcer and a left lower extremity ulcer. The patient had been evaluated by Interventional Radiology, perhaps angiogram to assess for large vessel versus small vessel disease. The patient will continue local wound care and antibiotic therapy. 3. History of anemia secondary to chronic kidney disease, currently stable. The patient will receive Aranesp on dialysis as per protocol. 4. History of secondary hyperparathyroidism. Calcium and phosphorus levels are controlled. The patient will continue on Renagel therapy. 5. History of intradialytic hypotension. The patient will continue on ProAmatine 10 mg to be given before dialysis. He also receives ProAmatine throughout the day for blood pressures support. 6. History of coronary artery disease, currently stable. 7. History of obstructive sleep apnea, on continuous positive airway pressure therapy. 8. History of automatic implantable cardioverter-defibrillator. 9. Status post right nephrectomy. 10. History of polycystic kidney disease. PLAN: 1. Continue three times a week dialysis. Attempt to keep the patient euvolemic. 2. Continue antibiotic therapy. 3. Continue renal diet with phosphorus binders. 4. Agree with intervention by Interventional Radiology to see if there is anyway we could improve blood circulation into his lower extremity. Perhaps angiogram on a nondialysis day. Joesph Malin MD
--- NOTE | 2018-06-05 14:58 | CP.PCM.PN ---
<Nilam Herrera - Last Filed: 06/05/18 16:02> Subjective - Date & Time of Evaluation Date of Evaluation: 06/05/18 Time of Evaluation: 14:45 - Subjective Subjective: Resident Nilam Herrera DO PGY-[address] Sherry Vogt Pt was seen and examined this morning at bedside. Pt states that he is c ontinuing to have R sided hip pain when he coughs. He denies any limited ROM, pain with moving the R leg, numbness or tingling in the leg. He states that he is able to tolerate his diet with no associated nausea or vomiting. He denies any fevers chills, SOB, chest pain or abdominal pain. He denies any other acute somatic complaints at this time. Objective - Vital Signs/Intake and Output Vital Signs (last 24 hours): Temp Pulse Resp BP Pulse Ox 97.1 F L 80 20 100/60 99 06/05/18 08:01 06/05/18 11:35 06/05/18 08:01 06/05/18 11:35 06/05/18 08:01 Intake and Output: 06/05/18 06/05/18 06:59 18:59 Intake Total 0 Output Total 0 Balance 0 - Medications Medications: Current Medications Acetaminophen (Tylenol 325mg Tab) 650 mg PO Q6H PRN PRN Reason: Fever >100.4 F Albuterol/Ipratropium (Duoneb 3 Mg/0.5 Mg (3 Ml) Ud) 3 ml IH Q2H PRN PRN Reason: Shortness of Breath Amiodarone HCl (Cordarone) 200 mg PO DAILY [facility] Last Admin: 06/05/18 11:35 Dose: 200 mg Aspirin (Ecotrin) 81 mg PO DAILY [facility] Last Admin: 06/05/18 11:36 Dose: 81 mg Benzonatate (Tessalon Perles) 100 mg PO BID [facility] Last Admin: 06/05/18 11:37 Dose: 100 mg Guaifenesin/Codeine Phosphate (Robitussin W/Codeine) 5 ml PO Q4H [facility] Last Admin: 06/05/18 11:39 Dose: 5 ml Heparin Sodium (Porcine) (Heparin) 5,000 units SC Q8 [facility]; Protocol Last Admin: 06/05/18 07:01 Dose: 5,000 units Hydromorphone HCl (Dilaudid) 1 mg IVP Q6H PRN PRN Reason: Pain, severe (8-10) Last Admin: 06/05/18 12:12 Dose: 1 mg Cefazolin Sodium/Dextrose (Ancef Iv 2 Gm Duplex) 2 gm in 50 mls @ 50 mls/hr IVPB MWF [facility]; Protocol Last Admin: 06/04/18 14:03 Dose: 50 mls/hr Ciprofloxacin (Cipro 200mg/100ml D5w) 100 mls @ 67 mls/hr IVPB Q12 [facility]; Protocol Last Admin: 06/05/18 11:33 Dose: 67 mls/hr Levothyroxine Sodium (Synthroid) 200 mcg PO ACB [facility] Last Admin: 06/05/18 11:40 Dose: 200 mcg Midodrine (Proamatine) 10 mg PO TID [facility] Last Admin: 06/05/18 11:36 Dose: 10 mg Mupirocin (Bactroban Ointment) 0 gm TOP BID [facility] Last Admin: 06/03/18 17:45 Dose: 1 applic Non-Formulary Medication (Temazepam [Restoril]) 15 mg PO HS [facility] Last Admin: 06/03/18 22:07 Dose: Not Given Pantoprazole Sodium (Protonix Ec Tab) 40 mg PO 0600 [facility] Last Admin: 06/04/18 05:21 Dose: 40 mg Sevelamer HCl (Renagel) 800 mg PO DAILY [facility] Last Admin: 06/05/18 11:36 Dose: 800 mg Tamsulosin HCl (Flomax) 0.4 mg PO DAILY [facility] Last Admin: 06/05/18 11:36 Dose: 0.4 mg Venlafaxine HCl (Effexor Xr) 37.5 mg PO DAILY [facility] Last Admin: 06/05/18 11:36 Dose: 37.5 mg Vitamin B Complex/Vit C/Folic Acid (Nephro-Judah) 1 tab PO DAILY [facility] Last Admin: 06/05/18 11:36 Dose: 1 tab - Labs Labs: 06/05/18 06:30 06/05/18 06:30 APTT 36.6 Seconds (25.1-36.5) H 06/02/18 07:00 - Constitutional Appears: Well, Toxic, No Acute Distress - Head Exam Head Exam: ATRAUMATIC, NORMAL INSPECTION, NORMOCEPHALIC - Eye Exam Eye Exam: EOMI, Normal appearance, PERRL Pupil Exam: NORMAL ACCOMODATION - Respiratory Exam Respiratory Exam: Decreased Breath Sounds, NORMAL BREATHING PATTERN. absent: Accessory Muscle Use, Rales, Rhonchi, Respiratory Distress - Cardiovascular Exam Cardiovascular Exam: REGULAR RHYTHM, RRR, +S1, +S2. absent: Gallop, Rubs - GI/Abdominal Exam GI & Abdominal Exam: Soft, Normal Bowel Sounds. absent: Guarding, Rigid, Tenderness - Extremities Exam Extremities Exam: Pedal Edema (4+ b/l pitting edema and venous stasis discoloration in both legs distal to the knee.). absent: Calf Tenderness, Tenderness - Back Exam Back Exam: NORMAL INSPECTION. absent: CVA tenderness (L), CVA tenderness (R) - Neurological Exam Neurological Exam: Alert, Awake, Oriented x3 - Psychiatric Exam Psychiatric exam: Normal Affect, Normal Mood - Skin Skin Exam: Dry, Intact, Normal Color, Warm Additional comments: except for areas of vascular congestion noted above. Assessment and Plan - Assessment and Plan (Free Text) Assessment: Pt is a 78 yo M with pmhx of HFrEF with AICD (EF: 22%), atrial fibrillation (Not on AC), CAD, PAD, ESRD on HD (MW), APCKD s/p right nephrectomy, JOSE on CPAP, LLE ulcer, and chronic back pain who presents with worsening ulceration, swelling and discharge of RLE ulcer. His wound cultures showed that his wound infection is resistant to keflex, have now switched his antibiotics appropriately. Going to hemodialysis today. Plan: 1. Cough and Shortness of Breath - Improves after dialysis - Pt underwent additional HD treatment today, his traditional schedule is MW. - Duonebs PRN for SOB - Robitussin with Codeine 5ml PO Q4 PRN for cough - Tessalon Perles 100mg PO BID 2. RLE Ulcer/ BL LE Cellulitis: - Edema is improving - Wound culture growing gram (-) rods - Discussed with ID. Stated to put pt on IV Ancef 2gm w/HD (MWF) and cipro 200mg BID for 4 weeks. - Venous + Arterial Duplex studies - No Venous thrombosis BL; BL tibial disease suggested. Pt has pacemaker, so unable to go for MRA - Podiatry and ID consulted, all recommendations appreciated - Dr. Braga states that he will be holding off doing the angiogram for now 3. History of ESRD on HD - Continue Dialysis as inpatient; - Cont Midodrine - Continue home Renagel, Flomax and Nephro-Judah - Avoid nephrotoxic agents and renally dose all medications where appropriate - Nephrology consulted, all recommendations appreciated 4. History of Atrial Fibrillation w/ AICD - Continue ASA - Continue home Amiodarone 200mg PO daily - EKG showed electronic ventricular pacemaker rhythm 5. History of CAD/PAD - Continue home ASA 81mg PO daily 6. History of JOSE Continue home CPAP HS at ordered settings 7. History of Hypothyroidism Continue home Synthroid 200mcg daily TSH markedly elevated; follow up validity given patient is ESRD 8. History of Depression/Anxiety Continue home Effexor and Restoril 9. Deconditioning Patient largely bed bound PT Evaluation and Treatment pending 10. History of SDU Air mattress and Multipodus boots Turn Q2H PPX: Dvt ppx: 5000 units sq q8 Protonix 40 Dispo: Awaiting social work to see if placement or alternative arrangement can be made <Ekaterina Vogt R - Last Filed: 06/05/18 21:47> Objective - Vital Signs/Intake and Output Vital Signs (last 24 hours): Temp Pulse Resp BP Pulse Ox 98.6 F 87 20 100/63 96 06/05/18 17:45 06/05/18 17:45 06/05/18 17:45 06/05/18 17:45 06/05/18 17:45 Intake and Output: 06/05/18 06/06/18 18:59 06:59 Intake Total 1160 Balance 1160 - Medications Medications: Current Medications Acetaminophen (Tylenol 325mg Tab) 650 mg PO Q6H PRN PRN Reason: Fever >100.4 F Albuterol/Ipratropium (Duoneb 3 Mg/0.5 Mg (3 Ml) Ud) 3 ml IH Q2H PRN PRN Reason: Shortness of Breath Amiodarone HCl (Cordarone) 200 mg PO DAILY [facility] Last Admin: 06/05/18 11:35 Dose: 200 mg Aspirin (Ecotrin) 81 mg PO DAILY [facility] Last Admin: 06/05/18 11:36 Dose: 81 mg Benzonatate (Tessalon Perles) 100 mg PO BID [facility] Last Admin: 10/23/18 18:27 Dose: 100 mg Ciprofloxacin (Cipro) 500 mg PO DAILY [facility] Guaifenesin/Codeine Phosphate (Robitussin W/Codeine) 5 ml PO Q4H [facility] Last Admin: 06/05/18 18:27 Dose: 5 ml Heparin Sodium (Porcine) (Heparin) 5,000 units SC Q8 [facility]; Protocol Last Admin: 06/05/18 15:11 Dose: 5,000 units Hydromorphone HCl (Dilaudid) 1 mg IVP Q6H PRN PRN Reason: Pain, severe (8-10) Last Admin: 06/05/18 20:07 Dose: 1 mg Cefazolin Sodium/Dextrose (Ancef Iv 2 Gm Duplex) 2 gm in 50 mls @ 50 mls/hr [place] [facility] [place] Last Admin: 06/04/18 14:03 Dose: 50 mls/hr Levothyroxine Sodium (Synthroid) 200 mcg PO ACB [facility] Last Admin: 06/05/18 11:40 Dose: 200 mcg Midodrine (Proamatine) 10 mg PO TID [facility] Last Admin: 06/05/18 18:25 Dose: Not Given Mupirocin (Bactroban Ointment) 0 gm TOP BID [facility] Last Admin: 06/03/18 17:45 Dose: 1 applic Non-Formulary Medication (Temazepam [Restoril]) 15 mg PO HS [facility] Last Admin: 06/03/18 22:07 Dose: Not Given Pantoprazole Sodium (Protonix Ec Tab) 40 mg PO 0600 [facility] Last Admin: 06/04/18 05:21 Dose: 40 mg Sevelamer HCl (Renagel) 800 mg PO DAILY [facility] Last Admin: 06/05/18 11:36 Dose: 800 mg Tamsulosin HCl (Flomax) 0.4 mg PO DAILY [facility] Last Admin: 06/05/18 11:36 Dose: 0.4 mg Venlafaxine HCl (Effexor Xr) 37.5 mg PO DAILY [facility] Last Admin: 06/05/18 11:36 Dose: 37.5 mg Vitamin B Complex/Vit C/Folic Acid (Nephro-Judah) 1 tab PO DAILY [facility] Last Admin: 06/05/18 11:36 Dose: 1 tab - Labs Labs: 06/05/18 06:30 06/05/18 06:30 APTT 36.6 Seconds (25.1-36.5) H 06/02/18 07:00 Attending/Attestation - Attestation I have personally seen and examined this patient.: Yes I have fully participated in the care of the patient.: Yes I have reviewed all pertinent clinical information, including history, physical exam and plan: Yes Notes (Text): Patient seen and examined by me with resident at 11:30AM with resident. Case including HPI, physical exam, andassessment and plan discussed with resident. Agree with above with following additions/corrections. Patient is a 78 year old male with past medical history significant for atrial fibrillation not on anticoagulation, chronic systolic CHF s/p ICD, ESRD on HD, polycystic kidney disease, chronic right foot ulcer, chronic back pain, JOSE on CPAP, PAD, and septicemia that presented to the emergency room with right lower extremity pain and worsening of ulceration. Patient states he is not feeling too good today. Complains of right hip, right calf, and right foot pain. Patient states he has right hip/groin pain when he coughs. He states he has right calf and right foot pain any time he moves his leg. Patient denies chest pain or shortness of breath. No headaches or dizziness. No fevers or chills. No nausea, vomiting, or abdominal pain. Patient states that he wants to go to rehab, however, his does not want to go and he wants to do what his wants. Case was discussed with as requested by patient. is refusing rehab for patient. Physical exam: General: Awake and alert lying in bed in no acute distress HEENT: Normocephalic atraumatic. Pupils equal reactive. No scleral icterus. Love pharynx is pink and moist. No pharyngeal erythema or exudate appreciated. Neck is supple. Cardiovascular: Normal S1, S2. No murmurs, rubs or gallops appreciated Pulmonary: Normal respiratory effort. Decreased breath sounds. No rhonchi, rales or wheezing appreciated. Gastrointestinal: Soft, nondistended. Nontender. Positive bowel sounds all 4 quadrants, no guarding. Musculoskeletal: Moves all extremities, no calf tenderness. Positive bilateral lower extremity venous stasis color changes and edema. Right lower extremity dressing clean, dry, and intact. Central nervous system: AAOx3, CN2-12 grossly intact Dermatologic: Skin warm and dry. Assessment and Plan: Patient is a 78 year old male with past medical history significant for atrial fibrillation not on anticoagulation, chronic systolic CHF s/p ICD, ESRD on HD, polycystic kidney disease, chronic right foot ulcer, chronic back pain, JOSE on CPAP, PAD, and septicemia that presented to the emergency room with right lower extremity pain and worsening of ulceration. 1. Cough and shortness of breath. Continues to improve. Likely secondary to fluid overload and history of CHF. Continue Robitussin and Tessalon Perles. Continue nebulizer treatments as needed. Continue with dailysis //. Patient had extra dialysis today. Chest xray on admission showed no active disease. 2. Right lower extremity ulcer and cellulitis. ID following, recommendations appreciated. Right foot wound culture positive for Enterobacter cloacae, staph aureus, and corynebacterium. Continue Ancef and Cipro per ID. Right foot xray per radiologist showed severe dorsal soft tissue swelling. HARSHIL exam per radiologist showed limited study due to calcified vessels at all levels, bilateral tibial disease, distal waveforms are pulsatile. IR recommendations ap preciated, no intervention needed currently. Right lower extremity CT per radiologist showed moderate dorsal soft tissue swelling and subcutaneous fluid without evidence for drainable fluid collection; patchy areas of sclerosis and lucency in the talus, calcaneus, navicular, cuboid and cuneiform are nonspecific and could be related to osteopenia however acute and/or chronic osteomyelitis. Patient cannot have MRI secondary to ICD. 3. Right hip pain. Right calf pain. Right hip/pelvic xray per radiologist shows no evidence of acute displaced fracture or dislocation. CT pelvis per radiologist shows no fracture throughout the pelvic ring of bilateral hips, no dislocation bilateral hips or sacroiliac joint distraction, degenerative bilateral hip and sacroiliac joint changes are identified of moderate severity, no destructive bony lesion grossly appreciable; 7.3 cm partially calcified complex cyst or soft tissue lesion at the left lower quadrant potentially exophytic off the left kidney; limited evaluation of urinary bladder with hematoma or soft tissue lesion at the dependent portion. Will get renal ultrasound and bladder ultrasound for further evaluation. Patient advised to continue physical therapy. Patient is refusing to go to subacute rehabilitation. Importance of physical therapy in subacute rehabilitation discussed at length with patient and patient's who both refuse. 4. ESRD on HD. Nephrology following, recommendations appreciated. Continue HD on //F. Patient had extra dialysis today. Continue renagel and Nephrovite. 5. Acute on chronic systolic CHF exacerbation. S/P ICD. Continue with dialysis M/W/F. Patient had extra dialysis today. Continue with amiodarone. 6. History of a-fib. Patient not on anticoagulation. Patient does not want to be on anticoagulation. Continue ASA and amiodarone. 7. Chronic back pain. Continue physical therapy. Continue with pain management. 8. Hypothyroidism. Continue synthroid. 9. Depression and anxiety. Continue home Effexor 10. JOSE. Continue CPAP at bedtime. Case was discussed in detail with patient and patients regarding current diagnosis and treatment plan. All questions answered.
--- NOTE | 2018-06-05 15:15 | CT ---
Date of service: 06/05/2018 PROCEDURE: CT Pelvis without contrast HISTORY: hip pain COMPARISON: None available. TECHNIQUE: Contiguous axial images of the pelvis . No intravenous or oral contrast given. Coronal and sagittal reformats generated. Radiation dose: Total exam DLP = 1156.61 mGy-cm. This CT exam was performed using one or more of the following dose reduction techniques: Automated exposure control, adjustment of the mA and/or kV according to patient size, and/or use of iterative reconstruction technique. FINDINGS: BLADDER: Bladder is largely decompressed. A small lobular subtle density seen at the dependent urinary bladder suspicious for possible hematoma or soft tissue lesion. Evaluation the wall is poor due to decompression. Pericystic changes are not excluded. Clinically correlate for possible cystitis or even neoplasm. REPRODUCTIVE ORGANS: Questionable prior prostatectomy. Prostate gland not clearly identified. VISUALIZED BOWEL: Visualized bowel loops do not appear obstructed. PERITONEUM: Mild ascites identified in the pelvis and is included within the right inguinal hernia containing fat but no bowel. Small left inguinal hernia is appreciate containing a limited amount of fat. LYMPH NODES: No significant lymphadenopathy identified. BONES: There is no acute fracture identified however degenerative changes seen the bilateral sacroiliac and hip joints with the pelvic ring otherwise intact. Pubic symphysis appears unremarkable is remaining pubic bony anatomy grossly. VASCULATURE: The abdominal aorta is not captured in this examination. Extensive bilateral iliac arterial atherosclerosis is identified. OTHER FINDINGS: There is a 7.3 x 7.2 cm density at the left lower quadrant abdomen measuring 20 Hounsfield units with somewhat inhomogeneous internal appearance and limited peripheral calcification. This may be related to the left kidney but could reflect a left cystic renal neoplasm though complex benign cyst is also possible. Follow-up renal ultrasound examination is advised or CT the abdomen and pelvis. IMPRESSION: 1. No fracture throughout the pelvic ring or bilateral hips. No dislocation bilateral hips or sacroiliac joint distraction. Degenerative bilateral hip and sacroiliac joint changes are identified of moderate severity. No destructive bony lesion grossly appreciable. 2. 7.3 cm partially calcified complex cyst or soft tissue lesion at the left lower quadrant, potentially exophytic off the left kidney. Left kidney is not clearly identified in this examination. Follow-up renal ultrasound or abdomen and pelvis CT advised with contrast. 3. Limited evaluation of the urinary bladder with hematoma or soft tissue lesion at the dependent portion. Prior prostatectomy suspected. Consider follow-up ultrasound of the urinary bladder or CT abdomen and pelvis with oral and intravenous contrast.
--- NOTE | 2018-06-05 15:47 | US ---
HISTORY: Leg pain and swelling. Evaluate for DVT PHYSICIAN(S): Brad Braga MD. TECHNIQUE: Duplex sonography and color-flow Doppler with graded compression were used to evaluate the deep venous systems of both lower extremities. The exam is somewhat limited by edema FINDINGS: The visualized deep venous systems of both lower extremities are sonographically normal and compressible. Normal wave forms and augmentation are seen. There is no sonographic evidence for deep venous thrombosis in the visualized segments of both lower extremities. IMPRESSION: No sonographic evidence for deep venous thrombosis in the visualized segments of both lower extremities.
--- NOTE | 2018-06-05 18:38 | CP.PCM.PN ---
Subjective - Date & Time of Evaluation Date of Evaluation: 06/05/18 Time of Evaluation: 18:00 - Subjective Subjective: Infectious Disease Follow Up: June 05, 2018 78 year old male with a past medical history significant for HFrEF with AICD (EF: 22%), atrial fibrillation (Not on AC), CAD, PAD, ESRD on HD (MWF), APCKD s/p right nephrectomy, JOSE on CPAP, LLE ulcer, and chronic back pain who presents with worsening ulceration, swelling and discharge of RLE ulcer. Patient states he's noticed the redness and swelling in his leg in the last three days, and has been getting worse. Patient denies any other pedal complains. Patient denies f/n/v/sob. Patient was in [facility] a few weeks ago where he left [facility] after a few hours here. Complicated medical history. Prior cultures from that visit showing MSSA and Enterobacter. Enterobacter with sensitivity to Cipro, Bactrim, and Gentamicin. Very strong headed patient. He has had difficulty accepting medical diagnoses given to him during this hospitalization. Repeat wound cultures of the foot showing gram negative rods. Enterobacter and Corynebacterium growth seen. Sensitive to Cipro. On Ancef and Cipro for treatment. Objective - Vital Signs/Intake and Output Vital Signs (last 24 hours): Temp Pulse Resp BP Pulse Ox 98.6 F 87 20 100/63 96 06/05/18 17:45 06/05/18 17:45 06/05/18 17:45 06/05/18 17:45 06/05/18 17:45 Intake and Output: 06/05/18 06/05/18 06:59 18:59 Intake Total 0 Output Total 0 Balance 0 - Medications Medications: Current Medications Acetaminophen (Tylenol 325mg Tab) 650 mg PO Q6H PRN PRN Reason: Fever >100.4 F Albuterol/Ipratropium (Duoneb 3 Mg/0.5 Mg (3 Ml) Ud) 3 ml IH Q2H PRN PRN Reason: Shortness of Breath Amiodarone HCl (Cordarone) 200 mg PO DAILY [facility] Last Admin: 06/05/18 11:35 Dose: 200 mg Aspirin (Ecotrin) 81 mg PO DAILY [facility] Last Admin: 06/05/18 11:36 Dose: 81 mg Benzonatate (Tessalon Perles) 100 mg PO BID [facility] Last Admin: 06/05/18 11:37 Dose: 100 mg Ciprofloxacin (Cipro) 500 mg PO DAILY [facility] Guaifenesin/Codeine Phosphate (Robitussin W/Codeine) 5 ml PO Q4H [facility] Last Admin: 06/05/18 13:00 Dose: Not Given Heparin Sodium (Porcine) (Heparin) 5,000 units SC Q8 [facility]; Protocol Last Admin: 06/05/18 15:11 Dose: 5,000 units Hydromorphone HCl (Dilaudid) 1 mg IVP Q6H PRN PRN Reason: Pain, severe (8-10) Last Admin: 06/05/18 12:12 Dose: 1 mg Cefazolin Sodium/Dextrose (Ancef Iv 2 Gm Duplex) 2 gm in 50 mls @ 50 mls/hr IVPB F [facility]; Protocol Last Admin: 06/04/18 14:03 Dose: 50 mls/hr Levothyroxine Sodium (Synthroid) 200 mcg PO ACB [facility] Last Admin: 06/05/18 11:40 Dose: 200 mcg Midodrine (Proamatine) 10 mg PO TID [facility] Last Admin: 06/05/18 15:12 Dose: 10 mg Mupirocin (Bactroban Ointment) 0 gm TOP BID [facility] Last Admin: 06/03/18 17:45 Dose: 1 applic Non-Formulary Medication (Temazepam [Restoril]) 15 mg PO HS [facility] Last Admin: 06/03/18 22:07 Dose: Not Given Pantoprazole Sodium (Protonix Ec Tab) 40 mg PO 0600 [facility] Last Admin: 06/04/18 05:21 Dose: 40 mg Sevelamer HCl (Renagel) 800 mg PO DAILY [facility] Last Admin: 06/05/18 11:36 Dose: 800 mg Tamsulosin HCl (Flomax) 0.4 mg PO DAILY [facility] Last Admin: 06/05/18 11:36 Dose: 0.4 mg Venlafaxine HCl (Effexor Xr) 37.5 mg PO DAILY [facility] Last Admin: 06/05/18 11:36 Dose: 37.5 mg Vitamin B Complex/Vit C/Folic Acid (Nephro-Judah) 1 tab PO DAILY [facility] Last Admin: 06/05/18 11:36 Dose: 1 tab - Labs Labs: 06/05/18 06:30 06/05/18 06:30 APTT 36.6 Seconds (25.1-36.5) H 06/02/18 07:00 - Constitutional Appears: Non-toxic, No Acute Distress, Chronically Ill - Head Exam Head Exam: ATRAUMATIC, NORMOCEPHALIC - Eye Exam Eye Exam: EOMI, PERRL Pupil Exam: NORMAL ACCOMODATION, PERRL - ENT Exam ENT Exam: Mucous Membranes Moist, Normal External Ear Exam, TM's Normal Bilaterally - Neck Exam Neck Exam: Full ROM, Normal Inspection - Cardiovascular Exam Cardiovascular Exam: REGULAR RHYTHM, RRR, +S1, +S2 - GI/Abdominal Exam GI & Abdominal Exam: Soft, Normal Bowel Sounds. absent: Distended, Tenderness - Extremities Exam Additional comments: Lower extremities exam Vascular: DP/PT nonpalpable secondary to pitting edema, TG warm to warm, CFT <3 secs x10, +3 pitting edema on dorsum of foot, pretibial, and perimalleolar b/l Neuro: protective sensation absent Derm: full thickness ulceration noted on the medial aspect of the right heel, 100% fibrotic, serous drainage noted, no malodor, no probe to bone, no tunneling or tracking noted. Cellulitis noted from the ankle joint proximally to the knee joint b/l, no other open lesions noted Tenderness of both lower extremities. Thickening of the skin of the lower extremities. Chronic venous stasis changes. Very slow in healing. - Neurological Exam Neurological Exam: Alert, Awake, CN II-XII Intact, Oriented x3 - Psychiatric Exam Psychiatric exam: Normal Affect, Normal Mood - Skin Skin Exam: Dry, Normal Color Assessment and Plan - Assessment and Plan (Free Text) Assessment: 78 yo male with extensive past medical history with bilateral lower extremity cellulitis and full thickness ulcer on the right heel. Unable to have MRI due to AICD. Obtain ESR. Start patient on Ancef IV. Duplex studies pending. May need additional antibiotics depending on culture results. The patient with ESRD on HD and CAD. Prolonged QTc interval. I do not feel that the patient has a pneumonia based on the physical findings and imaging studies but that his cough is more likely secondary to fluid overload and CHF. Repeat cultures of the right heel showing gram negative rods. Identification and sensitivity pending. Cultures showing Enterobacter, MSSA, and Corynebacterium. The patient can continue with Ancef in HD at 2gm per dose for up to 4 week period given the results of the current cultures. Cipro for the same periods of time at 200mg IV BID. Monitor QTc interval while on Cipro. Discussed with Dr. Whitt and Dr. Coyle. Thank you for allowing me to participate in the care of the patient, we will follow with you.
[2018-06-05] MEDS: TEMAZEPAM 15 MG PO SCH (22:00)
[2018-06-06] MEDS: guaiFENesin-Codeine 100-10mg/5ml Syrup (5 ml) UD PO SCH ×6 (01:09→22:05)
[2018-06-06] MEDS: Pantoprazole 40 mg EC Tab PO SCH (05:32)
[2018-06-06 07:04] LABS: BASO # 0.06 K/mm3 (0.0-2.0); BASO % 1.3 % (0.0-3.0); EOS # 0.1 (0.0-0.7); EOS % 2.9 % (1.5-5.0); GRAN # 2.94 (1.4-6.5); GRAN % 64.8 % (50.0-68.0); HEMOGLOBIN 11.2 g/dL (14.0-18.0); LYMPH # 0.9 (1.2-3.4); LYMPH % 19.8 % (22.0-35.0); MEAN CELL VOLUME 88.1 fl (80.0-105.0); MEAN CORPUSCULAR HEMOGLOBIN 27.7 pg (25.0-35.0); MEAN CORPUSCULAR HGB CONC 31.5 g/dl (31.0-37.0); MEAN PLATELET VOLUME 9.8 fl (7.0-11.0); MONO # 0.5 (0.1-0.6); MONO % 11.2 % (1.0-6.0); RBC 4.04 10^6/uL (3.5-6.1); RED CELL DISTRIBUTION WIDTH 17.7 % (11.5-14.5); WHITE BLOOD COUNT 4.5 10^3/ul (4.5-11.0)
[2018-06-06 07:25] LABS: ALBUMIN 3.6 g/dL (3.0-4.8); CALCIUM 9.2 mg/dL (8.4-10.5)
[2018-06-06] MEDS: Levothyroxine 200 MCG TAB PO SCH (07:30)
[2018-06-06] MEDS ORDERED: Darbepoetin Alfa 60 mcg/ml Inj IVP ONE (10:00)
[2018-06-06] MEDS ORDERED: Doxercalciferol 4 mcg/2 ml Inj IV ONE (10:00)
--- NOTE | 2018-06-06 10:29 | CP.PCM.PN ---
Subjective - Date & Time of Evaluation Date of Evaluation: 06/06/18 Time of Evaluation: 10:27 - Subjective Subjective: Podiatry progress note for Dr. Camejo/Dr. Benites 78 year old male patient seen and evaluated for right heel ulceration and bilateral swelling, erythema and discharge. Patient denies any pain overnight. Patient denies any overnight F/N/V/C or SOB. States he should be gonig home by the end of today. Patient denies any other pedal complaint at this time. Objective - Vital Signs/Intake and Output Vital Signs (last 24 hours): Temp Pulse Resp BP Pulse Ox 97.2 F L 78 19 105/71 100 06/06/18 06:00 06/06/18 06:00 06/06/18 06:00 06/06/18 06:00 06/06/18 06:00 - Medications Medications: Current Medications Acetaminophen (Tylenol 325mg Tab) 650 mg PO Q6H PRN PRN Reason: Fever >100.4 F Albuterol/Ipratropium (Duoneb 3 Mg/0.5 Mg (3 Ml) Ud) 3 ml IH Q2H PRN PRN Reason: Shortness of Breath Amiodarone HCl (Cordarone) 200 mg PO DAILY ON [facility] OF [facility] Last Admin: 06/05/18 11:35 Dose: 200 mg Aspirin (Ecotrin) 81 mg PO DAILY [facility] Last Admin: 06/05/18 11:36 Dose: 81 mg Benzonatate (Tessalon Perles) 100 mg PO BID [facility] Last Admin: 06/05/18 18:27 Dose: 100 mg Ciprofloxacin (Cipro) 500 mg PO DAILY [facility] Guaifenesin/Codeine Phosphate (Robitussin W/Codeine) 5 ml PO Q4H [facility] Last Admin: 06/06/18 01:09 Dose: Not Given Heparin Sodium (Porcine) (Heparin) 5,000 units SC Q8 [facility]; Protocol Last Admin: 06/06/18 05:32 Dose: 5,000 units Hydromorphone HCl (Dilaudid) 1 mg IVP Q6H PRN PRN Reason: Pain, severe (8-10) Last Admin: 06/05/18 20:07 Dose: 1 mg Cefazolin Sodium/Dextrose (Ancef Iv 2 Gm Duplex) 2 gm in 50 mls @ 50 mls/hr IVPB [facility]; Protocol Last Admin: 06/04/18 14:03 Dose: 50 mls/hr Levothyroxine Sodium (Synthroid) 200 mcg PO ACB [facility] Last Admin: 06/05/18 11:40 Dose: 200 mcg Midodrine (Proamatine) 10 mg PO TID [facility] Last Admin: 06/05/18 18:25 Dose: Not Given Mupirocin (Bactroban Ointment) 0 gm TOP BID [facility] Last Admin: 06/03/18 17:45 Dose: 1 applic Non-Formulary Medication (Temazepam [Restoril]) 15 mg PO HS [facility] Last Admin: 06/05/18 22:00 Dose: Not Given Pantoprazole Sodium (Protonix Ec Tab) 40 mg PO 0600 [facility] Last Admin: 06/06/18 05:32 Dose: 40 mg Sevelamer HCl (Renagel) 800 mg PO DAILY [facility] Last Admin: 06/05/18 11:36 Dose: 800 mg Tamsulosin HCl (Flomax) 0.4 mg PO DAILY [facility] Last Admin: 06/05/18 11:36 Dose: 0.4 mg Venlafaxine HCl (Effexor Xr) 37.5 mg PO DAILY [facility] Last Admin: 06/05/18 11:36 Dose: 37.5 mg Vitamin B Complex/Vit C/Folic Acid (Nephro-Judah) 1 tab PO DAILY [facility] Last Admin: 06/05/18 11:36 Dose: 1 tab - Labs Labs: 06/06/18 06:40 06/06/18 06:40 APTT 36.6 Seconds (25.1-36.5) H 06/02/18 07:00 - Constitutional Appears: Well, Non-toxic, No Acute Distress - Head Exam Head Exam: ATRAUMATIC, NORMOCEPHALIC - Extremities Exam Additional comments: Bilateral lower extremity exam: Vascular: DP/PT faintly palpable 1/4 b/l, Temp gradient warm to warm, Cap refill <3 secs to all digits, +1 pitting edema on dorsum of foot, pretibial, and perimalleolar area b/l Neuro: Both gross and protective sensation diminished. Derm: full thickness ulceration noted on the medial aspect of the right heel, 100% fibrotic, serous drainage noted, no malodor, no probe to bone, no tunneling or tracking noted. erythema noted from the ankle joint proximally to the knee joint b/l(less than yesterday) , no other open lesions noted MSK: pain on palpation to both lower extremities R>L. MMT intact 5/5 in all groups - Neurological Exam Neurological Exam: Alert, Awake - Psychiatric Exam Psychiatric exam: Normal Affect Assessment and Plan - Assessment and Plan (Free Text) Assessment: 78 yo male patient seen and evaluated at bedside for cellulitis in bilateral lower extremity, and full thickness ulcer on the medial aspect of the right heel. Plan: Patient seen and evaluated at the bedside Plan discussed in detail with the attending, Dr. Camejo Charts, labs and vitals reviewed; Afebrile; WBC 4.0 Vascular Onboard, recommendations appreciated ID on board; recs appreciated Foot x-ray: no acute changes noted, soft tissue swelling. 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 Cultures Results; Gram positive cocci, Enterobacter cloaca Ssp cloaca, Corynebacterium species. Right lower extremity dressed with bactroban and optifoam Multipodus boots ordered stable from podiatry point of view; patients wound should be covered at all times with optifoam or DSD. Patient will follow up with Dr Benites in wound care center within a week of discharge. Continue IV antibiotics as per ID. Patient will be followed up by podiatry while in house
[2018-06-06] MEDS ORDERED: Barium Sulfate Susp 2.1% w/v, 2.0% w/w 450 mL Bottle PO ONE (11:24)
[2018-06-06] MEDS: ceFAZolin IV 2 gm in Dextrose 2 GM/50 ML BAG IVPB SCH (13:04)
[2018-06-06] MEDS: Mupirocin 2% Ointment 15 GM TUBE TOP SCH ×2 (13:04→18:05)
[2018-06-06] MEDS: Venlafaxine 37.5 mg ER Cap PO SCH (13:06)
[2018-06-06] MEDS: Multivitamin Vitamin B Complex (Nephro-Vite) Tab PO SCH (13:06)
--- NOTE | 2018-06-06 13:41 | CP.PCM.DIS ---
<Nilam Herrera - Last Filed: 06/08/18 16:45> Provider - Provider Date of Admission: 05/30/18 18:41 Attending physician: Ekaterina Vogt DO Time Spent in preparation of Discharge (in minutes): 45 Hospital Course - Lab Results Lab Results: Micro Results 05/30/18 18:10 Blood Blood Culture - Final NO GROWTH AFTER 5 DAYS 05/30/18 18:10 Blood Gram Stain - Final TEST NOT PERFORMED 05/30/18 17:50 Blood Blood Culture - Final NO GROWTH AFTER 5 DAYS 05/30/18 17:50 Blood Gram Stain - Final TEST NOT PERFORMED 06/01/18 14:07 Foot - Right Gram Stain - Final 06/01/18 14:07 Foot - Right Wound Culture - Final Enterobacter Cloacae Ssp Cloac Staphylococcus Aureus Corynebacterium Species Most Recent Lab Values WBC 4.5 10^3/ul (4.5-11.0) 06/06/18 06:40 RBC 4.04 10^6/uL (3.5-6.1) 06/06/18 06:40 Hgb 11.2 g/dL (14.0-18.0) L 06/06/18 06:40 Hct 35.6 % (42.0-52.0) L 06/06/18 06:40 MCV 88.1 fl (80.0-105.0) 06/06/18 06:40 MCH 27.7 pg (25.0-35.0) 06/06/18 06:40 MCHC 31.5 g/dl (31.0-37.0) 06/06/18 06:40 RDW 17.7 % (11.5-14.5) H 06/06/18 06:40 Plt Count 101 10^3/uL (120.0-450.0) L 06/06/18 06:40 MPV 9.8 fl (7.0-11.0) 06/06/18 06:40 Gran % 64.8 % (50.0-68.0) 06/06/18 06:40 Lymph % (Auto) 19.8 % (22.0-35.0) L 06/06/18 06:40 [place] % (Auto) 11.2 % (1.0-6.0) H 06/06/18 06:40 Eos % (Auto) 2.9 % (1.5-5.0) 06/06/18 06:40 Baso % (Auto) 1.3 % (0.0-3.0) 06/06/18 06:40 Gran # 2.94 (1.4-6.5) 06/06/18 06:40 Lymph # (Auto) 0.9 (1.2-3.4) L 06/06/18 06:40 [place] # (Auto) 0.5 (0.1-0.6) 06/06/18 06:40 Eos # (Auto) 0.1 (0.0-0.7) 06/06/18 06:40 Baso # (Auto) 0.06 K/mm3 (0.0-2.0) 06/06/18 06:40 ESR 19 mm/hr (0.00-15.0) H 06/01/18 06:30 APTT 36.6 Seconds (25.1-36.5) H 06/02/18 07:00 Sodium 135 mmol/L (132-148) 06/06/18 06:40 Potassium 4.0 mmol/L (3.6-5.0) 06/06/18 06:40 Chloride 94 mmol/L (98-107) L 06/06/18 06:40 Carbon Dioxide 26 mmol/L (21-33) 06/06/18 06:40 Anion Gap 19 (10-20) 06/06/18 06:40 BUN 27 mg/dL (7-21) H 06/06/18 06:40 Creatinine 5.6 mg/dl (0.8-1.5) H 06/06/18 06:40 Est GFR ( Amer) 12 06/06/18 06:40 Est GFR (Non-Af Amer) 10 06/06/18 06:40 Random Glucose 92 mg/dL (70-110) 06/06/18 06:40 Calcium 9.2 mg/dL (8.4-10.5) 06/06/18 06:40 Phosphorus 4.0 mg/dL (2.5-4.5) 06/06/18 06:40 Magnesium 2.0 mg/dL (1.7-2.2) 06/06/18 06:40 Total Bilirubin 0.9 mg/dL (0.2-1.3) 06/06/18 06:40 AST 25 U/L (17-59) 06/06/18 06:40 ALT 11 U/L (7-56) 06/06/18 06:40 Alkaline Phosphatase 143 U/L (38-126) H 06/06/18 06:40 Total Protein 7.3 g/dL (5.8-8.3) 06/06/18 06:40 Albumin 3.6 g/dL (3.0-4.8) 06/06/18 06:40 Globulin 3.7 gm/dL 06/06/18 06:40 Albumin/Globulin Ratio 1.0 (1.1-1.8) L 06/06/18 06:40 Free T4 1.67 ng/dL (0.78-2.19) 05/31/18 13:20 TSH 3rd Generation 29.20 mIU/mL (0.46-4.68) H 05/31/18 06:00 Hep Bs Antibody Negative (NEGATIVE) 05/31/18 10:40 Hep B Core IgM Ab Negative (NEGATIVE) 05/31/18 10:40 Hepatitis Be Antigen Non-reactive (Non-reactive) 05/31/18 10:40 - Hospital Course Hospital Course: Upon admission Mr. Morales is a 78 y/o M with a past medical history of HFrEF with AICD (EF 22%), atrial fibrillation, CAD, PAD, ESRD on hemodialysis, APCKD s/p right nephrectomy, JOSE on CPAP, LLE ulcer, chronic back pain, and hypothyroidism who presented to the [facility] (ED) on 05/30/18 for a chronic RLE ulcer that was worsening in ulceration, swelling, and purulent discharge. Patient denied fever, chills, headache, changes in vision, chest pain, palpitations, shortness of breath, hemoptysis, abdominal pain, nausea, vomiting, diarrhea, constipation, changes in urine output, recent sick contacts, recent travel, and recent surgeries. Patient did admit to residual cough from a recent pneumonia that was successfully treated. Patient was given 1gm of IV vancomycin and 200mg of IV ciprofloxacin in ED. Hospital course Dilaudid 1mg IVP Q4 was started for pain, Tylenol PRN was started for fever. Duonebs, robitussin with codeine, and tessalon perles were started for cough. Dialysis was continued as inpatient, and renagel, flomax, and nephro-maryann were continued from home. Amiodarone was continued for atrial fibrillation, aspirin was continued for CAD/PAD, CPAP was ordered for JOSE, and synthroid was continued for hypothyroidism. Effexor and Restoril were continued for depression and anxiety. Patient was largely bedbound, and an airmattress and multipodus boots were ordered, and patient was turned Q2H. Protonix was started for GI prophylaxis and Heparin SC was started for DVT prophylaxis. Podiatry and ID were consulted for the foot ulcer, and nephrology was consulted for hemodialysis. A foot x-ray revealed severe soft dorsal tissue swelling without acute displaced fracture or bone destruction. CT of the right lower extremity demonstrated fluid collection consistent with infection and sclerotic changes in talus, calcaneous, cuboid, navicular, and cuneiform. Lower extremity venous doppler showed no evidence of DVT. Wound cultures of the foot showed gram positive cocci, enterobacter and corynebacterium. Ciprofloxacin and Ancef were started per ID. Podiatry dressed lower extremity with optifoam and applied bactroban ointment. Patient began complaining of new-onset right hip pain as well as right lower extremity pain. Hip/pelvis x-ray, repeat lower extremity ultrasound, and pelvis CT were ordered. The repeat lower extremity ultrasound showed no evidence of DVT. Hip/pelvis x-ray showed no acute fracture or dislocation. Results of the pelvis CT showed degenerative bilateral hip and sacroiliac joint changes of moderate severity, as well as a partially calcified complex cyst in the left lower quadrant. A renal ultrasound, bladder ultrasound, and CT scan of the abdomen and pelvis with contrast were ordered for further investigation. CT w/ IV contrast was done which showed 2 L sided renal masses. Redemonstration of at least 2 L renal masses the larger (6.7 cm) along the lower pole and the smaller (3.7cm) along the interpolar region. Both appear to display hyperdense garcia and internal solid component and do not have an appearance for simple cyst ic structures. Neoplasm is not excluded. Dr. Leblanc was contacted and asked if the pt would have to be worked up as an inpatient. Dr Leblanc states that the pt can be discharged and followed up as an outpt. Dr. Leblanc is aware of the CT results and can see the pt in his clinic as soon as the pt makes an appointment. For a detailed summary of hospital course, please refer to patient medical record. Upon discharge Patient was recommended to go to sub-acute rehab to continue IV antibiotics, but patient refused. Per ID recommendations, patient was given PO Ciprofloxcin to continue at home and will receive the remaining doses of Ancef in hemodialysis at 2gm per dose. Patient was instructed to follow-up with his primary care doctor and customer service attendant, Dr. Coyle, upon discharge. Patient was also instructed to follow-up with Dr. Benites in the wound care center at [facility] within one week of discharge. Pt also instructed to follow up with Dr. Leblanc, urologist for work up of suspected renal malignancy. This information was explained to the patient, and the patient understood. Discharge Exam - Head Exam Head Exam: ATRAUMATIC, NORMOCEPHALIC - Eye Exam Eye Exam: EOMI, Normal appearance, PERRL - Respiratory Exam Respiratory Exam: Decreased Breath Sounds, NORMAL BREATHING PATTERN. absent: Rales, Rhonchi, Wheezes - Cardiovascular Exam Cardiovascular Exam: REGULAR RHYTHM, +S1, +S2. absent: Gallop, Rubs - GI/Abdominal Exam GI & Abdominal Exam: Normal Bowel Sounds, Soft. absent: Distended, Firm, Tenderness - Extremities Exam Extremities exam: full ROM, pedal edema (4+ b/l pitting edema with chornic venous statsis disocloration of both extremities ) - Neurological Exam Neurological exam: Alert, Normal Gait, Oriented x3 - Psychiatric Exam Psychiatric exam: Normal Affect, Normal Mood - Skin Skin Exam: Dry, Intact, Normal Color, Warm Additional comments: except where noted above Discharge Plan - Discharge Medications Prescriptions: ceFAZolin IV 2 gm in Dextrose [Ancef IV 2 gm DUPLEX] 2 gm IVPB MWF #9 bag Ciprofloxacin HCl [Cipro] 250 mg PO BID 14 Days tablet Docusate [Colace] 100 mg PO BID PRN 14 Days cap PRN Reason: Constipation - Follow Up Plan Condition: FAIR Disposition: DISCHARGED TO HOME CARE Instructions: Unna Boot, Cellulitis (DC), Cellulitis (GEN) Additional Instructions: Follow up with your Primary Care Physician and customer service attendant Dr Coyle within 3 to 5 days. Follow up with wound care center at [facility] with Dr. Benites for your left foot wound. Your appointment with the Wound Care center is on Wednesday June 13, 2018 @ 1 pm. Your CAT scan shows left kidney - 2 masses: You are given imaging results (CAT scan abdomen/pelvis and renal US results). Follow up with Urologist Dr. Leblanc outpatient regarding these masses within one week of discharge, Dr. Leblanc is aware of your results. Your foot wound should be covered at all times with optifoam or dry sterile dressing Multipodus boots should be worn at all times to prevent pressure ulcers Take Ciprofloxacin 250 mg by mouth two times a day for next 2weeks. Also take Ancef 2 grams IV on Monday, Monday, Monday with dialysis x 3 weeks. Follow up with primary care doctor for weekly EKG to monitor QTc. Return to the Emergency room for any concerns. Referrals: [facility] [Outside] Sonia Benites DPM [Staff Provider] - Jodie Coyle MD [Staff Provider] - Nilay Leblanc MD [Staff Provider] - <Ekaterina Vogt R - Last Filed: 06/11/18 14:21> Provider - Provider Date of Admission: 05/30/18 18:41 Attending physician: Wilfrid Hardwick MD Hospital Course - Lab Results Lab Results: Micro Results 05/30/18 18:10 Blood Blood Culture - Final NO GROWTH AFTER 5 DAYS 05/30/18 18:10 Blood Gram Stain - Final TEST NOT PERFORMED 05/30/18 17:50 Blood Blood Culture - Final NO GROWTH AFTER 5 DAYS 05/30/18 17:50 Blood Gram Stain - Final TEST NOT PERFORMED 06/01/18 14:07 Foot - Right Gram Stain - Final 06/01/18 14:07 Foot - Right Wound Culture - Final Enterobacter Cloacae Ssp Cloac Staphylococcus Aureus Corynebacterium Species Most Recent Lab Values WBC 4.6 10^3/uL (4.5-11.0) 06/08/18 09:15 RBC 3.78 10^6/uL (3.5-6.1) 06/08/18 09:15 Hgb 10.6 g/dL (14.0-18.0) L 06/08/18 09:15 Hct 33.4 % (42.0-52.0) L 06/08/18 09:15 MCV 88.4 fl (80.0-105.0) 06/08/18 09:15 MCH 28.0 pg (25.0-35.0) 06/08/18 09:15 MCHC 31.7 g/dl (31.0-37.0) 06/08/18 09:15 RDW 18.0 % (11.5-14.5) H 06/08/18 09:15 Plt Count 108 10^3/uL (120.0-450.0) L 06/08/18 09:15 MPV 9.7 fl (7.0-11.0) 06/08/18 09:15 Gran % 69.4 % (50.0-68.0) H 06/08/18 09:15 Lymph % (Auto) 15.2 % (22.0-35.0) L 06/08/18 09:15 [place] % (Auto) 12.1 % (1.0-6.0) H 06/08/18 09:15 Eos % (Auto) 2.4 % (1.5-5.0) 06/08/18 09:15 Baso % (Auto) 0.9 % (0.0-3.0) 06/08/18 09:15 Gran # 3.21 (1.4-6.5) 06/08/18 09:15 Lymph # (Auto) 0.7 (1.2-3.4) L 06/08/18 09:15 [place] # (Auto) 0.6 (0.1-0.6) 06/08/18 09:15 Eos # (Auto) 0.1 (0.0-0.7) 06/08/18 09:15 Baso # (Auto) 0.04 K/mm3 (0.0-2.0) 06/08/18 09:15 ESR 19 mm/hr (0.00-15.0) H 06/01/18 06:30 APTT 36.6 Seconds (25.1-36.5) H 06/02/18 07:00 Sodium 135 mmol/L (132-148) 06/08/18 09:15 Potassium 3.4 mmol/L (3.6-5.0) L 06/08/18 09:15 Chloride 95 mmol/L (98-107) L 06/08/18 09:15 Carbon Dioxide 26 mmol/L (21-33) 06/08/18 09:15 Anion Gap 17 (10-20) 06/08/18 09:15 BUN 23 mg/dL (7-21) H 06/08/18 09:15 Creatinine 4.5 mg/dl (0.8-1.5) H 06/08/18 09:15 Est GFR ( Amer) 15 06/08/18 09:15 Est GFR (Non-Af Amer) 13 06/08/18 09:15 Random Glucose 139 mg/dL (70-110) H 06/08/18 09:15 Calcium 9.2 mg/dL (8.4-10.5) 06/08/18 09:15 Phosphorus 3.8 mg/dL (2.5-4.5) 06/08/18 09:15 Magnesium 2.0 mg/dL (1.7-2.2) 06/08/18 09:15 Total Bilirubin 0.8 mg/dL (0.2-1.3) 06/08/18 09:15 AST 23 U/L (17-59) 06/08/18 09:15 ALT 13 U/L (7-56) 06/08/18 09:15 Alkaline Phosphatase 148 U/L (38-126) H 06/08/18 09:15 Total Protein 7.3 g/dL (5.8-8.3) 06/08/18 09:15 Albumin 3.5 g/dL (3.0-4.8) 06/08/18 09:15 Globulin 3.7 gm/dL 06/08/18 09:15 Albumin/Globulin Ratio 1.0 (1.1-1.8) L 06/08/18 09:15 Free T4 1.67 ng/dL (0.78-2.19) 05/31/18 13:20 TSH 3rd Generation 29.20 mIU/mL (0.46-4.68) H 05/31/18 06:00 Hep Bs Antibody Negative (NEGATIVE) 05/31/18 10:40 Hep B Core IgM Ab Negative (NEGATIVE) 05/31/18 10:40 Hepatitis Be Antigen Non-reactive (Non-reactive) 05/31/18 10:40 Attending/Attestation - Attestation I have personally seen and examined this patient.: Yes I have fully participated in the care of the patient.: Yes I have reviewed all pertinent clinical information, including history, physical exam and plan: Yes Notes (Text): Please note that original dc summary was started on 06/06/18. However discharge was canceled at that time secondary to right leg pain. Patient was subsequently discharged on 06/08/18 and this discharge summary is for 06/08/18. Patient seen and examined by me with resident at 12:10PM on 06/08/18. Case including discharge plan discussed with resident. Agree with above with following additions/corrections. Patient is a 78 year old male with past medical history significant for atrial fibrillation not on anticoagulation, chronic systolic CHF s/p ICD, ESRD on HD, polycystic kidney disease, chronic right foot ulcer, chronic back pain, JOSE on CPAP, PAD, and septicemia that presented to the emergency room with right lower extremity pain and worsening of ulceration. Please see H&P for full details. Patient was admitted with right lower extremity ulcer, bilateral lower extremity cellulitis, cough, ESRD on HD, history of atrial fibrillation, CAD, PAD, JOSE, hypothyroidism, depression and anxiety, deconditioning, and history of sacral decubitis ulcers. Cough and shortness of breath likely secondary to fluid overload and history of CHF. This improved with extra dialysis. Patient was continued on dialysis M/W/F as per nephrology. Nephrology was consulted and following. Chest xray on admission showed no active disease. Patient was continued on robitussin and tessalon perles for cough. Patient was also continued on nebulizer treatments as needed. Patient also had right lower extremity cellulitis and right foot ulcer. Right foot xray per radiologist showed severe dorsal soft tissue swelling. HARSHIL exam per radiologist showed limited study due to calcified vessels at all levels, bilateral tibial disease, distal waveforms are pulsatile. Patient was evaluated by interventional r adiologist. No acute intervention was recommended. Right lower extremity CT per radiologist showed moderate dorsal soft tissue swelling and subcutaneous fluid without evidence for drainable fluid collection; patchy areas of sclerosis and lucency in the talus, calcaneus, navicular, cuboid and cuneiform are nonspecific and could be related to osteopenia however acute and/or chronic osteomyelitis. Patient could not have a MRI secondary to ICD. Patient also complained of right hip and calf pain. Lower extremity venous dopplers were negative for DVT. Right hip/pelvic xray per radiologist showed no evidence of acute displaced fracture or dislocation. CT pelvis per radiologist showed no fracture throughout the pelvic ring of bilateral hips, no dislocation bilateral hips or sacroiliac joint distraction, degenerative bilateral hip and sacroiliac joint changes are identified of moderate severity, no destructive bony lesion grossly appreciable; 7.3 cm partially calcified complex cyst or soft tissue lesion at the left lower quadrant potentially exophytic off the left kidney; limited evaluation of urinary bladder with hematoma or soft tissue lesion at the dependent portion. Subacute rehab was offered and discussed with patient many times. Patient adamantly refused. Patient was continued on amiodarone and ASA for history of atrial fibrillation. Patient does have AICD for history of CHF. Patient was continued on Effexor for history of depression and anxiety. Patient was continued on CPAP at bedtime for history of JOSE. Patient was also found to have renal masses on imaging. CT abd/pelvis with PO contrast on 06/06/18 per radiologist showed two dominant pedunculated left renal massed, 1 of which was indentified on ultrasound examination on 06/05/2018, suspicious for neoplasm; the second mass was not seen on that ultrasound examination; ascites, cardiomegaly, CABG, AICD, splenomegaly. CT abdomen and pelvis with IV contrast radiologist showed redemonstration of at least 2 left renal masses to larger along the lower pole measuring 6.7 cm, the smaller lesion measures 3.7 cm along the interpolar region, both appear to display hyperdense garcia and internal solid component. Renal ultrasound per radiologist showed s/p right nephrectomy; the left kidney measures 7.3cm; 1.3cm mid left renal cyst; 4.4cm hypoechoic mass along the lateral margin of the left kidney which would represent abnormality noted on the CT scan. Bladder ultrasound per radiologist showed bladder nondistended, 23cc volume, ureteral jets not identified. Case was discussed with Urologist Dr. Leblanc via phone at [phone] morning of discharge. Per Dr. Leblanc, the renal masses to be addressed outpatient in his office. This was discussed at length with patient. Patient both understands and agrees to this. Dr. Hung office information was given to patient. Patient was feeling better and was cleared for discharge by all consultants. Subacute rehabilitation was recommended and importance was discussed multiple times. However, patient refused and was discharged home. On day of discharge, patient stated he was feeling much better. Right leg and calf pain much improved. Patient tolerating diet. No nausea, vomiting, or abdominal pain. Patient denies chest pain or shortness of breath. No headaches or dizziness. No lightheadedness. No fevers or chills. Patient is aware that he will need to follow up with urologist Dr. Leblanc for renal masses, this was discussed at length with patient. Physical exam: General: Awake and alert lying in bed in no acute distress HEENT: Normocephalic atraumatic. Extraocular muscles intact. Pupils equal reactive. No scleral icterus. Oropharynx is pink and moist. No pharyngeal erythema or exudate appreciated. Neck is supple. Ears and nose externally unremarkable. Hearing grossly intact. Cardiovascular: Normal S1, S2. Positive systolic murmur. No rubs or gallops appreciated Pulmonary: Normal respiratory effort. Improved breath sounds. No rhonchi, rales or wheezing appreciated. Gastrointestinal: Soft, nondistended.Nontender. Positive bowel sounds all 4 quadrants, no guarding. Musculoskeletal: Moves all extremities, no calf tenderness.Positive bilateral lower extremity venous stasis color changes and edema. Right lower extremity dressing clean, dry, and intact. Central nervous system: AAOx3, CN2-12 grossly intact Dermatologic: Skin warm and dry. Please see chart for full details. Follow up instructions: Patient to follow up with his primary care doctor who is also his customer service attendant within 3-5 days. Patient to follow up with urologist Dr. Leblanc within one week to discuss renal masses. Patient to follow up with the wound care center at [facility] with Dr. Benites on Wednesday June 13, 2018 @ 1 pm. Patient to complete antibiotics as prescribed. All instructions explained to patient in detail. Patient both understands and agrees to all instructions. Written instructions also given. Time spent in discharging the patient including chart review, medication reconciliation, discussion with the patient, director biomedical engineering, consultants, and nursing staff was greater than 45 minutes.
--- NOTE | 2018-06-06 14:59 | US ---
Date of service: 06/05/2018 PROCEDURE: HISTORY: Concering CT findings COMPARISON: CT pelvis dated 06/05/2018 TECHNIQUE: FINDINGS: Status post right nephrectomy. The left kidney measures 7.3 centimeters. 1.3 centimeter mid left renal cyst. 4.4 centimeter hypoechoic mass along the lateral margin of the left kidney which could represent abnormality noted on the prior CT scan. IMPRESSION: As above. This examination is inadequate for characterization of the previously noted CT abnormality. Correlation with a dedicated contrast enhanced CT scan or MRI of the abdomen and pelvis is recommended for further characterization.
--- NOTE | 2018-06-06 15:09 | US ---
Date of service: 06/05/2018 PROCEDURE: HISTORY: Concerning CT Findings COMPARISON: TECHNIQUE: FINDINGS: Bladder nondistended. 23 cc volume. Ureteral jets not identified. IMPRESSION: As above.
--- NOTE | 2018-06-06 16:00 | CP.PCM.PN ---
Subjective - Date & Time of Evaluation Date of Evaluation: 06/06/18 Time of Evaluation: 14:30 - Subjective Subjective: Infectious Disease Follow Up: June 06, 2018 78 year old male with a past medical history significant for HFrEF with AICD (EF: 22%), atrial fibrillation (Not on AC), CAD, PAD, ESRD on HD (MWF), APCKD s/p right nephrectomy, JOSE on CPAP, LLE ulcer, and chronic back pain who presents with worsening ulceration, swelling and discharge of RLE ulcer. Patient states he's noticed the redness and swelling in his leg in the last three days, and has been getting worse. Patient denies any other pedal complains. Patient denies f/n/v/sob. Patient [place] [facility] [place] where he left [place] after a few hours here. Complicated medical history. Prior cultures from that visit showing MSSA and Enterobacter. Enterobacter with sensitivity to Cipro, Bactrim, and Gentamicin. Very strong headed patient. He has had difficulty accepting medical diagnoses given to him during this hospitalization. Repeat wound cultures of the foot showing gram negative rods. Enterobacter and Corynebacterium growth seen. Sensitive to Cipro. On Ancef and Cipro for treatment. Objective - Vital Signs/Intake and Output Vital Signs (last 24 hours): Temp Pulse Resp BP Pulse Ox 97.2 F L 68 19 105/71 100 06/06/18 06:00 06/06/18 13:05 06/06/18 06:00 06/06/18 06:00 06/06/18 06:00 - Medications Medications: Current Medications Acetaminophen (Tylenol 325mg Tab) 650 mg PO Q6H PRN PRN Reason: Fever >100.4 F Albuterol/Ipratropium (Duoneb 3 Mg/0.5 Mg (3 Ml) Ud) 3 ml IH Q2H PRN PRN Reason: Shortness of Breath Amiodarone HCl (Cordarone) 200 mg PO DAILY [facility] Last Admin: 06/06/18 13:05 Dose: 200 mg Aspirin (Ecotrin) 81 mg PO DAILY [facility] Last Admin: 06/06/18 13:06 Dose: 81 mg Benzonatate (Tessalon Perles) 100 mg PO BID [facility] Last Admin: 06/06/18 13:10 Dose: 100 mg Ciprofloxacin (Cipro) 500 mg PO DAILY [facility] Last Admin: 06/06/18 13:05 Dose: 500 mg Guaifenesin/Codeine Phosphate (Robitussin W/Codeine) 5 ml PO Q4H [facility] Last Admin: 06/06/18 13:10 Dose: 5 ml Heparin Sodium (Porcine) (Heparin) 5,000 units SC Q8 [facility]; Protocol Last Admin: 06/06/18 13:06 Dose: 5,000 units Hydromorphone HCl (Dilaudid) 1 mg IVP Q6H PRN PRN Reason: Pain, severe (8-10) Last Admin: 06/05/18 20:07 Dose: 1 mg Cefazolin Sodium/Dextrose (Ancef Iv 2 Gm Duplex) 2 gm in 50 mls @ 50 mls/hr [place]PB [facility] Protocol Last Admin: 06/06/18 13:04 Dose: 50 mls/hr Levothyroxine Sodium (Synthroid) 200 mcg PO ACB [facility] Last Admin: 06/06/18 07:30 Dose: 200 mcg Midodrine (Proamatine) 10 mg PO TID [facility] Last Admin: 06/06/18 13:09 Dose: 10 mg Mupirocin (Bactroban Ointment) 0 gm TOP BID [facility] Last Admin: 06/06/18 13:04 Dose: Not Given Non-Formulary Medication (Temazepam [Restoril]) 15 mg PO HS [facility] Last Admin: 06/05/18 22:00 Dose: Not Given Pantoprazole Sodium (Protonix Ec Tab) 40 mg PO 0600 [facility] Last Admin: 06/06/18 05:32 Dose: 40 mg Sevelamer HCl (Renagel) 800 mg PO DAILY [facility] Last Admin: 06/06/18 13:11 Dose: 800 mg Tamsulosin HCl (Flomax) 0.4 mg PO DAILY [facility] Last Admin: 06/06/18 13:06 Dose: 0.4 mg Venlafaxine HCl (Effexor Xr) 37.5 mg PO DAILY [facility] Last Admin: 06/06/18 13:06 Dose: 37.5 mg Vitamin B Complex/Vit C/Folic Acid (Nephro-Judah) 1 tab PO DAILY [facility] Last Admin: 06/06/18 13:06 Dose: 1 tab - Labs Labs: 06/06/18 06:40 06/06/18 06:40 APTT 36.6 Seconds (25.1-36.5) H 06/02/18 07:00 - Constitutional Appears: Non-toxic, No Acute Distress, Chronically Ill - Head Exam Head Exam: ATRAUMATIC, NORMOCEPHALIC - Eye Exam Eye Exam: EOMI, PERRL Pupil Exam: NORMAL ACCOMODATION, PERRL - ENT Exam ENT Exam: Mucous Membranes Moist, Normal External Ear Exam, TM's Normal Bilaterally - Neck Exam Neck Exam: Full ROM, Normal Inspection - Respiratory Exam Respiratory Exam: Clear to Ausculation Bilateral, NORMAL BREATHING PATTERN. absent: Rales, Rhonchi, Wheezes - Cardiovascular Exam Cardiovascular Exam: REGULAR RHYTHM, RRR, +S1, +S2 - GI/Abdominal Exam GI & Abdominal Exam: Soft, Normal Bowel Sounds. absent: Distended, Tenderness - Exam Exam: absent: Circumcision - Extremities Exam Additional comments: Lower extremities exam Vascular: DP/PT nonpalpable secondary to pitting edema, TG warm to warm, CFT <3 secs x10, +3 pitting edema on dorsum of foot, pretibial, and perimalleolar b/l Neuro: protective sensation absent Derm: full thickness ulceration noted on the medial aspect of the right heel, 100% fibrotic, serous drainage noted, no malodor, no probe to bone, no tunneling or tracking noted. Cellulitis noted from the ankle joint proximally to the knee joint b/l, no other open lesions noted Tenderness of both lower extremities. Thickening of the skin of the lower extremities. Chronic venous stasis changes. Very slow in healing. - Neurological Exam Neurological Exam: Alert, Awake, CN II-XII Intact, Oriented x3 - Psychiatric Exam Psychiatric exam: Normal Affect, Normal Mood - Skin Skin Exam: Dry, Normal Color Assessment and Plan - Assessment and Plan (Free Text) Assessment: 78 yo male with extensive past medical history with bilateral lower extremity cellulitis and full thickness ulcer on the right heel. Unable to have MRI due to AICD. Obtain ESR. Start patient on Ancef IV. Duplex studies pending. May need additional antibiotics depending on culture results. The patient with ESRD on HD and CAD. Prolonged QTc interval. I do not feel that the patient has a pneumonia based on the physical findings and imaging studies but that his cough is more likely secondary to fluid overload and CHF. Repeat cultures of the right heel showing gram negative rods. Identification and sensitivity pending. Cultures showing Enterobacter, MSSA, and Corynebacterium. The patient can continue with Ancef in HD at 2gm per dose for up to 4 week p eriod given the results of the current cultures. Cipro for the same periods of time at 200mg IV BID. Monitor QTc interval while on Cipro. Given that the patient is now unwilling to go to [facility] and wants to go home due to his being sick, Cipro can be given PO as bioavailability is still good. The patient would then take 250mg PO BID for treatment with PO Cipro. Discussed with Dr. Whitt and Dr. Coyle. Thank you for allowing me to participate in the care of the patient, we will follow with you.
--- NOTE | 2018-06-06 16:32 | CT ---
Date of service: 06/06/2018 PROCEDURE: CT Abdomen and Pelvis without intravenous contrast HISTORY: Concerning non-contrast CT finding COMPARISON: CT pelvis 06/05/2018. Ultrasound kidneys 06/05/2018 TECHNIQUE: Without contrast.. Contrast dose: 0 Radiation dose: Total exam DLP = 1032.66 mGy-cm. This CT exam was performed using one or more of the following dose reduction techniques: Automated exposure control, adjustment of the mA and/or kV according to patient size, and/or use of iterative reconstruction technique. FINDINGS: LOWER THORAX: Marked cardiomegaly. CABG. AICD. No infiltrate/effusion. LIVER: Normal size, contour and attenuation. Nonspecific rounded low-attenuation mass in the posterior right hepatic lobe, 1.3 cm diameter. No other renal mass. No biliary dilatation. GALLBLADDER AND BILE DUCTS: Unremarkable. PANCREAS: Unremarkable. No gross lesion or ductal dilatation. SPLEEN: Splenomegaly. The spleen measures approximately 17.3 cm in greatest dimension. No mass. ADRENALS: Unremarkable. No mass. KIDNEYS AND URETERS: Right nephrectomy. Atrophic left kidney. Lower pole rounded mass, 7.2 cm diameter, with thin peripheral calcification. The mass is mildly heterogeneous in attenuation and measures approximately 28 Hounsfield units. There is a 2nd lower pole pedunculated cortical mass measuring 4.4 cm diameter. This measures 27 Hounsfield units attenuation. Smaller low-density masses are identified, 1 in the mid aspect showing peripheral calcification. No renal calculus. No hydronephrosis. VASCULATURE: Unremarkable. No aortic aneurysm. There is extensive atherosclerotic calcification of the abdominal aorta and iliac vessels. BOWEL: Unremarkable. No obstruction. No gross mural thickening. APPENDIX: Unremarkable. Normal appendix. PERITONEUM: Mild ascites. No pneumoperitoneum. Fluid in right inguinal canal consistent with developmentally patent right processus vaginalis. LYMPH NODES: Unremarkable. No enlarged lymph nodes. BLADDER: Nondistended REPRODUCTIVE: Normal prostate BONES: No acute fracture. OTHER FINDINGS: None. IMPRESSION: Two dominant pedunculated left renal masses, 1 of which was identified on ultrasound examination of 06/05/2018, suspicious for neoplasm. The 2nd mass was not seen on that ultrasound examination. Re-evaluation with ultrasound examination is advised for characterization of this large pedunculated lower pole mass. Additionally, consider multiphasic contrast enhanced CT or gadolinium enhanced magnetic resonance imaging for further characterization of possible malignancy. Ascites. Cardiomegaly. CABG. AICD. Splenomegaly. Additional minor findings as above.
--- NOTE | 2018-06-06 17:27 | PN ---
DATE: 06/06/2018 SUBJECTIVE: The patient is seen in the dialysis unit. He is awake, he is alert, he is comfortable. He complains of cough. He complains of right hip pain. PHYSICAL EXAMINATION: GENERAL: Elderly male, lying in bed in the dialysis unit. VITAL SIGNS: Blood pressure 108/69, heart rate 84, respiratory rate 20, temperature 98.4. HEENT: Normocephalic, atraumatic, positive pallor. NECK: Supple, no JVD. LUNGS: Bilateral equal air entry, bilateral equal expansion, no rales. CARDIAC: S1 and S2, regular rate and rhythm, no murmur, no rub. ABDOMEN: Obese, distended, soft, nontender, bowel sounds present. EXTREMITIES: Decreased lower extremity edema, wrinkling of the skin, chronic stasis changes. INTAKE AND OUTPUT: 2500 removed on dialysis. LABORATORY DATA: WBC 4.5, hemoglobin 11, hematocrit 36, platelets 101. Sodium 135, potassium 4, chloride 94, CO2 of 26, BUN 27, creatinine 5.6, glucose 92, calcium 9.2, phosphorus 4, magnesium 2, albumin 3.6. Wound culture from the right foot shows Enterobacter cloacae and Staph aureus. CURRENT MEDICATIONS: Ancef 2 g Monday, Monday and Monday; ciprofloxacin; Cordarone; Dilaudid; Ecotrin; Effexor; Flomax; heparin; ProAmatine 10 t.i.d.; Renagel; Synthroid; Tylenol. ASSESSMENT: 1. Lower extremity cellulitis. 2. Congestive heart failure. 3. End-stage renal disease. 4. Anemia of chronic kidney disease. 5. Peripheral vascular disease. PLAN: 1. Stable dialysis, ultrafiltration 2500. 2. X-ray of his right hip. 3. Continue antibiotics as per ID recommendations. 4. Discharge planning to subacute rehab. 5. Out of bed to chair everyday. Jodie Coyle MD
[2018-06-06] MEDS: HYDROmorphone 1 mg/ml ISec IVP PRN (21:14)
[2018-06-06] MEDS: TEMAZEPAM 15 MG PO SCH (22:00)
[2018-06-07] MEDS ORDERED: POLYETHYLENE GLYCOL 3350 17 GM/Dose PACKET PO ONE (00:59)
[2018-06-07] MEDS: guaiFENesin-Codeine 100-10mg/5ml Syrup (5 ml) UD PO SCH ×6 (01:00→21:48)
[2018-06-07] MEDS: Pantoprazole 40 mg EC Tab PO SCH (05:27)
[2018-06-07] MEDS: Levothyroxine 200 MCG TAB PO SCH (07:18)
[2018-06-07] MEDS: Venlafaxine 37.5 mg ER Cap PO SCH (10:17)
[2018-06-07] MEDS: Multivitamin Vitamin B Complex (Nephro-Vite) Tab PO SCH (10:17)
[2018-06-07] MEDS: Mupirocin 2% Ointment 15 GM TUBE TOP SCH ×2 (10:23→18:00)
--- NOTE | 2018-06-07 11:22 | CP.PCM.PN ---
Subjective - Date & Time of Evaluation Date of Evaluation: 06/07/18 Time of Evaluation: 11:20 - Subjective Subjective: Podiatry progress note for Dr. Camejo/Dr. Benites 78 year old male patient seen and evaluated for right heel ulceration and bilateral swelling, erythema and discharge. Patient seen resting comfortably in chair aaox3 and in NAD. Patient denies any pain overnight. Patient denies any overnight F/N/V/C or SOB. States he should be going home by the end of today. Patient denies any other pedal complaint at this time. Objective - Vital Signs/Intake and Output Vital Signs (last 24 hours): Temp Pulse Resp BP Pulse Ox 98.4 F 74 20 110/68 98 06/06/18 17:04 06/07/18 10:16 06/06/18 17:04 06/07/18 10:16 06/06/18 17:04 Intake and Output: 06/07/18 06/07/18 06:59 18:59 Intake Total 300 Output Total 0 Balance 300 - Medications Medications: Current Medications Acetaminophen (Tylenol 325mg Tab) 650 mg PO Q6H PRN PRN Reason: Fever >100.4 F Albuterol/Ipratropium (Duoneb 3 Mg/0.5 Mg (3 Ml) Ud) 3 ml IH Q2H PRN PRN Reason: Shortness of Breath Amiodarone HCl (Cordarone) 200 mg PO DAILY [facility] Last Admin: 06/07/18 10:16 Dose: 200 mg Aspirin (Ecotrin) 81 mg PO DAILY [facility] Last Admin: 06/07/18 10:17 Dose: 81 mg Benzonatate (Tessalon Perles) 100 mg PO BID [facility] Last Admin: 06/07/18 10:19 Dose: 100 mg Ciprofloxacin (Cipro) 500 mg PO DAILY [facility] Last Admin: 06/07/18 10:16 Dose: 500 mg Guaifenesin/Codeine Phosphate (Robitussin W/Codeine) 5 ml PO Q4H [facility] Last Admin: 06/07/18 09:18 Dose: 5 ml Heparin Sodium (Porcine) (Heparin) 5,000 units SC Q8 [facility]; Protocol Last Admin: 06/07/18 05:26 Dose: 5,000 units Hydromorphone HCl (Dilaudid) 1 mg IVP Q6H PRN PRN Reason: Pain, severe (8-10) Last Admin: 06/06/18 21:14 Dose: 1 mg Cefazolin Sodium/Dextrose (Ancef Iv 2 Gm Duplex) 2 gm in 50 mls @ 50 mls/hr IVPB MWF [facility]; Protocol Last Admin: 06/06/18 13:04 Dose: 50 mls/hr Levothyroxine Sodium (Synthroid) 200 mcg PO ACB [facility] Last Admin: 06/07/18 07:18 Dose: 200 mcg Midodrine (Proamatine) 10 mg PO TID [facility] Last Admin: 06/07/18 10:17 Dose: 10 mg Mupirocin (Bactroban Ointment) 0 gm TOP BID [facility] Last Admin: 06/07/18 10:23 Dose: Not Given Non-Formulary Medication (Temazepam [Restoril]) 15 mg PO HS [facility] Last Admin: 06/06/18 22:00 Dose: Not Given Pantoprazole Sodium (Protonix Ec Tab) 40 mg PO 0600 [facility] Last Admin: 06/07/18 05:27 Dose: 40 mg Sevelamer HCl (Renagel) 800 mg PO DAILY [facility] Last Admin: 06/07/18 10:18 Dose: 800 mg Tamsulosin HCl (Flomax) 0.4 mg PO DAILY [facility] Last Admin: 06/07/18 10:17 Dose: 0.4 mg Venlafaxine HCl (Effexor Xr) 37.5 mg PO DAILY [facility] Last Admin: 06/07/18 10:17 Dose: 37.5 mg Vitamin B Complex/Vit C/Folic Acid (Nephro-Judah) 1 tab PO DAILY [facility] Last Admin: 06/07/18 10:17 Dose: 1 tab - Labs Labs: 06/06/18 06:40 06/06/18 06:40 APTT 36.6 Seconds (25.1-36.5) H 06/02/18 07:00 - Constitutional Appears: Well, Non-toxic, No Acute Distress - Head Exam Head Exam: ATRAUMATIC, NORMOCEPHALIC - Extremities Exam Additional comments: Bilateral lower extremity exam: Vascular: DP/PT faintly palpable 1/4 b/l, Temp gradient warm to warm, Cap refill <3 secs to all digits, +1 pitting edema on dorsum of foot, pretibial, and perimalleolar area b/l Neuro: Both gross and protective sensation diminished. Derm: full thickness ulceration noted on the medial aspect of the right heel, 100% fibrotic, serous drainage noted, no malodor, no probe to bone, no tunneling or tracking noted. erythema noted from the ankle joint proximally to the knee joint b/l(less than yesterday) , no other open lesions noted MSK: pain on palpation to both lower extremities R>L. MMT intact 5/5 in all groups - Neurological Exam Neurological Exam: Alert, Awake, Oriented x3 - Psychiatric Exam Psychiatric exam: Normal Affect Assessment and Plan - Assessment and Plan (Free Text) Assessment: 78 yo male patient seen and evaluated at bedside for cellulitis in bilateral lower extremity, and full thickness ulcer on the medial aspect of the right heel. Plan: Patient seen and evaluated at the bedside Plan discussed in detail with the attending, Dr. Camejo Charts, labs and vitals reviewed; Afebrile; WBC 4.0 Vascular Onboard, recommendations appreciated ID on board; recs appreciated Foot x-ray: no acute changes noted, soft tissue swelling. 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 Cultures Results; Gram positive cocci, Enterobacter cloaca Ssp cloaca, Corynebacterium species. Right lower extremity dressed with bactroban and optifoam Multipodus boots ordered and to be worn at all times stable from podiatry point of view; patients wound should be covered at all times with optifoam or DSD- NO santyl. Patient will follow up with Dr Benites in wound care center within a week of discharge. Continue IV antibiotics as per ID. Patient will be followed up by podiatry while in house
--- NOTE | 2018-06-07 13:30 | PN ---
DATE: 06/07/2018 SUBJECTIVE: The patient is seen sitting in chair. He is awake, he is alert, he is comfortable. PHYSICAL EXAMINATION: GENERAL: Elderly male, sitting in chair. VITAL SIGNS: Blood pressure 110/68, heart rate 74, respiratory rate 20, temperature 98.4. HEENT: Normocephalic, atraumatic, positive pallor. NECK: Supple, no JVD. LUNGS: Bilateral equal air entry, bilateral equal expansion. CARDIAC: S1 and S2, regular rate and rhythm, no murmur, no rub. ABDOMEN: Obese, distended, soft, nontender, bowel sounds present. EXTREMITIES: No lower extremity edema, chronic stasis changes, hyperpigmented skin, wrinkled skin. INTAKE AND OUTPUT: 1720/2000. LABORATORY DATA: WBC 4.5, hemoglobin 11, hematocrit 35.6, platelets 101. Sodium 135, potassium 4, chloride 94, CO2 of 26, BUN 27, creatinine 5.6, glucose , calcium 9.2, phosphorus 4. CT of the abdomen and pelvis shows right nephrectomy, atrophic left kidney with lower pole rounded mass, which is 7.2 cm in diameter with thin peripheral calcification. Mass is mildly heterogeneous in attenuation. CURRENT MEDICATIONS: Ancef, Cordarone, ciprofloxacin, Dilaudid, Ecotrin, Flomax, Effexor, ProAmatine 10 t.i.d., Protonix, Renagel, Synthroid, temazepam, Tylenol. ASSESSMENT: 1. Lower extremity cellulitis. 2. Status post decompensated congestive heart failure/volume overload. 3. History of polycystic kidney disease, right nephrectomy, left kidney with lower pole mass. 4. End-stage renal disease. 5. Severe deconditioning. PLAN: 1. CT scan of the abdomen and pelvis with IV contrast today. 2. Aggressive physical therapy. 3. Continue antibiotics. 4. Next dialysis tomorrow. 5. Discharge planning. Jodie Coyle MD
--- NOTE | 2018-06-07 15:53 | CT ---
Date of service: 06/07/2018 PROCEDURE: HISTORY: renal masses COMPARISON: 06/06/2018 TECHNIQUE: Post-contrast imaging of the abdomen pelvis performed with 150 cc of Omnipaque 350 FINDINGS: Redemonstration of at least 2 left renal masses the larger along the lower pole measuring 6.7 centimeters. The smaller lesion measures 3.7 centimeters along the interpolar region. These both appear to display hyperdense garcia and internal solid component, particularly the smaller lesion. These do not have an appearance for simple cystic structures and neoplasm again is not excluded. The examination is otherwise unchanged from prior study. IMPRESSION: As above.
--- NOTE | 2018-06-07 16:41 | CP.PCM.PN ---
<Nilam Herrera - Last Filed: 06/07/18 17:14> Subjective - Date & Time of Evaluation Date of Evaluation: 06/07/18 Time of Evaluation: 16:37 - Subjective Subjective: Resident Nilam Herrera DO PGY-[address] Sherry Vogt Pt was seen and examined this morning at bedside. Pt states that he is continuing to have R sided hip pain when he coughs. He denies any limited ROM, pain with moving the R leg, numbness or tingling in the leg. He states that he is able to tolerate his diet with no associated nausea or vomiting. He denies any fevers chills, SOB, chest pain or abdominal pain. He denies any other acute somatic complaints at this time. Objective - Vital Signs/Intake and Output Vital Signs (last 24 hours): Temp Pulse Resp BP Pulse Ox 98.4 F 74 20 110/68 98 06/06/18 17:04 06/07/18 10:16 06/06/18 17:04 06/07/18 10:16 06/06/18 17:04 Intake and Output: 06/07/18 06/07/18 06:59 18:59 Intake Total 300 Output Total 0 Balance 300 - Medications Medications: Current Medications Acetaminophen (Tylenol 325mg Tab) 650 mg PO Q6H PRN PRN Reason: Fever >100.4 F Albuterol/Ipratropium (Duoneb 3 Mg/0.5 Mg (3 Ml) Ud) 3 ml IH Q2H PRN PRN Reason: Shortness of Breath Amiodarone HCl (Cordarone) 200 mg PO DAILY [facility] Last Admin: 06/07/18 10:16 Dose: 200 mg Aspirin (Ecotrin) 81 mg PO DAILY [facility] Last Admin: 06/07/18 10:17 Dose: 81 mg Benzonatate (Tessalon Perles) 100 mg PO BID [facility] Last Admin: 06/07/18 10:19 Dose: 100 mg Ciprofloxacin (Cipro) 500 mg PO DAILY [facility] Last Admin: 06/07/18 10:16 Dose: 500 mg Guaifenesin/Codeine Phosphate (Robitussin W/Codeine) 5 ml PO Q4H [facility] Last Admin: 06/07/18 14:16 Dose: Not Given Heparin Sodium (Porcine) (Heparin) 5,000 units SC Q8 [facility]; Protocol Last Admin: 06/07/18 14:18 Dose: 5,000 units Hydromorphone HCl (Dilaudid) 1 mg IVP Q6H PRN PRN Reason: Pain, severe (8-10) Last Admin: 06/06/18 21:14 Dose: 1 mg Cefazolin Sodium/Dextrose (Ancef Iv 2 Gm Duplex) 2 gm in 50 mls @ 50 mls/hr IVPB MWF [facility]; Protocol Last Admin: 06/06/18 13:04 Dose: 50 mls/hr Levothyroxine Sodium (Synthroid) 200 mcg PO ACB [facility] Last Admin: 06/07/18 07:18 Dose: 200 mcg Midodrine (Proamatine) 10 mg PO TID [facility] Last Admin: 06/07/18 14:18 Dose: 10 mg Mupirocin (Bactroban Ointment) 0 gm TOP BID [facility] Last Admin: 06/07/18 10:23 Dose: Not Given Non-Formulary Medication (Temazepam [Restoril]) 15 mg PO HS [facility] Last Admin: 06/06/18 22:00 Dose: Not Given Pantoprazole Sodium (Protonix Ec Tab) 40 mg PO 0600 [facility] Last Admin: 06/07/18 05:27 Dose: 40 mg Sevelamer HCl (Renagel) 800 mg PO DAILY [facility] Last Admin: 06/07/18 10:18 Dose: 800 mg Tamsulosin HCl (Flomax) 0.4 mg PO DAILY [facility] Last Admin: 06/07/18 10:17 Dose: 0.4 mg Venlafaxine HCl (Effexor Xr) 37.5 mg PO DAILY [facility] Last Admin: 06/07/18 10:17 Dose: 37.5 mg Vitamin B Complex/Vit C/Folic Acid (Nephro-Judah) 1 tab PO DAILY [facility] Last Admin: 06/07/18 10:17 Dose: 1 tab - Labs Labs: 06/06/18 06:40 06/06/18 06:40 APTT 36.6 Seconds (25.1-36.5) H 06/02/18 07:00 - Constitutional Appears: Well, Non-toxic, No Acute Distress - Head Exam Head Exam: ATRAUMATIC, NORMAL INSPECTION, NORMOCEPHALIC - Eye Exam Eye Exam: EOMI, Normal appearance, PERRL - Respiratory Exam Respiratory Exam: Decreased Breath Sounds, NORMAL BREATHING PATTERN. absent: Accessory Muscle Use, Rales, Rhonchi, Wheezes - Cardiovascular Exam Cardiovascular Exam: RRR, +S1, +S2. absent: Gallop, Rubs - GI/Abdominal Exam GI & Abdominal Exam: Soft, Normal Bowel Sounds. absent: Rigid, Tenderness - Extremities Exam Extremities Exam: Full ROM, Pedal Edema (4+ pitting edema present in legs b/l and venous stasis discoloration in both legs distal to the knee.). absent: Calf Tenderness Additional comments: Though pt continues to complain of R hip pain, there is no limited ROM, no swelling or erythema to the area and there is no tenderness upon palpation. - Back Exam Back Exam: NORMAL INSPECTION. absent: CVA tenderness (L), CVA tenderness (R) - Neurological Exam Neurological Exam: Alert, Awake, Oriented x3 - Psychiatric Exam Psychiatric exam: Normal Affect, Normal Mood - Skin Skin Exam: Dry, Intact, Normal Color (except venous stasis in legs detailed above.), Warm Assessment and Plan - Assessment and Plan (Free Text) Assessment: Pt is a 78 yo M with pmhx of HFrEF with AICD (EF: 22%), atrial fibrillation (Not on AC), CAD, PAD, ESRD on HD ([place]), APCKD s/p right nephrectomy, JOSE on CPAP, LLE ulcer, and chronic back pain who presents with worsening ulceration, swelling and discharge of RLE ulcer. His wound cultures showed that his wound infection is resistant to keflex, have now switched his antibiotics appropri ately. He went for CT abd/Pelvis with IV contrast and will do dialysis after imaging. Plan: 1. Renal Masses noted on CT suspicious for malignancy: - CT Abd/pelvis reports: Redemonstration of at least 2 L renal masses the larger (6.7 cm) along the lower pole and the smaller (3.7cm) along the interpolar region. Both appear to display hyperdense garcia and internal solid component and do not have an appearance for simple cystic structures. Neoplasm is not excluded. - Urology - Dr. Chadwick consulted 2. RLE Ulcer/ BL LE Cellulitis: - Edema is improving - Wound culture growing gram (-) rods - Discussed with ID. Stated to put pt on IV Ancef 2gm w/HD (MWF) and cipro 250mg PO BID for 4 weeks upon d/c. - Venous + Arterial Duplex studies - No Venous thrombosis BL; BL tibial disease suggested. Pt has pacemaker, so unable to go for MRA - Podiatry and ID consulted, all recommendations appreciated - Dr. Braga states that he will be holding off doing the angiogram for now and will discuss with podiatry if wound worsens 3. Cough and Shortness of Breath - Improves after dialysis - Pt underwent additional HD treatment today after his IV contrast, though his traditional schedule is MWF. - Duonebs PRN for SOB - Robitussin with Codeine 5ml PO Q4 PRN for cough - Tessalon Perles 100mg PO BID 4. History of ESRD on HD - Continue Dialysis as inpatient; - Cont Midodrine - Continue home Renagel, Flomax and Nephro-Judah - Avoid nephrotoxic agents and renally dose all medications where appropriate - Nephrology consulted, all recommendations appreciated 5. History of Atrial Fibrillation w/ AICD - Continue ASA - Continue home Amiodarone 200mg PO daily - EKG showed electronic ventricular pacemaker rhythm 6. History of CAD/PAD - Continue home ASA 81mg PO daily 7. History of JOSE Continue home CPAP HS at ordered settings 8. History of Hypothyroidism Continue home Synthroid 200mcg daily TSH markedly elevated; follow up validity given patient is ESRD 9. History of Depression/Anxiety Continue home Effexor and Restoril 10. Deconditioning Patient largely bed bound PT Evaluation and Treatment pending 11. History of SDU Air mattress and Multipodus boots Turn Q2H 12. PPX: Dvt ppx: 5000 units sq q8 Protonix 40 Dispo: Awaiting Dr. Netta benítez before d/c <Ekaterina Vogt - Last Filed: 06/08/18 07:43> Objective - Vital Signs/Intake and Output Vital Signs (last 24 hours): Temp Pulse Resp BP Pulse Ox 98.1 F 68 19 104/64 97 06/07/18 19:14 06/08/18 01:44 06/07/18 19:14 06/07/18 19:14 06/07/18 19:14 - Medications Medications: Current Medications Acetaminophen (Tylenol 325mg Tab) 650 mg PO Q6H PRN PRN Reason: Fever >100.4 F Albuterol/Ipratropium (Duoneb 3 Mg/0.5 Mg (3 Ml) Ud) 3 ml IH Q2H PRN PRN Reason: Shortness of Breath Amiodarone HCl (Cordarone) 200 mg PO DAILY [facility] Last Admin: 06/07/18 10:16 Dose: 200 mg Aspirin (Ecotrin) 81 mg PO DAILY [facility] Last Admin: 06/07/18 10:17 Dose: 81 mg Benzonatate (Tessalon Perles) 100 mg PO BID [facility] Last Admin: 06/07/18 18:33 Dose: 100 mg Ciprofloxacin (Cipro) 500 mg PO DAILY [facility] Last Admin: 06/07/18 10:16 Dose: 500 mg Guaifenesin/Codeine Phosphate (Robitussin W/Codeine) 5 ml PO Q4H [facility] Last Admin: 06/08/18 06:32 Dose: 5 ml Heparin Sodium (Porcine) (Heparin) 5,000 units SC Q8 [facility]; Protocol Last Admin: 06/08/18 06:32 Dose: 5,000 units Hydromorphone HCl (Dilaudid) 1 mg IVP Q6H PRN PRN Reason: Pain, severe (8-10) Last Admin: 06/07/18 18:33 Dose: 1 mg Cefazolin Sodium/Dextrose (Ancef Iv 2 Gm Duplex) 2 gm in 50 mls @ 50 mls/hr IVPB MWF [facility]; Protocol Last Admin: 06/06/18 13:04 Dose: 50 mls/hr Levothyroxine Sodium (Synthroid) 200 mcg PO ACB [facility] Last Admin: 06/07/18 07:18 Dose: 200 mcg Midodrine (Proamatine) 10 mg PO TID [facility] Last Admin: 06/07/18 18:33 Dose: 10 mg Mupirocin (Bactroban Ointment) 0 gm TOP BID [facility] Last Admin: 06/07/18 18:00 Dose: Not Given Non-Formulary Medication (Temazepam [Restoril]) 15 mg PO HS [facility] Last Admin: 06/07/18 21:09 Dose: Not Given Pantoprazole Sodium (Protonix Ec Tab) 40 mg PO 0600 [facility] Last Admin: 06/08/18 06:32 Dose: 40 mg Sevelamer HCl (Renagel) 800 mg PO DAILY [facility] Last Admin: 06/07/18 10:18 Dose: 800 mg Tamsulosin HCl (Flomax) 0.4 mg PO DAILY [facility] Last Admin: 06/07/18 10:17 Dose: 0.4 mg Venlafaxine HCl (Effexor Xr) 37.5 mg PO DAILY [facility] Last Admin: 06/07/18 10:17 Dose: 37.5 mg Vitamin B Complex/Vit C/Folic Acid (Nephro-Judah) 1 tab PO DAILY [facility] Last Admin: 06/07/18 10:17 Dose: 1 tab - Labs Labs: 06/08/18 06:00 06/08/18 06:00 APTT 36.6 Seconds (25.1-36.5) H 06/02/18 07:00 Attending/Attestation - Attestation I have personally seen and examined this patient.: Yes I have fully participated in the care of the patient.: Yes I have reviewed all pertinent clinical information, including history, physical exam and plan: Yes Notes (Text): Patient seen and examined by me with resident in dialysis at 11:15AM on 06/07/18 with resident. Case including HPI, physical exam, and assessment and plan discussed with resident. Agree with above with following additions/corrections. Patient is a 78 year old male with past medical history significant for atrial fibrillation not on anticoagulation, chronic systolic CHF s/p ICD, ESRD on HD, polycystic kidney disease, chronic right foot ulcer, chronic back pain, JOSE on CPAP, PAD, and septicemia that presented to the emergency room with right lower extremity pain and worsening of ulceration. Patient states he is feeling ok. Cough has improved. Shortness of breath has improved. No headaches or dizziness. No fevers or chills. No nausea, vomiting, or abdominal pain. Right hip and lower extremity pain improved. Physical exam: General: Awake and alert lying in bed in no acute distress HEENT: Normocephalic atraumatic. Pupils equal reactive. No scleral icterus. Oropharynx is pink and moist. No pharyngeal erythema or exudate appreciated. Neck is supple. Cardiovascular: Normal S1, S2. Positive systolic murmur. No rubs or gallops appreciated Pulmonary: Normal respiratory effort. Decreased breath sounds. No rhonchi, rales or wheezing appreciated. Gastrointestinal: Soft, nondistended. Nontender. Positive bowel sounds all 4 quadrants, no guarding. Musculoskeletal: Moves all extremities, no calf tenderness.Positive bilateral lower extremity venous stasis color changes and edema. Right lower extremity dressing clean, dry, and intact. Central nervous system: AAOx3, CN2-12 grossly intact Dermatologic: Skin warm and dry. Assessment and Plan: Patient is a 78 year old male with past medical history significant for atrial fibrillation not on anticoagulation, chronic systolic CHF s/p ICD, ESRD on HD, polycystic kidney disease, chronic right foot ulcer, chronic back pain, JOSE on CPAP, PAD, and septicemia that presented to the emergency room with right lower extremity pain and worsening of ulceration. 1. Renal masses. CT abd/pelvis with PO contrast on 06/06/18 per radiologist showed two dominant pedunculated left renal massed, 1 of which was indentified on ultrasound examination on 06/05/2018, suspicious for neoplasm; the second mass was not seen on that ultrasound examination; ascites, cardiomegaly, CABG, AICD, splenomegaly. CT abdomen and pelvis with IV contrast radiologist shows redemonstration of at least 2 left renal masses to larger along the lower pole measuring 6.7 cm, the smaller lesion measures 3.7 cm along the interpolar region, both appear to display hyperdense garcia and internal solid component. Urology consulted, follow-up recommendations. 2. Cough and shortness of breath. Much improved. Likely secondary to fluid overload and history of CHF. Continue Robitussin and Tessalon Perles. Continue nebulizer treatments as needed. Continue with dailysis M/W/F. 3. Right lower extremity ulcer and cellulitis. ID following, recommendations appreciated. Podiatry following, recommendations appreciated. Right foot wound culture positive for Enterobacter cloacae, staph aureus, and corynebacterium. Continue Ancef and Cipro per ID. Right foot xray per radiologist showed severe dorsal soft tissue swelling. HARSHIL exam per radiologist showed limited study due to calcified vessels at all levels, bilateral tibial disease, distal waveforms are pulsatile. IR recommendations appreciated, no intervention needed currently. Right lower extremity CT per radiologist showed moderate dorsal soft tissue swelling and subcutaneous fluid without evidence for drainable fluid collection; patchy areas of sclerosis and lucency in the talus, calcaneus, navicular, cuboid and cuneiform are nonspecific and could be related to osteopenia however acute and/or chronic osteomyelitis. Patient cannot have MRI secondary to ICD. 4. Right hip pain. Right calf pain. Improved. Patient continues to refuse subacute rehabilitation. Continue physical therapy. Right hip/pelvic xray per radiologist shows no evidence of acute displaced fracture or dislocation. CT pelvis per radiologist shows no fracture throughout the pelvic ring of bilateral hips, no dislocation bilateral hips or sacroiliac joint distraction, de generative bilateral hip and sacroiliac joint changes are identified of moderate severity, no destructive bony lesion grossly appreciable; 7.3 cm partially calcified complex cyst or soft tissue lesion at the left lower quadrant potentially exophytic off the left kidney; limited evaluation of urinary bladder with hematoma or soft tissue lesion at the dependent portion. 5. ESRD on HD. Nephrology following, recommendations appreciated. Continue HD on //. Continue renagel and Nephrovite. 6. Acute on chronic systolic CHF exacerbation. S/P ICD. Continue with dialysis M/W/. Continue with amiodarone. 7. History of a-fib. Patient not on anticoagulation. Patient does not want to be on anticoagulation. Continue ASA and amiodarone. 8. Chronic back pain. Continue physical therapy. Continue with pain management. 9. Hypothyroidism. Continue synthroid. 10. Depression and anxiety. Continue home Effexor 11. JOSE. Continue CPAP at bedtime. Case was discussed in detail with patient and patients regarding current diagnosis and treatment plan. All questions answered.
--- NOTE | 2018-06-07 17:47 | CP.PCM.PN ---
Subjective - Date & Time of Evaluation Date of Evaluation: 06/07/18 Time of Evaluation: 16:15 - Subjective Subjective: Infectious Disease Follow Up: June 07, 2018 78 year old male with a past medical history significant for HFrEF with AICD (EF: 22%), atrial fibrillation (Not on AC), CAD, PAD, ESRD on HD (MWF), APCKD s/p right nephrectomy, JOSE on CPAP, LLE ulcer, and chronic back pain who presents with worsening ulceration, swelling and discharge of RLE ulcer. Patient states he's noticed the redness and swelling in his leg in the last three days, and has been getting worse. Patient denies any other pedal complains. Patient denies f/n/v/sob. Patient was in [facility] [place] ago where he left [place] after a few hours here. Complicated medical history. Prior cultures from that visit showing MSSA and Enterobacter. Enterobacter with sensitivity to Cipro, Bactrim, and Gentamicin. Very strong headed patient. He has had difficulty accepting medical diagnoses given to him during this hospitalization. Repeat wound cultures of the foot showing gram negative rods. Enterobacter and Corynebacterium growth seen. Sensitive to Cipro. On Ancef and Cipro for treatment. Objective - Vital Signs/Intake and Output Vital Signs (last 24 hours): Temp Pulse Resp BP Pulse Ox 98.4 F 74 20 110/68 98 06/06/18 17:04 06/07/18 10:16 06/06/18 17:04 06/07/18 10:16 06/06/18 17:04 Intake and Output: 06/07/18 06/07/18 06:59 18:59 Intake Total 300 Output Total 0 Balance 300 - Medications Medications: Current Medications Acetaminophen (Tylenol 325mg Tab) 650 mg PO Q6H PRN PRN Reason: Fever >100.4 F Albuterol/Ipratropium (Duoneb 3 Mg/0.5 Mg (3 Ml) Ud) 3 ml IH Q2H PRN PRN Reason: Shortness of Breath Amiodarone HCl (Cordarone) 200 mg PO DAILY [facility] Last Admin: 06/07/18 10:16 Dose: 200 mg Aspirin (Ecotrin) 81 mg PO DAILY [facility] Last Admin: 06/07/18 10:17 Dose: 81 mg Benzonatate (Tessalon Perles) 100 mg PO BID [facility] Last Admin: 10/25/18 10:19 Dose: 100 mg Ciprofloxacin (Cipro) 500 mg PO DAILY [facility] Last Admin: 06/07/18 10:16 Dose: 500 mg Guaifenesin/Codeine Phosphate (Robitussin W/Codeine) 5 ml PO Q4H [facility] Last Admin: 06/07/18 14:16 Dose: Not Given Heparin Sodium (Porcine) (Heparin) 5,000 units SC Q8 [facility]; Protocol Last Admin: 06/07/18 14:18 Dose: 5,000 units Hydromorphone HCl (Dilaudid) 1 mg IVP Q6H PRN PRN Reason: Pain, severe (8-10) Last Admin: 06/06/18 21:14 Dose: 1 mg Cefazolin Sodium/Dextrose (Ancef Iv 2 Gm Duplex) 2 gm in 50 mls @ 50 mls/hr IVPB MWF [facility]; Protocol Last Admin: 06/06/18 13:04 Dose: 50 mls/hr Levothyroxine Sodium (Synthroid) 200 mcg PO ACB [facility] Last Admin: 06/07/18 07:18 Dose: 200 mcg Midodrine (Proamatine) 10 mg PO TID [facility] Last Admin: 06/07/18 14:18 Dose: 10 mg Mupirocin (Bactroban Ointment) 0 gm TOP BID [facility] Last Admin: 06/07/18 10:23 Dose: Not Given Non-Formulary Medication (Temazepam [Restoril]) 15 mg PO HS [facility] Last Admin: 06/06/18 22:00 Dose: Not Given Pantoprazole Sodium (Protonix Ec Tab) 40 mg PO 0600 [facility] Last Admin: 06/07/18 05:27 Dose: 40 mg Sevelamer HCl (Renagel) 800 mg PO DAILY [facility] Last Admin: 06/07/18 10:18 Dose: 800 mg Tamsulosin HCl (Flomax) 0.4 mg PO DAILY [facility] Last Admin: 06/07/18 10:17 Dose: 0.4 mg Venlafaxine HCl (Effexor Xr) 37.5 mg PO DAILY [facility] Last Admin: 06/07/18 10:17 Dose: 37.5 mg Vitamin B Complex/Vit C/Folic Acid (Nephro-Judah) 1 tab PO DAILY [facility] Last Admin: 06/07/18 10:17 Dose: 1 tab - Labs Labs: 10/24/18 06:40 06/06/18 06:40 APTT 36.6 Seconds (25.1-36.5) H 06/02/18 07:00 - Constitutional Appears: Non-toxic, No Acute Distress, Chronically Ill - Head Exam Head Exam: ATRAUMATIC, NORMOCEPHALIC - Eye Exam Eye Exam: EOMI, PERRL Pupil Exam: NORMAL ACCOMODATION, PERRL - ENT Exam ENT Exam: Mucous Membranes Moist, Normal External Ear Exam, TM's Normal Bilaterally - Neck Exam Neck Exam: Full ROM, Normal Inspection - Respiratory Exam Respiratory Exam: Clear to Ausculation Bilateral, NORMAL BREATHING PATTERN. absent: Rales, Rhonchi, Wheezes - Cardiovascular Exam Cardiovascular Exam: REGULAR RHYTHM, RRR, +S1, +S2 - GI/Abdominal Exam GI & Abdominal Exam: Soft, Normal Bowel Sounds. absent: Distended, Tenderness - Extremities Exam Additional comments: Lower extremities exam Vascular: DP/PT nonpalpable secondary to pitting edema, TG warm to warm, CFT <3 secs x10, +3 pitting edema on dorsum of foot, pretibial, and perimalleolar b/l Neuro: protective sensation absent Derm: full thickness ulceration noted on the medial aspect of the right heel, 100% fibrotic, serous drainage noted, no malodor, no probe to bone, no tunneling or tracking noted. Cellulitis noted from the ankle joint proximally to the knee joint b/l, no other open lesions noted Tenderness of both lower extremities. Thickening of the skin of the lower extremities. Chronic venous stasis changes. Very slow in healing. - Neurological Exam Neurological Exam: Alert, Awake, CN II-XII Intact, Oriented x3 - Psychiatric Exam Psychiatric exam: Normal Affect, Normal Mood - Skin Skin Exam: Dry, Normal Color Assessment and Plan - Assessment and Plan (Free Text) Assessment: 78 yo male with extensive past medical history with bilateral lower extremity cellulitis and full thickness ulcer on the right heel. Unable to have MRI due to AICD. Obtain ESR. Start patient on Ancef IV. Duplex studies pending. May need additional antibiotics depending on culture results. The patient with ESRD on HD and CAD. Prolonged QTc interval. I do not feel that the patient has a pneumonia based on the physical findings and imaging studies but that his cough is more likely secondary to fluid overload and CHF. Repeat cultures of the right heel showing gram negative rods. Identification and sensitivity pending. Cultures showing Enterobacter, MSSA, and Corynebacterium. The patient can continue with Ancef in HD at 2gm per dose for up to 4 week period given the results of the current cultures. Cipro for the same periods of time at 200mg IV BID. Monitor QTc interval while on Cipro. Given that the patient is now unwilling to go to [facility] and wants to go home due to his being sick, Cipro can be given PO as bioavailability is still good. The patient would then take 250mg PO BID for treatment with PO Cipro. Discussed with Dr. Whitt and Dr. Coyle. Thank you for allowing me to participate in the care of the patient, we will follow with you.
[2018-06-07] MEDS: HYDROmorphone 1 mg/ml ISec IVP PRN (18:33)
[2018-06-07] MEDS: TEMAZEPAM 15 MG PO SCH (21:09)
[2018-06-08] MEDS: guaiFENesin-Codeine 100-10mg/5ml Syrup (5 ml) UD PO SCH ×4 (04:47→14:18)
[2018-06-08] MEDS: Pantoprazole 40 mg EC Tab PO SCH (06:32)
[2018-06-08 06:53] LABS: BASO # 0.06 K/mm3 (0.0-2.0); BASO % 1.3 % (0.0-3.0); EOS # 0.1 (0.0-0.7); EOS % 2.7 % (1.5-5.0); GRAN # 3.03 (1.4-6.5); GRAN % 67.7 % (50.0-68.0); HEMOGLOBIN 11.1 g/dL (14.0-18.0); LYMPH # 0.6 (1.2-3.4); LYMPH % 13.8 % (22.0-35.0); MEAN CELL VOLUME 88.9 fl (80.0-105.0); MEAN CORPUSCULAR HEMOGLOBIN 27.4 pg (25.0-35.0); MEAN CORPUSCULAR HGB CONC 30.8 g/dl (31.0-37.0); MONO # 0.7 (0.1-0.6); MONO % 14.5 % (1.0-6.0); RBC 4.05 10^6/uL (3.5-6.1); RED CELL DISTRIBUTION WIDTH 17.9 % (11.5-14.5); WHITE BLOOD COUNT 4.5 10^3/uL (4.5-11.0)
[2018-06-08] MEDS: Levothyroxine 200 MCG TAB PO SCH (07:18)
[2018-06-08 07:32] LABS: ALBUMIN 3.6 g/dL (3.0-4.8); CALCIUM 9.2 mg/dL (8.4-10.5)
[2018-06-08 08:58] VITALS: BP 115/74; PULSE 75; RESP 20; TEMP 97.5; O2SAT 99
--- NOTE | 2018-06-08 09:44 | CP.PCM.PN ---
Subjective - Date & Time of Evaluation Date of Evaluation: 06/08/18 Time of Evaluation: 09:44 - Subjective Subjective: Podiatry progress note for Dr. Camejo/Dr. Benites 78 year old male patient seen and evaluated for right heel ulceration and bilateral swelling, erythema and discharge. Patient seen resting comfortably in chair aaox3 and in NAD. Patient denies any pain overnight. Patient denies any overnight F/N/V/C or SOB. Patient denies any other pedal complaint at this time. Bilateral lower extremity exam: Objective - Vital Signs/Intake and Output Vital Signs (last 24 hours): Temp Pulse Resp BP Pulse Ox 97.5 F L 75 20 115/74 99 06/08/18 06:00 06/08/18 06:00 06/08/18 06:00 06/08/18 06:00 06/08/18 06:00 - Medications Medications: Current Medications Acetaminophen (Tylenol 325mg Tab) 650 mg PO Q6H PRN PRN Reason: Fever >100.4 F Albuterol/Ipratropium (Duoneb 3 Mg/0.5 Mg (3 Ml) Ud) 3 ml IH Q2H PRN PRN Reason: Shortness of Breath Amiodarone HCl (Cordarone) 200 mg PO DAILY [facility] Last Admin: 06/07/18 10:16 Dose: 200 mg Aspirin (Ecotrin) 81 mg PO DAILY [facility] Last Admin: 06/07/18 10:17 Dose: 81 mg Benzonatate (Tessalon Perles) 100 mg PO BID [facility] Last Admin: 06/07/18 18:33 Dose: 100 mg Ciprofloxacin (Cipro) 500 mg PO DAILY [facility] Last Admin: 06/07/18 10:16 Dose: 500 mg Guaifenesin/Codeine Phosphate (Robitussin W/Codeine) 5 ml PO Q4H [facility] Last Admin: 06/08/18 06:32 Dose: 5 ml Heparin Sodium (Porcine) (Heparin) 5,000 units SC Q8 [facility]; Protocol Last Admin: 06/08/18 06:32 Dose: 5,000 units Hydromorphone HCl (Dilaudid) 1 mg IVP Q6H PRN PRN Reason: Pain, severe (8-10) Last Admin: 06/07/18 18:33 Dose: 1 mg Cefazolin Sodium/Dextrose (Ancef Iv 2 Gm Duplex) 2 gm in 50 mls @ 50 mls/hr IVPB MWF [facility]; Protocol Last Admin: 06/06/18 13:04 Dose: 50 mls/hr Levothyroxine Sodium (Synthroid) 200 mcg PO ACB [facility] Last Admin: 06/07/18 07:18 Dose: 200 mcg Midodrine (Proamatine) 10 mg PO TID [facility] Last Admin: 06/07/18 18:33 Dose: 10 mg Mupirocin (Bactroban Ointment) 0 gm TOP BID [facility] Last Admin: 06/07/18 18:00 Dose: Not Given Non-Formulary Medication (Temazepam [Restoril]) 15 mg PO HS [facility] Last Admin: 06/07/18 21:09 Dose: Not Given Pantoprazole Sodium (Protonix Ec Tab) 40 mg PO 0600 [facility] Last Admin: 06/08/18 06:32 Dose: 40 mg Sevelamer HCl (Renagel) 800 mg PO DAILY [facility] Last Admin: 06/07/18 10:18 Dose: 800 mg Tamsulosin HCl (Flomax) 0.4 mg PO DAILY [facility] Last Admin: 06/07/18 10:17 Dose: 0.4 mg Venlafaxine HCl (Effexor Xr) 37.5 mg PO DAILY [facility] Last Admin: 06/07/18 10:17 Dose: 37.5 mg Vitamin B Complex/Vit C/Folic Acid (Nephro-Judah) 1 tab PO DAILY [facility] Last Admin: 06/07/18 10:17 Dose: 1 tab - Labs Labs: 06/08/18 06:00 06/08/18 06:00 APTT 36.6 Seconds (25.1-36.5) H 06/02/18 07:00 - Constitutional Appears: Well, Non-toxic, No Acute Distress - Head Exam Head Exam: ATRAUMATIC, NORMOCEPHALIC - Extremities Exam Additional comments: Vascular: DP/PT faintly palpable 1/4 b/l, Temp gradient warm to warm, Cap refill <3 secs to all digits, +1 pitting edema on dorsum of foot, pretibial, and perimalleolar area b/l Neuro: Both gross and protective sensation diminished. Derm: full thickness ulceration noted on the medial aspect of the right heel, 100% fibrotic, serous drainage noted, no malodor, no probe to bone, no tunneling or tracking noted. erythema noted from the ankle joint proximally to the knee joint b/l(less than yesterday) , no other open lesions noted MSK: pain on palpation to both lower extremities R>L. MMT intact 5/5 in all groups - Neurological Exam Neurological Exam: Alert, Awake - Psychiatric Exam Psychiatric exam: Normal Affect Assessment and Plan - Assessment and Plan (Free Text) Assessment: 78 yo male patient seen and evaluated at bedside for cellulitis in bilateral lower extremity, and full thickness ulcer on the medial aspect of the right heel. Plan: Patient seen and evaluated at the bedside Plan discussed in detail with the attending, Dr. Camejo Charts, labs and vitals reviewed; Afebrile; WBC 4.0 Vascular Onboard, recommendations appreciated ID on board; recs appreciated Foot x-ray: no acute changes noted, soft tissue swelling. 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 Cultures Results; Gram positive cocci, Enterobacter cloaca Ssp cloaca, Corynebacterium species. Right lower extremity dressed with bactroban and optifoam Multipodus boots ordered and to be worn at all times stable from podiatry point of view; patients wound should be covered at all times with optifoam or DSD- NO santyl. Patient will follow up with Dr Benites in wound care center within a week of discharge. Continue IV antibiotics as per ID. Patient will be followed up by podiatry while in house
--- NOTE | 2018-06-08 09:53 | RAD ---
Date of service: 06/07/2018 HISTORY: pain COMPARISON: None available. FINDINGS: BONES: Osteopenia no fracture. JOINTS: Degenerative changes with joint space narrowing and marginal spur formation. SOFT TISSUE: Normal. OTHER FINDINGS: None . IMPRESSION: Osteopenia and degenerative changes. No acute fracture.
[2018-06-08] MEDS: ceFAZolin IV 2 gm in Dextrose 2 GM/50 ML BAG IVPB SCH (10:00)
[2018-06-08 10:08] LABS: BASO # 0.04 K/mm3 (0.0-2.0); BASO % 0.9 % (0.0-3.0); EOS # 0.1 (0.0-0.7); EOS % 2.4 % (1.5-5.0); GRAN # 3.21 (1.4-6.5); GRAN % 69.4 % (50.0-68.0); HEMOGLOBIN 10.6 g/dL (14.0-18.0); LYMPH # 0.7 (1.2-3.4); LYMPH % 15.2 % (22.0-35.0); MEAN CELL VOLUME 88.4 fl (80.0-105.0); MEAN CORPUSCULAR HGB CONC 31.7 g/dl (31.0-37.0); MEAN PLATELET VOLUME 9.7 fl (7.0-11.0); MONO # 0.6 (0.1-0.6); MONO % 12.1 % (1.0-6.0); RBC 3.78 10^6/uL (3.5-6.1); WHITE BLOOD COUNT 4.6 10^3/uL (4.5-11.0)
[2018-06-08 10:35] LABS: ALBUMIN 3.5 g/dL (3.0-4.8); CALCIUM 9.2 mg/dL (8.4-10.5)
[2018-06-08] MEDS: Mupirocin 2% Ointment 15 GM TUBE TOP SCH (14:14)
[2018-06-08] MEDS: Venlafaxine 37.5 mg ER Cap PO SCH (14:16)
[2018-06-08] MEDS: Multivitamin Vitamin B Complex (Nephro-Vite) Tab PO SCH (14:17)
--- NOTE | 2018-06-08 14:26 | CP.PCM.PN ---
Subjective - Date & Time of Evaluation Date of Evaluation: 06/08/18 Time of Evaluation: 12:15 - Subjective Subjective: Infectious Disease Follow Up: June 08, 2018 78 year old male with a past medical history significant for HFrEF with AICD (EF: 22%), atrial fibrillation (Not on AC), CAD, PAD, ESRD on HD (MWF), APCKD s/p right nephrectomy, JOSE on CPAP, LLE ulcer, and chronic back pain who presents with worsening ulceration, swelling and discharge of RLE ulcer. Patient states he's noticed the redness and swelling in his leg in the last three days, and has been getting worse. Patient denies any other pedal complains. Patient denies f/n/v/sob. Patient was in [facility] a few weeks ago where he left [place] after a few hours here. Complicated medical history. Prior cultures from that visit showing MSSA and Enterobacter. Enterobacter with sensitivity to Cipro, Bactrim, and Gentamicin. Very strong headed patient. He has had difficulty accepting medical diagnoses given to him during this hospitalization. Repeat wound cultures of the foot showing gram negative rods. Enterobacter and Corynebacterium growth seen. Sensitive to Cipro. On Ancef and Cipro for treatment. For discharge today. Objective - Vital Signs/Intake and Output Vital Signs (last 24 hours): Temp Pulse Resp BP Pulse Ox 97.5 F L 75 20 115/74 99 06/08/18 06:00 06/08/18 06:00 06/08/18 06:00 06/08/18 06:00 06/08/18 06:00 - Medications Medications: Current Medications Acetaminophen (Tylenol 325mg Tab) 650 mg PO Q6H PRN PRN Reason: Fever >100.4 F Albuterol/Ipratropium (Duoneb 3 Mg/0.5 Mg (3 Ml) Ud) 3 ml IH Q2H PRN PRN Reason: Shortness of Breath Amiodarone HCl (Cordarone) 200 mg PO DAILY [facility] Last Admin: 06/08/18 14:15 Dose: 200 mg Aspirin (Ecotrin) 81 mg PO DAILY [facility] Last Admin: 06/08/18 14:15 Dose: 81 mg Benzonatate (Tessalon Perles) 100 mg PO BID [facility] Last Admin: 06/08/18 14:19 Dose: 100 mg Ciprofloxacin (Cipro) 500 mg PO DAILY [facility] Last Admin: 06/08/18 14:15 Dose: 500 mg Guaifenesin/Codeine Phosphate (Robitussin W/Codeine) 5 ml PO Q4H [facility] Last Admin: 06/08/18 14:18 Dose: 5 ml Heparin Sodium (Porcine) (Heparin) 5,000 units SC Q8 [facility]; Protocol Last Admin: 06/08/18 14:16 Dose: 5,000 units Hydromorphone HCl (Dilaudid) 1 mg IVP Q6H PRN PRN Reason: Pain, severe (8-10) Last Admin: 06/07/18 18:33 Dose: 1 mg Cefazolin Sodium/Dextrose (Ancef Iv 2 Gm Duplex) 2 gm in 50 mls @ 50 mls/hr IVPB MWF [facility]; Protocol Last Admin: 06/08/18 10:00 Dose: Not Given Levothyroxine Sodium (Synthroid) 200 mcg PO ACB [facility] Last Admin: 06/08/18 07:18 Dose: 200 mcg Midodrine (Proamatine) 10 mg PO TID [facility] Last Admin: 06/08/18 14:18 Dose: Not Given Mupirocin (Bactroban Ointment) 0 gm TOP BID [facility] Last Admin: 06/08/18 14:14 Dose: Not Given Non-Formulary Medication (Temazepam [Restoril]) 15 mg PO HS [facility] Last Admin: 06/07/18 21:09 Dose: Not Given Pantoprazole Sodium (Protonix Ec Tab) 40 mg PO 0600 [facility] Last Admin: 06/08/18 06:32 Dose: 40 mg Sevelamer HCl (Renagel) 800 mg PO DAILY [facility] Last Admin: 06/08/18 14:18 Dose: 800 mg Tamsulosin HCl (Flomax) 0.4 mg PO DAILY [facility] Last Admin: 06/08/18 14:16 Dose: 0.4 mg Venlafaxine HCl (Effexor Xr) 37.5 mg PO DAILY [facility] Last Admin: 06/08/18 14:16 Dose: 37.5 mg Vitamin B Complex/Vit C/Folic Acid (Nephro-Judah) 1 tab PO DAILY [facility] Last Admin: 06/08/18 14:17 Dose: 1 tab - Labs Labs: 06/08/18 09:15 06/08/18 09:15 APTT 36.6 Seconds (25.1-36.5) H 06/02/18 07:00 - Constitutional Appears: Non-toxic, No Acute Distress, Chronically Ill - Head Exam Head Exam: ATRAUMATIC, NORMOCEPHALIC - Eye Exam Eye Exam: EOMI, PERRL Pupil Exam: NORMAL ACCOMODATION, PERRL - ENT Exam ENT Exam: Mucous Membranes Moist, Normal External Ear Exam, TM's Normal Bilaterally - Neck Exam Neck Exam: Full ROM, Normal Inspection - Respiratory Exam Respiratory Exam: Clear to Ausculation Bilateral, NORMAL BREATHING PATTERN. absent: Rales, Rhonchi, Wheezes - Cardiovascular Exam Cardiovascular Exam: REGULAR RHYTHM, RRR, +S1, +S2 - GI/Abdominal Exam GI & Abdominal Exam: Soft, Normal Bowel Sounds. absent: Distended, Tenderness - Extremities Exam Additional comments: Lower extremities exam Vascular: DP/PT nonpalpable secondary to pitting edema, TG warm to warm, CFT <3 secs x10, +3 pitting edema on dorsum of foot, pretibial, and perimalleolar b/l Neuro: protective sensation absent Derm: full thickness ulceration noted on the medial aspect of the right heel, 100% fibrotic, serous drainage noted, no malodor, no probe to bone, no tunneling or tracking noted. Cellulitis noted from the ankle joint proximally to the knee joint b/l, no other open lesions noted Tenderness of both lower extremities. Thickening of the skin of the lower extremities. Chronic venous stasis changes. - Neurological Exam Neurological Exam: Alert, Awake, CN II-XII Intact, Oriented x3 - Psychiatric Exam Psychiatric exam: Normal Affect, Normal Mood - Skin Skin Exam: Dry, Normal Color Assessment and Plan - Assessment and Plan (Free Text) Assessment: 78 yo male with extensive past medical history with bilateral lower extremity cellulitis and full thickness ulcer on the right heel. Unable to have MRI due to AICD. Obtain ESR. Start patient on Ancef IV. Duplex studies pending. May need additional antibiotics depending on culture results. The patient with ESRD on HD and CAD. Prolonged QTc interval. I do not feel that the patient has a pneumonia based on the physical findings and imaging studies but that his cough is more likely secondary to fluid overload and CHF. Repeat cultures of the right heel showing gram negative rods. Identification and sensitivity pending. Cultures showing Enterobacter, MSSA, and Corynebacterium. The patient can continue with Ancef in HD at 2gm per dose for up to 4 week period given the results of the current cultures. Cipro for the same periods of time at 200mg IV BID. Monitor QTc interval while on Cipro. Given that the patient is now unwilling to go to [facility] and wants to go home due to his being sick, Cipro can be given PO as bioavailability is still good. The patient would then take 250mg PO BID for treatment with PO Cipro. Discussed with Dr. Whitt and Dr. Coyle. Thank you for allowing me to participate in the care of the patient, we will follow with you.
--- NOTE | 2018-06-08 17:15 | CP.PCM.PN ---
Subjective - Date & Time of Evaluation Date of Evaluation: 06/06/18 Time of Evaluation: 13:38 - Subjective Subjective: Resident Nilam Herrera DO PGY-[address] Jana Hardwick Pt was seen and examined this morning at bedside. Pt states that he is continuing to have R sided hip pain when he coughs. He denies any limited ROM, pain with moving the R leg, numbness or tingling in the leg. He states that he is able to tolerate his diet with no associated nausea or vomiting. He denies any fevers chills, SOB, chest pain or abdominal pain. He denies any other acute somatic complaints at this time. Objective - Vital Signs/Intake and Output Vital Signs (last 24 hours): Temp Pulse Resp BP Pulse Ox 97.5 F L 75 20 115/74 99 06/08/18 06:00 06/08/18 06:00 06/08/18 06:00 06/08/18 06:00 06/08/18 06:00 - Labs Labs: 06/08/18 09:15 06/08/18 09:15 APTT 36.6 Seconds (25.1-36.5) H 06/02/18 07:00 - Constitutional Appears: Well, Non-toxic, No Acute Distress - Head Exam Head Exam: ATRAUMATIC, NORMAL INSPECTION, NORMOCEPHALIC - Eye Exam Eye Exam: EOMI, Normal appearance, PERRL Pupil Exam: NORMAL ACCOMODATION - Neck Exam Neck Exam: Full ROM - Respiratory Exam Respiratory Exam: Decreased Breath Sounds, NORMAL BREATHING PATTERN. absent: Rhonchi, Wheezes - Cardiovascular Exam Cardiovascular Exam: RRR, +S1, +S2. absent: Gallop, Rubs - GI/Abdominal Exam GI & Abdominal Exam: Soft, Normal Bowel Sounds. absent: Guarding, Rigid, Tenderness - Extremities Exam Extremities Exam: Full ROM, Pedal Edema (4+ pitting edema present in legs b/l and venous stasis discoloration in both legs distal to the knee.). absent: Calf Tenderness Additional comments: Though pt continues to complain of R hip pain, there is no limited ROM, no swelling or erythema to the area and there is no tenderness upon palpation. - Neurological Exam Neurological Exam: Alert, Awake, Oriented x3 - Psychiatric Exam Psychiatric exam: Normal Affect, Normal Mood - Skin Skin Exam: Dry, Intact, Normal Color, Warm Assessment and Plan - Assessment and Plan (Free Text) Assessment: Pt is a 78 yo M with pmhx of HFrEF with AICD (EF: 22%), atrial fibrillation (Not on AC), CAD, PAD, ESRD on HD (MWF), APCKD s/p right nephrectomy, JOSE on CPAP, LLE ulcer, and chronic back pain who presents with worsening ulceration, swelling and discharge of RLE ulcer. His wound cultures showed that his wound infection is resistant to keflex, have now switched his antibiotics appropriately. Plan: 1. Cough and Shortness of Breath - Improves after dialysis - Pt underwent additional HD treatment today, his traditional schedule is MWF. - Duonebs PRN for SOB - Robitussin with Codeine 5ml PO Q4 PRN for cough - Tessalon Perles 100mg PO BID 2. RLE Ulcer/ BL LE Cellulitis: - Edema is improving - Wound culture growing gram (-) rods - Discussed with ID. Stated to put pt on IV Ancef 2gm w/HD ([facility]) and cipro 250mg BID PO for 4 weeks. - Venous + Arterial Duplex studies - No Venous thrombosis BL; BL tibial disease suggested. Pt has pacemaker, so unable to go for MRA - Podiatry and ID consulted, all recommendations appreciated - Dr. Braga states that he will be holding off doing the angiogram for now 3. History of ESRD on HD - Continue Dialysis as inpatient; - Cont Midodrine - Continue home Renagel, Flomax and Nephro-Judah - Avoid nephrotoxic agents and renally dose all medications where appropriate - Nephrology consulted, all recommendations appreciated 4. History of Atrial Fibrillation w/ AICD - Continue ASA - Continue home Amiodarone 200mg PO daily - EKG showed electronic ventricular pacemaker rhythm 5. History of CAD/PAD - Continue home ASA 81mg PO daily 6. History of JOSE Continue home CPAP HS at ordered settings 7. History of Hypothyroidism Continue home Synthroid 200mcg daily TSH markedly elevated; follow up validity given patient is ESRD 8. History of Depression/Anxiety Continue home Effexor and Restoril 9. Deconditioning Patient largely bed bound PT Evaluation and Treatment pending 10. History of SDU Air mattress and Multipodus boots Turn Q2H PPX: Dvt ppx: 5000 units sq q8 Protonix 40
--- NOTE | 2018-06-08 21:24 | PN ---
DATE: 06/08/2018 SUBJECTIVE: The patient is seen lying in bed. Seen in the dialysis unit. PHYSICAL EXAMINATION: VITAL SIGNS: Blood pressure 115/74, heart rate 75, respiratory rate 20, temperature 97.5. HEENT: Normocephalic, atraumatic, positive pallor. NECK: Supple, no JVD. LUNGS: Bilateral equal air entry, bilateral equal expansion, no rales. CARDIAC: S1 and S2, regular rate and rhythm, no murmur, no rub. ABDOMEN: Obese, distended, soft, nontender, bowel sounds present. EXTREMITIES: Chronic stasis changes, no lower extremity edema. INTAKE AND OUTPUT: Not charted. LABORATORY DATA: WBC 4.6, hemoglobin 10.6, hematocrit 33, platelets 108. Sodium 135, potassium 3.4, chloride 95, CO2 of 26, BUN 23, creatinine 4.5, glucose 139, calcium 9.2, phosphorus 3.8, magnesium 2. CURRENT MEDICATIONS: Ancef 2 g IV piggyback Monday, Monday and Monday; ciprofloxacin 500 daily; Cordarone 200 daily; Dilaudid; aspirin; Flomax; midodrine 10 t.i.d.; Protonix; Renagel; Synthroid. ASSESSMENT: 1. Cellulitis of the lower extremities. 2. Status post decompensated congestive heart failure. 3. End-stage renal disease. 4. History of polycystic kidney disease. 5. Suspicious renal mass in the left kidney. PLAN: 1. Stable dialysis. 2. The patient refuses any further workup for renal mass in the left kidney. 3. He understands possibility of renal cell CA. 4. No objection to discharge post dialysis. Jodie Coyle MD
== END 2018-06-08 16:53 | disposition home health service (06) | DRG 602 ==
LOC: ED 16:15 → ERH 18:41 → 3RNO 20:57
PROVIDERS: ADMIT Internal Medicine; ATTEND Internal Medicine
PROC: 5A1D70Z Performance of Urinary Filtration, Intermittent, Less than 6 Hours Per Day (ICD-10-PCS; principal; 2018-05-31)
PROC: 5A1D70Z Performance of Urinary Filtration, Intermittent, Less than 6 Hours Per Day (ICD-10-PCS; 2018-06-01)
PROC: 5A1D70Z Performance of Urinary Filtration, Intermittent, Less than 6 Hours Per Day (ICD-10-PCS; 2018-06-02)
PROC: 5A1D70Z Performance of Urinary Filtration, Intermittent, Less than 6 Hours Per Day (ICD-10-PCS; 2018-06-04)
PROC: 5A1D70Z Performance of Urinary Filtration, Intermittent, Less than 6 Hours Per Day (ICD-10-PCS; 2018-06-05)
PROC: 5A1D70Z Performance of Urinary Filtration, Intermittent, Less than 6 Hours Per Day (ICD-10-PCS; 2018-06-07)
PROC: 5A1D70Z Performance of Urinary Filtration, Intermittent, Less than 6 Hours Per Day (ICD-10-PCS; 2018-06-08)
DX: L03.115 Cellulitis of right lower limb (principal); N18.6 End stage renal disease; I50.23 Acute on chronic systolic (congestive) heart failure; Q61.3 Polycystic kidney, unspecified; L97.419 Non-pressure chronic ulcer of right heel and midfoot with unspecified severity; I42.9 Cardiomyopathy, unspecified; N25.81 Secondary hyperparathyroidism of renal origin; L97.929 Non-pressure chronic ulcer of unspecified part of left lower leg with unspecified severity; M86.9 Osteomyelitis, unspecified; Z99.2 Dependence on renal dialysis; I48.91 Unspecified atrial fibrillation; G47.30 Sleep apnea, unspecified; E89.0 Postprocedural hypothyroidism; Z90.5 Acquired absence of kidney; Z95.810 Presence of automatic (implantable) cardiac defibrillator; I25.10 Atherosclerotic heart disease of native coronary artery without angina pectoris; L03.116 Cellulitis of left lower limb; F32.9 Major depressive disorder, single episode, unspecified; F41.9 Anxiety disorder, unspecified; D63.1 Anemia in chronic kidney disease; I73.9 Peripheral vascular disease, unspecified; Z91.19 Patient's noncompliance with other medical treatment and regimen; E66.01 Morbid (severe) obesity due to excess calories; G47.33 Obstructive sleep apnea (adult) (pediatric); G89.29 Other chronic pain; H91.90 Unspecified hearing loss, unspecified ear; I87.2 Venous insufficiency (chronic) (peripheral); I87.8 Other specified disorders of veins; L97.519 Non-pressure chronic ulcer of other part of right foot with unspecified severity; N28.89 Other specified disorders of kidney and ureter; Z83.3 Family history of diabetes mellitus; Z87.01 Personal history of pneumonia (recurrent); Z68.30 Body mass index [BMI] 30.0-30.9, adult

== ENCOUNTER 2018-09-28 09:50 | Emergency (ER) | payer MEDICARE ==
[2018-09-28 10:11] VITALS: BP 117/69; PULSE 49; RESP 17; TEMP 98; O2SAT 95; BMI 29.5
--- NOTE | 2018-09-28 10:11 | ED PDOC ---
Arrival/HPI - General Chief Complaint: Trauma Time Seen by Provider: 09/28/18 09:51 Historian: Patient - History of Present Illness Narrative History of Present Illness (Text): 09/28/18 10:08 A 78 year old male, whose past medical history includes HFrEF with AICD (EF: 22%), atrial fibrillation (Not on AC), CAD, PAD, ESRD on HD (MWF), APCKD s/p right nephrectomy, JOSE on CPAP, LLE ulcer, and chronic back pain, AICD placement, right chest wall HD access, Thyroidectomy, Right Nephrectomy, presents to the emergency department for further evaluation s/p mechanical fall. Patient reports that he was on his way to dialysis today. He usually gets around on a scooter and today he misplaced his scooter on the sidewalk and fell onto his back. The patient reports back pain and denies any head trauma. He states that he is supposed to be dialyzed today. The patient denies fevers, chills, headache, dizziness, chest pain, shortness of breath, dyspnea on exertion, cough, abdominal pain, nausea, vomiting, diarrhea, urinary/bowel changes, or any other complaint. PMD/ Senior Chemist: Dr. Coyle Time/Duration: Prior to Arrival Symptom Onset: Sudden Symptom Course: Unchanged Activities at Onset: Rest, Light Context: Home Past Medical History - Provider Review Nursing Documentation Reviewed: Yes - Cardiac Hx Congestive Heart Failure: Yes - Pulmonary Hx Pneumonia: Yes Hx Sleep Apnea: Yes (sleeps with CPAP) - Neurological Hx Neurological Disorder: No - HEENT Hx Deafness: Yes - Renal Hx Renal Failure: Yes - Endocrine/Metabolic Other/Comment: Thyroidectomy - Hematological/Oncological Hx Blood Disorders: No - Integumentary Hx Dermatological Disorder: No - Musculoskeletal/Rheumatological Hx Back Pain: Yes Hx Falls: No - Gastrointestinal Hx Gastrointestinal Disorders: No - Genitourinary/Gynecological Hx Genitourinary Disorders: No - Psychiatric Hx Psychophysiologic Disorder: No Hx Substance Use: No - Surgical History Hx Thyroidectomy: Yes Other/Comment: nephrectomy - Anesthesia Hx Anesthesia: Yes Hx Anesthesia Reactions: No Hx Malignant Hyperthermia: No Family/Social History - Physician Review Nursing Documentation Reviewed: Yes Family/Social History: No Known Family HX Smoking Status: Never Smoked Hx Alcohol Use: No Hx Substance Use: No Allergies/Home Meds Allergies/Adverse Reactions: Allergies No Known Allergies Allergy (Verified 06/04/18 11:29) Home Medications: Home Meds Medication Instructions Recorded Confirmed RX: Acetaminophen [Acetaminophen 8 650 mg PO Q6 PRN 05/10/18 05/10/18 Hour] RX: Albuterol Sulfate 2.5 mg IH Q4 PRN 05/10/18 05/10/18 RX: Benzonatate [Tessalon Perle] 100 mg PO BID 05/10/18 05/10/18 RX: Bisacodyl [Dulcolax] 10 mg RC HS PRN 05/10/18 05/10/18 RX: Colchicine [Mitigare] 0.6 mg PO TTS 05/10/18 05/10/18 RX: Collagenase [Santyl] 250 unit TP DAILY 05/10/18 05/10/18 RX: Docusate [Colace] 100 mg PO BID 05/10/18 05/10/18 RX: Hydrocortisone 2.5% 2.5 g TP BID PRN 05/10/18 05/10/18 RX: Hydromorphone HCl [Dilaudid] 4 mg PO Q6 PRN 05/10/18 05/10/18 RX: Lactulose [Generlac] 10 gm PO Q8 PRN 05/10/18 05/10/18 RX: Polyethylene Glycol 3350 30 ml PO DAILY PRN 05/10/18 05/10/18 [Miralax] RX: Protein Hydrolysate,Milk 30 ml PO BID 05/10/18 05/10/18 [Liquid Protein Fortifier] RX: Tamsulosin HCl [Flomax] 0.4 mg PO DAILY 05/10/18 05/10/18 RX: Temazepam [Restoril] 15 mg PO HS 05/10/18 05/10/18 RX: Turmeric Root Extract 500 mg PO BID 05/10/18 05/10/18 [Turmeric] RX: Venlafaxine [Effexor XR] 37.5 mg PO DAILY 05/10/18 05/10/18 Review of Systems - Physician Review All systems were reviewed & negative as marked: Yes - Review of Systems Constitutional: absent: Fevers Respiratory: absent: SOB, Cough Cardiovascular: absent: Chest Pain, HARRISON Gastrointestinal: absent: Abdominal Pain, Stool Changes, Diarrhea, Nausea, Vomiting Genitourinary Male: absent: Urinary Output Changes Musculoskeletal: Back Pain Neurological: absent: Headache, Dizziness Physical Exam Vital Signs Reviewed: Yes Temperature: Afebrile Blood Pressure: Normal Pulse: Bradycardic Respiratory Rate: Normal Appearance: Positive for: Well-Appearing, Non-Toxic, Comfortable Pain Distress: None Mental Status: Positive for: Alert and Oriented X 3 - Systems Exam Head: Present: Atraumatic, Normocephalic Pupils: Present: PERRL Extroacular Muscles: Present: EOMI Conjunctiva: Present: Normal Ears: Present: Other (hard of hearing) Mouth: Present: Moist Mucous Membranes Neck: Present: Normal Range of Motion Respiratory/Chest: Present: Clear to Auscultation, Good Air Exchange. No: Respiratory Distress, Accessory Muscle Use, Wheezes Cardiovascular: Present: Regular Rate and Rhythm, Normal S1, S2. No: Murmurs Abdomen: No: Tenderness, Distention, Peritoneal Signs Back: Present: Other (Chronic lower back pain) Upper Extremity: Present: Normal Inspection. No: Cyanosis, Edema Lower Extremity: Present: Normal Inspection. No: Edema Neurological: Present: GCS=15, Speech Normal, Normal Sensory Function Skin: Present: Warm, Dry, Normal Color. No: Rashes Psychiatric: Present: Alert, Oriented x 3, Normal Insight, Normal Concentration Medical Decision Making ED Course and Treatment: 09/28/18 10:12 Impression: A 78 year old male presents to the emergency department with a complaint of back pain s/p mechanical fall. Plan: -- CTH --Cervical CT --Lumbar Spine CT -- Morphine -- Reassess and disposition Prior Visits: Notes and results from previous visits were reviewed. Progress Notes: 09/28/18 10:33 Leaving Against Medical Advice (AMA): The patient is choosing to leave against medical advice. I have personally explained to the patient that choosing to do so may result in permanent bodily harm, disability, or . I have discussed at great length that without further evaluation and monitoring there may be unforeseen circumstances and/or deterioration causing permanent bodily harm or as a result of their choice. The patient is alert, oriented, and shows the mental capacity to make clear decisions regarding the patients health care at this time. The patient continues to wish to leave against medical advice. In light of the patients decision to leave against medical advice, follow-up has been arranged and the patient is aware of the importance to following up as instructed. The patient has been advised that they should return to the emergency room immediately if they change their mind at any time, or if their condition begins to change or worsen in any way. - Scribe Statement The provider has reviewed the documentation as recorded by the Ederibkarol Rdoas Provider Scribe Attestation: All medical record entries made by the Scribe were at my direction and personally dictated by me. I have reviewed the chart and agree that the record accurately reflects my personal performance of the history, physical exam, medical decision making, and the department course for this patient. I have also personally directed, reviewed, and agree with the discharge instructions and disposition. Disposition/Present on Arrival - Present on Arrival Any Indicators Present on Arrival: No History of DVT/PE: No History of Uncontrolled Diabetes: No Urinary Catheter: No History Surgical Site Infection Following: None - Disposition Have Diagnosis and Disposition been Completed?: Yes Diagnosis: Fall Disposition: AGAINST MEDICAL ADVICE Disposition Time: 10:33 Condition: STABLE Forms: [employer] ([place])
[2018-09-28] MEDS ORDERED: Morphine 15 mg Immediate Release Tab PO ONE (10:14)
--- NOTE | 2018-09-28 10:40 | PCM.RRT ---
<Chavez Dejesus - Last Filed: 09/28/18 10:46> PACKING TRACTOR MACHINE OPERATOR Nurse Assessment - Situation Date: 09/28/18 Time PACKING TRACTOR MACHINE OPERATOR was called: 09:34 PACKING TRACTOR MACHINE OPERATOR Responder Arrival Time: 09:37 PACKING TRACTOR MACHINE OPERATOR Location:: Front Entrance of Hospital PACKING TRACTOR MACHINE OPERATOR Called By: Other Disciplines - IV IV Inserted during PACKING TRACTOR MACHINE OPERATOR?: No - Respiratory Oxygen Delivery Method: Room Air - Diagnostic Test Ordered CT Scan: Yes (Head, cervical, lumbar) - Vital Signs Vital Sign: See ED VS - Irvin Coma Scale Coma Scale Eye Opening: Spontaneous Coma Scale Motor: Obeys Commands Movement Coma Scale Verbal: Oriented - Recommendations 5) PACKING TRACTOR MACHINE OPERATOR Level of Care Recommendations: Transfer to ED for eval I.Reason for PACKING TRACTOR MACHINE OPERATOR - A) Acute Change in Patient: Subjective: PACKING TRACTOR MACHINE OPERATOR was called overhead for patient located outside of hospital main entrance. Patient was arriving for scheduled HD. Patient primary mode of transportation is via automatic wheelchair. He was being brought to his HD session via van. As the patient was being transported from the van to the sidewalk via automatic lift within the van his wheel chair and patient started to fall sideways. steam train driver described fall as mechanical and controlled. Patient and grievance and appeals specialist deny head trauma. Medical staff arrived after PACKING TRACTOR MACHINE OPERATOR was called. Patient cervical spine was immobilized with the use of hands and later stabilized with cervical collar. Patient was transferred via EMT personnel to [facility]. Patient care was transferred to accepting ED attending Dr. Ray. - Neurological Status (Select all that apply): Alert, Responsive, Oriented, Verbal, Follows Commands - Respiratory Oxygen Delivery Method: Room Air - Constitutional Appears: Non-toxic, No Acute Distress - Head Head Exam: ATRAUMATIC, NORMAL INSPECTION, NORMOCEPHALIC - Eyes Eye Exam: EOMI, PERRL - Respiratory Exam Respiratory Exam: Clear to Ausculation Bilateral, NORMAL BREATHING PATTERN - Cardiovascular Exam Cardiovascular Exam: REGULAR RHYTHM, +S1, +S2 - GI/Abdominal Exam GI & Abdominal Exam: Soft, Normal Bowel Sounds - Neurological Exam Neurological Exam: Alert, Awake, Oriented x3 Plan - Assessment of Findings&Treatment Plan Patient to be transferred to [facility] for further evaluation to include Head, Cervical and Lumbar CT. <Britton Markham - Last Filed: 09/28/18 12:26> Attending/Attestation - Attestation I have personally seen and examined this patient.: Yes I have fully participated in the care of the patient.: Yes I have reviewed all pertinent clinical information, including history, physical exam and plan: Yes
== END 2018-09-28 11:01 | disposition left against medical advice (07) ==
LOC: ED 09:50
DX: M54.9 Dorsalgia, unspecified (principal); W19.XXXA Unspecified fall, initial encounter; Y92.480 Sidewalk as the place of occurrence of the external cause; I48.91 Unspecified atrial fibrillation; G47.33 Obstructive sleep apnea (adult) (pediatric); I25.10 Atherosclerotic heart disease of native coronary artery without angina pectoris; I73.9 Peripheral vascular disease, unspecified; N18.6 End stage renal disease; Z99.2 Dependence on renal dialysis; I50.22 Chronic systolic (congestive) heart failure

== ENCOUNTER 2018-11-05 14:52 | Outpatient (CLI) | payer MEDICARE | END 2018-11-05 14:53 | disposition home or self-care (01) | LOC: RAD 14:53 ==

== ENCOUNTER 2018-11-07 12:34 | Inpatient (IN) | payer MEDICARE ==
--- NOTE | 2018-11-07 13:47 | ED PDOC ---
Arrival/HPI - General Chief Complaint: Shortness Of Breath Time Seen by Provider: 11/07/18 12:39 Historian: Patient - History of Present Illness Narrative History of Present Illness (Text): 11/07/18 13:44 78 year old male, whose past medical history includes AICD (EF: 22%), atrial fibrillation (Not on AC), CAD, PAD, ESRD on HD (MWF), APCKD s/p right nephrectomy, JOSE on CPAP, LLE ulcer, and chronic back pain, AICD placement, ri ght chest wall HD access, thyroidectomy, right nephrectomy, presents to the emergency department complaining of shortness of breath, tremulous hands, and weakness in his legs since last night. Patient states he was receiving dialysis today when his "fisiculations"/ tremors began again. Patient also states he has been experiencing R gluteal pain that radiates to his back for the past 2 weeks. He has been following up with Dr. Salter for pain management and has been taking percocet with some relief. Of note, patient has bilateral ulcer wounds that he has been seeing Dr. Ding for. On baseline, patient normally uses a scooter, does not ambulate on his own. Of note, patient had a lumbar spine CT on 11/06 which states, "There is a severe compression fracture of the L5 that is probably acute. There is a transverse fracture line extedning through the upper portion of the vertebral body. There is no retropulsion of bone into the spinal canal. Sever spinal stenosis a multiple levels." The patient denies fevers, chills, headache, dizziness, chest pain, dyspnea on exertion, cough, abdominal pain, nausea, vomiting, diarrhea, urinary/bowel changes, or any other complaint. Operations Research Manager: Dr. Coyle 11/07/18 15:50 11/07/18 19:22 Time/Duration: 24 hours Symptom Onset: Gradual Symptom Course: Unchanged Activities at Onset: Light Context: Home Past Medical History - Provider Review Nursing Documentation Reviewed: Yes - Infectious Disease Hx of Infectious Diseases: None - Cardiac Hx Congestive Heart Failure: Yes Hx Pacemaker: Yes - Pulmonary Hx Pneumonia: Yes Hx Sleep Apnea: Yes (sleeps with CPAP) - Neurological Hx Neurological Disorder: No - HEENT Hx Deafness: Yes - Renal Hx Renal Failure: Yes - Endocrine/Metabolic Other/Comment: Thyroidectomy - Hematological/Oncological Hx Blood Disorders: No - Integumentary Hx Dermatological Disorder: No - Musculoskeletal/Rheumatological Hx Back Pain: Yes Hx Falls: No - Gastrointestinal Hx Gastrointestinal Disorders: No - Genitourinary/Gynecological Hx Genitourinary Disorders: No - Psychiatric Hx Psychophysiologic Disorder: No Hx Substance Use: No - Surgical History Hx Thyroidectomy: Yes Other/Comment: nephrectomy - Anesthesia Hx Anesthesia: Yes Hx Anesthesia Reactions: No Hx Malignant Hyperthermia: No Family/Social History - Physician Review Nursing Documentation Reviewed: Yes Family/Social History: No Known Family HX Smoking Status: Never Smoked Hx Alcohol Use: No Hx Substance Use: No Allergies/Home Meds Allergies/Adverse Reactions: Allergies No Known Allergies Allergy (Verified 06/04/18 11:29) Home Medications: Home Meds Medication Instructions Recorded Confirmed Acetaminophen [Acetaminophen 8 650 mg PO Q6 PRN 05/10/18 05/10/18 Hour] Albuterol Sulfate 2.5 mg IH Q4 PRN 05/10/18 05/10/18 Benzonatate [Tessalon Perle] 100 mg PO BID 05/10/18 05/10/18 Bisacodyl [Dulcolax] 10 mg RC HS PRN 05/10/18 05/10/18 Colchicine [Mitigare] 0.6 mg PO TTS 05/10/18 05/10/18 Collagenase [Santyl] 250 unit TP DAILY 05/10/18 05/10/18 Docusate [Colace] 100 mg PO BID 05/10/18 05/10/18 Hydrocortisone 2.5% 2.5 g TP BID PRN 05/10/18 05/10/18 Hydromorphone HCl [Dilaudid] 4 mg PO Q6 PRN 05/10/18 05/10/18 Lactulose [Generlac] 10 gm PO Q8 PRN 05/10/18 05/10/18 Polyethylene Glycol 3350 [Miralax] 30 ml PO DAILY PRN 05/10/18 05/10/18 Protein Hydrolysate,Milk [Liquid 30 ml PO BID 05/10/18 05/10/18 Protein Fortifier] Tamsulosin HCl [Flomax] 0.4 mg PO DAILY 05/10/18 05/10/18 Temazepam [Restoril] 15 mg PO HS 05/10/18 05/10/18 Turmeric Root Extract [Turmeric] 500 mg PO BID 05/10/18 05/10/18 Venlafaxine [Effexor XR] 37.5 mg PO DAILY 05/10/18 05/10/18 Review of Systems - Review of Systems Constitutional: absent: Fevers Eyes: absent: Vision Changes ENT: absent: Hearing Changes Respiratory: SOB. absent: Cough, Sputum, Wheezing Cardiovascular: absent: Chest Pain Gastrointestinal: absent: Abdominal Pain, Constipation, Diarrhea, Nausea, Vomiting Musculoskeletal: Back Pain, Other (R sided gluteal pain ). absent: Neck Pain Skin: Ulcer Neurological: Other (tremors). absent: Headache, Dizziness, Focal Weakness, Gait Changes, Speech Changes, Facial Droop Physical Exam Vital Signs Reviewed: Yes Temperature: Afebrile Blood Pressure: Normal Pulse: Tachycardic Respiratory Rate: Normal Appearance: Positive for: Well-Appearing, Non-Toxic, Comfortable Pain Distress: None Mental Status: Positive for: Alert and Oriented X 3 - Systems Exam Head: Present: Atraumatic, Normocephalic Pupils: Present: PERRL Extroacular Muscles: Present: EOMI Conjunctiva: Present: Normal Mouth: Present: Moist Mucous Membranes Neck: Present: Normal Range of Motion Respiratory/Chest: Present: Clear to Auscultation, Good Air Exchange, Other (pacemaker to the left chest wall, right side diaylsis port). No: Respiratory Distress, Accessory Muscle Use Cardiovascular: Present: Normal S1, S2, Irregular Rhythm, Tachycardic. No: Murmurs Abdomen: No: Tenderness, Distention, Peritoneal Signs Back: Present: Normal Inspection. No: CVA Tenderness Upper Extremity: Present: Normal Inspection, Other (full strength in b/l upper extremities). No: Cyanosis, Edema Lower Extremity: Present: Normal ROM (wiggles b/l toes (baseline per patient)), Other (bilateral venous stasis, bilateral foot ulcers, necrotic odorous lesion on the posterior right leg and heel). No: Edema Neurological: Present: GCS=15, CN II-XII Intact, Speech Normal Skin: Present: Warm, Dry, Normal Color. No: Rashes Psychiatric: Present: Alert, Oriented x 3, Normal Insight, Normal Concentration Medical Decision Making ED Course and Treatment: 11/07/18 13:48 Impression: 78 year old male who presents to the emergency department complaining of shortness of breath and R gluteal pain. Plan: -- Head CT w/o contrast -- EKG -- Labs -- Chest X-ray -- Reassess and disposition Prior Visits: Notes and results from previous visits were reviewed. Progress Notes: 11/07/18 14:[address] Camejo who recommends administration of vancomycin and zosyn and admission to the hospital for worsening leg wound. He also requests Dr. Rodriguez for I&D. The podiatry resident was made aware. 11/07/18 14:40 Chest X-ray reviewed by radiologist, shows: IMPRESSION: No active disease. 11/07/18 15:11 Dr. Reza aware of the patient 11/07/18 15:51 Patient to be sent back to finish dialysis 11/07/18 16:31 11/07/18 17:[address] w/o contrast reviewed by radiologist, shows: IMPRESSION: no intracranial mass, hemorrhage or evidence of acute infarct. Age related atrophy and chronic white matter ischemic change. 11/07/18 19:22 - Lab Interpretations I have reviewed the lab results: Yes - RAD Interpretation Radiology Orders: 11/07/18 13:11 CHEST PORTABLE [RAD] Stat 11/07/18 13:12 HEAD W/O CONTRAST [CT] Stat Tightening Machine Operator: Radiologist - EKG Interpretation Interpreted by ED Physician: Yes Type: 12 lead EKG - Scribe Statement The provider has reviewed the documentation as recorded by the Scribe Valery Harp All medical record entries made by the Scribe were at my direction and personally dictated by me. I have reviewed the chart and agree that the record a ccurately reflects my personal performance of the history, physical exam, medical decision making, and the department course for this patient. I have also personally directed, reviewed, and agree with the discharge instructions and disposition. Disposition/Present on Arrival - Present on Arrival Any Indicators Present on Arrival: No History of DVT/PE: No History of Uncontrolled Diabetes: No Urinary Catheter: No History of Decub. Ulcer: No History Surgical Site Infection Following: None - Disposition Have Diagnosis and Disposition been Completed?: Yes Diagnosis: Wound of foot, Compression fracture, Spinal stenosis, Back pain, ESRD (end stage renal disease), Atrial fibrillation Disposition: HOSPITALIZED Disposition Time: 15:11 Patient Plan: Admission Patient Problems: Current Active Problems Problem Status Onset Atrial fibrillation Acute Back pain Acute Compression fracture Acute ESRD (end stage renal disease) Acute Spinal stenosis Acute Wound of foot Acute Condition: FAIR
[2018-11-07] MEDS ORDERED: Morphine 4 mg/ml ISec IVP STA ×2 (13:54→17:53)
[2018-11-07] MEDS ORDERED: Vancomycin 1gm in NS 250ml 1 GM/250 ML BAG IVPB STA (14:10)
[2018-11-07] MEDS ORDERED: Piperacillin/Tazobact 3.375 gm 100 ML IVPB STA (14:11)
[2018-11-07 14:16] LABS: BASO # 0.07 K/mm3 (0.0-2.0); BASO % 0.6 % (0.0-3.0); EOS # 0.3 (0.0-0.7); EOS % 2.8 % (1.5-5.0); HEMOGLOBIN 11.3 g/dL (14.0-18.0); LYMPH # 1.4 (1.2-3.4); LYMPH % 12.7 % (22.0-35.0); MEAN CELL VOLUME 95.5 fl (80.0-105.0); MEAN CORPUSCULAR HGB CONC 31.4 g/dl (31.0-37.0); MEAN PLATELET VOLUME 9.9 fl (7.0-11.0); MONO # 0.7 (0.1-0.6); MONO % 6.1 % (1.0-6.0); RBC 3.77 10^6/uL (3.5-6.1); RED CELL DISTRIBUTION WIDTH 16.8 % (11.5-14.5); WHITE BLOOD COUNT 10.8 10^3/uL (4.5-11.0)
--- NOTE | 2018-11-07 14:25 | RAD ---
Date of service: 11/07/2018 HISTORY: fatigue COMPARISON: 05/30/2018 TECHNIQUE: 1 view obtained. FINDINGS: LUNGS: No active pulmonary disease. PLEURA: No significant pleural effusion identified, no pneumothorax apparent. CARDIOVASCULAR: Aortic calcification Moderate cardiomegaly. No pulmonary vascular congestion. OSSEOUS STRUCTURES: No significant abnormalities. VISUALIZED UPPER ABDOMEN: Normal. OTHER FINDINGS: Dual lead pacemaker. Dialysis catheter. IMPRESSION: No active disease.
[2018-11-07 15:01] VITALS: BP 108/74; PULSE 110; TEMP 97.6; O2SAT 91
[2018-11-07 15:31] LABS: ALB/GLOB RATIO 0.9 (1.1-1.8); ALBUMIN 3.9 g/dL (3.0-4.8); CALCIUM 9.7 mg/dL (8.4-10.5)
[2018-11-07 15:42] LABS: TROPONIN I 0.05 ng/mL
--- NOTE | 2018-11-07 17:03 | CT ---
Date of service: 11/07/2018 PROCEDURE: CT HEAD WITHOUT CONTRAST. HISTORY: tremors COMPARISON: None available. TECHNIQUE: Axial computed tomography images were obtained through the head/brain without intravenous contrast. Radiation dose: Total exam DLP = 945.28 mGy-cm. This CT exam was performed using one or more of the following dose reduction techniques: Automated exposure control, adjustment of the mA and/or kV according to patient size, and/or use of iterative reconstruction technique. FINDINGS: HEMORRHAGE: No intracranial hemorrhage. BRAIN: No mass effect or edema. Mild diffuse atrophy consistent with age. Moderate patchy periventricular deep white matter lucency consistent with microvascular white matter ischemic change. No evidence of acute infarct. There is a small cortical calcification right posterior parietal region, of uncertain significance. VENTRICLES: Unremarkable. No hydrocephalus. CALVARIUM: Unremarkable. PARANASAL SINUSES: Unremarkable as visualized. No significant inflammatory changes. MASTOID AIR CELLS: Unremarkable as visualized. No inflammatory changes. OTHER FINDINGS: None. IMPRESSION: No intracranial mass, hemorrhage or evidence of acute infarct. Age related atrophy and chronic white matter ischemic change.
--- NOTE | 2018-11-07 18:45 | CARD ---
APPROVED REPORT Date of service: 11/07/2018 EKG Measurement Heart [id number] <Conclusion> Atrial fibrillation with rapid ventricular response with premature ventricular or aberrantly conducted complexes Right bundle branch block Possible Anterolateral infarct, age undetermined Abnormal ECG
[2018-11-07] MEDS ORDERED: ACETAMINOPHEN 650 MG PO PRN (19:04)
[2018-11-07] MEDS ORDERED: Albuterol 0.083% Inhal Sol (2.5 mg/3 mL) UD IH PRN (19:04)
[2018-11-07] MEDS ORDERED: HYDROmorphone 0.5 mg/0.5 ml ISec IVP PRN (19:09)
[2018-11-07 19:42] LABS: IRON 80 ug/dL (45-180)
[2018-11-07 20:04] LABS: % IRON SATURATION 40 % (20-55); TOTAL IRON BINDING CAPACITY 200 ug/dL (261-462)
--- NOTE | 2018-11-07 21:59 | HP ---
DATE OF EXAM: 11/07/2018 The patient is seen and examined at the bedside on 11/07/2018. CHIEF COMPLAINT: Shortness of breath, pain in the leg. HISTORY OF PRESENT ILLNESS: Mr. Joel Morales is a 78-year-old male with past medical history of AICD, ejection fraction 22%, atrial fibrillation not on anticoagulation, has history of coronary artery disease, peripheral artery disease, end-stage renal disease on hemodialysis, history of right nephrectomy, also sleep apnea on CPAP, left lower extremity ulcer and chronic back pain, history of right chest wall AICD placement, thyroidectomy, right nephrectomy, came to emergency department complaining of shortness of breath, tremulous hands and weakness in his legs since last night. The patient states that he was repeating dialysis today when his fascicular fasciculations, tremors began. The patient also states that he has been experiencing left gluteal pain that radiates to his back for the past two weeks. He has been been med managing with Dr. Baeza. The patient normally uses his scooter, does not ambulate on his own. The patient had lumbar spine CT on 11/06/2018, with severe compression fracture of L5 acute. There is a transverse fracture line ascending through the upper portion of the vertebral body. There is no retropulsion of bone into the spinal cord, severe spinal stenosis. We admitted the patient. The patient's tar heel is Dr. Coyle with consult with Dr. Brad Braga, a new surgery consult called. PAST MEDICAL HISTORY: As above. Sleep apnea with the CPAP, sleeps with the CPAP. Thyroidectomy and nephrectomy. FAMILY HISTORY: Father and mother, noncontributory. HABITS: Never smoked. No drugs. No ethanol. ALLERGIES: THE PATIENT IS NOT ALLERGIC WITH ANY MEDICATION. HOME MEDICATIONS: Tylenol, Tessalon Perles, colchicine, Santyl, Colace, Dilaudid, lactulose, Flomax, and Restoril. REVIEW OF SYSTEMS: The patient seen and examined at the bedside in the ER, having pain in the back, shortness of breath. No fever. No chills. No chest pain. No abdominal pain. No nausea, vomiting, or diarrhea. No headache. PHYSICAL EXAMINATION VITAL SIGNS: Temperature 97.6, pulse 110, blood pressure 108/76, respiratory rate 20. HEENT: Head is normocephalic and atraumatic. Eyes; PERRLA. Extraocular muscles are intact. Conjunctivae clear. Nose patent. NECK: Supple. No carotid bruit. No JVD or thyromegaly. CHEST: Bilateral symmetrical. HEART: S1 and S2 positive. LUNGS: Clear to auscultation. ABDOMEN: Soft. Bowel sounds present. No organomegaly. EXTREMITIES: No edema. No cyanosis. NEUROLOGIC: The patient is awake, alert, moving all four extremities. No focal deficit. LABORATORY DATA: White blood cell count 10.8, hemoglobin 11.3, hematocrit 36.0, platelets 135. Sodium 133, potassium 5.1, chloride 89, BUN 41, creatinine 4.7, alkaline phosphatase 212. ASSESSMENT AND PLAN: Mr. Joel Morales is a 78-year-old male with anemia, hyperkalemia, hypochloremia, renal insufficiency on hemodialysis, came with tremors, shortness of breath, leg pain. CT scan of the head done, no intracranial mass, hemorrhage or evidence of acute infarction, age related atrophy and chronic white matter ischemic changes. Chest x-rays reviewed by me. He has history of automatic implantable cardioverter-defibrillator ejection fraction 22%, atrial fibrillation, coronary artery disease, peripheral artery disease, end-stage renal disease on hemodialysis Monday, Monday and Monday, obstructive sleep apnea on continuous positive airway pressure, left lower extremity ulcer, chronic back pain, thyroidectomy, nephrectomy, and now has compression fracture of L5, intractable leg pain and ulcer with cellulitis of the leg. Gastrointestinal and deep venous thrombosis prophylaxis. Repeat labs. Discussion done with the emergency room physician. We will call a consult with Infectious Disease. We will follow up. Cultures from the wound and blood done. Jackie Reza MD
--- NOTE | 2018-11-08 00:24 | CON ---
DATE OF CONSULTATION: 11/07/2018 REASON FOR CONSULTATION: Severe pain, hypotension, ESRD, need for dialysis. HISTORY OF PRESENTING ILLNESS: A 78-year-old male with a history of AICD, decreased ejection fraction, atrial fibrillation, CAD, PAD, ESRD, polycystic kidney disease, right nephrectomy, obstructive sleep apnea on CPAP, chronic stasis changes, chronic lower extremity edema, chronic lower extremity ulcers, severe DJD, right nephrectomy for renal cell CA, was sent to the emergency room from dialysis. The patient presented to dialysis this morning complaining of weakness, severe pain in his legs, shaking of his hands, tingling, some slurred speech. 90 minutes into dialysis, he had severe pain, he was complaining of fasciculations. The patient had a recent CT scan of his spine done on 11/06/2018, which showed severe compression fracture of L5, which was thought to be likely acute. In the emergency room, he was found to be mildly hypotensive with a blood pressure of 108/74. His heart rate was 110. He was found to be afebrile. His blood work showed a WBC count of 10.8, hemoglobin of 11, potassium of 5.1. He was found to have foul-smelling ulcers of his left heel, chronic stasis changes, and erythema of the lower extremities. PAST MEDICAL AND SURGICAL HISTORY: As mentioned in the history of presenting illness. FAMILY HISTORY: Noncontributory. SOCIAL HISTORY: No smoking, no alcohol use, no IV drug abuse. ALLERGIES: NO KNOWN DRUG ALLERGIES. MEDICATIONS AT HOME: Effexor 37.5, Flomax, Renagel, Synthroid. REVIEW OF SYSTEMS: Severe pain in the lower back radiating down the legs, tingling of the legs, excruciating pain. All the other systems are reviewed and unremarkable. PHYSICAL EXAMINATION: GENERAL: Obese, elderly male, lying in bed. VITAL SIGNS: Blood pressure 108/64, heart rate 110, respiratory rate 20, temperature 97.6. HEENT: Normocephalic, atraumatic, positive pallor. NECK: Supple, no JVD. LUNGS: Bilateral equal entry, bilateral equal expansion. CARDIAC: S1 and S2, regular rate and rhythm, no murmurs, no rubs. ABDOMEN: Obese, distended, soft, nontender, bowel sounds present. EXTREMITIES: Discolored lower legs, ulcers on both heels, ulcers on the medial aspect of the cast, foul-smelling drainage. LABORATORY DATA: WBC 10.8, hemoglobin 11, hematocrit 36, platelets 135. Sodium 133, potassium 5.1, chloride 89, CO2 of 28, BUN 41, creatinine 4.7, glucose 88, calcium 9.7, phosphorus 4.1 magnesium 2.1. Iron saturation 40, iron 80, troponin 0.05, albumin 3.9. His CT of the lumbar spine done on 11/05/2018, severe compression fracture of the L5, which is likely acute, transverse fracture extending through the upper portion of the left up to vertebral body, severe spinal stenosis. ASSESSMENT: 1. Severe compression fracture of the L5. 2. Infected lower extremity ulcers. 3. Chronic hypotension. 4. Severe pain secondary to severe spinal stenosis and compression fracture likely. 5. End-stage renal disease. 6. Total body volume overload. PLAN: 1. Dialysis today, ultrafiltration 3 kg. 2. Ultrafiltration tomorrow. 3. Podiatry evaluation. 4. ID evaluation. 5. Brad Braga to evaluate for possible kyphoplasty. Jodie Coyle MD
[2018-11-08 04:43] VITALS: BMI 13.6
[2018-11-08 04:49] VITALS: RESP 20
[2018-11-08] MEDS ORDERED: Venlafaxine 37.5 mg ER Cap PO SCH (10:00)
[2018-11-08 13:39] LABS: FOLATE 19.6 ng/mL
[2018-11-09] MEDS ORDERED: ceFAZolin IV 2 gm in Dextrose 2 GM/50 ML BAG IVPB SCH (10:00)
[2018-11-09] MEDS ORDERED: DEXTROSE IVPB SCH (10:00)
[2018-11-09] MEDS ORDERED: CEFAZOLIN IVPB SCH (10:00)
[2018-11-09] MEDS ORDERED: LEVOTHYROXINE PO SCH (10:00)
== END 2018-11-07 21:54 | disposition left against medical advice (07) | DRG 542 ==
LOC: ED 12:34 → ERH 16:18 → 5RSO 19:23
PROVIDERS: ADMIT Internal Medicine; ATTEND Internal Medicine
DX: M48.56XA Collapsed vertebra, not elsewhere classified, lumbar region, initial encounter for fracture (principal); N18.6 End stage renal disease; Q61.3 Polycystic kidney, unspecified; L97.429 Non-pressure chronic ulcer of left heel and midfoot with unspecified severity; L03.119 Cellulitis of unspecified part of limb; M48.00 Spinal stenosis, site unspecified; D64.9 Anemia, unspecified; E87.5 Hyperkalemia; E87.8 Other disorders of electrolyte and fluid balance, not elsewhere classified; Z85.528 Personal history of other malignant neoplasm of kidney; Z90.5 Acquired absence of kidney; Z95.0 Presence of cardiac pacemaker; Z87.01 Personal history of pneumonia (recurrent); Z99.2 Dependence on renal dialysis; I73.9 Peripheral vascular disease, unspecified; I50.9 Heart failure, unspecified; I48.91 Unspecified atrial fibrillation; I25.10 Atherosclerotic heart disease of native coronary artery without angina pectoris; I95.89 Other hypotension; H91.90 Unspecified hearing loss, unspecified ear; E89.0 Postprocedural hypothyroidism; G47.33 Obstructive sleep apnea (adult) (pediatric)

== ENCOUNTER → 2018-11-21 | Day surgery (SDC) | payer MEDICARE ==
[2018-11-08 04:43] VITALS: BMI 13.6
[~2018-11-21] MED LIST: Lidocaine PF 2% (5 ml) Inj (For Cardiac Arrhy) ONE; Midazolam 2 MG/2 ML VIAL ONE
[2018-11-21 07:45] LABS: BASO # 0.15 K/mm3 (0.0-2.0); BASO % 1.3 % (0.0-3.0); EOS # 0.4 (0.0-0.7); EOS % 3.5 % (1.5-5.0); HEMOGLOBIN 10.5 g/dL (14.0-18.0); LYMPH # 1.6 (1.2-3.4); LYMPH % 13.7 % (22.0-35.0); MEAN CELL VOLUME 96.8 fl (80.0-105.0); MEAN CORPUSCULAR HEMOGLOBIN 30.3 pg (25.0-35.0); MEAN CORPUSCULAR HGB CONC 31.3 g/dl (31.0-37.0); MONO # 0.7 (0.1-0.6); MONO % 6.1 % (1.0-6.0); RBC 3.47 10^6/uL (3.5-6.1); RED CELL DISTRIBUTION WIDTH 17.6 % (11.5-14.5); WHITE BLOOD COUNT 11.4 10^3/uL (4.5-11.0)
[2018-11-21 07:49] LABS: INR 1.33; PARTIAL THROMBOPLASTIN TIME 37.9 Seconds (26.9-38.3)
[2018-11-21 07:53] LABS: CALCIUM 9.3 mg/dL (8.4-10.5)
[2018-11-21 08:23] VITALS: TEMP 97.4
[2018-11-21 10:32] VITALS: RESP 18; O2SAT 96
[2018-11-21 11:48] VITALS: BP 121/74; PULSE 98
--- NOTE | 2018-11-21 17:16 | VASCULAR ---
PROCEDURE: Replace tunneled right IJ dialysis catheter. CLINICAL HISTORY: End stage renal disease. Malfunctioning tunneled dialysis catheter. PHYSICIAN(S): Brad Braga M.D. TECHNIQUE: The relative risks and indications for the procedure were explained to the patient and consent obtained. The patient was placed supine on the arteriogram table and the tunneled right IJ dialysis catheter prepped and draped in the usual sterile fashion. Antibiotics were given prior to the procedure. 1% Xylocaine was used to anesthetize the skin soft tissues at the vein insertion site. A 2 cm incision was performed and the catheter bluntly dissected. Both ends of the catheter controlled and the catheter transected. The cuff and soft tissue portion of the catheter were anesthetized with 1% Xylocaine. Blunt dissection was performed. The cuffed portion of the catheter was removed. A 0.035 angled Glidewire was advanced through the catheter fragment and placed in the IVC. The old catheter was removed. The sheath was placed for the new catheter insertion. A 28cm Nextgen catheter was advanced with its tip in the right atrium. A new retrograde tunnel below right clavicle was performed. The catheter was trimmed and the hub attached. Both ports aspirate and inject easily. The catheter was secured. The incision was closed with interrupted sutures. FINDINGS: IMPRESSION: 1. Replacement of the patient's tunneled right IJ dialysis catheter. A 28 cm Nextgen catheter was placed with its tip in the right atrium.
== END | disposition home or self-care (01) ==
LOC: SDS 06:57
PROVIDERS: ATTEND Radiology Vascular & Interventional Radiology
DX: T82.41XA Breakdown (mechanical) of vascular dialysis catheter, initial encounter (principal); I12.0 Hypertensive chronic kidney disease with stage 5 chronic kidney disease or end stage renal disease; N18.6 End stage renal disease; Z95.0 Presence of cardiac pacemaker; Z88.8 Allergy status to other drugs, medicaments and biological substances; Y84.8 Other medical procedures as the cause of abnormal reaction of the patient, or of later complication, without mention of misadventure at the time of the procedure
CPT/HCPCS: 36415; 36581; 80048; 85025; 85610; 85730; 99152; C1750; C1769; J0690; J1644; J2250; J2405; J3010